=== PATIENT | male | born 1955 | race Caucasian/White ===

== ENCOUNTER 2020-02-16 15:32 | Outpatient (REF) | payer MEDICARE, MEDICAID, SELFPAY | END 2020-02-16 15:33 | disposition home or self-care (01) | LOC: HO.HAP 15:32 | PROVIDERS: PCP Internal Medicine; Referring Provider Internal Medicine; Visit Provider Internal Medicine | DX: Z13.89 Encounter for screening for other disorder (principal) | CPT/HCPCS: 92700 ==

== ENCOUNTER 2020-03-06 07:34 | Day surgery (SDC) | payer MEDICARE, MEDICAID, SELFPAY ==
[2020-03-06] VITALS (8 sets, daily range): BP systolic 101–118; BP diastolic 62–74; PULSE 60–80; RESP 16–18; TEMP 36.3; O2SAT 94–96; BMI 25.1
--- NOTE | 2020-03-06 | US_ITS ---
EXAMINATION: ULTRASOUND-GUIDED LIVER BIOPSY CLINICAL INFORMATION: History of hepatocellular carcinoma with new liver lesion COMPARISON: Outside CT scans of the abdomen and pelvis most recent December 2019 TECHNIQUE: Procedure and risks and benefits including bleeding, and infection were discussed with the patient and informed consent was obtained. The patient was positioned in the slight left decubitus position. The right upper quadrant was prepped and draped in the usual sterile fashion. The skin and soft tissues were anesthetized with 1% lidocaine plain. Using ultrasound guidance and a coaxial system, access to a 1 x 1.5 cm lesion in the right lobe of the liver was obtained. 4 20-gauge core biopsies were obtained. There is no complication. The patient received Versed 1.5 mg and fentanyl 75 mcg intravenously during the procedure. Total sedation time was 32 minutes. FINDINGS: The liver appears cirrhotic. Liver lesions seen by CT scan are difficult to appreciate by ultrasound. A 1 x 1.5 cm peripheral hypoechoic lesion in the inferior right lobe of the liver was targeted for biopsy. US/US guide needle placement IMPRESSION: Ultrasound-guided liver biopsy.
--- NOTE | 2020-03-06 08:04 | PC.NURSE ---
called lab for a blood draw.
--- NOTE | 2020-03-06 08:38 | US_ITS ---
EXAMINATION: ULTRASOUND-GUIDED LIVER BIOPSY CLINICAL INFORMATION: History of hepatocellular carcinoma with new liver lesion COMPARISON: Outside CT scans of the abdomen and pelvis most recent December 2019 TECHNIQUE: Procedure and risks and benefits including bleeding, and infection were discussed with the patient and informed consent was obtained. The patient was positioned in the slight left decubitus position. The right upper quadrant was prepped and draped in the usual sterile fashion. The skin and soft tissues were anesthetized with 1% lidocaine plain. Using ultrasound guidance and a coaxial system, access to a 1 x 1.5 cm lesion in the right lobe of the liver was obtained. 4 20-gauge core biopsies were obtained. There is no complication. The patient received Versed 1.5 mg and fentanyl 75 mcg intravenously during the procedure. Total sedation time was 32 minutes. FINDINGS: The liver appears cirrhotic. Liver lesions seen by CT scan are difficult to appreciate by ultrasound. A 1 x 1.5 cm peripheral hypoechoic lesion in the inferior right lobe of the liver was targeted for biopsy. US/US biopsy liver IMPRESSION: Ultrasound-guided liver biopsy.
[2020-03-06 08:47] LABS: Prothrombin Time 11.8 SEC (10.8-13.0)
--- NOTE | 2020-03-06 10:15 | HO.RADPN ---
RADIOLOGY Narrative Narrative: Right lobe liver biopsy performed using coaxial system. 4 20 guage core biopsies obtained. No comlication.
[2020-03-06] MEDS: oxyCODONE HCl Immed Release 5 MG TABLET PO (10:46)
== END 2020-03-06 23:59 | disposition home or self-care (01) ==
PROVIDERS: Radiology Diagnostic Radiology; PCP Internal Medicine; Visit Provider Internal Medicine
DX: K74.60 Unspecified cirrhosis of liver (principal); B18.2 Chronic viral hepatitis C; Z85.05 Personal history of malignant neoplasm of liver; Z90.49 Acquired absence of other specified parts of digestive tract; Z90.81 Acquired absence of spleen
CPT/HCPCS: 36415; 47000; 76942; 85610; 85730; 88307; 88313; 99152; J2250; J3010

== ENCOUNTER 2020-03-08 13:35 | Outpatient (REF) | payer MEDICARE, MEDICAID, SELFPAY ==
--- NOTE | 2020-02-29 17:10 | MHC.HEMONC ---
LIVER BX - Pt scheduled for US guided liver bx for Friday @ 9am here at [facility]. Transportation to this visit will be provided by his community center director, Ana Jose R @ [phone]. They received all instructions from US/IR department re: NPO orders. Jessika Leyva, his VNA nurse from [facility], , will remove Plavix and ASA from his med box 5 days prior to this bx. Per Dr. Lanre meléndez V.O. to resume Plavix and ASA the following day was relayed to Jessika.
== END 2020-03-08 13:36 | disposition home or self-care (01) ==
LOC: HO.HAP 13:35
PROVIDERS: PCP Internal Medicine; Referring Provider Internal Medicine; Visit Provider Internal Medicine
DX: Z13.89 Encounter for screening for other disorder (principal)
CPT/HCPCS: 92700

== ENCOUNTER 2020-03-28 12:13 | Outpatient (REF) | payer MEDICARE, MEDICAID, SELFPAY ==
--- NOTE | 2020-03-28 12:20 | XR_ITS ---
EXAMINATION: ABDOMEN AND SKULL. CLINICAL INFORMATION: The MRI. COMPARISON: Chest 09/24/2018 TECHNIQUE: Skull 2 views. Abdomen one view. FINDINGS: ABDOMEN: There are multiple surgical mayuri in right upper quadrant likely from previous cholecystectomy or other intervention. There are small coils seen along the the anterior abdominal wall from hernia repair and mesh placement. No additional radiopaque foreign body visualized. There is moderate stool in the colon. There is bilateral L4-L5 facet joint arthropathy.. SKULL: No radiopaque foreign body seen in the skull or the orbits. Patient is almost completely edentulous. XR/XR skull <4V IMPRESSION: Surgical mayuri in the right upper quadrant likely from cholecystectomy of intervention. They were present on the previous chest x-ray 09/24/2018 There is anterior abdominal wall hernia repair with mesh in place.
--- NOTE | 2020-03-28 12:20 | XR_ITS ---
EXAMINATION: ABDOMEN AND SKULL. CLINICAL INFORMATION: The MRI. COMPARISON: Chest 09/24/2018 TECHNIQUE: Skull 2 views. Abdomen one view. FINDINGS: ABDOMEN: There are multiple surgical mayuri in right upper quadrant likely from previous cholecystectomy or other intervention. There are small coils seen along the the anterior abdominal wall from hernia repair and mesh placement. No additional radiopaque foreign body visualized. There is moderate stool in the colon. There is bilateral L4-L5 facet joint arthropathy.. SKULL: No radiopaque foreign body seen in the skull or the orbits. Patient is almost completely edentulous. XR/XR abdomen 1V IMPRESSION: Surgical mayuri in the right upper quadrant likely from cholecystectomy of intervention. They were present on the previous chest x-ray 09/24/2018 There is anterior abdominal wall hernia repair with mesh in place.
--- NOTE | 2020-03-28 12:20 | XR_ITS ---
EXAMINATION: XR CHEST CLINICAL INFORMATION: Pre-MRI. Rule out foreign body COMPARISON: None TECHNIQUE: Frontal view of the chest was obtained. FINDINGS: The lungs are well-expanded and hyperinflated. No acute pneumonic process seen. No radiopaque foreign body. There is diffuse left lateral pleural thickening. Heart size and pulmonary vascularity is normal. No gross bony abnormality. XR/XR chest 1V IMPRESSION: No radiopaque foreign body seen. Hyperinflated lungs with chronic left lateral pleural thickening. No acute cardiopulmonary process seen.
--- NOTE | 2020-03-28 12:21 | MR_ITS ---
EXAMINATION: MR ABDOMEN WITHOUT AND WITH CONTRAST CLINICAL INFORMATION: History hepatocellular carcinoma status post partial right hepatectomy. New hepatic lesions on outside CT. Ultrasound-guided liver biopsy 03/06/2020 (fragments of liver parenchyma with chronic hepatitis with mild inflammatory activity, grade 1, and bridging fibrosis. No steatosis, no hepatocellular carcinoma). COMPARISON: Ultrasound-guided liver biopsy 03/06/2020, outside CT abdomen and pelvis with contrast 12/15/2019 ([facility]). TECHNIQUE: MR abdomen was performed without and with use of 9 mL intravenous Gadavist gadolinium contrast. Postcontrast images are performed in multiphase dynamic sequences. Imaging was performed in 3 planes. FINDINGS: LUNG BASES: The lung bases are clear. LIVER, GALLBLADDER, AND BILIARY TREE: The liver is normal in size and smooth in contour. There are postsurgical changes anterior right lobe with some blooming artifact from surgical clips consistent with the partial hepatectomy. There is been prior cholecystectomy as well. No biliary ductal dilatation. Common duct unremarkable. There are 4 small hepatic lesions under 2 cm suspicious for multifocal hepatocellular carcinoma as follows: 1. Anterior left lobe (S8/33) - 1.8 cm, iso T2, delayed washout with peripheral rim enhancement. 2. Central right lobe (S8/45) - 1.8 cm, high T2, arterial phase enhancement with delayed washout and rim enhancement. 3. Medial right lobe (S8/51) - 1.5 cm, slight T2, arterial phase enhancement with delayed washout and rim enhancement. 4. Inferior medial right lobe (S8/68) - 1.3 cm, slight T2, arterial phase enhancement with delayed washout and rim enhancement. There is a 5th lesion inferior subcapsular right lobe under 2 cm nonspecific with high signal T2, and delayed peripheral enhancement. This may represent a hemangioma. There is also a peripheral wedge-shaped CALOS lesion from portovenous shunting anterolateral right lobe (S100/11). PANCREAS/SPLEEN: Prior splenectomy. Pancreas normal in size and uniform in signal and enhancement. No pancreatic ductal distention. There is a lesion left subphrenic space adjacent to superior aspect pancreatic tail which enhances greater than the spleen, possibly regenerative splenic tissue. This is similar to outside CT and measures approximately 2.7 x 2.2 x 1.3 cm. ADRENAL GLANDS: Unremarkable KIDNEYS AND URETERS: Unremarkable GASTROINTESTINAL TRACT: No bowel obstruction. No ascites or fluid collection. ABDOMINAL WALL: Upper abdominal ventral hernia containing nonobstructed small bowel and mesenteric fat, 2.1 x 4.4 cm. LYMPH NODES: Node gastrohepatic ligament 1.0 cm (S102/28), celiac node 1.4 cm (S102/38) left subphrenic node 0.9 cm (S102/36), node left of SMA 0.8 cm S102/49). VASCULAR: Fusiform mid abdominal aortic ectasia 2.7 x 2.5 cm. Hepatic veins and portal vein patent. OSSEOUS STRUCTURES: Marrow signal normal. MR/MR abdomen wo/w con IMPRESSION: 1. Small hepatic lesions under 2 cm consistent with multifocal hepatocellular carcinoma 3 of which have slight T2 signal, arterial phase enhancement, and delayed washout with rim enhancement. Portal vein and hepatic veins patent. No ascites. 2. Status post partial hepatectomy, splenectomy, and cholecystectomy. Probable regenerative splenic tissue left subphrenic space. 3. Several nodes upper abdomen, largest 1.4 cm.
== END 2020-03-28 12:14 | disposition home or self-care (01) ==
LOC: HO.MRI 12:13
PROVIDERS: Visit Provider Internal Medicine
DX: C22.0 Liver cell carcinoma (principal)
CPT/HCPCS: 70250; 71045; 74018; 74183; A9585

== ENCOUNTER → 2020-04-20 11:55 | Outpatient (BNVA) | payer MEDICARE, MEDICAID, SELFPAY | PROVIDERS: PCP Internal Medicine; Visit Provider Physician Assistant | DX: C22.0 Liver cell carcinoma (principal) | CPT/HCPCS: Q3014 ==

== ENCOUNTER 2020-04-25 09:33 | Day surgery (SDC) | payer MEDICARE, MEDICAID, SELFPAY ==
--- NOTE | 2020-04-24 10:44 | HO.ANESPROP2 ---
HPI - Anesthesia Eval Consult details Narrative: 65yo M for Upper Endoscopy Surveilence prior to chemo with high bleed risk. *plavix* PMFSH Past Medical History Medical History (Updated 04/25/20 @ 12:11 by Aaliyah Downs MD) CVA (cerebral vascular accident) Hepatitis C Hepatocellular carcinoma History of alcohol abuse Liver cirrhosis Family History Family History Father No problems noted. Mother No problems noted. Family/Other FH: mental illness Surgical History Surgical History (Updated 04/24/20 @ 11:51 by Sabrina Garsia) H/O resection of liver (~04/2017) History of splenectomy No pertinent past surgical history Social History Social History Alcohol intake: former Smoking Status: Current every day smoker Tobacco Type: Cigarette Use of substances other than those prescribed or required for medical reasons: No Advance Directives: No Advance Directives Information Provided: No Advance Directives on File: No Meds Allergies Allergy/AdvReac Type Severity Reaction Status Date / Time No Known Allergies Allergy Verified 01/31/20 10:42 Home Medications Medication Instructions Recorded Confirmed Type clonazepam 1 mg tablet 1 mg PO TID PRN 02/01/20 04/20/20 History quetiapine 150 mg tablet,extended 150 mg PO BEDTIME 02/01/20 02/23/20 History release 24 hr sertraline 100 mg tablet 200 mg PO DAILY 02/01/20 04/20/20 History Esgic 50 - 325 mg PO TID PRN 02/24/20 02/24/20 History aspirin 81 mg PO DAILY 02/24/20 04/20/20 History quetiapine 1 tab PO BEDTIME 02/24/20 02/24/20 History divalproex 500 mg PO DAILY 04/12/20 04/20/20 History melatonin 3 mg PO BEDTIME PRN 04/12/20 04/20/20 History multivitamin 1 tab PO DAILY 04/12/20 04/20/20 History Exam Exam Date and Time: April 24, 2020 1044 Pertinent Lab Results Pertinent Lab Results: Laboratory Tests 02/23/20 02/23/20 02/23/20 14:45 14:45 14:45 WBC 10.0 Hgb 15.8 Hct 47.1 Plt Count 345 PT INR APTT Sodium 140 Potassium 4.9 Chloride 102 Carbon Dioxide 30 H BUN 9 Creatinine 0.81 Total Bilirubin 0.6 AST 21 ALT 10 Alkaline Phosphatase 179 H Total Protein 8.0 Albumin 4.1 Alpha Fetoprotein 86.4 H Carcinoembryonic Ag 1.90 Hep B Viral Load Log Hep C Viral Load 02/23/20 03/06/20 14:45 08:24 WBC Hgb Hct Plt Count PT 11.8 INR 1.0 APTT 40.0 H Sodium Potassium Chloride Carbon Dioxide BUN Creatinine Total Bilirubin AST ALT Alkaline Phosphatase Total Protein Albumin Alpha Fetoprotein Carcinoembryonic Ag Hep B Viral Load Log <1.18 NOT DETECTED Hep C Viral Load <15 NOT DETECTED Assessment and Plan Assessment Anesthesia Assessment: Chart Reviewed
[2020-04-24 10:55] VITALS: BMI 24.5
[2020-04-25 11:07] VITALS: BP 112/74; PULSE 61; RESP 18; TEMP 36.2; O2SAT 93
[2020-04-25] MEDS: Albuterol Sulfate (0.083%) 2.5 MG/3 ML VIAL.NEB INHALE (11:20)
--- NOTE | 2020-04-25 11:23 | W.PM.OPN ---
Operative Note Operative Note Date of Service: 04/25/20 Narrative: Pre-op diagnosis: HCC - Screen for PUD/varices Post-op diagnosis: other (Gastritis, GERD, hiatal hernia) Procedure: FLEXIBLE TRANSORAL UPPER GASTROINTESTINAL ENDOSCOPY WITH BIOPSIES Consent: Indications for the procedure and potential complications of bleeding, perforation, reaction to medications and missed diagnosis were discussed with the patient and informed consent was obtained. Instrument: Olympus GIF H 190 mid size upper endoscope Monitoring: Vital signs and clinical assessment, continuous EKG monitoring, Pulse oximetry, Carbon Dioxide monitoring and blood pressure monitoring were done throughout the procedure. Procedure: The patient was placed in the left lateral decubitis position and pre-procedure medications were administered and a bite block was placed. The endoscope was inserted into the mouth and advanced under direct vision to the third part of duodenum. A careful inspection was made as the upper endoscope was withdrawn including a retroflexed examination of the proximal stomach; Findings and interventions are described below. Findings: Larynx: Normal Esophagus: Tortuous esophagus with increased tertiary contractions with minimal focal esophagitis at GE junction. No esophageal varices were detected. GE junction at 35 cms, small hiatal hernia 35 to 38 cms. Stomach: Mild gastric erythema with a few 1-2 mm antral erosions - biopsies were obtained. No gastric varices noted and Grade 3 flap valve on retroflexed examination of the cardia. Duodenum: Normal bulb and descending duodenum Intervention: Biopsies as noted above Impression and Post Procedure Diagnosis: Endoscopy Findings: ESOPHAGUS: Tortuous esophagus with increased tertiary contractions with minimal focal esophagitis at GE junction. GE junction at 35 cms, small hiatal hernia 35 to 38 cms. STOMACH: Antral gastritis with a few small erosions and no ulcers noted DUODENUM: Normal No potential source found which could place patient at risk of UGI bleeding while on Avastin. Plan: Await pathology results Patient to schedule a FU appt in the GI Clinic with MOISES Emanuel. Handouts on GERD and Gastritis were given in the discharge area Surgeon: Aaliyah Downs MD Anesthesia: MAC (Dr Shea) Estimated blood loss (mL): 0 Pathology: other (A. Gastric antrum) Condition: stable Disposition: PACU
--- NOTE | 2020-04-25 11:23 | MHC.SHP ---
Pre-Procedural Eval Section A The patient is an INPATIENT: No Changes since office visit: Yes Patient answered all questions; No Cold of Flu in the past 2 weeks and No New Medical Problems The History & Physical has been completed within 30 days and I have reviewed it.: Yes Section B Chief Complaint: anemia Allergies: Allergies Allergy/AdvReac Type Severity Reaction Status Date / Time No Known Allergies Allergy Verified 01/31/20 10:42 Plan I have reviewed the history and physical and performed a pertinent physical examination on my patient. No changes have occurred unless specified.
[2020-04-25] MEDS: Lactated Ringers 1,000 ML 50 ML IVCONT (11:40)
[2020-04-25 12:05] VITALS: BP 104/58; PULSE 66; RESP 14; TEMP 36.2; O2SAT 95
[2020-04-25 12:20] VITALS: BP 109/59; PULSE 62; RESP 17; TEMP 36.1; O2SAT 96
== END 2020-04-25 13:07 | disposition home or self-care (01) ==
PROVIDERS: PCP Internal Medicine; Visit Provider Internal Medicine Gastroenterology
PROC: 0DJ08ZZ Inspection of Upper Intestinal Tract, Via Natural or Artificial Opening Endoscopic (ICD-10-PCS; CPT 43235; principal; 2020-04-25 10:50)
DX: D64.9 Anemia, unspecified (principal); K29.50 Unspecified chronic gastritis without bleeding; K21.9 Gastro-esophageal reflux disease without esophagitis; K44.9 Diaphragmatic hernia without obstruction or gangrene; C22.0 Liver cell carcinoma; B19.20 Unspecified viral hepatitis C without hepatic coma; K74.60 Unspecified cirrhosis of liver; F17.210 Nicotine dependence, cigarettes, uncomplicated; Z79.899 Other long term (current) drug therapy; Z79.82 Long term (current) use of aspirin; Z86.73 Personal history of transient ischemic attack (TIA), and cerebral infarction without residual deficits
CPT/HCPCS: 43239; 88305; 88342

== ENCOUNTER 2020-05-30 10:32 | Outpatient (REF) | payer MEDICARE, MEDICAID, SELFPAY ==
[2020-05-30 11:36] LABS: Basophils Absolute Auto 0.1 X10*3/uL (0.0-0.2); Basophils Percent Auto 1.1 % (0-2); Eosinophils Absolute Auto 0.5 X10*3/uL (0.0-0.4); Eosinophils Percent Auto 4.9 % (0-4); Hematocrit 46.7 % (42-52); Hemoglobin 15.4 g/dl (14.0-18.0); Imm Gran Abs Auto 0.02 X10*3/uL (0.00-0.03); Imm Gran Pct Auto 0.2 % (0.0-0.4); Lymphocytes Absolute Auto 5.8 X10*3/uL (1.2-4.9); Lymphocytes Percent Auto 53.7 % (20-40); MANUAL DIFF FLAG SCAN; Mean Corpuscular Hemoglobin 32.4 pg (27.0-33.0); Mean Corpuscular Volume 98.3 fL (80-98); Mean Platelet Volume 9.2 fL (9.4-12.4); Monocytes Absolute Auto 0.9 X10*3/uL (0.1-1.2); Monocytes Percent Auto 8.2 % (2-11); Neutrophils Absolute Auto 3.5 X10*3/uL (2.0-8.3); Neutrophils Percent Auto 31.9 % (45-73); Platelet Count 366 X10*3/uL (160-400); Red Blood Count 4.75 X10*6/uL (4.60-5.80); Red Cell Distribution Width 14.1 % (11.0-16.0); SCAN SMEAR FLAG 1; White Blood Count 10.8 X10*3/uL (4.8-10.8)
[2020-05-30 11:48] LABS: Alanine Aminotransferase 6 U/L (0-40); Albumin Level 4.1 g/dL (3.5-5.0); Alkaline Phosphatase 128 U/L (39-117); Anion Gap 15 (12-20); Aspartate Amino Transferase 15 U/L (5-37); Bilirubin Total 0.4 mg/dL (0.0-1.0); Blood Urea Nitrogen 9 mg/dL (9-16); Calcium 9.8 mg/dL (8.4-10.2); Carbon Dioxide 28 mmol/L (22-29); Chloride 104 mmol/L (96-108); Estimated Glomerular Filt Rate > 60; Glucose Random 96 mg/dL (60-115); Magnesium 2.1 mg/dL (1.6-2.6); Potassium 4.9 mmol/L (3.3-5.1); Sodium 142 mmol/L (135-145); Total Protein 8.3 g/dL (6.5-8.0)
[2020-05-30 12:51] LABS: SLIDE REVIEW VERIFIED
== END 2020-05-30 10:33 | disposition home or self-care (01) ==
LOC: HO.LAB 10:32
PROVIDERS: Visit Provider Internal Medicine
DX: C22.0 Liver cell carcinoma (principal)
CPT/HCPCS: 36415; 80053; 83735; 85025

== ENCOUNTER 2020-06-08 11:43 | Outpatient (REF) | payer MEDICARE, MEDICAID, SELFPAY | END 2020-06-08 11:44 | disposition home or self-care (01) | LOC: HO.HAP 11:43 | PROVIDERS: Visit Provider Internal Medicine | DX: Z46.1 Encounter for fitting and adjustment of hearing aid (principal); H90.3 Sensorineural hearing loss, bilateral | CPT/HCPCS: 92593; 99499 ==

== ENCOUNTER 2020-06-15 11:18 | Outpatient (REF) | payer MEDICARE, MEDICAID, SELFPAY | END 2020-06-15 11:19 | disposition home or self-care (01) | LOC: HO.HAP 11:18 | PROVIDERS: Visit Provider Internal Medicine | DX: Z13.89 Encounter for screening for other disorder (principal) ==

== ENCOUNTER 2020-07-11 10:45 | Outpatient (REF) | payer MEDICARE, MEDICAID, SELFPAY ==
[2020-07-11 11:27] LABS: MANUAL DIFF FLAG NO
[2020-07-11 11:38] LABS: Basophils Absolute Auto 0.1 X10*3/uL (0.0-0.2); Basophils Percent Auto 1.3 % (0-2); Eosinophils Absolute Auto 0.3 X10*3/uL (0.0-0.4); Eosinophils Percent Auto 4.3 % (0-4); Hemoglobin 15.6 g/dl (14.0-18.0); Imm Gran Abs Auto 0.01 X10*3/uL (0.00-0.03); Imm Gran Pct Auto 0.1 % (0.0-0.4); Lymphocytes Absolute Auto 4.2 X10*3/uL (1.2-4.9); Lymphocytes Percent Auto 52.4 % (20-40); Mean Corpuscular HGB Conc 33.2 g/dl (31.0-36.0); Mean Corpuscular Hemoglobin 32.6 pg (27.0-33.0); Mean Corpuscular Volume 98.1 fL (80-98); Mean Platelet Volume 9.8 fL (9.4-12.4); Monocytes Absolute Auto 0.9 X10*3/uL (0.1-1.2); Neutrophils Absolute Auto 2.5 X10*3/uL (2.0-8.3); Neutrophils Percent Auto 30.9 % (45-73); Platelet Count 317 X10*3/uL (160-400); Red Blood Count 4.79 X10*6/uL (4.60-5.80); Red Cell Distribution Width 14.1 % (11.0-16.0)
[2020-07-11 11:49] LABS: Glucose Urine UA NEG (NEG); Leukocyte Esterase Urine 1+ (NEG); Nitrite Urine NEG (NEG); PH 6.5 (5.0-8.0); Urine Blood NEG (NEG); Urine Ketones NEG (NEG); Urine Protein NEG (NEG-TRACE)
[2020-07-11 12:03] LABS: Alanine Aminotransferase 10 U/L (0-40); Albumin Level 3.9 g/dL (3.5-5.0); Alkaline Phosphatase 125 U/L (39-117); Anion Gap 16 (12-20); Aspartate Amino Transferase 24 U/L (5-37); Bilirubin Total 0.8 mg/dL (0.0-1.0); Blood Urea Nitrogen 13 mg/dL (9-16); Calcium 9.7 mg/dL (8.4-10.2); Carbon Dioxide 29 mmol/L (22-29); Chloride 103 mmol/L (96-108); Estimated Glomerular Filt Rate > 60; Glucose Random 94 mg/dL (60-115); Magnesium 2.1 mg/dL (1.6-2.6); Potassium 4.5 mmol/L (3.3-5.1); Sodium 143 mmol/L (135-145); Total Protein 7.7 g/dL (6.5-8.0)
[2020-07-11 12:06] LABS: Appearance Urine HAZY; Color Urine YELLOW
[2020-07-11 12:22] LABS: RBC Urine 0 /HPF (0)
[2020-07-11 12:23] LABS: Hyaline Casts Urine 0-2 /LPF; Mucus Urine 1+ /LPF
== END 2020-07-11 10:46 | disposition home or self-care (01) ==
LOC: HO.LAB 10:45
PROVIDERS: Visit Provider Internal Medicine
DX: C22.0 Liver cell carcinoma (principal)
CPT/HCPCS: 36415; 80053; 81001; 82105; 83735; 85025

== ENCOUNTER 2020-07-17 15:03 | Outpatient (REF) | payer MEDICARE, MEDICAID, SELFPAY ==
--- NOTE | ~2020-07-17 | MR_ITS ---
EXAMINATION: MR ABDOMEN WITHOUT AND WITH CONTRAST CLINICAL INFORMATION: Hepatocellular carcinoma. Assess response to treatment. COMPARISON: Previous abdominal MRI March 2020 TECHNIQUE: MR abdomen was performed without and with use of 8.5 mL intravenous Gadavist gadolinium contrast. Postcontrast images are performed in multiphase dynamic sequences. Imaging was performed in 3 planes. FINDINGS: LUNG BASES: The visualized lung bases are unremarkable. LIVER, GALLBLADDER, AND BILIARY TREE: There are postsurgical changes to the anterior right lobe of the liver with signal artifact from surgical clips. There is evidence of mild cirrhotic change of the liver. There are 5 focal liver lesions seen. There is a lesion seen superior to the surgical mayuri probably involving the medial segment of the left lobe and the anterior segment of the right lobe. This is heterogeneous in signal on T1-weighted sequences, predominantly low signal with medial high signal component, increased signal on T2-weighted sequences, and demonstrates delayed peripheral enhancement. This is somewhat irregular in shape and difficult to measure. This measures 2.3 x 4 cm in AP and transverse dimension postcontrast image 36 series 102. By my measurement, this measured 1.9 x 3.6 cm on the March 2020 exam and is slightly increased in size. There is a round lesion in the central right lobe of the liver. This is slightly low signal on T1-weighted sequences and high signal on T2-weighted sequences. This demonstrates delayed peripheral enhancement. This measures 2.4 cm axial image 46 series 102 postcontrast and does not appear changed. There is a low-attenuation lesion in the right lobe of the liver. This is low signal on T1 and high signal on T2-weighted sequences. This demonstrates delayed peripheral enhancement. This measures 1.9 cm axial image 69 series 102. By my measurement, this measured 1.7 cm on the March 2020 exam and is slightly increased in size. There is a lesion in the right lobe of the liver. This is low signal on T1-weighted sequences and high signal on T2-weighted sequences and demonstrates delayed peripheral enhancement. This measures 1 x 1.6 cm axial image 60 series 102 postcontrast. This was not appreciated on previous exam and may be new. There is a lesion in the posterior segment of the right lobe of the liver. This is low signal on T1, high signal on T2-weighted sequences and demonstrates delayed peripheral enhancement. This measures 2.1 cm x 2.2 axial image 73 series 8. By my measurement, this measured 1.5 x 2.1 cm on the March 2020 exam and is increased. There is an area of early arterial phase enhancement seen in the peripheral anterior segment of the right lobe of the liver postcontrast. This is similar in signal to the rest of the liver on all other sequences and again probably represents a transient perfusion effect. The hepatic veins and portal veins are patent. PANCREAS: Unremarkable. SPLEEN: Normal. ADRENAL GLANDS: Normal. KIDNEYS AND URETERS: The kidneys are normal in size, shape, and enhance symmetrically. No hydronephrosis. No perinephric stranding. GASTROINTESTINAL TRACT: No bowel obstruction. No ascites or fluid collection. ABDOMINAL WALL: There is a small umbilical hernia containing small bowel. LYMPH NODES: There are small cardiophrenic angle or anterior diaphragmatic lymph nodes. There are small periportal and gastrohepatic space lymph nodes. These do not appear appreciably changed. There is no ascites. VASCULAR: There is mild ectasia of the lower abdominal aorta that appears unchanged. OSSEOUS STRUCTURES: Marrow signal normal. MR/MR abdomen wo/w con IMPRESSION: There is slight interval increase in size in 3 of 4 previously identified liver lesions and identification of a new liver lesion suggestive of progression of disease. There are small periportal and gastrohepatic space and anterior diaphragmatic lymph nodes that are stable. Small umbilical hernia containing loop of small bowel.
== END 2020-07-17 15:04 | disposition home or self-care (01) ==
LOC: HO.MRI 15:03
PROVIDERS: Visit Provider Internal Medicine
DX: C22.0 Liver cell carcinoma (principal)
CPT/HCPCS: 74183; A9585

== ENCOUNTER 2020-11-13 07:56 | Outpatient (REF) | payer MEDICARE, MEDICAID, SELFPAY ==
--- NOTE | ~2020-11-13 | CT_ITS ---
EXAMINATION: CT ABDOMEN AND PELVIS WITH CONTRAST CLINICAL INFORMATION: Restaging liver cancer. COMPARISON: MR abdomen 07/17/2020 TECHNIQUE: Multidetector volumetric images were obtained from the superior aspect of the liver through the pubic symphysis following administration 85 mL of Omnipaque 350 intravenous contrast. Sagittal and coronal reformatted images were obtained on the technologist's workstation. Oral contrast: No This CT examination was performed using dose optimization techniques as appropriate, variously including the following: *Automated exposure control *Adjustment of mA and/or kV according to patient size (this includes techniques or standardized protocols for targeted exams where dose is matched to indication/reason for exam; i.e. extremities or head) *Use of iterative reconstruction technique DLP: 286 mGy-cm FINDINGS: LUNG BASES: Minimal atelectatic changes and pleural thickening seen along the lingula and right middle lobe. The heart size is normal. LIVER, GALLBLADDER, AND BILIARY TREE: The liver is diffusely attenuated but several hypodense lesions. There is a hypodense heterogeneous lesion in the left hepatic lobe medial segment measuring 3.7 x 2.8 cm axial image 12/3, heterogenous lesion in the right hepatic lobe centrally with central hypodensity with lesion measuring 2.5 x 2.4 cm on axial image 16/3. A third hypodense lesion in the right hepatic lobe medially measures 2.3 x 1.8 cm on axial image 18/3. A fourth lesion in the most inferior segment of right hepatic lobe measures 1.9 x 1.3 cm on axial image 29/3. There are several additional hypodense areas scattered in the right hepatic lobe on axial image 23/3. No intrahepatic ductal dilatation seen. The gallbladder has been surgically removed. PANCREAS: Unremarkable. SPLEEN: The spleen is not visualized and likely surgically removed. ADRENAL GLANDS: Unremarkable. KIDNEYS AND URETERS: The kidneys are normal in size, shape, and attenuation. No hydronephrosis, hydroureter, or calculi seen. No perinephric stranding. BLADDER: Unremarkable. GASTROINTESTINAL TRACT: There is moderate stool seen throughout the right colon without distention. Oral contrast-filled small bowel loops are normal caliber. Appendix is normal caliber. No obstruction seen. ABDOMINAL WALL: None. LYMPH NODES: Normal. VASCULAR: Mild ectasia of the abdominal aorta measuring 2.6 x 2.5 cm in mid abdomen at the level of the L3 vertebra. PELVIC VISCERA: The prostate gland is normal sized. No abnormal pelvic lymph nodes or mass seen. OSSEOUS STRUCTURES: No lytic or sclerotic process seen. There are degenerative disc changes at the L5-S1 disc levels with mild spondylosis. CT/CT abdomen pelvis w con IMPRESSION: Heterogeneous liver with multiple hypodense liver lesions suggestive of metastatic disease. These are better visualized on the MRI performed earlier. No abnormal lymphadenopathy is seen. Mild ectasia of the mid abdominal aorta measuring 2.5 x 2.6 cm.
[2020-11-13] MEDS: iohexoL 350 MG/ML 100 ML INFUS..BTL 85 ML IV (09:04)
== END 2020-11-13 07:57 | disposition home or self-care (01) ==
LOC: HO.CT 07:56
PROVIDERS: PCP Internal Medicine; Visit Provider Internal Medicine
DX: C22.0 Liver cell carcinoma (principal)
CPT/HCPCS: 74177; Q9967

== ENCOUNTER 2021-02-07 13:31 | Outpatient (REF) | payer MEDICARE, MEDICAID, SELFPAY ==
--- NOTE | ~2021-02-07 | CT_ITS ---
EXAMINATION: CT ABDOMEN AND PELVIS WITH CONTRAST CLINICAL INFORMATION: Restaging liver cancer COMPARISON: Previous CT of the abdomen and pelvis November 2020 and MRI of the abdomen July 2020 TECHNIQUE: Multidetector volumetric images were obtained from the superior aspect of the liver through the pubic symphysis following administration 85 mL of Omnipaque 350 intravenous contrast. Sagittal and coronal reformatted images were obtained on the technologist's workstation. Oral contrast: Yes This CT examination was performed using dose optimization techniques as appropriate, variously including the following: *Automated exposure control *Adjustment of mA and/or kV according to patient size (this includes techniques or standardized protocols for targeted exams where dose is matched to indication/reason for exam; i.e. extremities or head) *Use of iterative reconstruction technique DLP: 297 mGy-cm FINDINGS: LUNG BASES: There are new clustered nodules in the left lower lobe adjacent to the diaphragm. Largest nodule measures 0.6 x 1.2 cm axial image 69 series 4. There is a scarring or subsegmental atelectasis at the lung bases. There are several cysts in the left lower lobe. LIVER, GALLBLADDER, AND BILIARY TREE: There are mild cirrhotic changes of the liver. There are postsurgical changes to the left lobe. There is interval increase in size and number of liver lesions. Largest lesion in the left lobe of the liver measures 3.8 x 3.9 cm axial image 6 series 3 compared to 2.8 x 3.7 cm November 2020. Lesion in the posterior segment of the right lobe the liver measures 2.6 x 3 cm axial image 13 series 3 compared to 2.4 x 2.5 cm on November 2020 exam. Lesion in the posterior segment of the right lobe of the liver measures 2.1 cm axial image 16 series 3 compared to 1.5 cm November 2020 exam. Ill-defined lesion in the inferior right lobe of the liver measuring approximately 1.5 x 2 cm axial image 25 series 3 is difficult to visualize and compare. There are numerous new small low-attenuation areas in the liver concerning for progression of disease. For example, measuring 5 mm in the peripheral left lobe axial image 6 recent 3, 8 mm in the central liver axial image 9 series 3. The gallbladder is been removed. There is no biliary duct dilatation. PANCREAS: Unremarkable. SPLEEN: The spleen may have been removed. There may be the residual splenic tissue under the left hemidiaphragm measuring 1 x 3 cm axial image 11 series 3 that appears unchanged. ADRENAL GLANDS: Unremarkable. KIDNEYS AND URETERS: The kidneys are normal in size, shape, and attenuation. No hydronephrosis, hydroureter, or calculi seen. No perinephric stranding. BLADDER: Unremarkable. GASTROINTESTINAL TRACT: There is stool throughout the colon questionable for constipation. There is a probable wall hernia containing transverse colon and small bowel. There is no evidence of obstruction. The small and large bowel are otherwise normal. The appendix is normal. The stomach is normal. ABDOMINAL WALL: There is a ventral hernia repair with mesh. Superior to the mesh is a ventral hernia containing transverse colon and small bowel. There is no evidence of obstruction. LYMPH NODES: There are enlarged right cardiophrenic angle or anterior diaphragmatic lymph nodes that appear increased. Largest measures 8 x 16 m m axial image 3 series 3. There is an enlarged periportal lymph node that measures 2.4 x 3.6 cm axial image 14 series 3 and 2 1.9 x 3.3 cm on November 2020 exam. There is an enlarged gastrohepatic space lymph nodes, largest measuring 1.2 x 1.8 cm axial image 11 series 3. VASCULAR: There is evidence of atherosclerotic disease. No aneurysm is seen. The portal vein and hepatic veins are patent. PELVIC VISCERA: Unremarkable. OSSEOUS STRUCTURES: There are degenerative changes of the spine and mild scoliosis. There are old left pelvic fractures. CT/CT abdomen pelvis w con IMPRESSION: Interval increase in size and number of liver lesions suggestive of progression of disease. Increasing periportal, gastrohepatic space and right anterior diaphragmatic adenopathy. New clustered left lower lobe nodules, largest measuring 6 x 12 mm. Infectious inflammatory and neoplastic processes should be considered. Small ventral hernia containing colon and small bowel superior to the dominant wall mesh. Stool throughout the colon questionable for constipation. 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
[2021-02-07] MEDS: iohexoL 350 MG/ML 100 ML INFUS..BTL IV (15:10)
== END 2021-02-07 13:32 | disposition home or self-care (01) ==
LOC: HO.CT 13:31
PROVIDERS: PCP Internal Medicine; Visit Provider Internal Medicine
DX: C22.0 Liver cell carcinoma (principal)
CPT/HCPCS: 74177; Q9967

== ENCOUNTER 2021-03-28 14:02 | Outpatient (REF) | payer MEDICARE, MEDICAID, SELFPAY ==
[2021-03-28 15:42] LABS: Prostate Specific Antigen 0.18 ng/mL (<0.05-4.0)
== END 2021-03-28 14:03 | disposition home or self-care (01) ==
LOC: HO.LAB 14:02
PROVIDERS: Absent Provider Nurse Practitioner Family; Visit Provider Internal Medicine
DX: Z12.5 Encounter for screening for malignant neoplasm of prostate (principal)
CPT/HCPCS: 36415; 84153

== ENCOUNTER 2021-05-25 12:57 | Emergency (ER) | payer MEDICARE, MEDICAID, SELFPAY ==
[2021-05-25 13:22] VITALS: BP 138/86; PULSE 89; RESP 16; TEMP 37.1; O2SAT 96; BMI 23.7
--- NOTE | 2021-05-25 13:27 | ECG_ITS ---
Test Reason : weakness Blood Pressure : / mmHG Vent. Rate : 095 BPM Atrial Rate : 095 BPM P-R Int : 138 ms QRS Dur : 096 ms QT Int : 352 ms P-R-T Axes : 076 -08 050 degrees QTc Int : 442 ms Sinus rhythm with Premature supraventricular complexes Incomplete right bundle branch block Borderline ECG When compared with ECG of 02-JUL-2011 15:19, Premature supraventricular complexes are now Present Referred By: Generic ED Physician Electronically Signed By:ACACIA CHAUDHARI MD
[2021-05-25 13:53] LABS: MANUAL DIFF FLAG NO
[2021-05-25 13:56] LABS: Basophils Absolute Auto 0.1 X10*3/uL (0.0-0.2); Basophils Percent Auto 1.3 % (0-2); Eosinophils Absolute Auto 0.3 X10*3/uL (0.0-0.4); Eosinophils Percent Auto 3.4 % (0-4); Hematocrit 46.6 % (42.0-52.0); Hemoglobin 15.5 g/dl (14.0-18.0); Imm Gran Abs Auto 0.02 X10*3/uL (0.00-0.03); Imm Gran Pct Auto 0.2 % (0.0-0.4); Lymphocytes Absolute Auto 4.2 X10*3/uL (1.2-4.9); Lymphocytes Percent Auto 42.6 % (20-40); Mean Corpuscular HGB Conc 33.3 g/dl (31.0-36.0); Mean Corpuscular Hemoglobin 32.4 pg (27.0-33.0); Mean Corpuscular Volume 97.3 fL (80.0-98.0); Mean Platelet Volume 9.2 fL (9.4-12.4); Monocytes Absolute Auto 0.9 X10*3/uL (0.1-1.2); Monocytes Percent Auto 8.7 % (2-11); Neutrophils Absolute Auto 4.3 x10*3/uL (2.0-8.3); Neutrophils Percent Auto 43.8 % (45-73); Platelet Count 419 X10*3/uL (160-400); Red Blood Count 4.79 X10*6/uL (4.60-5.80); Red Cell Distribution Width 13.2 % (11.0-16.0); White Blood Count 9.8 X10*3/uL (4.8-10.8)
[2021-05-25 14:10] LABS: Alanine Aminotransferase 18 U/L (0-40); Albumin Level 3.6 g/dL (3.5-5.0); Alkaline Phosphatase 248 U/L (39-117); Anion Gap 14 (12-20); Aspartate Amino Transferase 44 U/L (5-37); Bilirubin Direct 0.3 mg/dL (0.0-0.5); Bilirubin Total 0.7 mg/dL (0.0-1.0); Blood Urea Nitrogen 16 mg/dL (9-16); Calcium 9.8 mg/dL (8.4-10.2); Carbon Dioxide 27 mmol/L (22-29); Chloride 103 mmol/L (96-108); Creatinine Clr Calc Pharmacy 92.1; Estimated Glomerular Filt Rate > 60; Glucose Random 114 mg/dL (60-115); Lipase 10 U/L (8-78); Potassium 4.6 mmol/L (3.3-5.1); Sodium 139 mmol/L (135-145); Total Protein 8.7 g/dL (6.5-8.0)
== END 2021-05-25 15:42 | disposition left against medical advice (07) ==
PROVIDERS: Emergency Provider Emergency Medicine; PCP Internal Medicine
DX: R53.1 Weakness (principal); C22.0 Liver cell carcinoma; B19.20 Unspecified viral hepatitis C without hepatic coma; K74.60 Unspecified cirrhosis of liver; F10.21 Alcohol dependence, in remission; Z92.21 Personal history of antineoplastic chemotherapy; Z87.891 Personal history of nicotine dependence
CPT/HCPCS: 36415; 80053; 82248; 83690; 85025; 93005; 99283

== ENCOUNTER 2021-05-31 12:33 | Emergency (ER) | payer MEDICARE, MEDICAID, SELFPAY ==
--- NOTE | ~2021-05-31 | CT_ITS ---
EXAMINATION: CT ABDOMEN AND PELVIS WITH CONTRAST CLINICAL INFORMATION: Right upper quadrant pain COMPARISON: None TECHNIQUE: Multidetector volumetric images were obtained from the superior aspect of the liver through the pubic symphysis following administration 85 mL of Omnipaque 350 intravenous contrast. Sagittal and coronal reformatted images were obtained on the technologist's workstation. Oral contrast: No This CT examination was performed using dose optimization techniques as appropriate, variously including the following: *Automated exposure control *Adjustment of mA and/or kV according to patient size (this includes techniques or standardized protocols for targeted exams where dose is matched to indication/reason for exam; i.e. extremities or head) *Use of iterative reconstruction technique DLP: 445 mGy-cm FINDINGS: LUNG BASES: There is patchy opacity atelectasis versus scarring in left lower lobe basilar segment, anterior segment and right middle lobe. Heart size is normal. LIVER, GALLBLADDER, AND BILIARY TREE: The liver is heterogeneous with postsurgical changes left hepatic lobe. There are several hypodense liver lesions, the largest left hepatic lobe lesion measured 3.9 cm, similar to previous study. There are additional other lesions which are larger in the right hepatic lobe. The lesion measures 2.3 x 2.0 cm on axial image 17/3. Previously it measured 1.8 cm. There is a 2nd lesion more medially in the right hepatic lobe measuring 2.6 cm on axial image 17/3. Previously it measured 2.1 cm. The gallbladder is not visualized likely surgically removed. PANCREAS: Unremarkable. SPLEEN: The spleen is not visualized and likely surgically removed. ADRENAL GLANDS: Unremarkable. KIDNEYS AND URETERS: The kidneys are normal in size, shape, and attenuation. No hydronephrosis, hydroureter, or calculi seen. No perinephric stranding. BLADDER: Unremarkable. GASTROINTESTINAL TRACT: There is scattered stool and gas seen throughout the colon without distention. The small bowel loops are normal caliber. Appendix is not visualized. No free air or free fluid seen. ABDOMINAL WALL: There is abdominal wall hernia repair with mesh in place. Superior to the mesh is a small midline hernia containing a loop of small bowel with partial mild distention of proximal loop. LYMPH NODES: Again visualized are bilateral cardiophrenic enlarged lymph nodes. The right cardiac lymph node measures 1.9 x 1.4 cm. The left cardiac lymph node measures 1.2 cm. VASCULAR: There is aneurysmal dilatation of mid abdominal aorta measuring 2.8 x 2.7 cm in axial image 32/3. It is same size compared to previous study 02/07/2021. The portal vein and hepatic veins are patent. PELVIC VISCERA: Unremarkable. OSSEOUS STRUCTURES: There is no lytic or sclerotic process seen. There are degenerative disc changes with vacuum disc phenomena at L5-S1 disc level. CT/CT abdomen pelvis w con IMPRESSION: 1. Liver lesions are again visualized with the right hepatic lobe lesions appearing slightly larger. 2. The gallbladder and spleen has been removed. 3. Cardiophrenic lymph nodes are again visualized and may be same or minimally larger. 4. There is supraumbilical abdominal wall mesh from hernia repair. Superior to the mesh is a small midline hernia containing a loop of small bowel with mild proximal small bowel prominence. Question early or partial obstruction. Moderate constipation. Fleischner guidelines were followed.
--- NOTE | 2021-05-31 12:46 | ED_ITS ---
HPI - Abdominal Pain General Chief Complaint: Abdominal Pain Stated Complaint: ABD PAIN, HX LIVER CANCER Time Seen by Provider: 05/31/21 12:45 Source: patient Mode of arrival: ambulatory Limitations: no limitations History of Present Illness HPI narrative: 66-year-old male past medical history significant for hepatocellular carcinoma, hep c, CVA, GERD, gastritis presenting to the emergency department with right u pper quadrant pain and nausea x1 month progressively worsening. Patient tells me what made him come in today disease experiencing these symptoms and weakness. Tells me that he has received chemo for his hepatocellular carcinoma, unable to answer when he received it, unsure if he received radiation as well. Patient tells me that his right upper quadrant pain radiates to his back. He also reports intermittent nausea over the past month. He denies fevers, chills, chest pain, shortness of breath. He does endorse weakness and tells me that he lives at home by himself. EMS gave him 75 mcg of fentanyl and 4 mg of Zofran. MD elicited complaint: abdominal pain Pertinent past history: other (Hepatocellular carcinoma) Onset (ago): month(s) (1) Pain Consistency: constant Location: RUQ Severity: severe Pain scale (0-10): 10 Quality: stabbing Radiation: R flank Migration to: no migration Exacerbating factors: nothing Relieving factors: nothing Associated symptoms: nausea Related Data Home Medications Medication Instructions Recorded Confirmed clonazepam 1 mg tablet 1 mg PO TID 10/03/20 05/30/21 quetiapine 150 mg tablet,extended 150 mg PO BEDTIME 05/02/21 05/30/21 release 24 hr (Seroquel XR) regorafenib 40 mg tablet (Stivarga) 80 mg PO DAILY 05/30/21 05/30/21 Previous Rx's Medication Instructions Recorded clopidogrel 75 mg tablet 75 mg PO QAM #90 tab 07/06/20 aspirin 81 mg tablet,delayed 81 mg PO DAILY #90 tab 08/10/20 release multivitamin 1 tab PO QAM #90 tab 01/10/21 folic acid 1 mg tablet 1 mg PO DAILY #90 tab 02/14/21 famotidine 20 mg tablet 20 mg PO BEDTIME 30 Days #30 tab 03/05/21 cephalexin 250 mg capsule 250 mg PO Q8H #21 cap 03/14/21 docusate sodium 100 mg capsule 100 mg PO DAILY #30 cap 03/20/21 (Colace) sennosides 8.6 mg-docusate sodium 1 tab-cap PO BEDTIME #30 tab 03/20/21 50 mg tablet (Senna with Docusate Sodium) oxycodone 5 mg tablet 5 mg PO TID #90 tab 05/04/21 Magic Mouthwash 5 ml PO 4-5XD #240 ml 05/22/21 Diphen/Lido/Antacid 1:1:1 240 mL suspension Allergies Allergy/AdvReac Type Severity Reaction Status Date / Time No Known Allergies Allergy Verified 05/30/21 11:53 Review of Systems Review of Systems Constitutional : No Weight loss, No Fever, No Chills, +weakness, +fatigue ENT/Mouth :? No sore throat, No Rhinorrhea Eyes: No Swelling, No Redness Cardiovascular : No Chest Pain, No SOB, NoEdema Respiratory : No Cough, No Sputum, No Wheezing Gastrointestinal : + Nausea, No Vomiting, No Diarrhea, + abdominal Pain, No Hematochezia, No Melena Genitourinary : No Dysuria, No Urinary Frequency, No Hematuria, No Urgency Musculoskeletal : No joint pain, No Myalgias, No Joint Swelling Skin : No Skin Lesions, No rash Neuro : No Weakness, No Numbness, No Dizziness, No Headache Psych : No Anxiety/Panic, No Depression Heme/Lymph: No Bruising, No Lymphadenopathy Endocrine : No Polyuria, No Polydipsia All other systems reviewed and are negative. Yes all other systems are reviewed and are negative [facility] Past Medical History Attestation statement: The following information was validated with the patient. Source: old records reviewed and nursing notes reviewed Medical History (Updated 05/31/21 @ 18:21 by MOISES Astorga) CVA (cerebral vascular accident) Hepatitis C Hepatocellular carcinoma History of alcohol abuse Incisional hernia Liver cirrhosis Tobacco use disorder Surgical History H/O resection of liver (~04/2017) History of splenectomy No pertinent past surgical history Family History Family History Father No problems noted. Mother No problems noted. Family/Other FH: mental illness Social History Social History Household Members: None Household Members Other:: alone Housing: Apartment Are you a primary primary care coordinator to a significant other at home: No Do you presently have visiting nurse or other home services: Yes Alcohol intake: never Patient Tobacco Use Status: Former Tobacco user Tobacco use type: Cigarette e-Cigarette/Vaping Use: Never Used Second Hand Smoke Exposure: No Use of substances other than those prescribed or required for medical reasons: No Substance Use Type: Marijuana Advance Directives: No service: No Current occupational status: disabled Cognitive needs: No Hearing needs: Yes (hearing aide) Vision needs: Yes (reading glasses) Physical Exam ED Vital Signs: Vital Signs - 24 hr 05/31/21 12:50 05/31/21 12:59 05/31/21 14:00 Temperature 98.4 F 98.1 F Pulse Rate 77 75 Respiratory Rate 16 16 18 Blood Pressure 132/80 128/72 Pulse Oximetry 95 96 05/31/21 16:00 Temperature 98.7 F Pulse Rate 66 Respiratory Rate 14 Blood Pressure 132/80 Pulse Oximetry 96 BMI result Body Mass Index 22.9 VSS Appearance: Alert.? Oriented X3.? No acute distress.? Head: Normocephalic, atraumatic, no step-offs or deformities Eyes: Pupils equal, round and reactive to light.? ENT: Pharynx normal.? Neck: Normal inspection.? Neck supple.? CVS: Normal heart rate and rhythm.? Pulses normal.? Respiratory: No respiratory distress.? Breath sounds normal.? Abdomen: Soft and + pain to palpation to right upper quadrant & epigastric region. Skin: Skin warm and dry.? Normal skin color.? Normal skin turgor.? Extremities: No lower extremity edema.? No calf ttp. 5/5 strength to bilateral upper and lower extremities Back: No midline tenderness, no C-spine tenderness, full range of motion, no CVA tenderness bilaterally Neuro: Oriented X 3.? No motor deficit.? No sensory deficit. CN 2-12 intact Course Reevaluation(s) Reevaluation #1: CBC appears to be at patient's baseline, no acute findings. Chemistry with slightly elevated transaminases alk phos appears to be elevated however this appears to be chronic in nature. Patient's albumin is low appears as though this is patient's baseline.UA pending. Abdominal CT pending Time: 16:00 Reevaluation #2: Discussed CT w/ Dr. Dill he will evaluate patient. Time: 16:35 Reevaluation #3: Urine clean. Discussed CT findings with Dr. Dill who tells me that hernia is easily reducible, patient's pain is likely secondary to his chronic liver issue. Unlikley obstructed. He was complaining of pain 2mg of morphine was gi nicole IV. Patient has not had episodes of emesis or nausea while in the emergency department. At this time patient's pain is likely secondary to chronic disease. Patient will be discharged home. I advised him to follow-up with his PCP, GI doctor and to return with new or worsening symptoms. I outlined these on his discharge. 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 I offered him short-term rehab, and case management he tells me he is okay for now. I was going to send patient home with oxycodone however I noted that he already has as prescribed. And he recently filled a script on 05/04/2021. Comfortable with discharge Time: 18:07 MDM - Abdominal Pain MDM Narrative Medical decision making narrative: 1256 66 yo m presents with severe ruq pain with radiation to back and weakness X1 month. Hx HCC treated with chemo PE pain in RUQ & epigastric region. Frail appearing male. RRR. Lungs clear. Neuo at baseline. Plan- labs, imaging. Medical Records Attestation: I reviewed the patient's medical records. Lab Data Attestation: I reviewed the patient's lab results. Result diagrams: 05/31/21 13:11 05/31/21 13:11 Labs: Lab Results 05/31/21 05/31/21 05/31/21 Range/Units 13:11 13:11 13:11 WBC 10.5 (4.8-10.8) X10*3/uL RBC 4.75 (4.60-5.80) X10*6/uL Hgb 15.2 (14.0-18.0) g/dl Hct 45.8 (42.0-52.0) % MCV 96.4 (80.0-98.0) fL MCH 32.0 (27.0-33.0) pg MCHC 33.2 (31.0-36.0) g/dl RDW 13.2 (11.0-16.0) % Plt Count 323 (160-400) X10*3/uL MPV 9.3 L (9.4-12.4) fL Immature Gran % (Auto) 0.2 (0.0-0.4) % Neut % (Auto) 42.9 L (45-73) % Lymph % (Auto) 42.7 H (20-40) % Bollinger % (Auto) 9.2 (2-11) % Eos % (Auto) 3.9 (0-4) % Baso % (Auto) 1.1 (0-2) % Lymph # (Auto) 4.5 (1.2-4.9) X10*3/uL Bollinger # (Auto) 1.0 (0.1-1.2) X10*3/uL Eos # (Auto) 0.4 (0.0-0.4) X10*3/uL Baso # (Auto) 0.1 (0.0-0.2) X10*3/uL Abs Immat Gran (auto) 0.02 (0.00-0.03) X10*3/uL Absolute Neuts (auto) 4.5 (2.0-8.3) x10*3/uL Absolute Nucleated RBC 0.000 (0.0-0.012) X10*3/uL Nucleated RBC % (auto) 0.0 (0.0-0.2) /100WBC PT 13.8 H (9.9-13.0) SEC INR 1.2 H (0.9-1.1) Sodium 139 (135-145) mmol/L Potassium 4.5 (3.3-5.1) mmol/L Chloride 106 (96-108) mmol/L Carbon Dioxide 26 (22-29) mmol/L Anion Gap 12 (12-20) BUN 13 (9-16) mg/dL Creatinine 0.76 (0.5-1.4) mg/dL Estim Creat Clear Calc 95.4 Estimated GFR > 60 Random Glucose 97 (60-115) mg/dL Calcium 9.4 (8.4-10.2) mg/dL Magnesium 2.0 (1.6-2.6) mg/dL Total Bilirubin 0.7 (0.0-1.0) mg/dL AST 47 H (5-37) U/L ALT 13 (0-40) U/L Alkaline Phosphatase 205 H (39-117) U/L Total Protein 7.7 (6.5-8.0) g/dL Albumin 3.3 L (3.5-5.0) g/dL Urine Color Urine Appearance Urine pH (5.0-8.0) Ur Specific Redmon (1.005-1.025) Urine Protein (NEG-TRACE) MG/DL Urine Glucose (UA) (NEG) MG/DL Urine Ketones (NEG) MG/DL Urine Blood (NEG) Urine Nitrite (NEG) Ur Leukocyte Esterase (NEG) Urine Opiates Screen (Not Detect) Urine Fentanyl Screen (Not Detect) Ur Barbiturates Screen (Not Detect) Ur Phencyclidine Scrn (Not Detect) Ur Amphetamines Screen (Not Detect) U Benzodiazepines Scrn (Not Detect) Urine Cocaine Screen (Not Detect) U Marijuana (THC) Screen (Not Detect) COVID-19 (JOSEPH) (Negative) COVID-19 Clin Com 05/31/21 05/31/21 05/31/21 Range/Units 13:11 17:31 17:31 WBC (4.8-10.8) X10*3/uL RBC (4.60-5.80) X10*6/uL Hgb (14.0-18.0) g/dl Hct (42.0-52.0) % MCV (80.0-98.0) fL MCH (27.0-33.0) pg MCHC (31.0-36.0) g/dl RDW (11.0-16.0) % Plt Count (160-400) X10*3/uL MPV (9.4-12.4) fL Immature Gran % (Auto) (0.0-0.4) % Neut % (Auto) (45-73) % Lymph % (Auto) (20-40) % Bollinger % (Auto) (2-11) % Eos % (Auto) (0-4) % Baso % (Auto) (0-2) % Lymph # (Auto) (1.2-4.9) X10*3/uL Bollinger # (Auto) (0.1-1.2) X10*3/uL Eos # (Auto) (0.0-0.4) X10*3/uL Baso # (Auto) (0.0-0.2) X10*3/uL Abs Immat Gran (auto) (0.00-0.03) X10*3/uL Absolute Neuts (auto) (2.0-8.3) x10*3/uL Absolute Nucleated RBC (0.0-0.012) X10*3/uL Nucleated RBC % (auto) (0.0-0.2) /100WBC PT (9.9-13.0) SEC INR (0.9-1.1) Sodium (135-145) mmol/L Potassium (3.3-5.1) mmol/L Chloride (96-108) mmol/L Carbon Dioxide (22-29) mmol/L Anion Gap (12-20) BUN (9-16) mg/dL Creatinine (0.5-1.4) mg/dL Estim Creat Clear Calc Estimated GFR Random Glucose (60-115) mg/dL Calcium (8.4-10.2) mg/dL Magnesium (1.6-2.6) mg/dL Total Bilirubin (0.0-1.0) mg/dL AST (5-37) U/L ALT (0-40) U/L Alkaline Phosphatase (39-117) U/L Total Protein (6.5-8.0) g/dL Albumin (3.5-5.0) g/dL Urine Color YELLOW Urine Appearance CLEAR Urine pH 6.0 (5.0-8.0) Ur Specific Redmon 1.015 (1.005-1.025) Urine Protein NEG (NEG-TRACE) MG/DL Urine Glucose (UA) NEG (NEG) MG/DL Urine Ketones NEG (NEG) MG/DL Urine Blood NEG (NEG) Urine Nitrite NEG (NEG) Ur Leukocyte Esterase NEG (NEG) Urine Opiates Screen POSITIVE H (Not Detect) Urine Fentanyl Screen POSITIVE H (Not Detect) Ur Barbiturates Screen Not Detected (Not Detect) Ur Phencyclidine Scrn Not Detected (Not Detect) Ur Amphetamines Screen Not Detected (Not Detect) U Benzodiazepines Scrn POSITIVE H (Not Detect) Urine Cocaine Screen Not Detected (Not Detect) U Marijuana (THC) Screen POSITIVE H (Not Detect) COVID-19 (JOSEPH) Negative (Negative) COVID-19 Clin Com See Note Critical Care Time Critical Care Time Critical Care Time: No Discharge Plan Discharge Clinical Impression: Hepatocellular carcinoma, Abdominal pain, Nausea & vomiting, Incisional hernia Patient Disposition: Home, Self-Care Instructions: Acute Nausea and Vomiting (ED), Abdominal Pain (ED) Additional Instructions: Take your medications as prescribed. If you were prescribed antibiotics today, it is important that you take your medication to their entirety, do not skip any doses, do not finish them early. Follow-up with your primary care provider this week. Return to the emergency department with new or worsening symptoms. Such as chest pain, shortness of breath, nausea, vomiting, fevers, chills, worsening pain, weakness, lethargy. In case of emergency call 911 CT/CT abdomen pelvis w con IMPRESSION: 1. Liver lesions are again visualized with the right hepatic lobe lesions appearing slightly larger. ? 2. The gallbladder and spleen has been removed. ? 3. Cardiophrenic lymph nodes are again visualized and may be same or minimally larger. ? 4. There is supraumbilical abdominal wall mesh from hernia repair. Superior to the mesh is a small midline hernia containing a loop of small bowel with mild proximal small bowel prominence. Question early or partial obstruction. Moderate constipation. ? Fleischner guidelines were followed. Prescriptions: No Action clopidogrel 75 mg tablet 75 mg PO QAM Qty: 90 1RF aspirin 81 mg tablet,delayed release (DR/EC) 81 mg PO DAILY Qty: 90 1RF multivitamin Tablet 1 tab PO QAM Qty: 90 1RF folic acid 1 mg tablet 1 mg PO DAILY Qty: 90 1RF famotidine 20 mg tablet 20 mg PO BEDTIME 30 Days Qty: 30 3RF cephalexin 250 mg Capsule 250 mg PO Q8H Qty: 21 0RF docusate sodium [Colace] 100 mg Capsule 100 mg PO DAILY Qty: 30 3RF sennosides-docusate sodium [Senna with Docusate Sodium] 8.6-50 mg Tablet 1 tab-cap PO BEDTIME Qty: 30 3RF quetiapine [Seroquel XR] 150 mg tablet extended release 24 hr 150 mg PO BEDTIME 0RF oxycodone 5 mg Tablet 5 mg PO TID Qty: 90 0RF Magic Mouthwash Diphen/Lido/Antacid 1:1:1 240 mL Suspension 5 ml PO 4-5XD Qty: 240 0RF Rx Instructions: Lidocaine Viscous 2 % 80mL; diphenhydramine 12.5 mg/5 mL 80mL; aluminum-mag hydrox-simeth [id number]/5mL 80mL Stivarga 40 mg tablet 80 mg PO DAILY 0RF Rx Instructions: Take 2 pills 3 weeks on, 1 week off. clonazepam 1 mg tablet 1 mg PO TID 0RF Referrals: Epi Arnold MD [Primary Care Provider] - 2 days
[2021-05-31 12:49] VITALS: BP 137/83; PULSE 93; O2SAT 95
[2021-05-31 12:50] VITALS: RESP 16; BMI 22.9
[2021-05-31 12:59] VITALS: BP 132/80; PULSE 77; RESP 16; TEMP 36.9; O2SAT 95
[2021-05-31 13:29] LABS: MANUAL DIFF FLAG NO
--- NOTE | 2021-05-31 13:29 | PC.NURSE ---
patient a&o, labs drawn, covid swab obtianed, vss, patient awaiting ct scan, will continue to monitor.
[2021-05-31 13:32] LABS: Basophils Absolute Auto 0.1 X10*3/uL (0.0-0.2); Basophils Percent Auto 1.1 % (0-2); Eosinophils Absolute Auto 0.4 X10*3/uL (0.0-0.4); Eosinophils Percent Auto 3.9 % (0-4); Hematocrit 45.8 % (42.0-52.0); Hemoglobin 15.2 g/dl (14.0-18.0); Imm Gran Abs Auto 0.02 X10*3/uL (0.00-0.03); Imm Gran Pct Auto 0.2 % (0.0-0.4); Lymphocytes Absolute Auto 4.5 X10*3/uL (1.2-4.9); Lymphocytes Percent Auto 42.7 % (20-40); Mean Corpuscular HGB Conc 33.2 g/dl (31.0-36.0); Mean Corpuscular Volume 96.4 fL (80.0-98.0); Mean Platelet Volume 9.3 fL (9.4-12.4); Monocytes Percent Auto 9.2 % (2-11); Neutrophils Absolute Auto 4.5 x10*3/uL (2.0-8.3); Neutrophils Percent Auto 42.9 % (45-73); Platelet Count 323 X10*3/uL (160-400); Red Blood Count 4.75 X10*6/uL (4.60-5.80); Red Cell Distribution Width 13.2 % (11.0-16.0); White Blood Count 10.5 X10*3/uL (4.8-10.8)
[2021-05-31 13:37] LABS: INTERNATIONAL NORM RATIO 1.2 (0.9-1.1); Prothrombin Time 13.8 SEC (9.9-13.0)
[2021-05-31 13:49] LABS: COVID-19 Test Negative (Negative)
[2021-05-31 13:52] LABS: Alanine Aminotransferase 13 U/L (0-40); Albumin Level 3.3 g/dL (3.5-5.0); Alkaline Phosphatase 205 U/L (39-117); Anion Gap 12 (12-20); Aspartate Amino Transferase 47 U/L (5-37); Bilirubin Total 0.7 mg/dL (0.0-1.0); Blood Urea Nitrogen 13 mg/dL (9-16); Calcium 9.4 mg/dL (8.4-10.2); Carbon Dioxide 26 mmol/L (22-29); Chloride 106 mmol/L (96-108); Creatinine Clr Calc Pharmacy 95.4; Estimated Glomerular Filt Rate > 60; Glucose Random 97 mg/dL (60-115); Potassium 4.5 mmol/L (3.3-5.1); Sodium 139 mmol/L (135-145); Total Protein 7.7 g/dL (6.5-8.0)
[2021-05-31 14:00] VITALS: BP 128/72; PULSE 75; RESP 18; TEMP 36.7; O2SAT 96
--- NOTE | 2021-05-31 14:10 | PC.NURSE ---
patient a&o, vss, equipment monitor phototypesetting nsr, pt to ct scan, will continue to monitor
--- NOTE | 2021-05-31 14:25 | PC.NURSE ---
pt returned from ct scan
[2021-05-31] MEDS: iohexoL 350 MG/ML 100 ML INFUS..BTL IV (14:37)
[2021-05-31 16:00] VITALS: BP 132/80; PULSE 66; RESP 14; TEMP 37.1; O2SAT 96
--- NOTE | 2021-05-31 16:18 | PC.NURSE ---
pt a&ox3, reduced pain (5/10), vss, pt is wondering what the next steps are, will discuss w provider and continue to monitor.
--- NOTE | 2021-05-31 16:21 | PC.NURSE ---
spoke w provider, waiting to consult w Anwar RE CT results
--- NOTE | 2021-05-31 16:46 | PC.NURSE ---
spoke ken [facility] A nurse, wondering if pt will need nursing care @ home tomorrow. will cb to update with plan (Jessika - [phone]).
[2021-05-31 17:40] LABS: Appearance Urine CLEAR; Color Urine YELLOW; Glucose Urine UA NEG (NEG); Leukocyte Esterase Urine NEG (NEG); Nitrite Urine NEG (NEG); Specific Gravity - Urine 1.015 (1.005-1.025); Urine Blood NEG (NEG); Urine Ketones NEG (NEG); Urine Protein NEG (NEG-TRACE)
--- NOTE | 2021-05-31 17:45 | PM.CNGS ---
History of Present Illness Consult details Consult date: 05/31/21 Narrative: 66M referred to me by the ED for an incisional hernia. The patient has hepatocellular CA. He had undergone partial hepatectomy in 2018 for this but unfortuantely developed recurrence in various areas of the liver later that year. He has been tried on multiple targetted therapy treatments with continued progression of disease. He has had chronic pain on the right side therefore. He had undergone repair of incisional with mesh 2 years ago but had developed recurrence on the superior margin. He came to the ED today because of his chronic pain. He describes this as on the right side. He denies pain on the hernia site. He denies vomitting. Review of Systems Constitutional: Constitutional: Denies chills, Denies fever(s) and Reports weakness Cardiovascular: Cardiovascular: Denies chest pain and Denies chest pain at rest Respiratory: Respiratory: Denies cough Gastrointestinal: Gastrointestinal: Reports abdominal pain Genitourinary: Genitourinary: Denies hematuria Neurologic: Reports weakness [facility] Past Medical History Medical History (Updated 06/01/21 @ 00:01 by Neris Morgan) CVA (cerebral vascular accident) Hepatitis C Hepatocellular carcinoma History of alcohol abuse Incisional hernia Liver cirrhosis Tobacco use disorder Family History Family History Father No problems noted. Mother No problems noted. Family/Other FH: mental illness Surgical History Surgical History H/O resection of liver (~04/2017) History of splenectomy No pertinent past surgical history Social History Social History Household Members: None Household Members Other:: alone Housing: Apartment Are you a primary acute care clinical nurse specialist to a significant other at home: No Do you presently have visiting nurse or other home services: Yes Alcohol intake: never Patient Tobacco Use Status: Former Tobacco user Tobacco use type: Cigarette e-Cigarette/Vaping Use: Never Used Second Hand Smoke Exposure: No Use of substances other than those prescribed or required for medical reasons: No Substance Use Type: Marijuana Advance Directives: No service: No Current occupational status: disabled Cognitive needs: No Hearing needs: Yes (hearing aide) Vision needs: Yes (reading glasses) Meds Allergies Allergy/AdvReac Type Severity Reaction Status Date / Time No Known Allergies Allergy Verified 05/30/21 11:53 Home Medications Medication Instructions Recorded Confirmed Last Taken Type clonazepam 1 mg tablet 1 mg PO TID 10/03/20 05/30/21 Unknown History quetiapine 150 mg tablet,extended 150 mg PO BEDTIME 05/02/21 05/30/21 Unknown History release 24 hr (Seroquel XR) regorafenib 40 mg tablet (Stivarga) 80 mg PO DAILY 05/30/21 05/30/21 Unknown History megestrol 40 mg tablet 1 tab PO DAILY 06/01/21 06/01/21 Unknown History ondansetron HCl 8 mg tablet 1 tab PO Q8H 06/01/21 06/01/21 Unknown History Physical Exam Vital Signs: Vital Signs: Last Vital Signs Temp 98.7 F 05/31/21 16:00 Pulse 66 05/31/21 16:00 Resp 14 05/31/21 16:00 BP 132/80 05/31/21 16:00 Pulse Ox 96 05/31/21 16:00 BMI result Body Mass Index 22.9 Const: Other: frail looking General: no acute distress Neck: Neck: Yes no lymphadenopathy Resp: Auscultation: clear to auscultation bilaterally Cardio: Rhythm: regular rhythm GI: Other: soft, nondistended, palpable hernia on upper abdomen, welldefined margins, easily reducible, not tender on hernia site, has tenderness on the right upper quadrant Palpation (GI): Soft to palpation, nontender and no guarding Results Labs Result diagrams: 05/31/21 13:11 05/31/21 13:11 Labs: Abnormal lab results 05/31/21 05/31/21 05/31/21 Range/Units 13:11 13:11 13:11 MPV 9.3 L (9.4-12.4) fL Neut % (Auto) 42.9 L (45-73) % Lymph % (Auto) 42.7 H (20-40) % PT 13.8 H (9.9-13.0) SEC INR 1.2 H (0.9-1.1) AST 47 H (5-37) U/L Alkaline Phosphatase 205 H (39-117) U/L Albumin 3.3 L (3.5-5.0) g/dL Short CBC 05/31/21 Range/Units 13:11 WBC 10.5 (4.8-10.8) X10*3/uL Hgb 15.2 (14.0-18.0) g/dl Hct 45.8 (42.0-52.0) % Plt Count 323 (160-400) X10*3/uL BMP 05/31/21 13:11 Sodium 139 Potassium 4.5 Chloride 106 Carbon Dioxide 26 BUN 13 Creatinine 0.76 Calcium 9.4 Liver Function 05/31/21 Range/Units 13:11 Total Bilirubin 0.7 (0.0-1.0) mg/dL AST 47 H (5-37) U/L ALT 13 (0-40) U/L Alkaline Phosphatase 205 H (39-117) U/L Albumin 3.3 L (3.5-5.0) g/dL Urine 05/31/21 Range/Units 17:31 Urine Color YELLOW Urine Appearance CLEAR Urine pH 6.0 (5.0-8.0) Ur Specific [place] 1.015 (1.005-1.025) Urine Protein NEG (NEG-TRACE) MG/DL Urine Glucose (UA) NEG (NEG) MG/DL All other labs normal. Imaging Abdomen CT scan report/results: report reviewed and image reviewed CT scan - pelvis: report reviewed and image reviewed Assessment and Plan (1) Hepatocellular carcinoma: Status: Acute He has multiple liver lesions c/w with his hepatocellular carcinoma. This has progressed despite target treatment with various medications. This is the likely etiology of his chronic pain. (2) Incisional hernia: Status: Acute This is easily reducible and nontender. I have reviewed his previous CT scan and this hernia is seen on past CT scans as well. This being reducible, chronic and nonobstructed, it is unlikely to be the cause of his chronic abdominal pain and does not require urgent surgical intervention at this time. Procedures Date of Service Date of Service: 05/31/21
[2021-05-31 17:49] LABS: Amphetamine Screen Urine Not Detected (Not Detect); Barbiturates, Urine Not Detected (Not Detect); Benzodiazepines Screen Urine POSITIVE (Not Detect); Cannabinoid Screen Urine POSITIVE (Not Detect); Cocaine Screen Urine Not Detected (Not Detect); Fentanyl, urine POSITIVE (Not Detect); Opiate Screen Urine POSITIVE (Not Detect); Phencyclidine Screen Urine Not Detected (Not Detect)
[2021-05-31 18:00] VITALS: BP 126/74; PULSE 72; RESP 18; TEMP 37.1; O2SAT 96
[2021-05-31] MEDS: Morphine Sulfate 2 MG/ML CARTRIDGE IVPUSH (18:17)
--- NOTE | 2021-05-31 18:19 | PC.NURSE ---
patient a&o, vss, pt medicated for pain per order, call brambila within reach, will continue to monitor.
--- NOTE | 2021-05-31 18:31 | PC.NURSE ---
spoke w MANI nurse, she will be visiting Maximino tomorrow.
--- NOTE | 2021-05-31 18:46 | PC.NURSE ---
spoke with Ana - she is going to try to coordinate with Maximino's [facility] nurse to come and pick him up. provider called in rx for klonopin refill to get him through the next couple of days until his PCP can refill per Ana/VNA nurse.
== END 2021-05-31 20:18 | disposition home or self-care (01) ==
PROVIDERS: Physician Assistant; Emergency Provider Emergency Medicine; PCP Internal Medicine
DX: K43.2 Incisional hernia without obstruction or gangrene (principal); C22.0 Liver cell carcinoma; R11.2 Nausea with vomiting, unspecified; R10.11 Right upper quadrant pain; Z20.822 Contact with and (suspected) exposure to COVID-19; K74.60 Unspecified cirrhosis of liver; B19.20 Unspecified viral hepatitis C without hepatic coma; F10.21 Alcohol dependence, in remission; F11.90 Opioid use, unspecified, uncomplicated
CPT/HCPCS: 74177; 80053; 80307; 81003; 83735; 85025; 85610; 87635; 96360; 99284; J2270; Q9967

== ENCOUNTER 2021-06-07 13:17 | Emergency (ER) | payer MEDICARE, MEDICAID, SELFPAY ==
--- NOTE | ~2021-06-07 | CT_ITS ---
EXAMINATION: CT HEAD WITHOUT CONTRAST CLINICAL INFORMATION: AMS. History of SCC. COMPARISON: None TECHNIQUE: Contiguous axial imaging was performed from the skull base to vertex without intravenous administration of contrast. This CT examination was performed using dose optimization techniques as appropriate, variously including the following: *Automated exposure control *Adjustment of mA and/or kV according to patient size (this includes techniques or standardized protocols for targeted exams where dose is matched to indication/reason for exam; i.e. extremities or head) *Use of iterative reconstruction technique DLP: 1435 mGy-cm FINDINGS: There is no evidence of acute intracranial hemorrhage or territorial infarction. There is hypodensity seen in left deep frontal lobe likely old infarction. Null to white matter differentiation is well preserved. No extra-axial fluid collections are identified. The lateral ventricles are symmetrical but enlarged. There is There is diffuse periventricular hypodensity in both cerebral hemispheres without mass effect.. The osseous structures and soft tissues are normal. The mastoid air cells and visualized portions of the paranasal sinuses are well aerated. CT/CT head/brain wo con IMPRESSION: No acute intracranial process seen. There is left frontal lobe deep white matter hypodensity suggestive of chronic small vessel ischemic changes. Age-related cerebral volume loss with chronic small vessel ischemic changes.
--- NOTE | ~2021-06-07 | CT_ITS ---
EXAMINATION: CT ABDOMEN AND PELVIS WITH CONTRAST CLINICAL INFORMATION: Right upper quadrant pain COMPARISON: May 31, 2021 and February 07, 2021 TECHNIQUE: Multidetector volumetric images were obtained from the superior aspect of the liver through the pubic symphysis following administration 85 mL of Omnipaque 350 intravenous contrast. Sagittal and coronal reformatted images were obtained on the technologist's workstation. Oral contrast: No This CT examination was performed using dose optimization techniques as appropriate, variously including the following: *Automated exposure control *Adjustment of mA and/or kV according to patient size (this includes techniques or standardized protocols for targeted exams where dose is matched to indication/reason for exam; i.e. extremities or head) *Use of iterative reconstruction technique DLP: 468.10 mGy-cm FINDINGS: LUNG BASES: There is no change in appearance of bibasilar disease. No pleural or pericardial effusion. Coronary artery calcification present. There are again noted to be enlarged pericardial lymph nodes measuring approximately 1.3 cm in short axis dimension. LIVER, GALLBLADDER, AND BILIARY TREE: Numerous liver lesions are again seen without significant change from study of May 31, 2021 no subcapsular fluid collection. Status post cholecystectomy. PANCREAS: There is some hazy density about the pancreas without significant fluid collection or mass. Mild or early acute pancreatitis not excluded. SPLEEN: Status post splenectomy. ADRENAL GLANDS: Unremarkable. KIDNEYS AND URETERS: The kidneys are normal in size, shape, and attenuation. No hydronephrosis, hydroureter, or calculi seen. No perinephric stranding. BLADDER: Unremarkable. GASTROINTESTINAL TRACT: No free air or free fluid identified. No dilated loops of large or small bowel. No pericolonic inflammatory changes appreciated. No evidence of acute appendicitis. ABDOMINAL WALL: Abdominal wall mesh is seen in the supraumbilical region. Just superior to the mesh there is an anterior abdominal wall hernia containing a loop of bowel with wall defect measuring approximately 2.5 cm in width without evidence of obstruction. LYMPH NODES: Pericardial lymph nodes as described without change. VASCULAR: There is moderate aortoiliac calcified plaque present. There is a 2.9 x 3.0 cm infrarenal abdominal aortic aneurysm. PELVIC VISCERA: Prostatic calcifications present. OSSEOUS STRUCTURES: No suspicious destructive bony lesions identified. Previous right-sided rib fractures. Multilevel degenerative disc disease is seen L4-L5 and L5-S1. Status post previous left pubic rami fractures. CT/CT abdomen pelvis w con IMPRESSION: No interval change in multiple hepatic lesions. Pericardial lymphadenopathy. Hazy density about the pancreas which may be related to mild or early acute pancreatitis. No pancreatic mass or enlargement identified. Supraumbilical abdominal wall hernia with loop of small bowel. This does not appear to be obstructed. 3.0 cm infrarenal abdominal aortic aneurysm. Fleischner guidelines were followed.
--- NOTE | ~2021-06-07 | CT_ITS ---
EXAMINATION: CT ANGIOGRAM OF THE CHEST WITH AND WITHOUT CONTRAST (CT PULMONARY ANGIOGRAM FOR PE) CLINICAL INFORMATION: Reason for Exam AMS< L sided pleuritic chest pain . History hepatocellular carcinoma. COMPARISON: CT abdomen and pelvis with contrast 05/31/2021, chest radiograph 03/28/2020 TECHNIQUE: Prior to contrast administration, noncontrast localization images were obtained. Subsequently, multidetector volumetric imaging was performed from the thoracic inlet to below the diaphragms following the administration of 85 mL Omnipaque 350 intravenous contrast. No contrast reaction reported. Sagittal, coronal, and MIP oblique sagittal reformatted images were obtained on the CT workstation, uploaded to PACS, and reviewed. Patient also had CT had an CT abdomen and pelvis with contrast described in separate reports. This CT examination was performed using dose optimization techniques as appropriate, variously including the following: *Automated exposure control *Adjustment of mA and/or kV according to patient size (this includes techniques or standardized protocols for targeted exams where dose is matched to indication/reason for exam; i.e. extremities or head) *Use of iterative reconstruction technique Total exam dose-length product 298 mGy-cm FINDINGS: QUALITY OF STUDY/CONTRAST BOLUS: Satisfactory. PULMONARY ARTERIES: No central or segmental pulmonary emboli. THORACIC AORTA: No aneurysm or dissection. LUNGS/PLEURA: There are bullous emphysematous changes and paraseptal emphysema. Bilateral apical pleural-parenchymal scarring is present. There is scattered bilateral subpleural accentuated reticular markings. Reticulonodular changes left posterior lateral base may have a tree-in-bud pattern suggesting focal infectious pneumonitis. There is no lobar or segmental airspace consolidation or effusion. No pneumothorax. MEDIASTINUM: Normal heart size. No pericardial effusion. No evidence of septal bowing or right heart strain. No bulky hilar or mediastinal adenopathy. There are a few nodes around the chilo are in the aorticopulmonary window measuring up to 1 cm. CHEST WALL/AXILLA: No axillary or internal mammary lymphadenopathy. OSSEOUS STRUCTURES: No acute or suspicious osseous abnormality. UPPER ABDOMEN: CT abdomen described in separate report. No reflux of contrast into the hepatic veins to suggest elevated right heart pressures. CT/CT angio chest PE protocol IMPRESSION: 1. No pulmonary embolism or thoracic aortic dissection. 2. Tree-in-bud nodularity left posterior lateral base which may suggest focal mild infectious process. No effusion. 3. CT abdomen described in separate report. VTE: negative
--- NOTE | 2021-06-07 13:26 | ED.ABDPAIN ---
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 Denies trauma. Has n/v/d and has not eaten anything in a week he states. MD elicited complaint: abdominal pain (chest pain, n/v/d x 1 week, AMS, FTT) Pertinent past history: other (HCC undergoing treatment last session ? on Regorafinib 80mg a day states it was 2 weeks ago before symptoms) Onset (ago): week(s) (2) Pain Consistency: constant Location: chest and RUQ Severity: severe Quality: aching and fullness Radiation: none Migration to: no migration Exacerbating factors: eating Relieving factors: nothing Context: history of similar episodes Associated symptoms: nausea, vomiting and diarrhea Related Data Home Medications Medication Instructions Recorded Confirmed clonazepam 1 mg tablet 1 mg PO TID 10/03/20 05/30/21 quetiapine 150 mg tablet,extended 150 mg PO BEDTIME 05/02/21 05/30/21 release 24 hr (Seroquel XR) regorafenib 40 mg tablet (Stivarga) 80 mg PO DAILY 05/30/21 05/30/21 megestrol 40 mg tablet 1 tab PO DAILY 06/01/21 06/01/21 ondansetron HCl 8 mg tablet 1 tab PO Q8H 06/01/21 06/01/21 Previous Rx's Medication Instructions Recorded clopidogrel 75 mg tablet 75 mg PO QAM #90 tab 07/06/20 aspirin 81 mg tablet,delayed 81 mg PO DAILY #90 tab 08/10/20 release multivitamin 1 tab PO QAM #90 tab 01/10/21 folic acid 1 mg tablet 1 mg PO DAILY #90 tab 02/14/21 famotidine 20 mg tablet 20 mg PO BEDTIME 30 Days #30 tab 03/05/21 cephalexin 250 mg capsule 250 mg PO Q8H #21 cap 03/14/21 docusate sodium 100 mg capsule 100 mg PO DAILY #30 cap 03/20/21 (Colace) sennosides 8.6 mg-docusate sodium 1 tab-cap PO BEDTIME #30 tab 03/20/21 50 mg tablet (Senna with Docusate Sodium) Magic Mouthwash 5 ml PO 4-5XD #240 ml 05/22/21 Diphen/Lido/Antacid 1:1:1 240 mL suspension clonazepam 1 mg tablet 1 mg PO TID #10 tab 05/31/21 megestrol 40 mg tablet 40 mg PO DAILY #30 tab 06/01/21 ondansetron 8 mg disintegrating 8 mg PO Q12H #60 tab 06/01/21 tablet oxycodone 5 mg tablet 5 mg PO TID #90 tab 06/05/21 Allergies Allergy/AdvReac Type Severity Reaction Status Date / Time No Known Allergies Allergy Verified 05/30/21 11:53 Review of Systems Review of Systems Constitutional : pos Weight loss, No Fever, pos Chills, pos fatigue, pos malaise ENT/Mouth : No sore throat, No Rhinorrhea Eyes: No Swelling, No Redness Cardiovascular : pos Chest Pain, No SOB, NoEdema Respiratory : No Cough, No Sputum, No Wheezing Gastrointestinal : Positive Nausea, Positive Vomiting, positive Diarrhea, positive abdominal Pain, No Hematochezia, No Melena Genitourinary : No Dysuria, No Urinary Frequency, No Hematuria, No Urgency Musculoskeletal : No joint pain, No Myalgias, No Joint Swelling Skin : No Skin Lesions, No rash Neuro : pos Weakness, No Numbness, No Dizziness, No Headache Psych : No Anxiety/Panic, No Depression Heme/Lymph: No Bruising, No Lymphadenopathy Endocrine : No Polyuria, No Polydipsia All other systems reviewed and are negative. [facility] Past Medical History Source: old records reviewed Medical History CVA (cerebral vascular accident) Hepatitis C Hepatocellular carcinoma History of alcohol abuse Incisional hernia Liver cirrhosis Tobacco use disorder Surgical History H/O resection of liver (~04/2017) History of splenectomy No pertinent past surgical history Family History Family History Father No problems noted. Mother No problems noted. Family/Other FH: mental illness Social History Social History Household Members: None Household Members Other:: alone Housing: Apartment Are you a primary intensive care unit nurse to a significant other at home: No Do you presently have visiting nurse or other home services: Yes Alcohol intake: never Patient Tobacco Use Status: Former Tobacco user Tobacco use type: Cigarette e-Cigarette/Vaping Use: Never Used Second Hand Smoke Exposure: No Substance Use Type: Marijuana Advance Directives: No Advance Directives Information Provided: No service: No Current occupational status: disabled Cognitive needs: No Hearing needs: Yes (hearing aide) Vision needs: Yes (reading glasses) Physical Exam ED Vital Signs: Vital Signs - 24 hr 06/07/21 13:29 06/07/21 14:55 06/07/21 15:58 Pulse Rate 79 79 83 Respiratory Rate 16 14 18 Blood Pressure 142/77 H 129/91 H 126/74 Pulse Oximetry 96 97 95 BMI result Body Mass Index 19.3 Appearance: Alert. Oriented X2 (time) Mild acute distress. Eyes: Pupils equal, round and reactive to light. ENT: Pharynx severely dry with red cracked tongue. Neck: Normal inspection. Neck supple. CVS: Normal heart rate and rhythm. Pulses normal. Respiratory: No respiratory distress. Breath sounds diminished at bases Abdomen: Soft and not distended but reports ttp in RUQ Skin: Skin warm and dry. pale skin color. poor skin turgor. Extremities: No lower extremity edema. Neuro: Oriented X 2 No motor deficit. No sensory deficit. Course Course Course Narrative: labs stable LFTs stable, counts stable signed out to Dr Serrano pending CT scans - no PE, small area LL normal WBC added on ceftriaxone O2 normal. possible CM would expect him to be able go to home with PO abx if he has no findings on CT scan MDM - Abdominal Pain MDM Narrative Medical decision making narrative: 66 yo male coming from home hx of HCC undergoing oral treatments due to inability to tolerate side effects and progression of disease he comes today with c/o RUQ pain, L sided pain chest pain and AMS - states symptoms 1 week at this time will need labs, IVF x 2L, CT head for ICH/mets, CT abdomen for sign of infection/obstruction. Given malignancy will need CTA to r/o PE and pneumonia EKG and troponin ordered. IV morphine for pain. Dispo per results and findings. Lab Data Result diagrams: 06/07/21 13:48 06/07/21 13:48 Labs: Lab Results 06/07/21 06/07/21 06/07/21 Range/Units 13:48 13:48 13:48 WBC 9.9 (4.8-10.8) X10*3/uL RBC 4.66 (4.60-5.80) X10*6/uL Hgb 15.1 (14.0-18.0) g/dl Hct 44.8 (42.0-52.0) % MCV 96.1 (80.0-98.0) fL MCH 32.4 (27.0-33.0) pg MCHC 33.7 (31.0-36.0) g/dl RDW 13.7 (11.0-16.0) % Plt Count 343 (160-400) X10*3/uL MPV 9.5 (9.4-12.4) fL Immature Gran % (Auto) 0.2 (0.0-0.4) % Neut % (Auto) 49.4 (45-73) % Lymph % (Auto) 35.6 (20-40) % [place] % (Auto) 8.4 (2-11) % Eos % (Auto) 5.4 H (0-4) % Baso % (Auto) 1.0 (0-2) % Lymph # (Auto) 3.5 (1.2-4.9) X10*3/uL [place] # (Auto) 0.8 (0.1-1.2) X10*3/uL Eos # (Auto) 0.5 H (0.0-0.4) X10*3/uL Baso # (Auto) 0.1 (0.0-0.2) X10*3/uL Abs Immat Gran (auto) 0.02 (0.00-0.03) X10*3/uL Absolute Neuts (auto) 4.9 (2.0-8.3) x10*3/uL Absolute Nucleated RBC 0.000 (0.0-0.012) X10*3/uL Nucleated RBC % (auto) 0.0 (0.0-0.2) /100WBC PT (9.9-13.0) SEC INR (0.9-1.1) APTT (24.1-38.0) SEC Sodium 139 (135-145) mmol/L Potassium 5.1 (3.3-5.1) mmol/L Chloride 104 (96-108) mmol/L Carbon Dioxide 25 (22-29) mmol/L Anion Gap 15 (12-20) BUN 16 (9-16) mg/dL Creatinine 0.85 (0.5-1.4) mg/dL Estim Creat Clear Calc 75.9 Estimated GFR > 60 Random Glucose 98 (60-115) mg/dL Lactic Acid (0.5-2.0) mmol/L Calcium 9.9 (8.4-10.2) mg/dL Magnesium 2.1 (1.6-2.6) mg/dL Total Bilirubin 0.8 (0.0-1.0) mg/dL Direct Bilirubin 0.3 (0.0-0.5) mg/dL AST 52 H (5-37) U/L ALT 19 (0-40) U/L Alkaline Phosphatase 291 H D (39-117) U/L Ammonia (13-55) umol/L Troponin I High Sens (<3.5-35.0) ng/L Total Protein 8.6 H (6.5-8.0) g/dL Albumin 3.5 (3.5-5.0) g/dL Lipase 16 (8-78) U/L COVID-19 (JOSEPH) Negative (Negative) COVID-19 Clin Com See Note 06/07/21 06/07/21 06/07/21 Range/Units 13:48 13:48 13:48 WBC (4.8-10.8) X10*3/uL RBC (4.60-5.80) X10*6/uL Hgb (14.0-18.0) g/dl Hct (42.0-52.0) % MCV (80.0-98.0) fL MCH (27.0-33.0) pg MCHC (31.0-36.0) g/dl RDW (11.0-16.0) % Plt Count (160-400) X10*3/uL MPV (9.4-12.4) fL Immature Gran % (Auto) (0.0-0.4) % Neut % (Auto) (45-73) % Lymph % (Auto) (20-40) % [place] % (Auto) (2-11) % Eos % (Auto) (0-4) % Baso % (Auto) (0-2) % Lymph # (Auto) (1.2-4.9) X10*3/uL [place] # (Auto) (0.1-1.2) X10*3/uL Eos # (Auto) (0.0-0.4) X10*3/uL Baso # (Auto) (0.0-0.2) X10*3/uL Abs Immat Gran (auto) (0.00-0.03) X10*3/uL Absolute Neuts (auto) (2.0-8.3) x10*3/uL Absolute Nucleated RBC (0.0-0.012) X10*3/uL Nucleated RBC % (auto) (0.0-0.2) /100WBC PT 15.3 H (9.9-13.0) SEC INR 1.3 H (0.9-1.1) APTT 36.8 (24.1-38.0) SEC Sodium (135-145) mmol/L Potassium (3.3-5.1) mmol/L Chloride (96-108) mmol/L Carbon Dioxide (22-29) mmol/L Anion Gap (12-20) BUN (9-16) mg/dL Creatinine (0.5-1.4) mg/dL Estim Creat Clear Calc Estimated GFR Random Glucose (60-115) mg/dL Lactic Acid 1.3 (0.5-2.0) mmol/L Calcium (8.4-10.2) mg/dL Magnesium (1.6-2.6) mg/dL Total Bilirubin (0.0-1.0) mg/dL Direct Bilirubin (0.0-0.5) mg/dL AST (5-37) U/L ALT (0-40) U/L Alkaline Phosphatase (39-117) U/L Ammonia (13-55) umol/L Troponin I High Sens 4.2 (<3.5-35.0) ng/L Total Protein (6.5-8.0) g/dL Albumin (3.5-5.0) g/dL Lipase (8-78) U/L COVID-19 (JOSEPH) (Negative) COVID-19 Clin Com 06/07/21 Range/Units 14:20 WBC (4.8-10.8) X10*3/uL RBC (4.60-5.80) X10*6/uL Hgb (14.0-18.0) g/dl Hct (42.0-52.0) % MCV (80.0-98.0) fL MCH (27.0-33.0) pg MCHC (31.0-36.0) g/dl RDW (11.0-16.0) % Plt Count (160-400) X10*3/uL MPV (9.4-12.4) fL Immature Gran % (Auto) (0.0-0.4) % Neut % (Auto) (45-73) % Lymph % (Auto) (20-40) % [place] % (Auto) (2-11) % Eos % (Auto) (0-4) % Baso % (Auto) (0-2) % Lymph # (Auto) (1.2-4.9) X10*3/uL [place] # (Auto) (0.1-1.2) X10*3/uL Eos # (Auto) (0.0-0.4) X10*3/uL Baso # (Auto) (0.0-0.2) X10*3/uL Abs Immat Gran (auto) (0.00-0.03) X10*3/uL Absolute Neuts (auto) (2.0-8.3) x10*3/uL Absolute Nucleated RBC (0.0-0.012) X10*3/uL Nucleated RBC % (auto) (0.0-0.2) /100WBC PT (9.9-13.0) SEC INR (0.9-1.1) APTT (24.1-38.0) SEC Sodium (135-145) mmol/L Potassium (3.3-5.1) mmol/L Chloride (96-108) mmol/L Carbon Dioxide (22-29) mmol/L Anion Gap (12-20) BUN (9-16) mg/dL Creatinine (0.5-1.4) mg/dL Estim Creat Clear Calc Estimated GFR Random Glucose (60-115) mg/dL Lactic Acid (0.5-2.0) mmol/L Calcium (8.4-10.2) mg/dL Magnesium (1.6-2.6) mg/dL Total Bilirubin (0.0-1.0) mg/dL Direct Bilirubin (0.0-0.5) mg/dL AST (5-37) U/L ALT (0-40) U/L Alkaline Phosphatase (39-117) U/L Ammonia 26 (13-55) umol/L Troponin I High Sens (<3.5-35.0) ng/L Total Protein (6.5-8.0) g/dL Albumin (3.5-5.0) g/dL Lipase (8-78) U/L COVID-19 ([facility]SEPH) (Negative) COVID-19 Clin Com ECG Data Attestation: I personally reviewed and interpreted this ECG as follows: ECG interpretation date: 06/07/21 ECG interpretation time: 14:06 Interpretation: Rate:73 Rhythm: NSR [place]: normal Normal P waves. Normal TIFFANIE. Normal QRS complex. ST T wave : normal no ADITYA qTC: normal prior studies: no acute ischemia The study has been interpreted contemporaneously by me. . Discharge Plan Discharge Clinical Impression: Adult failure to thrive Nausea & vomiting Qualifiers: Vomiting type: unspecified Qualified Code(s): R11.2 - Nausea with vomiting, unspecified Patient Disposition: Still a Patient Prescriptions: No Action clopidogrel 75 mg tablet 75 mg PO QAM Qty: 90 1RF aspirin 81 mg tablet,delayed release (DR/EC) 81 mg PO DAILY Qty: 90 1RF multivitamin Tablet 1 tab PO QAM Qty: 90 1RF folic acid 1 mg tablet 1 mg PO DAILY Qty: 90 1RF famotidine 20 mg tablet 20 mg PO BEDTIME 30 Days Qty: 30 3RF cephalexin 250 mg Capsule 250 mg PO Q8H Qty: 21 0RF docusate sodium [Colace] 100 mg Capsule 100 mg PO DAILY Qty: 30 3RF sennosides-docusate sodium [Senna with Docusate Sodium] 8.6-50 mg Tablet 1 tab-cap PO BEDTIME Qty: 30 3RF quetiapine [Seroquel XR] 150 mg tablet extended release 24 hr 150 mg PO BEDTIME 0RF Magic Mouthwash Diphen/Lido/Antacid 1:1:1 240 mL Suspension 5 ml PO 4-5XD Qty: 240 0RF Rx Instructions: Lidocaine Viscous 2 % 80mL; diphenhydramine 12.5 mg/5 mL 80mL; aluminum-mag hydrox-simeth [id number] 80mL Stivarga 40 mg tablet 80 mg PO DAILY 0RF Rx Instructions: Take 2 pills 3 weeks on, 1 week off. ondansetron HCl 8 mg tablet 1 tab PO Q8H 0RF megestrol 40 mg tablet 1 tab PO DAILY 0RF megestrol 40 mg Tablet 40 mg PO DAILY Qty: 30 2RF ondansetron 8 mg Tablet,Disintegrating 8 mg PO Q12H Qty: 60 3RF oxycodone 5 mg Tablet 5 mg PO TID Qty: 90 0RF clonazepam 1 mg tablet 1 mg PO TID Qty: 10 0RF Rx Instructions: Patient can partially fill this prescription upon request clonazepam 1 mg tablet 1 mg PO TID 0RF
[2021-06-07 13:29] VITALS: BP 131/81; BP 142/77; PULSE 79; PULSE 91; RESP 16; O2SAT 95; O2SAT 96; BMI 19.3
--- NOTE | 2021-06-07 13:36 | ECG_ITS ---
Test Reason : weakness Blood Pressure : / mmHG Vent. Rate : 073 BPM Atrial Rate : 073 BPM P-R Int : 148 ms QRS Dur : 086 ms QT Int : 392 ms P-R-T Axes : 063 -15 022 degrees QTc Int : 431 ms Normal sinus rhythm Normal ECG When compared with ECG of 25-MAY-2021 13:30, Premature supraventricular complexes are no longer Present Non-specific change in ST segment in Inferior leads Referred By: Dominga Reyes Electronically Signed By:Talha Flanagan
[2021-06-07 13:56] LABS: MANUAL DIFF FLAG NO
[2021-06-07 13:59] LABS: Basophils Absolute Auto 0.1 X10*3/uL (0.0-0.2); Eosinophils Absolute Auto 0.5 X10*3/uL (0.0-0.4); Eosinophils Percent Auto 5.4 % (0-4); Hematocrit 44.8 % (42.0-52.0); Hemoglobin 15.1 g/dl (14.0-18.0); Imm Gran Abs Auto 0.02 X10*3/uL (0.00-0.03); Imm Gran Pct Auto 0.2 % (0.0-0.4); Lymphocytes Absolute Auto 3.5 X10*3/uL (1.2-4.9); Lymphocytes Percent Auto 35.6 % (20-40); Mean Corpuscular HGB Conc 33.7 g/dl (31.0-36.0); Mean Corpuscular Hemoglobin 32.4 pg (27.0-33.0); Mean Corpuscular Volume 96.1 fL (80.0-98.0); Mean Platelet Volume 9.5 fL (9.4-12.4); Monocytes Absolute Auto 0.8 X10*3/uL (0.1-1.2); Monocytes Percent Auto 8.4 % (2-11); Neutrophils Absolute Auto 4.9 x10*3/uL (2.0-8.3); Neutrophils Percent Auto 49.4 % (45-73); Platelet Count 343 X10*3/uL (160-400); Red Blood Count 4.66 X10*6/uL (4.60-5.80); Red Cell Distribution Width 13.7 % (11.0-16.0); White Blood Count 9.9 X10*3/uL (4.8-10.8)
[2021-06-07 14:05] LABS: INTERNATIONAL NORM RATIO 1.3 (0.9-1.1); Prothrombin Time 15.3 SEC (9.9-13.0)
[2021-06-07 14:07] LABS: Partial Thromboplastin Time 36.8 SEC (24.1-38.0)
[2021-06-07 14:09] LABS: Lactic Acid 1.3 mmol/L (0.5-2.0)
[2021-06-07 14:12] LABS: COVID-19 Test Negative (Negative)
[2021-06-07] MEDS: 0.9 % Sodium Chloride 1,000 ML 999 ML IVCONT ×2 (14:13→17:54)
[2021-06-07] MEDS: ondansetron HCL 4 MG/2 ML VIAL IVPUSH (14:14)
[2021-06-07] MEDS: Morphine Sulfate 4 MG/ML CARTRIDGE IVPUSH ×2 (14:14→19:18)
[2021-06-07 14:18] LABS: Troponin-I High Sensitivity 4.2 ng/L (<3.5-35.0)
[2021-06-07 14:19] LABS: Alanine Aminotransferase 19 U/L (0-40); Albumin Level 3.5 g/dL (3.5-5.0); Alkaline Phosphatase 291 U/L (39-117); Anion Gap 15 (12-20); Aspartate Amino Transferase 52 U/L (5-37); Bilirubin Direct 0.3 mg/dL (0.0-0.5); Bilirubin Total 0.8 mg/dL (0.0-1.0); Blood Urea Nitrogen 16 mg/dL (9-16); Calcium 9.9 mg/dL (8.4-10.2); Carbon Dioxide 25 mmol/L (22-29); Chloride 104 mmol/L (96-108); Creatinine Clr Calc Pharmacy 75.9; Estimated Glomerular Filt Rate > 60; Glucose Random 98 mg/dL (60-115); Lipase 16 U/L (8-78); Magnesium 2.1 mg/dL (1.6-2.6); Potassium 5.1 mmol/L (3.3-5.1); Sodium 139 mmol/L (135-145); Total Protein 8.6 g/dL (6.5-8.0)
[2021-06-07 14:39] LABS: Ammonia 26 umol/L (13-55)
[2021-06-07] MEDS: iohexoL 350 MG/ML 100 ML INFUS..BTL IV (14:50)
[2021-06-07 14:55] VITALS: BP 129/91; PULSE 79; RESP 14; O2SAT 97
[2021-06-07 15:58] VITALS: BP 126/74; PULSE 83; RESP 18; O2SAT 95
[2021-06-07] MEDS: cefTRIAXone sodium 1 GM in 0.9 % Sodium Chloride 50 ML IV (17:57)
[2021-06-07 19:19] VITALS: BP 129/67; PULSE 75; RESP 18; O2SAT 99
--- NOTE | 2021-06-07 19:19 | PC.NURSE ---
pt to go home via chair van. entry level receptionist in process of completing paperwork. pt aware.
--- NOTE | 2021-06-07 20:01 | PC.NURSE ---
Pt not wearing a surgical mask, requesting curtain open. This RN advising pt that as he is a chemo pt, it is safest to keep mask on and curtain closed to prevent infection. Pt verbalized understanding but requests curtain to remain open. Pt continues waiting for chairvan transportation home.
--- NOTE | 2021-06-07 21:42 | PC.NURSE ---
EMS at bedside for transport home.
== END 2021-06-07 21:48 | disposition home or self-care (01) ==
PROVIDERS: Emergency Medicine; Emergency Provider Emergency Medicine Emergency Medical Services
DX: R62.7 Adult failure to thrive (principal); J18.1 Lobar pneumonia, unspecified organism; R10.11 Right upper quadrant pain; R11.2 Nausea with vomiting, unspecified; Z20.822 Contact with and (suspected) exposure to COVID-19
CPT/HCPCS: 36415; 70450; 71275; 74177; 80048; 80076; 82140; 83605; 83690; 83735; 84484; 85025; 85610; 85730; 87040; 87635; 93005; 96361; 96365; 96375; 96376; 99284; J0696; J2270; J2405; Q9967

== ENCOUNTER 2021-06-20 18:36 | Inpatient (IN) | payer MEDICARE, MEDICAID, SELFPAY ==
--- NOTE | ~2021-06-20 | XR_ITS ---
EXAMINATION: RIGHT FEMUR, RIGHT KNEE CLINICAL INFORMATION: Fall with knee and right femoral pain COMPARISON: CT abdomen pelvis 06/07/2021 TECHNIQUE: 2 views right femur, 4 views right knee FINDINGS: The femur appears normal. No fracture is seen. No fracture is detected in the visualized pelvis. No significant bone joint or soft tissue abnormality is seen involving the knee. No joint effusion. No fractures. XR/XR knee RT 4V IMPRESSION: No evidence of acute osseous injury involving the right femur or knee.
--- NOTE | ~2021-06-20 | CT_ITS ---
EXAMINATION: CT HEAD WITHOUT CONTRAST CT CERVICAL SPINE WITHOUT CONTRAST CLINICAL INFORMATION: Fall and loss of consciousness. COMPARISON: CT head dated from 06/07/2021. TECHNIQUE: Contiguous axial imaging was performed from the skull base to vertex without intravenous administration of contrast. Contiguous axial imaging was performed from the upper chest through the skull base without intravenous administration of contrast. Coronal and sagittal reformats were obtained at the acquisition workstation. This CT examination was performed using dose optimization techniques as appropriate, variously including the following: *Automated exposure control *Adjustment of mA and/or kV according to patient size (this includes techniques or standardized protocols for targeted exams where dose is matched to indication/reason for exam; i.e. extremities or head) *Use of iterative reconstruction technique DLP: 649 and 294 mGy-cm FINDINGS: Head: Redemonstration of chronic gliosis/encephalomalacia in the left frontal lobe with associated volume loss. There is no evidence of acute intracranial hemorrhage or acute edematous infarction. A few foci of hypoattenuation in the periventricular and deep white matter are consistent with mild microangiopathy. Null-white matter differentiation is preserved. Proportional prominence of the ventricles and sulcal spaces. No evidence for obstructive hydrocephalus. No abnormal mass effect or midline shift. No extra-axial fluid collections. No acute soft tissue or osseous abnormalities. The mastoid air cells and paranasal sinuses are clear. Cervical Spine: The atlantooccipital and atlantoaxial articulations remain well aligned. Straightening of the normal cervical lordosis. Otherwise, there is anatomic alignment of the vertebral bodies and posterior elements. No evidence of acute fracture or subluxation. Redemonstration of mild to moderate multilevel cervical spondylosis. There is no prevertebral soft tissue swelling. The thyroid gland and remaining cervical soft tissues are normal in appearance. The lung apices demonstrate emphysematous changes and several areas of subpleural and parenchymal irregularities, thickening and architectural distortion. CT/CT cervical spine wo con IMPRESSION: 1. No acute intracranial pathology. 2. No acute cervical spine fractures or malalignment. 3. Complex appearance of the visualized lung apices which could be chronic, though underlying developing lesions would be difficult to exclude. Correlate with results of same day chest CT and consider follow-up imaging to ensure stability of these parenchymal irregularities.
--- NOTE | ~2021-06-20 | CT_ITS ---
EXAMINATION: CT CHEST, ABDOMEN AND PELVIS WITH CONTRAST. CLINICAL INFORMATION: Fall. Pain. Abdominal pain . COMPARISON: 06/07/2021 study. TECHNIQUE: Multidetector volumetric imaging was performed from the thoracic inlet through the pubic symphysis following administration of 100 mL Omnipaque 300 intravenous contrast. Sagittal and coronal reformatted images were obtained on the technologist's workstation. This CT examination was performed using dose optimization techniques as appropriate, variously including the following: *Automated exposure control *Adjustment of mA and/or kV according to patient size (this includes techniques or standardized protocols for targeted exams where dose is matched to indication/reason for exam; i.e. extremities or head) *Use of iterative reconstruction technique DLP: 731 mGy-cm FINDINGS: CHEST: Lung: Centrilobular emphysematous changes is seen with bullous disease more so in the bilateral upper lobes. There are linear regions of scarring and/or atelectasis bilaterally. Mild tree-in-bud opacification in the dependent aspect of the left lower lobe could be due to inflammatory change or sequela of aspiration, similar to 06/07/2021 study. Debris is seen in the dependent portion of the trachea. Mediastinum: Vascular calcification within the aorta and great vessels as well as the coronary arteries. Prominent mediastinal lymph nodes are again seen. The largest is a 1 cm short axis precarinal node. Visualized thyroid gland unremarkable. Pericardium/Pleura: Calcified pleural plaque on the left. Chest Wall/Axilla: Unremarkable. ABDOMEN/PELVIS: Peritoneal Space:No significant free air or free fluid identified. Liver, Gallbladder, Biliary Tree: Unfortunately there are heterogeneous low-attenuation lesions scattered throughout the liver parenchyma concerning for hepatic metastatic disease. Overall the distribution and appearance is similar to the most recent prior study. These demonstrate heterogeneous enhancement and this is difficult to define further on this single phase contrast study. There are enlarged but stable periportal lymph nodes, also concerning. The gallbladder surgically absent. Pancreas: There is mild fullness to the region the pancreatic tail prior study. Spleen: Surgically absent. Adrenal Glands: Unremarkable. Kidneys and Ureters: The kidneys are normal in size, shape, and attenuation. No hydronephrosis, hydroureter, or calculi seen. No perinephric stranding. Bladder: Unremarkable. Gastrointestinal Tract: Colon is mostly decompressed but tortuous with a few scattered colonic diverticula noted. I do not appreciate any colonic wall thickening or pericolonic inflammatory changes. Visualized small bowel is grossly unremarkable. Abdominal Wall: Hernia mesh seen. No significant reherniation Lymphovascular Structures: Vascular calcification within the aorta with the ectatic infrarenal abdominal aorta measuring up to 2.7 cm in size. There are prominent periportal and peripancreatic lymph nodes extending into the region of the celiac axis and gastrohepatic ligament.. Pelvic Viscera: Unremarkable. Osseus Structures: Unremarkable. CT/CT abdomen pelvis w con IMPRESSION: Chronic appearing changes in the lung parenchyma. No definitive acute process. Unfortunately there are multiple heterogeneous mass lesion seen throughout the liver parenchyma most concerning with diffusely infiltrative/metastatic disease. The appearance is similar to the prior study. There are prominent periportal and peripancreatic lymph nodes extending to the region of the gastrohepatic ligament and celiac axis overall similar to the prior study. Spleen is surgically absent.
--- NOTE | ~2021-06-20 | XR_ITS ---
EXAMINATION: RIGHT FEMUR, RIGHT KNEE CLINICAL INFORMATION: Fall with knee and right femoral pain COMPARISON: CT abdomen pelvis 06/07/2021 TECHNIQUE: 2 views right femur, 4 views right knee FINDINGS: The femur appears normal. No fracture is seen. No fracture is detected in the visualized pelvis. No significant bone joint or soft tissue abnormality is seen involving the knee. No joint effusion. No fractures. XR/XR femur RT 2V IMPRESSION: No evidence of acute osseous injury involving the right femur or knee.
--- NOTE | ~2021-06-20 | XR_ITS ---
EXAMINATION: XR CHEST CLINICAL INFORMATION: Short of breath COMPARISON: 03/28/[address] from 06/20/2021. TECHNIQUE: Frontal view of the chest was obtained. FINDINGS: Hyperexpanded lungs. There is known emphysema. Pleural calcifications are seen on the left. Chronic appearing markings in the lungs with no new consolidation. No pneumothorax. No pleural effusion. The cardiomediastinal silhouette is within normal limits of size with a calcified aorta. XR/XR chest 1V IMPRESSION: No acute pulmonary finding. Emphysema. Pleural calcifications.
--- NOTE | ~2021-06-20 | CT_ITS ---
EXAMINATION: CT ANGIOGRAM OF THE CHEST WITH AND WITHOUT CONTRAST (CT PULMONARY ANGIOGRAM FOR PE) CLINICAL INFORMATION: Reason for Exam Hypoxia, elevated D-Dimer, active cancer COMPARISON: Contrast-enhanced CT scan of the chest yesterday, 06/20/2021 TECHNIQUE: Prior to contrast administration, noncontrast localization images were obtained. Subsequently, multidetector volumetric imaging was performed from the thoracic inlet to below the diaphragms following the administration of 65 mL Omnipaque 350 intravenous contrast. No contrast reaction reported Sagittal, coronal, and MIP oblique sagittal reformatted images were obtained on the CT workstation, uploaded to PACS, and reviewed. This CT examination was performed using dose optimization techniques as appropriate, variously including the following: *Automated exposure control *Adjustment of mA and/or kV according to patient size (this includes techniques or standardized protocols for targeted exams where dose is matched to indication/reason for exam; i.e. extremities or head) *Use of iterative reconstruction technique Total exam dose-length product 254 mGy-cm FINDINGS: QUALITY OF STUDY/CONTRAST BOLUS: Satisfactory. PULMONARY ARTERIES: No central or segmental pulmonary emboli. Compared to the study yesterday there has been no interval change. The quality of yesterday's exam quality of today's study in terms of visualization of the pulmonary arteries. THORACIC AORTA: No aneurysm or dissection. LUNG: Again seen are changes of emphysema with areas of his scarring/atelectasis. Tree-in-bud abnormalities persist. Unchanged from yesterday. Overall, there is been no interval change in appearances since the study last evening. PLEURA: No pleural effusion or pneumothorax. MEDIASTINUM: Normal heart size. No pericardial effusion. Prominent mediastinal lymph nodes unchanged but there is no hilar or mediastinal lymphadenopathy. No evidence of septal bowing or right heart strain. CHEST WALL/AXILLA: No axillary or internal mammary lymphadenopathy. OSSEOUS STRUCTURES: No acute or suspicious osseous abnormality. UPPER ABDOMEN: Of note, the heterogeneous appearance throughout the liver seen on yesterday's study with multiple masses is not anywhere near as apparent on the current study secondary to timing of contrast. No reflux of contrast into the hepatic veins to suggest elevated right heart pressures. CT/CT angio chest PE protocol IMPRESSION: No evidence of pulmonary emboli. No interval change from the study of yesterday. Redemonstration of COPD with chronic pulmonary parenchymal changes with scarring and tree-in-bud formation. Liver metastatic disease not demonstrated well on the current study due to technical factors related to contrast bolus and timing. VTE: negative
[2021-06-20 18:44] VITALS: BP 130/74; PULSE 81; RESP 16; TEMP 37.2; O2SAT 94
--- NOTE | 2021-06-20 18:49 | ED.FALL ---
HPI - Fall General Chief Complaint: Fall Stated Complaint: abdominal pain/fall Time Seen by Provider: 06/20/21 18:38 History of Present Illness HPI Narrative: 66-year-old male past medical history significant for hep c, CVA, GERD, gastritis, HCC undergoing oral treatments due to inability to tolerate side effects and progression of disease presents to the emergency department status post unwitnessed fall. According to EMS and patient patient was found on the ground alert and oriented by his caregiver. Caregiver went out to run some errands and when caregiver got back home patient was on the floor. Patient does not remember falling. He tells me I do not know by lost consciousness. Reporting some neck pain. And right lower extremity pain as well as abdominal pain. Patient tells me he always has abdominal pain. At this time patient is alert and oriented and answering questions appropriately. He denies headache, dizziness, fevers, chills, chest pain, shortness of breath. MD complaint: fall Onset (ago): hour(s) (1) Fall from: standing Fall witnessed: no Place fall occurred: home Loss of consciousness: unsure Prolonged down time: unclear Symptoms prior to fall: none Context: tripped/slipped Related Data Home Medications Medication Instructions Recorded Confirmed quetiapine 150 mg tablet,extended 150 mg PO BEDTIME 05/02/21 06/20/21 release 24 hr (Seroquel XR) regorafenib 40 mg tablet (Stivarga) 160 mg PO DAILY 05/30/21 06/20/21 ondansetron HCl 8 mg tablet 1 tab PO Q12H 06/01/21 06/20/21 clopidogrel 75 mg tablet 75 mg PO DAILY 06/20/21 06/20/21 Previous Rx's Medication Instructions Recorded aspirin 81 mg tablet,delayed 81 mg PO DAILY #90 tab 08/10/20 release multivitamin 1 tab PO QAM #90 tab 01/10/21 folic acid 1 mg tablet 1 mg PO DAILY #90 tab 02/14/21 famotidine 20 mg tablet 20 mg PO BEDTIME 30 Days #30 tab 03/05/21 docusate sodium 100 mg capsule 100 mg PO DAILY #30 cap 03/20/21 (Colace) clonazepam 1 mg tablet 1 mg PO TID #10 tab 05/31/21 megestrol 40 mg tablet 40 mg PO DAILY #30 tab 02/25/22 oxycodone 10 mg tablet 10 mg PO TID #90 tab 06/19/21 Allergies Allergy/AdvReac Type Severity Reaction Status Date / Time No Known Allergies Allergy Verified 05/30/21 11:53 Review of Systems Review of Systems: Constitutional : No Weight loss, No Fever, No Chills, No Fatigue, No Malaise ENT/Mouth : No sore throat, No Rhinorrhea Eyes: No Eye Pain, No Swelling, No Redness Cardiovascular : No Chest Pain, No SOB, No Dyspnea on Exertion, No Orthopnea, No Edema, No Palpitations Respiratory : No Cough, No Sputum, No Wheezing Gastrointestinal : No Nausea, No Vomiting, No Diarrhea, No Constipation, + abdominal Pain, No Hematochezia, No Melena Genitourinary : No Dysuria, No Urinary Frequency, No Hematuria, Musculoskeletal : + joint pain, No Myalgias, No Joint Swelling Skin : No Skin Lesions, No rash Neuro : + Weakness, No Numbness, No Dizziness, No Headache Psych : No Anxiety/Panic, No Depression All other systems reviewed and are negative [facility] Past Medical History Attestation statement: The following information was validated with the patient. Source: old records reviewed and nursing notes reviewed Medical History CVA (cerebral vascular accident) Hepatitis C Hepatocellular carcinoma History of alcohol abuse Incisional hernia Liver cirrhosis Tobacco use disorder Surgical History H/O resection of liver (~04/2017) History of splenectomy No pertinent past surgical history Family History Family History Father No problems noted. Mother No problems noted. Family/Other FH: mental illness Social History Social History Household Members: None Household Members Other:: alone Housing: Apartment Are you a primary healthcare prof to a significant other at home: No Do you presently have visiting nurse or other home services: Yes Alcohol intake: never Patient Tobacco Use Status: Former Tobacco user Tobacco use type: Cigarette e-Cigarette/Vaping Use: Never Used Second Hand Smoke Exposure: No Substance Use Type: Marijuana Advance Directives: No service: No Current occupational status: disabled Cognitive needs: No Hearing needs: Yes (hearing aide) Vision needs: Yes (reading glasses) Physical Exam Vital Signs: Vital Signs: Last Vital Signs Temp 98.6 F 06/20/21 22:01 Pulse 80 06/20/21 22:01 Resp 16 06/21/21 00:56 BP 129/73 06/20/21 22:01 Pulse Ox 94 06/20/21 22:01 BMI result Body Mass Index 20.3 Vital signs stable Appearance: Alert.? Oriented X3.? No acute distress.? Patient in a cervical collar out of precaution put on by EMS Head: Normocephalic, atraumatic, no step-offs or deformities Eyes: Left pupil is dilated, right pupil is pinpoint, reactive to light bilaterally. Extraocular movements intact. ENT: Pharynx normal.? Neck: Normal inspection.? Neck supple.? CVS: Normal heart rate and rhythm.? Pulses normal.? Respiratory: No respiratory distress.? Breath sounds normal.? Abdomen: Soft and + tender to all 4 quadrants.? Skin: Skin warm and dry.? Normal skin color.? Normal skin turgor.? Extremities: No lower extremity edema.? No calf ttp. Patient diffusely weak. He reports pain with range of motion of right lower extremity however he does have full range of motion. Back: No midline tenderness, no C-spine tenderness, full range of motion, no CVA tenderness bilaterally Neuro: Oriented X 3.? No motor deficit.? No sensory deficit. CN 2-12 intact Course Reevaluation(s) Reevaluation #1: CBC appears to be at patient's baseline. Chemistry within patient's normal limits. Patient's urine clean. COVID negative. CT of head and cervical spine with no acute findings. There may be new lesions noted in the lungs.. There also multiple mass lesions noted in the liver parenchyma which could be concerning for metastatic disease. Patient reporting severe pain. Dilaudid will be given at this time. Time: 00:52 Reevaluation #2: Spoke to patient about discharging, he feels as though he may need more resources at home. Frequent falls, weakness. At this time patient will be placed in physician observation to allow more time to be evaluated by Case Management Physical therapy. At time observation was started patient's vital signs are stable, no acute distress. Time: 01:12 MDM - Fall MDM Narrative Medical decision making narrative: 1853 66-year-old male presents status post unwitnessed fall reporting some neck pain, abdominal pain and right lower extremity pain. Physical examination significant for male in a cervical collar with a diffusely tender abdomen. He reports pain with range of motion of right lower extremity. Global weakness is noted on exam. No focal neuro deficits. Right pupil is pinpoint, left pupil is dilated. Plan at this time is labs and imaging. Medical Records Attestation: I reviewed the patient's medical records. Lab Data Attestation: I reviewed the patient's lab results. Result diagrams: 06/20/21 19:22 06/20/21 19: Labs: Lab Results 06/20/21 06/20/21 06/20/21 Range/Units 19: 19: 19: WBC 10.2 (4.8-10.8) X10*3/uL RBC 4.49 L (4.60-5.80) X10*6/uL Hgb 14.5 (14.0-18.0) g/dl Hct 43.6 (42.0-52.0) % MCV 97.1 (80.0-98.0) fL MCH 32.3 (27.0-33.0) pg MCHC 33.3 (31.0-36.0) g/dl RDW 13.6 (11.0-16.0) % Plt Count 375 (160-400) X10*3/uL MPV 9.2 L (9.4-12.4) fL Immature Gran % (Auto) 0.2 (0.0-0.4) % Neut % (Auto) 50.7 (45-73) % Lymph % (Auto) 36.1 (20-40) % [place] % (Auto) 8.3 (2-11) % Eos % (Auto) 3.5 (0-4) % Baso % (Auto) 1.2 (0-2) % Lymph # (Auto) 3.7 (1.2-4.9) X10*3/uL [place] # (Auto) 0.9 (0.1-1.2) X10*3/uL Eos # (Auto) 0.4 (0.0-0.4) X10*3/uL Baso # (Auto) 0.1 (0.0-0.2) X10*3/uL Abs Immat Gran (auto) 0.02 (0.00-0.03) X10*3/uL Absolute Neuts (auto) 5.2 (2.0-8.3) x10*3/uL Absolute Nucleated RBC 0.000 (0.0-0.012) X10*3/uL Nucleated RBC % (auto) 0.0 (0.0-0.2) /100WBC Sodium 138 (135-145) mmol/L Potassium 4.6 (3.3-5.1) mmol/L Chloride 105 (96-108) mmol/L Carbon Dioxide 23 (22-29) mmol/L Anion Gap 15 (12-20) BUN 14 (9-16) mg/dL Creatinine 0.67 (0.5-1.4) mg/dL Estim Creat Clear Calc 104.3 Estimated GFR > 60 Random Glucose 86 (60-115) mg/dL Calcium 9.2 (8.4-10.2) mg/dL Magnesium 2.0 (1.6-2.6) mg/dL Total Bilirubin 0.4 (0.0-1.0) mg/dL AST 85 H (5-37) U/L ALT 27 (0-40) U/L Alkaline Phosphatase 265 H (39-117) U/L Total Creatine Kinase 37 L (38-174) U/L B-Natriuretic Peptide 96 (<100) pg/mL Total Protein 7.7 (6.5-8.0) g/dL Albumin 3.2 L (3.5-5.0) g/dL Lipase 10 (8-78) U/L Urine Color Urine Appearance Urine pH (5.0-8.0) Ur Specific [place] (1.005-1.025) Urine Protein (NEG-TRACE) MG/DL Urine Glucose (UA) (NEG) MG/DL Urine Ketones (NEG) MG/DL Urine Blood (NEG) Urine Nitrite (NEG) Ur Leukocyte Esterase (NEG) COVID-19 (JOSEPH) (Negative) COVID-19 Clin Com 06/20/21 06/20/21 Range/Units 19:24 22:12 WBC (4.8-10.8) X10*3/uL RBC (4.60-5.80) X10*6/uL Hgb (14.0-18.0) g/dl Hct (42.0-52.0) % MCV (80.0-98.0) fL MCH (27.0-33.0) pg MCHC (31.0-36.0) g/dl RDW (11.0-16.0) % Plt Count (160-400) X10*3/uL MPV (9.4-12.4) fL Immature Gran % (Auto) (0.0-0.4) % Neut % (Auto) (45-73) % Lymph % (Auto) (20-40) % [place] % (Auto) (2-11) % Eos % (Auto) (0-4) % Baso % (Auto) (0-2) % Lymph # (Auto) (1.2-4.9) X10*3/uL [place] # (Auto) (0.1-1.2) X10*3/uL Eos # (Auto) (0.0-0.4) X10*3/uL Baso # (Auto) (0.0-0.2) X10*3/uL Abs Immat Gran (auto) (0.00-0.03) X10*3/uL Absolute Neuts (auto) (2.0-8.3) x10*3/uL Absolute Nucleated RBC (0.0-0.012) X10*3/uL Nucleated RBC % (auto) (0.0-0.2) /100WBC Sodium (135-145) mmol/L Potassium (3.3-5.1) mmol/L Chloride (96-108) mmol/L Carbon Dioxide (22-29) mmol/L Anion Gap (12-20) BUN (9-16) mg/dL Creatinine (0.5-1.4) mg/dL Estim Creat Clear Calc Estimated GFR Random Glucose (60-115) mg/dL Calcium (8.4-10.2) mg/dL Magnesium (1.6-2.6) mg/dL Total Bilirubin (0.0-1.0) mg/dL AST (5-37) U/L ALT (0-40) U/L Alkaline Phosphatase (39-117) U/L Total Creatine Kinase (38-174) U/L B-Natriuretic Peptide (<100) pg/mL Total Protein (6.5-8.0) g/dL Albumin (3.5-5.0) g/dL Lipase (8-78) U/L Urine Color YELLOW Urine Appearance CLEAR Urine pH 5.5 (5.0-8.0) Ur Specific [place] 1.010 (1.005-1.025) Urine Protein NEG (NEG-TRACE) MG/DL Urine Glucose (UA) NEG (NEG) MG/DL Urine Ketones 5 (NEG) MG/DL Urine Blood NEG (NEG) Urine Nitrite NEG (NEG) Ur Leukocyte Esterase NEG (NEG) COVID-19 (JOSEPH) Negative (Negative) COVID-19 Clin Com See Note Critical Care Time Critical Care Time Critical Care Time: No Discharge Plan Discharge Clinical Impression: Weakness, Fall Patient Disposition: Still a Patient Prescriptions: No Action aspirin 81 mg tablet,delayed release (DR/EC) 81 mg PO DAILY Qty: 90 1RF multivitamin Tablet 1 tab PO QAM Qty: 90 1RF folic acid 1 mg tablet 1 mg PO DAILY Qty: 90 1RF famotidine 20 mg tablet 20 mg PO BEDTIME 30 Days Qty: 30 3RF docusate sodium [Colace] 100 mg Capsule 100 mg PO DAILY Qty: 30 3RF quetiapine [Seroquel XR] 150 mg tablet extended release 24 hr 150 mg PO BEDTIME 0RF Stivarga 40 mg tablet 160 mg PO DAILY 0RF ondansetron HCl 8 mg tablet 1 tab PO Q12H 0RF megestrol 40 mg Tablet 40 mg PO DAILY Qty: 30 2RF oxycodone 10 mg Tablet 10 mg PO TID Qty: 90 0RF clonazepam 1 mg tablet 1 mg PO TID Qty: 10 0RF Rx Instructions: Patient can partially fill this prescription upon request clopidogrel 75 mg tablet 75 mg PO DAILY 0RF
[2021-06-20 18:54] VITALS: BP 129/71; PULSE 73; RESP 16; TEMP 37; O2SAT 95; BMI 20.3
[2021-06-20 19:28] LABS: MANUAL DIFF FLAG NO
[2021-06-20 19:31] LABS: Basophils Absolute Auto 0.1 X10*3/uL (0.0-0.2); Basophils Percent Auto 1.2 % (0-2); Eosinophils Absolute Auto 0.4 X10*3/uL (0.0-0.4); Eosinophils Percent Auto 3.5 % (0-4); Hematocrit 43.6 % (42.0-52.0); Hemoglobin 14.5 g/dl (14.0-18.0); Imm Gran Abs Auto 0.02 X10*3/uL (0.00-0.03); Imm Gran Pct Auto 0.2 % (0.0-0.4); Lymphocytes Absolute Auto 3.7 X10*3/uL (1.2-4.9); Lymphocytes Percent Auto 36.1 % (20-40); Mean Corpuscular HGB Conc 33.3 g/dl (31.0-36.0); Mean Corpuscular Hemoglobin 32.3 pg (27.0-33.0); Mean Corpuscular Volume 97.1 fL (80.0-98.0); Mean Platelet Volume 9.2 fL (9.4-12.4); Monocytes Absolute Auto 0.9 X10*3/uL (0.1-1.2); Monocytes Percent Auto 8.3 % (2-11); Neutrophils Absolute Auto 5.2 x10*3/uL (2.0-8.3); Neutrophils Percent Auto 50.7 % (45-73); Platelet Count 375 X10*3/uL (160-400); Red Blood Count 4.49 X10*6/uL (4.60-5.80); Red Cell Distribution Width 13.6 % (11.0-16.0); White Blood Count 10.2 X10*3/uL (4.8-10.8)
--- NOTE | 2021-06-20 19:41 | PHA.MEDREC ---
Pharmacy Consult ? Medication Reconciliation Pharmacy has completed the medication reconciliation.
[2021-06-20 19:44] LABS: COVID-19 Test Negative (Negative)
[2021-06-20 19:49] LABS: Alanine Aminotransferase 27 U/L (0-40); Albumin Level 3.2 g/dL (3.5-5.0); Alkaline Phosphatase 265 U/L (39-117); Anion Gap 15 (12-20); Aspartate Amino Transferase 85 U/L (5-37); Bilirubin Total 0.4 mg/dL (0.0-1.0); Blood Urea Nitrogen 14 mg/dL (9-16); Calcium 9.2 mg/dL (8.4-10.2); Carbon Dioxide 23 mmol/L (22-29); Chloride 105 mmol/L (96-108); Creatinine Clr Calc Pharmacy 104.3; Estimated Glomerular Filt Rate > 60; Glucose Random 86 mg/dL (60-115); Lipase 10 U/L (8-78); Potassium 4.6 mmol/L (3.3-5.1); Sodium 138 mmol/L (135-145); Total Protein 7.7 g/dL (6.5-8.0)
[2021-06-20 19:56] LABS: B Type Natriuretic Peptide 96 pg/mL (<100)
[2021-06-20] MEDS: iohexoL 350 MG/ML 100 ML INFUS..BTL IV (20:24)
[2021-06-20 20:39] VITALS: RESP 18
[2021-06-20] MEDS: Morphine Sulfate 4 MG/ML CARTRIDGE IVPUSH (20:39)
[2021-06-20 22:01] VITALS: BP 129/73; PULSE 80; RESP 18; TEMP 37; O2SAT 94
[2021-06-20 22:22] LABS: Appearance Urine CLEAR; Color Urine YELLOW; Glucose Urine UA NEG (NEG); Leukocyte Esterase Urine NEG (NEG); Nitrite Urine NEG (NEG); PH 5.5 (5.0-8.0); Urine Blood NEG (NEG); Urine Ketones 5 MG/DL (NEG); Urine Protein NEG (NEG-TRACE)
[2021-06-21] VITALS (15 sets, daily range): BP systolic 95–141; BP diastolic 51–85; PULSE 71–100; RESP 16–22; TEMP 36.4–36.9; O2SAT 80–98
[2021-06-21] MEDS: HYDROmorphone HCl 1 MG/ML SYRINGE IVPUSH (00:56)
--- NOTE | 2021-06-21 01:29 | PC.NURSE ---
pt requested food/liquids. this RN provided water and jello. loan secretary then informed this RN that pt 02 sat was decreasing to low 80's with good pleth. upon entry to room this RN saw that pt had vomitus on his hospital gown, had a wet cough but not able to cough anything up, 02 sat at 80% on room air. this RN asked pt if he vomited and choked and pt confirmed that he did. this RN asked again if pt could try coughing/clearing throat and pt was not able to. 02 nasal cannula applied at 2L, 02 sat increased to 83% on 2L with good pleth. Provider (María DE LEON) notified and paged to bedside. per provider order 02 nasal cannula increased to 4L, 02 sat increased to 88% on 4L nc. RT paged to bedside to apply oxy mask. chest XR ordered. pt 02 sat now 95% on 7L oxy mask. pt now sitting in bed in high fowlers, no respiratory distress at this time but pt still has wet cough/voice.
--- NOTE | 2021-06-21 01:51 | PC.NURSE ---
this RN at bedside obtaining vitals. this RN asked pt if his breathing effort is easier and pt initially states no. pt still has wet cough/voice. while obtaining vitals pt coughed and spit up vomitus and now states breathing is a little easier. provider notified. pt in no distress otherwise. call brambila in reach.
[2021-06-21] MEDS: cefTRIAXone sodium 1 GM in 0.9 % Sodium Chloride 50 ML IV (02:02)
--- NOTE | 2021-06-21 02:07 | PC.NURSE ---
this RN and remote broadcast technician Camelia boosted pt and raised head of bed to high fowlers. while preparing antibiotic pts mattress slid down and feet end of mattress were hanging well off the end of the bed leaving pt in supine position. upon inspection this RN discovered that velcro piece on back of mattress was ripped and unable to properly secure mattress to stretcher. pt switched to stretcher with properly functioning mattress/velcro. old stretcher and mattress moved to hallway outside of ED breakroom and broken tag placed on mattress.charge nurse aware. provider aware.
--- NOTE | 2021-06-21 02:34 | PC.NURSE ---
pt vomited again. 02 sat decreased to 83% on room air with good pleth. ED provider María DE LEON at bedside, aware of 02 sat on room air. pt placed back on oxy mask at 7L. 03 sat increased to 93% on 7L oxy mask
--- NOTE | 2021-06-21 04:56 | PM.IMHP ---
History of Present Illness Date of Service: 06/21/21 Chief Complaint: fall 66-year-old male with a past medical history of hepatitis-C, hepatocellular carcinoma, liver cirrhosis, history of alcohol abuse/tobacco dependence, CVA presented to the hospital today with a chief complaint of fall. Patient reported that he was lying in the bed and fell on the floor from bed; denies any head strike or loss of consciousness; denies any hip pain back pain neck pain. Reports he has right upper quadrant abdominal pain which is been chronic. Patient denies any chest pain or palpitations. Denies any nausea vomiting or diarrhea. Review of all other systems is negative except mentioned above ER course: Per ER team patient exam was benign; CT head showed no acute findings , CT chest showed chronic appearing changes in the lung parenchyma, CT abdomen showed heterogeneous liver lesion consistent with infiltrative/metastatic disease;; few minutes later patient choked on JellO and became acutely hypoxic; requiring supplemental oxygen on Oxymizer at 6 L; oxygenation gradually improved to low 90s; patient not in respiratory distress; concern for aspiration pneumonia/ pneumonitis; patient was empirically started on antibiotics. Admitted to the hospital for further management. admitted to the hospital for further management [facility] Medical History CVA (cerebral vascular accident) Hepatitis C Hepatocellular carcinoma History of alcohol abuse Incisional hernia Liver cirrhosis Tobacco use disorder Family History Father No problems noted. Mother No problems noted. Family/Other FH: mental illness Surgical History H/O resection of liver (~04/2017) History of splenectomy No pertinent past surgical history Social History Household Members: None Household Members Other:: alone Housing: Apartment Are you a primary critical care clinical nurse specialist to a significant other at home: No Do you presently have visiting nurse or other home services: Yes Alcohol intake: never Patient Tobacco Use Status: Former Tobacco user Tobacco use type: Cigarette e-Cigarette/Vaping Use: Never Used Second Hand Smoke Exposure: No Substance Use Type: Marijuana Advance Directives: No service: No Current occupational status: disabled Cognitive needs: No Hearing needs: Yes (hearing aide) Vision needs: Yes (reading glasses) Meds Allergies Allergy/AdvReac Type Severity Reaction Status Date / Time No Known Allergies Allergy Verified 05/30/21 11:53 Active Medications: Current Medications Acetaminophen (Acetaminophen 325 Mg Tablet) 650 mg PO Q6H PRN PRN Reason: Pain, Mild (Pain Scale 1-3) Albuterol/Ipratropium (Albuterol/Iprat 2.5/0.5mg 3 Ml Ampul.Neb) 3 ml INHALE RQ4H PRN PRN Reason: Shortness of Breath/Wheezing Aspirin (Aspirin Enteric Coated 81 Mg Tablet.Dr) 81 mg PO DAILY [facility] Clonazepam (Clonazepam 1 Mg Tablet) 1 mg PO TID [facility] Clopidogrel Bisulfate (Clopidogrel Bisulfate 75 Mg Tablet) 75 mg PO DAILY [facility] Docusate Sodium (Docusate Sodium 100 Mg Capsule) 100 mg PO DAILY [facility] Famotidine (Famotidine 20 Mg Tablet) 20 mg PO BEDTIME [facility] Folic Acid (Folic Acid 1 Mg Tablet) 1 mg PO DAILY [facility] Heparin Sodium (Porcine) (Heparin Sodium,Porcine 5,000 Unit/Ml Vial) 5,000 unit SUBCUT Q8H [facility] Piperacillin Sod/Tazobactam (Sod 3.375 gm/ Sodium Chloride) 50 mls @ 100 mls/hr IV Q6H [facility] Vancomycin HCl 1,000 mg/ (Sodium Chloride) 270 mls @ 270 mls/hr IV Q12H [facility] Megestrol Acetate (Megestrol Acetate 20 Mg Tablet) 40 mg PO DAILY [facility] Melatonin (Melatonin 3 Mg Tablet) 6 mg PO BEDTIME PRN PRN Reason: Insomnia Multivitamins/Vitamin C (Multivitamin Tablet) 1 tab PO DAILY [facility] Non-Formulary Medication (Regorafenib [Stivarga]) 160 mg PO DAILY [facility] Ondansetron HCl (Ondansetron Odt 8 Mg Tab.Rapdis) 8 mg TRANSLINGU Q12H [facility] Oxycodone HCl (Oxycodone Hcl Immed Release 5 Mg Tablet) 10 mg PO TID [facility] Pharmacy Consult (Consult Rx Perform Med Rec) 1 each MISCELLANE ONCE PRN PRN Reason: Consult order Pharmacy Consult (Consult Rx Vancomycin Dosing) 1 each MISCELLANE DAILY PRN PRN Reason: Consult order Quetiapine Fumarate (Quetiapine Fumarate 25 Mg Tablet) 75 mg PO BID [facility] Senna (Sennosides 8.6 Mg Tablet) 17.2 mg PO BEDTIME PRN PRN Reason: Constipation Sodium Chloride (0.9 % Sodium Chloride Flush 3 Ml Syringe) 3 ml IVFLUSH QSHIFT [facility] Home Medications Medication Instructions Recorded Confirmed Last Taken Type quetiapine 150 mg tablet,extended 150 mg PO BEDTIME 05/02/21 06/20/21 06/20/21 History release 24 hr (Seroquel XR) regorafenib 40 mg tablet (Stivarga) 160 mg PO DAILY 05/30/21 06/20/21 Unknown History ondansetron HCl 8 mg tablet 1 tab PO Q12H 06/01/21 06/20/21 Unknown History clopidogrel 75 mg tablet 75 mg PO DAILY 06/20/21 06/20/21 Unknown History Physical Exam Vital Signs and Narrative: Vital Signs: Last Vital Signs Temp 98.5 F 06/21/21 01:48 Pulse 75 06/21/21 02:37 Resp 21 H 06/21/21 02:37 BP 134/85 06/21/21 01:48 Pulse Ox 94 06/21/21 02:37 BMI result Body Mass Index 20.3 Gen: Appears be in no acute distress. breathing comfortably on supplemental oxygen HEENT: NCAT, Moist mucosa. Pulmonary: coarse breath sounds CVS: Normal S1-S2 Abdomen: BS+, Soft, Nontender Extremities: Warm well perfused Neuro: Alert and awake. Results Labs CBC and Chem 7: 06/20/21 19:22 06/20/21 19:22 Labs: Laboratory Results - last 24 hr 06/20/21 06/20/21 06/20/21 19:22 19:22 19:22 MCV 97.1 MCH 32.3 MCHC 33.3 RDW 13.6 Plt Count 375 MPV 9.2 L Immature Gran % (Auto) 0.2 Neut % (Auto) 50.7 Lymph % (Auto) 36.1 [place] % (Auto) 8.3 Eos % (Auto) 3.5 Baso % (Auto) 1.2 Lymph # (Auto) 3.7 [place] # (Auto) 0.9 Eos # (Auto) 0.4 Baso # (Auto) 0.1 Abs Immat Gran (auto) 0.02 Absolute Neuts (auto) 5.2 Absolute Nucleated RBC 0.000 Nucleated RBC % (auto) 0.0 Anion Gap 15 Estim Creat Clear Calc 104.3 Estimated GFR > 60 Random Glucose 86 Calcium 9.2 Magnesium 2.0 Total Bilirubin 0.4 AST 85 H ALT 27 Alkaline Phosphatase 265 H Total Creatine Kinase 37 L B-Natriuretic Peptide 96 Total Protein 7.7 Albumin 3.2 L Lipase 10 Urine Color Urine Appearance Urine pH Ur Specific [place] Urine Protein Urine Glucose (UA) Urine Ketones Urine Blood Urine Nitrite Ur Leukocyte Esterase COVID-19 (JOSEPH) COVID-19 Clin Com 06/20/21 06/20/21 19:24 22:12 MCV MCH MCHC RDW Plt Count MPV Immature Gran % (Auto) Neut % (Auto) Lymph % (Auto) [place] % (Auto) Eos % (Auto) Baso % (Auto) Lymph # (Auto) [place] # (Auto) Eos # (Auto) Baso # (Auto) Abs Immat Gran (auto) Absolute Neuts (auto) Absolute Nucleated RBC Nucleated RBC % (auto) Anion Gap Estim Creat Clear Calc Estimated GFR Random Glucose Calcium Magnesium Total Bilirubin AST ALT Alkaline Phosphatase Total Creatine Kinase B-Natriuretic Peptide Total Protein Albumin Lipase Urine Color YELLOW Urine Appearance CLEAR Urine pH 5.5 Ur Specific [place] 1.010 Urine Protein NEG Urine Glucose (UA) NEG Urine Ketones 5 Urine Blood NEG Urine Nitrite NEG Ur Leukocyte Esterase NEG COVID-19 (JOSEPH) Negative COVID-19 Clin Com See Note Imaging Radiologist's Impressions: Impressions Femur X-Ray 06/20/21 19:42 IMPRESSION: No evidence of acute osseous injury involving the right femur or knee. Knee X-Ray 06/20/21 19:42 IMPRESSION: No evidence of acute osseous injury involving the right femur or knee. Cervical Spine CT 06/20/21 20:23 IMPRESSION: 1. No acute intracranial pathology. 2. No acute cervical spine fractures or malalignment. 3. Complex appearance of the visualized lung apices which could be chronic, though underlying developing lesions would be difficult to exclude. Correlate with results of same day chest CT and consider follow-up imaging to ensure stability of these parenchymal irregularities. Head CT 06/20/21 20:23 IMPRESSION: 1. No acute intracranial pathology. 2. No acute cervical spine fractures or malalignment. 3. Complex appearance of the visualized lung apices which could be chronic, though underlying developing lesions would be difficult to exclude. Correlate with results of same day chest CT and consider follow-up imaging to ensure stability of these parenchymal irregularities. Abdomen/Pelvis CT 06/20/21 20:29 IMPRESSION: Chronic appearing changes in the lung parenchyma. No definitive acute process. Unfortunately there are multiple heterogeneous mass lesion seen throughout the liver parenchyma most concerning with diffusely infiltrative/metastatic disease. The appearance is similar to the prior study. There are prominent periportal and peripancreatic lymph nodes extending to the region of the gastrohepatic ligament and celiac axis overall similar to the prior study. Spleen is surgically absent. Chest CT 06/20/21 20:29 IMPRESSION: Chronic appearing changes in the lung parenchyma. No definitive acute process. Unfortunately there are multiple heterogeneous mass lesion seen throughout the liver parenchyma most concerning with diffusely infiltrative/metastatic disease. The appearance is similar to the prior study. There are prominent periportal and peripancreatic lymph nodes extending to the region of the gastrohepatic ligament and celiac axis overall similar to the prior study. Spleen is surgically absent. Chest X-Ray 06/21/21 01:30 IMPRESSION: No acute pulmonary finding. Emphysema. Pleural calcifications. Assessment and Plan (1) Hypoxia: Status: Acute (2) Aspiration pneumonia: Status: Acute (3) Fall: Status: Acute Plan 66-year-old male with a past medical history of hepatitis-C, hepatocellular carcinoma, liver cirrhosis, history of alcohol abuse/tobacco dependence, CVA presented to the hospital today with a chief complaint of fall if negative workup for fall; later in the ER patient had a choking episode and became acutely hypoxic admitted for possible aspiration pneumonia. Acute hypoxic respiratory failure: Likely in setting of aspiration. Follow-up chest x-ray is clear. Empirically covered with IV vancomycin and Zosyn. Continue supplemental oxygen DuoNebs p.r.n. Speech and swallow eval Will obtain D-dimer abdominal pain: The setting of liver mass. supportive care. Hepatocellular carcinoma: Continue home stivarga. Oncology follow-up fall: Mechanical in nature. PT/OT. DVT prophylaxis: Lovenox Code status: Full code Quality Stroke Does the patient have a stroke diagnosis?: No VTE Prior VTE?: No VTE Risk Level:: Medical - moderate - high VTE Device Contraindication: N/A - Device Ordered VTE Drug Contraindication: N/A - Med Ordered
[2021-06-21] MEDS: vancomycin HCL 1,000 MG in 0.9 % Sodium Chloride 250 ML 270 MG IV (05:24)
[2021-06-21 06:29] LABS: MANUAL DIFF FLAG NO
[2021-06-21] MEDS: Piperacillin Sodium/Tazobactam 3.375 GM in 0.9 % Sodium Chloride 50 ML IV ×4 (06:38→23:11)
[2021-06-21 06:48] LABS: Anion Gap 17 (12-20); Blood Urea Nitrogen 12 mg/dL (9-16); Calcium 9.2 mg/dL (8.4-10.2); Carbon Dioxide 22 mmol/L (22-29); Chloride 105 mmol/L (96-108); Creatinine Clr Calc Pharmacy 109.2; Estimated Glomerular Filt Rate > 60; Glucose Random 77 mg/dL (60-115); Potassium 4.8 mmol/L (3.3-5.1); Sodium 139 mmol/L (135-145)
[2021-06-21 06:50] LABS: D Dimer High Sensitivity 873 NG/ML
[2021-06-21 06:56] LABS: Basophils Absolute Auto 0.1 X10*3/uL (0.0-0.2); Basophils Percent Auto 0.7 % (0-2); Eosinophils Absolute Auto 0.3 X10*3/uL (0.0-0.4); Eosinophils Percent Auto 2.5 % (0-4); Hematocrit 46.4 % (42.0-52.0); Hemoglobin 15.2 g/dl (14.0-18.0); Imm Gran Abs Auto 0.03 X10*3/uL (0.00-0.03); Imm Gran Pct Auto 0.2 % (0.0-0.4); Lymphocytes Absolute Auto 3.6 X10*3/uL (1.2-4.9); Mean Corpuscular HGB Conc 32.8 g/dl (31.0-36.0); Mean Corpuscular Hemoglobin 31.9 pg (27.0-33.0); Mean Corpuscular Volume 97.5 fL (80.0-98.0); Mean Platelet Volume 9.4 fL (9.4-12.4); Monocytes Absolute Auto 0.6 X10*3/uL (0.1-1.2); Monocytes Percent Auto 4.9 % (2-11); Neutrophils Absolute Auto 7.5 x10*3/uL (2.0-8.3); Neutrophils Percent Auto 61.7 % (45-73); Platelet Count 390 X10*3/uL (160-400); Red Blood Count 4.76 X10*6/uL (4.60-5.80); Red Cell Distribution Width 13.5 % (11.0-16.0); White Blood Count 12.1 X10*3/uL (4.8-10.8)
[2021-06-21] MEDS: Ondansetron ODT 8 MG TAB.RAPDIS TRANSLINGU ×2 (08:43→20:33)
[2021-06-21] MEDS: Enoxaparin Sodium 40 MG/0.4 ML SYRINGE SUBCUT (08:44)
[2021-06-21] MEDS: Megestrol Acetate 20 MG TABLET 40 MG PO (08:46)
[2021-06-21] MEDS: Aspirin Enteric Coated 81 MG TABLET.DR PO (08:46)
[2021-06-21] MEDS: oxyCODONE HCl Immed Release 5 MG TABLET 10 MG PO ×3 (08:47→20:33)
[2021-06-21] MEDS: Clopidogrel Bisulfate 75 MG TABLET PO (08:47)
[2021-06-21] MEDS: Folic Acid 1 MG TABLET PO (08:47)
[2021-06-21] MEDS: QUEtiapine Fumarate 25 MG TABLET 75 MG PO ×2 (08:47→20:34)
[2021-06-21] MEDS: Docusate Sodium 100 MG CAPSULE PO (08:48)
[2021-06-21] MEDS: 0.9 % Sodium Chloride Flush 3 ML SYRINGE IVFLUSH ×3 (08:48→20:34)
[2021-06-21] MEDS: Multivitamin TABLET 1 TAB PO (08:48)
[2021-06-21] MEDS: clonazePAM 1 MG TABLET PO ×3 (08:48→20:33)
[2021-06-21] MEDS: methylPREDNISolone Sod Succ 40 MG/ML VIAL IVPUSH ×2 (08:52→20:33)
--- NOTE | 2021-06-21 09:16 | PC.NURSE ---
Pt vomited moderate amount of green bile, zofran given. Dr Talavera updated. Pt tolerated PO meds well however swallow eval order placed. Sat 97% on oxymask 7l
--- NOTE | 2021-06-21 10:21 | HO.PM.IMPN ---
Subjective Subjective Date of Service: 06/21/21 Interval History: the patient was seen and evaluated this morning Laying in bed, slow answers, on 7 L of oxygen Report feeling short of breath, no chest pain No reported other overnight events. Systemic review: No fever, chills and reports generalized weakness No chest pain, palpitation Having difficulty breathing and episodes of coughing No abdominal pain, nausea or vomiting No urinary symptoms No any rash or wounds Physical Exam Vital Signs: Vital Signs: Last Vital Signs Temp 98.5 F 06/21/21 01:48 Pulse 79 06/21/21 07:12 Resp 16 06/21/21 07:12 BP 141/76 H 06/21/21 07:12 Pulse Ox 96 06/21/21 07:12 BMI result Body Mass Index 20.3 Const: Other: Constitutional : Awake, slow answers, not in distress Neck : Normal inspection, Supple Cardiovascular : RRR, S1 S2, no lower extremity edema Respiratory : For bilateral air entry, basal bilateral crackles, no wheezes or rhonchi Gastrointestinal: soft, lax, Normal bowel sounds, Non tender Skin : Warm, Dry Neurological : Alert & oriented to self and place, No focal deficit Objective Data Active Medications Acetaminophen (Acetaminophen 325 Mg Tablet) 650 mg PO Q6H PRN PRN Reason: Pain, Mild (Pain Scale 1-3) Albuterol/Ipratropium (Albuterol/Iprat 2.5/0.5mg 3 Ml Ampul.Neb) 3 ml INHALE RQ4H PRN PRN Reason: Shortness of Breath/Wheezing Aspirin (Aspirin Enteric Coated 81 Mg Tablet.) 81 mg PO DAILY [facility] Last Admin: 06/21/21 08:46 Dose: 81 mg Documented by: GERALDINE Clonazepam (Clonazepam 1 Mg Tablet) 1 mg PO TID [facility] Last Admin: 06/21/21 08:48 Dose: 1 mg Documented by: GERALDINE Clopidogrel Bisulfate (Clopidogrel Bisulfate 75 Mg Tablet) 75 mg PO DAILY [facility] Last Admin: 06/21/21 08:47 Dose: 75 mg Documented by: GERALDINE Docusate Sodium (Docusate Sodium 100 Mg Capsule) 100 mg PO DAILY [facility] Last Admin: 06/21/21 08:48 Dose: 100 mg Documented by: GERALDINE Enoxaparin Sodium (Enoxaparin Sodium 40 Mg/0.4 Ml Syringe) 40 mg SUBCUT Q24H [facility] Last Admin: 06/21/21 08:44 Dose: 40 mg Documented by: GERALDINE Famotidine (Famotidine 20 Mg Tablet) 20 mg PO BEDTIME [facility] Folic Acid (Folic Acid 1 Mg Tablet) 1 mg PO DAILY [facility] Last Admin: 06/21/21 08:47 Dose: 1 mg Documented by: GERALDINE Piperacillin Sod/Tazobactam (Sod 3.375 gm/ Sodium Chloride) 50 mls @ 100 mls/hr IV Q6H [facility] Last Infusion: 06/21/21 07:11 Dose: 0 mls/hr Documented by: GERALDINE Megestrol Acetate (Megestrol Acetate 20 Mg Tablet) 40 mg PO DAILY [facility] Last Admin: 06/21/21 08:46 Dose: 40 mg Documented by: GERALDINE Melatonin (Melatonin 3 Mg Tablet) 6 mg PO BEDTIME PRN PRN Reason: Insomnia Methylprednisolone Sodium Succinate (Methylprednisolone Sod Succ 40 Mg/Ml Vial) 40 mg IVPUSH Q12H [facility] Last Admin: 06/21/21 08:52 Dose: 40 mg Documented by: GERALDINE Multivitamins/Vitamin C (Multivitamin Tablet) 1 tab PO DAILY [facility] Last Admin: 06/21/21 08:48 Dose: 1 tab Documented by: GERALDINE Non-Formulary Medication (Regorafenib [Stivarga]) 160 mg PO DAILY [facility] Ondansetron HCl (Ondansetron Odt 8 Mg Tab.Rapdis) 8 mg TRANSLINGU Q12H [facility] Last Admin: 06/21/21 08:43 Dose: 8 mg Documented by: GERALDINE Oxycodone HCl (Oxycodone Hcl Immed Release 5 Mg Tablet) 10 mg PO TID [facility] Last Admin: 06/21/21 08:47 Dose: 10 mg Documented by: GERALDINE Pharmacy Consult (Consult Rx Perform Med Rec) 1 each MISCELLANE ONCE PRN PRN Reason: Consult order Pharmacy Consult (Consult Rx Vancomycin Dosing) 1 each MISCELLANE DAILY PRN PRN Reason: Consult order Quetiapine Fumarate (Quetiapine Fumarate 25 Mg Tablet) 75 mg PO BID [facility] Last Admin: 06/21/21 08:47 Dose: 75 mg Documented by: GERALDINE Senna (Sennosides 8.6 Mg Tablet) 17.2 mg PO BEDTIME PRN PRN Reason: Constipation Sodium Chloride (0.9 % Sodium Chloride Flush 3 Ml Syringe) 3 ml IVFLUSH QSHIFT [facility] Last Admin: 06/21/21 08:48 Dose: 3 ml Documented by: GERALDINE Labs CBC & Chem 7: 06/21/21 06:25 06/21/21 06:25 Labs: Laboratory Results - last 24 hr 06/20/21 06/20/21 06/20/21 19:22 19:22 19:22 MCV 97.1 MCH 32.3 MCHC 33.3 RDW 13.6 Plt Count 375 MPV 9.2 L Immature Gran % (Auto) 0.2 Neut % (Auto) 50.7 Lymph % (Auto) 36.1 [place] % (Auto) 8.3 Eos % (Auto) 3.5 Baso % (Auto) 1.2 Lymph # (Auto) 3.7 [place] # (Auto) 0.9 Eos # (Auto) 0.4 Baso # (Auto) 0.1 Abs Immat Gran (auto) 0.02 Absolute Neuts (auto) 5.2 Absolute Nucleated RBC 0.000 Nucleated RBC % (auto) 0.0 D-Dimer High Sensitivty Anion Gap 15 Estim Creat Clear Calc 104.3 Estimated GFR > 60 Random Glucose 86 Calcium 9.2 Magnesium 2.0 Total Bilirubin 0.4 AST 85 H ALT 27 Alkaline Phosphatase 265 H Total Creatine Kinase 37 L B-Natriuretic Peptide 96 Total Protein 7.7 Albumin 3.2 L Lipase 10 Urine Color Urine Appearance Urine pH Ur Specific [place] Urine Protein Urine Glucose (UA) Urine Ketones Urine Blood Urine Nitrite Ur Leukocyte Esterase COVID-19 ([facility]) COVID-19 Clin Com 06/20/21 06/20/21 06/21/21 19:24 22:12 06:25 MCV MCH MCHC RDW Plt Count MPV Immature Gran % (Auto) Neut % (Auto) Lymph % (Auto) [place] % (Auto) Eos % (Auto) Baso % (Auto) Lymph # (Auto) [place] # (Auto) Eos # (Auto) Baso # (Auto) Abs Immat Gran (auto) Absolute Neuts (auto) Absolute Nucleated RBC Nucleated RBC % (auto) D-Dimer High Sensitivty 873 Anion Gap Estim Creat Clear Calc Estimated GFR Random Glucose Calcium Magnesium Total Bilirubin AST ALT Alkaline Phosphatase Total Creatine Kinase B-Natriuretic Peptide Total Protein Albumin Lipase Urine Color YELLOW Urine Appearance CLEAR Urine pH 5.5 Ur Specific [place] 1.010 Urine Protein NEG Urine Glucose (UA) NEG Urine Ketones 5 Urine Blood NEG Urine Nitrite NEG Ur Leukocyte Esterase NEG COVID-19 ([facility]) Negative COVID-19 Clin Com See Note 06/21/21 06/21/21 06:25 06:25 MCV 97.5 MCH 31.9 MCHC 32.8 RDW 13.5 Plt Count 390 MPV 9.4 Immature Gran % (Auto) 0.2 Neut % (Auto) 61.7 Lymph % (Auto) 30.0 [place] % (Auto) 4.9 Eos % (Auto) 2.5 Baso % (Auto) 0.7 Lymph # (Auto) 3.6 [place] # (Auto) 0.6 Eos # (Auto) 0.3 Baso # (Auto) 0.1 Abs Immat Gran (auto) 0.03 Absolute Neuts (auto) 7.5 Absolute Nucleated RBC 0.000 Nucleated RBC % (auto) 0.0 D-Dimer High Sensitivty Anion Gap 17 Estim Creat Clear Calc 109.2 Estimated GFR > 60 Random Glucose 77 Calcium 9.2 Magnesium Total Bilirubin AST ALT Alkaline Phosphatase Total Creatine Kinase B-Natriuretic Peptide Total Protein Albumin Lipase Urine Color Urine Appearance Urine pH Ur Specific [place] Urine Protein Urine Glucose (UA) Urine Ketones Urine Blood Urine Nitrite Ur Leukocyte Esterase COVID-19 ([facility]) COVID-19 Clin Com Assessment and Plan (1) Acute respiratory failure with hypoxia: Status: Acute (2) Weakness: Status: Acute (3) Hepatocellular carcinoma: Status: Acute (4) Difficulty swallowing: Status: Acute Plan 66-year-old male with a past medical history of hepatitis-C, hepatocellular carcinoma, liver cirrhosis, history of alcohol abuse/tobacco dependence, CVA presented to the hospital today with a chief complaint of fall if negative workup for fall; later in the ER patient had a choking episode and became acutely hypoxic admitted for possible aspiration pneumonia. Acute hypoxic respiratory failure 2/2 aspiration pneumonia Likely in setting of aspiration. CT chest showing multiple changes which seems more chronic D-dimer elevated around 800, with his dysphagia there is a higher chance of infection but given active liver CA, to do CTA Pending blood cultures Continue with IV Zosyn. Continue supplemental oxygen DuoNebs p.r.n. Difficulty swallowing 2/2 physical deconditioning Noticed to have difficulty swallowing and coughing episodes To do Speech and swallow eval abdominal pain 2/2 Hepatocellular carcinoma Supportive care, pain management Continue home stivarga. Oncology follow-up as OP fall Mechanical in nature PT/OT. DVT prophylaxis: Lovenox Need of hospital stay, patient will need to be in the hospital overnight to continue treatment for hypoxia with goal to wean oxygen down to room air and eval for CTA. Pending final blood cultures. Quality Stroke Does the patient have a stroke diagnosis?: No VTE Prior VTE?: No VTE Risk Level:: Medical - moderate - high VTE Device Contraindication: N/A - Device Ordered VTE Drug Contraindication: N/A - Med Ordered
--- NOTE | 2021-06-21 11:13 | PHA.PROG ---
Admission Date/Time: June 21, 2021 04:53 Indication: Possible aspiritation PNA Weight in k.039 kg Adjusted body weight in K.7 kg [place] body weight in K.6 kg Obesity Dosing Indication % IBW: 87 % Serum Creatinine - Last 168 Hours 06/20/21 06/21/21 19:22 06:25 Creatinine 0.67 0.64 Estimated CrCl and GFR - Last 168 Hours 06/20/21 06/21/21 19: 06:25 Estim Creat Clear Calc 104.3 109.2 Estimated GFR > 60 > 60 Vancomycin Loading Dose: N/A Current Vancomycin Dosing Regimen: 1000 mg Q12H Date and Time for next Vancomycin Level to be drawn: 06/22 @ 1600 Pharmacist Comments on Vancomycin Plan: Patient is older age therefore may need to decrease to Q24H Expected AUC s 475 with a trough of 14.1 Trough will be drawn prior to 4th dose Pharmacy will monitor renal function daily Uzma Damon, Tracey Vancomycin dosing will take advantage of [employer] as a clinical decision support tool that uses Bayesian modeling to calculate individual patient's pharmacokinetic parameters and forecast the patient's drug concentration time course with the target goal AUC 24 range of 400 - 600 mg/L/hr.
--- NOTE | 2021-06-21 14:57 | MHC.SL.SWA ---
Speech Pathologist Impression: Risk of Aspiration Due to: Medically Fragile Poor PO Intake Dysphasia Diet Status: Liquid Consistency and Strategies for Safe Swallow: Liquid Intake Recommendation: [place] Thick Liquid Intake Strategies: Small Sips Solid Food Consistency: Dietary Recommendations: Chopped/Advanced (NDD3) Additional Modifications to Solid Foods: Add gravies and sauces. Oral Medication Intake: Crushed with Puree Please contact the pharmacy regarding appropriate crushable or liquid drug formulations that are available whenever modified delivery is recommended. Compensatory Strategies and Precautions to be Taken for Safe Swallow: Sitting Upright (90 deg) Liquids from Cup Alternate Liquids/Solids Rate of Ingestion Change Supervision While Eating and Drinking for Safe Swallow: Total Supervision (1:1) Foods to Avoid: DIfficult to chew solids. Swallowing Recommended Treatments: Recommendation for Speech: Inpatient Speech Therapy Comment: Pt presents w/ mild delay or oral and pharyngeal phase of swallow on liquids and solids. Pt reports no difficulty with swallowing prior than last night's episode in ER. Pt's diet currently PUREE w/ Thin Liquids, recommend upgrade diet to Chopped/Advanced w/ [place] Thick liquids. Recommendation sent by secure text to MD, Rattling Machine Tender. Pt c/o no appetite or desire to eat at time of assessment, and may have difficulty taking adequate nutrition. Recommend supervision during meals with monitor for signs of aspiration, encouragement to eat. Frequency/Duration: Date Range for Service Req: Timeline to reassess: Marine Engine Machinist Clinican/Clinical Fellow: No Supervisory Statement: I have reviewed and agree with the student/clinical fellow's documentation: N/A Speech Language Pathologist: Myesha Diaz M.A., CCC-LEASING ASSISTANT
[2021-06-21] MEDS: iohexoL 350 MG/ML 100 ML INFUS..BTL IV (15:14)
--- NOTE | 2021-06-21 15:55 | MHC.CM.PN ---
PATIENT STATES THAT HE LIVES ALONE BUT HAS A SHANK PINNER WHO ASSISTS WITH ADLS HE VERIFIES HIS ADDRESS AND AGREES THAT HE IS ACTIVE WITH [facility]. CALL TO CONTACT [facility] ([phone]) COMMUNITY SUPPORT [facility] TAKES CARE OF VISITS, TRANSPORT, PAPERWORK, FOOD STAMPS, SOCIAL SECURITY, LEASE IS UP-TO-DATE, ETC. PATIENT IS COVID VACCINATED X 3 JUNE- JULY 2020 IS FIRST AND SECOND DOSE BUT SHE IS UNABLE TO RECALL THE ACTUAL DATES. BOOSTER WAS BEFORE THIS PAST WINTER. PATIENT DOES NOT HAVE A HCP AND IS NOT APPROPRIATE TO ASSIGN ONE AT THIS TIME.(ALERT TO SELF) HE IS ACTIVE WITH [facility] AND THEY ARE FOLLOWING. HIS RN IS VIRIDIANA AND CAN BE REACHED AT [phone] IMM 06/21 IN CHART
[2021-06-21] MEDS: Famotidine 20 MG TABLET PO (20:33)
[2021-06-22 03:45] VITALS: BP 120/57; PULSE 89; RESP 18; TEMP 37.2; O2SAT 93
[2021-06-22] MEDS: Piperacillin Sodium/Tazobactam 3.375 GM in 0.9 % Sodium Chloride 50 ML IV ×4 (06:00→23:39)
[2021-06-22 06:08] LABS: Hematocrit 41.4 % (42.0-52.0); Hemoglobin 13.8 g/dl (14.0-18.0); Mean Corpuscular HGB Conc 33.3 g/dl (31.0-36.0); Mean Corpuscular Hemoglobin 32.2 pg (27.0-33.0); Mean Corpuscular Volume 96.7 fL (80.0-98.0); Mean Platelet Volume 9.7 fL (9.4-12.4); Platelet Count 390 X10*3/uL (160-400); Red Blood Count 4.28 X10*6/uL (4.60-5.80); Red Cell Distribution Width 13.7 % (11.0-16.0); White Blood Count 17.1 X10*3/uL (4.8-10.8)
[2021-06-22 06:26] LABS: Creatinine Clr Calc Pharmacy 85.2; Estimated Glomerular Filt Rate > 60
[2021-06-22 06:38] LABS: Anion Gap 15 (12-20); Blood Urea Nitrogen 19 mg/dL (9-16); Calcium 9.3 mg/dL (8.4-10.2); Carbon Dioxide 24 mmol/L (22-29); Chloride 105 mmol/L (96-108); Creatinine Clr Calc Pharmacy 90.8; Estimated Glomerular Filt Rate > 60; Glucose Random 167 mg/dL (60-115); Potassium 4.9 mmol/L (3.3-5.1); Sodium 139 mmol/L (135-145)
[2021-06-22 07:22] VITALS: BP 113/60; PULSE 85; RESP 20; TEMP 36.6; O2SAT 97
--- NOTE | 2021-06-22 09:11 | HE.PHANOTE ---
WBC trending up, possibily asp pneumonia, cont zosyn for now
[2021-06-22] MEDS: Enoxaparin Sodium 40 MG/0.4 ML SYRINGE SUBCUT (09:16)
[2021-06-22] MEDS: methylPREDNISolone Sod Succ 40 MG/ML VIAL IVPUSH ×2 (09:16→20:24)
[2021-06-22] MEDS: clonazePAM 1 MG TABLET PO ×3 (09:17→20:26)
[2021-06-22] MEDS: Multivitamin TABLET 1 TAB PO (09:17)
[2021-06-22] MEDS: oxyCODONE HCl Immed Release 5 MG TABLET 10 MG PO ×3 (09:17→20:25)
[2021-06-22] MEDS: Folic Acid 1 MG TABLET PO (09:17)
[2021-06-22] MEDS: Clopidogrel Bisulfate 75 MG TABLET PO (09:17)
[2021-06-22] MEDS: Megestrol Acetate 20 MG TABLET 40 MG PO (09:17)
[2021-06-22] MEDS: Aspirin Enteric Coated 81 MG TABLET.DR PO (09:17)
[2021-06-22] MEDS: 0.9 % Sodium Chloride Flush 3 ML SYRINGE IVFLUSH ×3 (09:18→23:40)
[2021-06-22] MEDS: QUEtiapine Fumarate 25 MG TABLET 75 MG PO ×2 (09:18→20:26)
[2021-06-22] MEDS: Docusate Sodium 100 MG CAPSULE PO (09:18)
[2021-06-22] MEDS: Ondansetron ODT 8 MG TAB.RAPDIS TRANSLINGU ×2 (09:18→20:26)
--- NOTE | 2021-06-22 11:07 | P.PNIM_ITS ---
Subjective Subjective Date of Service: 06/22/21 Interval History: cc: fall interval history: ruq pain Cardiovascular Cardiovascular: Reports no additional cardiovascular complaints Gastrointestinal Gastrointestinal: Reports no additional gastrointestinal complaints Physical Exam Vital Signs: Vital Signs: Last Vital Signs Temp 97.9 F 06/22/21 07:22 Pulse 85 06/22/21 07:22 Resp 20 06/22/21 07:22 BP 113/60 06/22/21 07:22 Pulse Ox 97 06/22/21 07:22 BMI result Body Mass Index 20.3 General: AO X 3, frail, in some pain Resp: CTA bilateral, no accessory muscles used CVS: S1,S2,RRR GI: soft, ruq tender, non distended Neuro: expressive aphasia, alert Psych: appropriate affect, appropriate insight Objective Data Active Medications Acetaminophen (Acetaminophen 325 Mg Tablet) 650 mg PO Q6H PRN PRN Reason: Pain, Mild (Pain Scale 1-3) Albuterol/Ipratropium (Albuterol/Iprat 2.5/0.5mg 3 Ml Ampul.Neb) 3 ml INHALE RQ4H PRN PRN Reason: Shortness of Breath/Wheezing Aspirin (Aspirin Enteric Coated 81 Mg Tablet.) 81 mg PO DAILY [facility] Last Admin: 06/22/21 09:17 Dose: 81 mg Documented by: KOREY Clonazepam (Clonazepam 1 Mg Tablet) 1 mg PO TID [facility] Last Admin: 06/22/21 09:17 Dose: 1 mg Documented by: KOREY Clopidogrel Bisulfate (Clopidogrel Bisulfate 75 Mg Tablet) 75 mg PO DAILY [facility] Last Admin: 06/22/21 09:17 Dose: 75 mg Documented by: KOREY Docusate Sodium (Docusate Sodium 100 Mg Capsule) 100 mg PO DAILY [facility] Last Admin: 06/22/21 09:18 Dose: 100 mg Documented by: KOREY Enoxaparin Sodium (Enoxaparin Sodium 40 Mg/0.4 Ml Syringe) 40 mg SUBCUT Q24H [facility] Last Admin: 06/22/21 09:16 Dose: 40 mg Documented by: KOREY Famotidine (Famotidine 20 Mg Tablet) 20 mg PO BEDTIME [facility] Last Admin: 06/21/21 20:33 Dose: 20 mg Documented by: LUCITA Folic Acid (Folic Acid 1 Mg Tablet) 1 mg PO DAILY [facility] Last Admin: 06/22/21 09:17 Dose: 1 mg Documented by: KOREY Piperacillin Sod/Tazobactam (Sod 3.375 gm/ Sodium Chloride) 50 mls @ 100 mls/hr IV Q6H [facility] Last Infusion: 06/22/21 06:40 Dose: 0 mls/hr Documented by: LUCITA Megestrol Acetate (Megestrol Acetate 20 Mg Tablet) 40 mg PO DAILY [facility] Last Admin: 06/22/21 09:17 Dose: 40 mg Documented by: KOREY Melatonin (Melatonin 3 Mg Tablet) 6 mg PO BEDTIME PRN PRN Reason: Insomnia Methylprednisolone Sodium Succinate (Methylprednisolone Sod Succ 40 Mg/Ml Vial) 40 mg IVPUSH Q12H [facility] Last Admin: 06/22/21 09:16 Dose: 40 mg Documented by: KOREY Multivitamins/Vitamin C (Multivitamin Tablet) 1 tab PO DAILY [facility] Last Admin: 06/22/21 09:17 Dose: 1 tab Documented by: KOREY Non-Formulary Medication (Regorafenib [Stivarga]) 160 mg PO DAILY [facility] Ondansetron HCl (Ondansetron Odt 8 Mg Tab.Rapdis) 8 mg TRANSLINGU Q12H [facility] Last Admin: 06/22/21 09:18 Dose: 8 mg Documented by: KOREY Oxycodone HCl (Oxycodone Hcl Immed Release 5 Mg Tablet) 10 mg PO TID [facility] Last Admin: 06/22/21 09:17 Dose: 10 mg Documented by: KOREY Pharmacy Consult (Consult Rx Perform Med Rec) 1 each MISCELLANE ONCE PRN PRN Reason: Consult order Pharmacy Consult (Consult Rx Vancomycin Dosing) 1 each MISCELLANE DAILY PRN PRN Reason: Consult order Quetiapine Fumarate (Quetiapine Fumarate 25 Mg Tablet) 75 mg PO BID [facility] Last Admin: 06/22/21 09:18 Dose: 75 mg Documented by: KOREY Senna (Sennosides 8.6 Mg Tablet) 17.2 mg PO BEDTIME PRN PRN Reason: Constipation Sodium Chloride (0.9 % Sodium Chloride Flush 3 Ml Syringe) 3 ml IVFLUSH QSHIFT [facility] Last Admin: 06/22/21 09:18 Dose: 3 ml Documented by: KOREY Labs CBC & Chem 7: 06/22/21 05:31 06/22/21 05:31 Labs: Laboratory Results - last 24 hr 06/22/21 06/22/21 06/22/21 05:31 05:31 05:31 MCV 96.7 MCH 32.2 MCHC 33.3 RDW 13.7 Plt Count 390 MPV 9.7 Absolute Nucleated RBC 0.000 Nucleated RBC % (auto) 0.0 Anion Gap 15 Estim Creat Clear Calc 85.2 90.8 Estimated GFR > 60 > 60 Random Glucose 167 H D Calcium 9.3 Assessment and Plan (1) Difficulty swallowing: Status: Acute (2) Acute respiratory failure with hypoxia: Status: Acute (3) Weakness: Status: Acute (4) Hepatocellular carcinoma: Status: Acute Plan 66-year-old male with a past medical history of hepatitis-C, hepatocellular carcinoma, liver cirrhosis, history of alcohol abuse/tobacco dependence, CVA presented to the hospital today with a chief complaint of fall if negative workup for fall; later in the ER patient had a choking episode and became acutely hypoxic admitted for possible aspiration pneumonia. Acute hypoxic respiratory failure 2/2 aspiration pneumonitis vs penumonia will continue empiric zosyn [employer]IC aprpeciated, continue NDD3 solids, nectar thick liquids wean o2 with goal of on room air >90% saturation Continue supplemental oxygen DuoNebs p.r.n. abdominal pain 2/2 Hepatocellular carcinoma in the setting of liver cirrhosis from HCV Supportive care, pain management Continue home stivarga. Oncology follow-up as OP fall Mechanical in nature PT/OT. - at home DVT prophylaxis: Lovenox Need of hospital stay, patient will need to continue hospitalation to continue treatment for hypoxia with goal to wean oxygen down to room air. Quality Stroke Does the patient have a stroke diagnosis?: No VTE Prior VTE?: No VTE Risk Level:: Medical - moderate - high VTE Device Contraindication: N/A - Device Ordered VTE Drug Contraindication: N/A - Med Ordered
--- NOTE | 2021-06-22 11:18 | MHC.SL.SWA ---
Speech Pathologist Impression: Risk of Aspiration Due to: Medically Fragile Poor PO Intake Dysphasia Diet Status: upgrade to thin liquid Liquid Consistency and Strategies for Safe Swallow: Liquid Intake Recommendation: Thin Liquid Intake Strategies: Unrestricted Solid Food Consistency: Dietary Recommendations: Chopped/Advanced (NDD3) Additional Modifications to Solid Foods: Add gravies and sauces. Oral Medication Intake: Crushed with Puree Please contact the pharmacy regarding appropriate crushable or liquid drug formulations that are available whenever modified delivery is recommended. Compensatory Strategies and Precautions to be Taken for Safe Swallow: Sitting Upright (90 deg) Small Bites and Sips Supervision While Eating and Drinking for Safe Swallow: Intermittent Supervision Foods to Avoid: DIfficult to chew solids. Swallowing Recommended Treatments: Recommendation for Speech: Inpatient Speech Therapy Comment: upgrade to thin liquids at this time. remain on chopped solids Frequency/Duration: Date Range for Service Req: Timeline to reassess: Business Solutions Director Clinican/Clinical Fellow: No Supervisory Statement: I have reviewed and agree with the student/clinical fellow's documentation: N/A Speech Language Pathologist: Karyn Drew M.A., CCC-CATALYTIC CONVERTER OPERATOR
[2021-06-22 11:30] VITALS: BP 120/65; PULSE 76; RESP 20; TEMP 36.8; O2SAT 92
[2021-06-22 13:46] VITALS: BMI 20.3
--- NOTE | 2021-06-22 14:01 | MHC.CLN ---
NUTRITION PATIENT WITH NUTRITION DX MODERATE MALNUTRITION IN THE CONTEXT OF CHRONIC ILLNESS. ADDING ENSURE BID TO PROVIDE ADDITIONAL 700 KCAL, 40 G PROTEIN.
[2021-06-22 15:45] VITALS: BP 111/63; PULSE 70; RESP 18; TEMP 36.9; O2SAT 95
--- NOTE | 2021-06-22 16:39 | MHC.CM.PN ---
NURSE Case manger note case discussed with staff nurse and hospitals[facility] , met with patient he strongly refuses to even consider or allow me to make any str referrals he demands to go home with [facility]na servic discharge plan [facility] and will need home opt as well pcp dr carrillo for nsg and home pt contat person [id number]
[2021-06-22 19:43] VITALS: BP 117/69; PULSE 70; RESP 17; TEMP 36.9; O2SAT 95
[2021-06-22] MEDS: Famotidine 20 MG TABLET PO (20:25)
[2021-06-22 23:32] VITALS: BP 118/73; PULSE 76; RESP 18; TEMP 36.4; O2SAT 94
[2021-06-23 04:00] VITALS: BP 106/65; PULSE 63; RESP 18; TEMP 36.1; O2SAT 98
[2021-06-23 05:53] LABS: Hematocrit 41.7 % (42.0-52.0); Hemoglobin 14.2 g/dl (14.0-18.0); Mean Corpuscular HGB Conc 34.1 g/dl (31.0-36.0); Mean Corpuscular Hemoglobin 32.6 pg (27.0-33.0); Mean Corpuscular Volume 95.9 fL (80.0-98.0); Mean Platelet Volume 9.8 fL (9.4-12.4); Platelet Count 411 X10*3/uL (160-400); Red Blood Count 4.35 X10*6/uL (4.60-5.80); Red Cell Distribution Width 13.8 % (11.0-16.0); White Blood Count 20.6 X10*3/uL (4.8-10.8)
[2021-06-23 06:11] LABS: Anion Gap 13 (12-20); Blood Urea Nitrogen 17 mg/dL (9-16); Calcium 9.3 mg/dL (8.4-10.2); Carbon Dioxide 27 mmol/L (22-29); Chloride 105 mmol/L (96-108); Creatinine Clr Calc Pharmacy 102.8; Estimated Glomerular Filt Rate > 60; Glucose Fasting 139 mg/dL (60-99); Potassium 4.5 mmol/L (3.3-5.1); Sodium 140 mmol/L (135-145)
[2021-06-23] MEDS: Piperacillin Sodium/Tazobactam 3.375 GM in 0.9 % Sodium Chloride 50 ML IV ×4 (06:25→23:54)
[2021-06-23 07:51] VITALS: BP 109/73; PULSE 57; RESP 15; TEMP 36.1; O2SAT 99
[2021-06-23] MEDS: Folic Acid 1 MG TABLET PO (09:36)
[2021-06-23] MEDS: QUEtiapine Fumarate 25 MG TABLET 75 MG PO ×2 (09:36→21:30)
[2021-06-23] MEDS: Docusate Sodium 100 MG CAPSULE PO (09:36)
[2021-06-23] MEDS: methylPREDNISolone Sod Succ 40 MG/ML VIAL IVPUSH ×2 (09:36→21:31)
[2021-06-23] MEDS: oxyCODONE HCl Immed Release 5 MG TABLET 10 MG PO ×3 (09:37→21:30)
[2021-06-23] MEDS: Aspirin Enteric Coated 81 MG TABLET.DR PO (09:37)
[2021-06-23] MEDS: Clopidogrel Bisulfate 75 MG TABLET PO (09:37)
[2021-06-23] MEDS: Ondansetron ODT 8 MG TAB.RAPDIS TRANSLINGU ×2 (09:38→21:31)
[2021-06-23] MEDS: Multivitamin TABLET 1 TAB PO (09:38)
[2021-06-23] MEDS: clonazePAM 1 MG TABLET PO ×3 (09:39→21:31)
[2021-06-23] MEDS: Megestrol Acetate 20 MG TABLET 40 MG PO (09:39)
[2021-06-23] MEDS: Enoxaparin Sodium 40 MG/0.4 ML SYRINGE SUBCUT (09:39)
[2021-06-23] MEDS: 0.9 % Sodium Chloride Flush 3 ML SYRINGE IVFLUSH ×4 (09:40→23:55)
--- NOTE | 2021-06-23 11:34 | HE.PHANOTE ---
Zosyn Antibiotic Stewardship WBC trending up, aspiriation PNA, continue Zosyn
--- NOTE | 2021-06-23 11:49 | P.PNIM_ITS ---
Subjective Subjective Date of Service: 06/23/21 Interval History: cc: hypoxia interval history: ruq pain Cardiovascular Cardiovascular: Reports no additional cardiovascular complaints Respiratory Respiratory: Reports no additional respiratory complaints Physical Exam Vital Signs: Vital Signs: Last Vital Signs Temp 96.9 F 06/23/21 07:51 Pulse 57 06/23/21 07:51 Resp 15 06/23/21 07:51 BP 109/73 06/23/21 07:51 Pulse Ox 99 06/23/21 07:51 BMI result Body Mass Index 20.3 General: AO X 3, frail, in some pain Resp:? CTA bilateral, no accessory muscles used CVS: S1,S2,RRR GI: soft, ruq tender, non distended Neuro:? expressive aphasia, alert Psych: appropriate affect, appropriate insight? Objective Data Active Medications Acetaminophen (Acetaminophen 325 Mg Tablet) 650 mg PO Q6H PRN PRN Reason: Pain, Mild (Pain Scale 1-3) Albuterol/Ipratropium (Albuterol/Iprat 2.5/0.5mg 3 Ml Ampul.Neb) 3 ml INHALE RQ4H PRN PRN Reason: Shortness of Breath/Wheezing Aspirin (Aspirin Enteric Coated 81 Mg Tablet.) 81 mg PO DAILY [facility] Last Admin: 06/23/21 09:37 Dose: 81 mg Documented by: JAH Clonazepam (Clonazepam 1 Mg Tablet) 1 mg PO TID [facility] Last Admin: 06/23/21 09:39 Dose: 1 mg Documented by: JAH Clopidogrel Bisulfate (Clopidogrel Bisulfate 75 Mg Tablet) 75 mg PO DAILY [facility] Last Admin: 06/23/21 09:37 Dose: 75 mg Documented by: JAH Docusate Sodium (Docusate Sodium 100 Mg Capsule) 100 mg PO DAILY [facility] Last Admin: 06/23/21 09:36 Dose: 100 mg Documented by: JAH Enoxaparin Sodium (Enoxaparin Sodium 40 Mg/0.4 Ml Syringe) 40 mg SUBCUT Q24H [facility] Last Admin: 06/23/21 09:39 Dose: 40 mg Documented by: JAH Famotidine (Famotidine 20 Mg Tablet) 20 mg PO BEDTIME [facility] Last Admin: 06/22/21 20:25 Dose: 20 mg Documented by: TAYLOR Folic Acid (Folic Acid 1 Mg Tablet) 1 mg PO DAILY [facility] Last Admin: 06/23/21 09:36 Dose: 1 mg Documented by: JAH Piperacillin Sod/Tazobactam (Sod 3.375 gm/ Sodium Chloride) 50 mls @ 100 mls/hr IV Q6H [facility] Last Infusion: 06/23/21 07:58 Dose: 0 mls/hr Documented by: JAH Megestrol Acetate (Megestrol Acetate 20 Mg Tablet) 40 mg PO DAILY [facility] Last Admin: 06/23/21 09:39 Dose: 40 mg Documented by: JAH Comments: Melatonin (Melatonin 3 Mg Tablet) 6 mg PO BEDTIME PRN PRN Reason: Insomnia Methylprednisolone Sodium Succinate (Methylprednisolone Sod Succ 40 Mg/Ml Vial) 40 mg IVPUSH Q12H [facility] Last Admin: 06/23/21 09:36 Dose: 40 mg Documented by: JAH Multivitamins/Vitamin C (Multivitamin Tablet) 1 tab PO DAILY [facility] Last Admin: 06/23/21 09:38 Dose: 1 tab Documented by: JAH Non-Formulary Medication (Regorafenib [Stivarga]) 160 mg PO DAILY [facility] Ondansetron HCl (Ondansetron Odt 8 Mg Tab.Rapdis) 8 mg TRANSLINGU Q12H [facility] Last Admin: 06/23/21 09:38 Dose: 8 mg Documented by: JAH Oxycodone HCl (Oxycodone Hcl Immed Release 5 Mg Tablet) 10 mg PO TID [facility] Last Admin: 06/23/21 09:37 Dose: 10 mg Documented by: JAH Pharmacy Consult (Consult Rx Perform Med Rec) 1 each MISCELLANE ONCE PRN PRN Reason: Consult order Pharmacy Consult (Consult Rx Vancomycin Dosing) 1 each MISCELLANE DAILY PRN PRN Reason: Consult order Quetiapine Fumarate (Quetiapine Fumarate 25 Mg Tablet) 75 mg PO BID [facility] Last Admin: 06/23/21 09:36 Dose: 75 mg Documented by: JAH Senna (Sennosides 8.6 Mg Tablet) 17.2 mg PO BEDTIME PRN PRN Reason: Constipation Sodium Chloride (0.9 % Sodium Chloride Flush 3 Ml Syringe) 3 ml IVFLUSH QSHIFT [facility] Last Admin: 06/23/21 09:40 Dose: 3 ml Documented by: JAH Labs CBC & Chem 7: 06/23/21 05:20 06/23/21 05:20 Labs: Laboratory Results - last 24 hr 06/23/21 06/23/21 05:20 05:20 MCV 95.9 MCH 32.6 MCHC 34.1 RDW 13.8 Plt Count 411 H MPV 9.8 Absolute Nucleated RBC 0.000 Nucleated RBC % (auto) 0.0 Anion Gap 13 Estim Creat Clear Calc 102.8 Estimated GFR > 60 Fasting Glucose 139 H Calcium 9.3 Assessment and Plan (1) Difficulty swallowing: Status: Acute (2) Acute respiratory failure with hypoxia: Status: Acute (3) Weakness: Status: Acute (4) Hepatocellular carcinoma: Status: Acute Plan 66-year-old male with a past medical history of hepatitis-C, hepatocellular carcinoma, liver cirrhosis, history of alcohol abuse/tobacco dependence, CVA presented to the hospital today with a chief complaint of fall if negative workup for fall; later in the ER patient had a choking episode and became acutely hypoxic admitted for possible aspiration pneumonia. Acute hypoxic respiratory failure 2/2 aspiration pneumonitis vs penumonia will continue empiric zosyn SANFORIZER aprpeciated, continue NDD3 solids, nectar thick liquids wean o2 with goal of on room air >90% saturation - still on 5L this am Continue supplemental oxygen DuoNebs p.r.n. abdominal pain 2/2 Hepatocellular carcinoma in the setting of liver cirrhosis from HCV Supportive care, pain management Continue home stivarga. Oncology follow-up as OP fall Mechanical in nature PT/OT. - at home DVT prophylaxis: Lovenox Need of hospital stay, patient will need to continue hospitalation to continue treatment for hypoxia with goal to wean oxygen down to room air. Quality Stroke Does the patient have a stroke diagnosis?: No VTE Prior VTE?: No VTE Risk Level:: Medical - moderate - high VTE Device Contraindication: N/A - Device Ordered VTE Drug Contraindication: N/A - Med Ordered
[2021-06-23 11:50] VITALS: BP 141/67; PULSE 88; RESP 22; TEMP 36.6
[2021-06-23 12:00] VITALS: BP 122/69; PULSE 88; RESP 20; TEMP 37.2; O2SAT 82
[2021-06-23 15:45] VITALS: BP 170/94; PULSE 83; RESP 18; TEMP 36.6; O2SAT 88
[2021-06-23 19:22] VITALS: BP 133/75; PULSE 70; RESP 18; TEMP 36.1; O2SAT 97
[2021-06-23] MEDS: Famotidine 20 MG TABLET PO (21:31)
[2021-06-24] VITALS: BP 134/77; PULSE 84; RESP 18; TEMP 36.1; O2SAT 95
[2021-06-24 03:58] VITALS: BP 127/73; PULSE 71; RESP 18; TEMP 36.2; O2SAT 98
[2021-06-24] MEDS: Piperacillin Sodium/Tazobactam 3.375 GM in 0.9 % Sodium Chloride 50 ML IV ×3 (05:23→17:55)
[2021-06-24 06:26] LABS: Hematocrit 41.9 % (42.0-52.0); Hemoglobin 13.7 g/dl (14.0-18.0); Mean Corpuscular HGB Conc 32.7 g/dl (31.0-36.0); Mean Corpuscular Hemoglobin 31.6 pg (27.0-33.0); Mean Corpuscular Volume 96.8 fL (80.0-98.0); Mean Platelet Volume 9.9 fL (9.4-12.4); Platelet Count 400 X10*3/uL (160-400); Red Blood Count 4.33 X10*6/uL (4.60-5.80); White Blood Count 22.8 X10*3/uL (4.8-10.8)
[2021-06-24 06:46] LABS: Anion Gap 13 (12-20); Blood Urea Nitrogen 17 mg/dL (9-16); Calcium 9.1 mg/dL (8.4-10.2); Carbon Dioxide 25 mmol/L (22-29); Chloride 105 mmol/L (96-108); Creatinine Clr Calc Pharmacy 112.7; Estimated Glomerular Filt Rate > 60; Glucose Fasting 131 mg/dL (60-99); Sodium 139 mmol/L (135-145)
[2021-06-24 07:32] VITALS: BP 129/73; PULSE 74; RESP 20; TEMP 36.7; O2SAT 99
[2021-06-24] MEDS: methylPREDNISolone Sod Succ 40 MG/ML VIAL IVPUSH (08:24)
[2021-06-24] MEDS: Megestrol Acetate 20 MG TABLET 40 MG PO (08:24)
[2021-06-24] MEDS: clonazePAM 1 MG TABLET PO ×3 (08:25→22:40)
[2021-06-24] MEDS: QUEtiapine Fumarate 25 MG TABLET 75 MG PO ×2 (08:25→22:40)
[2021-06-24] MEDS: Multivitamin TABLET 1 TAB PO (08:25)
[2021-06-24] MEDS: Ondansetron ODT 8 MG TAB.RAPDIS TRANSLINGU ×2 (08:25→22:40)
[2021-06-24] MEDS: Docusate Sodium 100 MG CAPSULE PO (08:25)
[2021-06-24] MEDS: Folic Acid 1 MG TABLET PO (08:25)
[2021-06-24] MEDS: Clopidogrel Bisulfate 75 MG TABLET PO (08:25)
[2021-06-24] MEDS: oxyCODONE HCl Immed Release 5 MG TABLET 10 MG PO ×3 (08:26→22:40)
[2021-06-24] MEDS: Enoxaparin Sodium 40 MG/0.4 ML SYRINGE SUBCUT (08:26)
[2021-06-24] MEDS: Aspirin Enteric Coated 81 MG TABLET.DR PO (08:26)
--- NOTE | 2021-06-24 09:18 | HO.PM.IMPN ---
Subjective Subjective Date of Service: 06/24/21 Interval History: cc: hypoxia interval history: ruq pain manageable Cardiovascular Cardiovascular: Reports no additional cardiovascular complaints Gastrointestinal Gastrointestinal: Reports no additional gastrointestinal complaints Physical Exam Vital Signs: Vital Signs: Last Vital Signs Temp 98.1 F 06/24/21 07:32 Pulse 74 06/24/21 07:32 Resp 20 06/24/21 07:32 BP 129/73 06/24/21 07:32 Pulse Ox 99 06/24/21 07:32 BMI result Body Mass Index 20.3 General: AO X 3, frail, no acute distess Resp:? CTA bilateral, no accessory muscles used CVS: S1,S2,RRR GI: soft, ruq tender, non distended Neuro:? expressive aphasia, alert Psych: appropriate affect, appropriate insight? Objective Data Active Medications Acetaminophen (Acetaminophen 325 Mg Tablet) 650 mg PO Q6H PRN PRN Reason: Pain, Mild (Pain Scale 1-3) Albuterol/Ipratropium (Albuterol/Iprat 2.5/0.5mg 3 Ml Ampul.Neb) 3 ml INHALE RQ4H PRN PRN Reason: Shortness of Breath/Wheezing Aspirin (Aspirin Enteric Coated 81 Mg Tablet.) 81 mg PO DAILY [facility] Last Admin: 06/24/21 08:26 Dose: 81 mg Documented by: JAH Clonazepam (Clonazepam 1 Mg Tablet) 1 mg PO TID [facility] Last Admin: 06/24/21 08:25 Dose: 1 mg Documented by: JAH Clopidogrel Bisulfate (Clopidogrel Bisulfate 75 Mg Tablet) 75 mg PO DAILY [facility] Last Admin: 06/24/21 08:25 Dose: 75 mg Documented by: JAH Docusate Sodium (Docusate Sodium 100 Mg Capsule) 100 mg PO DAILY [facility] Last Admin: 06/24/21 08:25 Dose: 100 mg Documented by: JAH Enoxaparin Sodium (Enoxaparin Sodium 40 Mg/0.4 Ml Syringe) 40 mg SUBCUT Q24H [facility] Last Admin: 06/24/21 08:26 Dose: 40 mg Documented by: JAH Famotidine (Famotidine 20 Mg Tablet) 20 mg PO BEDTIME [facility] Last Admin: 06/23/21 21:31 Dose: 20 mg Documented by: JOSE DE JESUS Folic Acid (Folic Acid 1 Mg Tablet) 1 mg PO DAILY [facility] Last Admin: 06/24/21 08:25 Dose: 1 mg Documented by: JAH Piperacillin Sod/Tazobactam (Sod 3.375 gm/ Sodium Chloride) 50 mls @ 100 mls/hr IV Q6H [facility] Last Infusion: 06/24/21 06:00 Dose: 0 mls/hr Documented by: JOSE DE JESUS Megestrol Acetate (Megestrol Acetate 20 Mg Tablet) 40 mg PO DAILY [facility] Last Admin: 06/24/21 08:24 Dose: 40 mg Documented by: JAH Melatonin (Melatonin 3 Mg Tablet) 6 mg PO BEDTIME PRN PRN Reason: Insomnia Multivitamins/Vitamin C (Multivitamin Tablet) 1 tab PO DAILY [facility] Last Admin: 06/24/21 08:25 Dose: 1 tab Documented by: JAH Non-Formulary Medication (Regorafenib [Stivarga]) 160 mg PO DAILY [facility] Ondansetron HCl (Ondansetron Odt 8 Mg Tab.Rapdis) 8 mg TRANSLINGU Q12H [facility] Last Admin: 06/24/21 08:25 Dose: 8 mg Documented by: JAH Oxycodone HCl (Oxycodone Hcl Immed Release 5 Mg Tablet) 10 mg PO TID [facility] Last Admin: 06/24/21 08:26 Dose: 10 mg Documented by: AJH Pharmacy Consult (Consult Rx Perform Med Rec) 1 each MISCELLANE ONCE PRN PRN Reason: Consult order Pharmacy Consult (Consult Rx Vancomycin Dosing) 1 each MISCELLANE DAILY PRN PRN Reason: Consult order Quetiapine Fumarate (Quetiapine Fumarate 25 Mg Tablet) 75 mg PO BID [facility] Last Admin: 06/24/21 08:25 Dose: 75 mg Documented by: JAH Senna (Sennosides 8.6 Mg Tablet) 17.2 mg PO BEDTIME PRN PRN Reason: Constipation Sodium Chloride (0.9 % Sodium Chloride Flush 3 Ml Syringe) 3 ml IVFLUSH QSHIFT [facility] Last Admin: 06/23/21 23:55 Dose: 3 ml Documented by: JOSE DE JESUS Labs CBC & Chem 7: 06/24/21 05:59 06/24/21 05:59 Labs: Laboratory Results - last 24 hr 06/24/21 06/24/21 05:59 05:59 MCV 96.8 MCH 31.6 MCHC 32.7 RDW 14.0 Plt Count 400 MPV 9.9 Absolute Nucleated RBC 0.000 Nucleated RBC % (auto) 0.0 Anion Gap 13 Estim Creat Clear Calc 112.7 Estimated GFR > 60 Fasting Glucose 131 H Calcium 9.1 Assessment and Plan (1) Difficulty swallowing: Status: Acute (2) Acute respiratory failure with hypoxia: Status: Acute (3) Weakness: Status: Acute (4) Hepatocellular carcinoma: Status: Acute Plan 66-year-old male with a past medical history of hepatitis-C, hepatocellular carcinoma, liver cirrhosis, history of alcohol abuse/tobacco dependence, CVA presented to the hospital today with a chief complaint of fall if negative workup for fall; later in the ER patient had a choking episode and became acutely hypoxic admitted for possible aspiration pneumonia. Acute hypoxic respiratory failure 2/2 aspiration pneumonitis vs penumonia will continue empiric zosyn BIRD RAISER aprpeciated, continue NDD3 solids, nectar thick liquids wean o2 with goal of on room air >90% saturation - still on 5L this am, unable to be weaned yesterday Continue supplemental oxygen DuoNebs p.r.n. change steroids to po abdominal pain 2/2 Hepatocellular carcinoma in the setting of liver cirrhosis from HCV Supportive care, pain management Continue home stivarga. Oncology follow-up as OP fall Mechanical in nature PT/OT. - at home DVT prophylaxis: Lovenox Need of hospital stay, patient will need to continue hospitalation to continue treatment for hypoxia with goal to wean oxygen down to room air. Quality Stroke Does the patient have a stroke diagnosis?: No VTE Prior VTE?: No VTE Risk Level:: Medical - moderate - high VTE Device Contraindication: N/A - Device Ordered VTE Drug Contraindication: N/A - Med Ordered
[2021-06-24 11:09] VITALS: BP 128/82; PULSE 98; RESP 19; TEMP 36.7; O2SAT 91
--- NOTE | 2021-06-24 13:30 | HE.PHANOTE ---
Zosyn Possible aspiration PNA, continue zosyn for now
[2021-06-24] MEDS: 0.9 % Sodium Chloride Flush 3 ML SYRINGE IVFLUSH ×2 (14:56→22:40)
[2021-06-24 15:54] VITALS: BP 124/75; PULSE 74; RESP 19; TEMP 37; O2SAT 98
[2021-06-24 19:32] VITALS: BP 136/87; PULSE 63; RESP 18; TEMP 37; O2SAT 98
[2021-06-24] MEDS: Famotidine 20 MG TABLET PO (22:40)
[2021-06-24] MEDS: Piperacillin Sodium/Tazobactam 3.375 GM in 0.9 % Sodium Chloride 50 ML 1 GM IV (22:41)
[2021-06-25] VITALS (8 sets, daily range): BP systolic 110–137; BP diastolic 68–79; PULSE 66–93; RESP 14–18; TEMP 36–37.1; O2SAT 89–97
[2021-06-25] MEDS: Piperacillin Sodium/Tazobactam 3.375 GM in 0.9 % Sodium Chloride 50 ML 1 GM IV (05:45)
[2021-06-25 06:43] LABS: Creatinine Clr Calc Pharmacy 105.9; Estimated Glomerular Filt Rate > 60
[2021-06-25] MEDS: oxyCODONE HCl Immed Release 5 MG TABLET 10 MG PO ×3 (07:59→21:02)
[2021-06-25] MEDS: Folic Acid 1 MG TABLET PO (08:00)
[2021-06-25] MEDS: Ondansetron ODT 8 MG TAB.RAPDIS TRANSLINGU ×2 (08:00→21:02)
[2021-06-25] MEDS: Docusate Sodium 100 MG CAPSULE PO (08:00)
[2021-06-25] MEDS: clonazePAM 1 MG TABLET PO ×3 (08:00→21:02)
[2021-06-25] MEDS: Enoxaparin Sodium 40 MG/0.4 ML SYRINGE SUBCUT (08:00)
[2021-06-25] MEDS: Aspirin Enteric Coated 81 MG TABLET.DR PO (08:00)
[2021-06-25] MEDS: Multivitamin TABLET 1 TAB PO (08:00)
[2021-06-25] MEDS: 0.9 % Sodium Chloride Flush 3 ML SYRINGE IVFLUSH ×2 (08:01→21:02)
[2021-06-25] MEDS: QUEtiapine Fumarate 25 MG TABLET 75 MG PO ×2 (08:01→21:02)
[2021-06-25] MEDS: predniSONE 20 MG TABLET 40 MG PO (08:01)
[2021-06-25] MEDS: Clopidogrel Bisulfate 75 MG TABLET PO (08:01)
[2021-06-25] MEDS: Megestrol Acetate 20 MG TABLET 40 MG PO (08:01)
[2021-06-25] MEDS: Piperacillin Sodium/Tazobactam 3.375 GM in 0.9 % Sodium Chloride 50 ML IV ×2 (11:45→17:36)
[2021-06-25] MEDS: HYDROmorphone HCl 0.5 MG/0.5 ML SYRINGE IVPUSH (11:45)
--- NOTE | 2021-06-25 11:46 | P.PNIM_ITS ---
Subjective Subjective Date of Service: 06/25/21 Interval History: cc: sob, ruq pain interval history: ruq pain Cardiovascular Cardiovascular: Reports no additional cardiovascular complaints Respiratory Respiratory: Reports no additional respiratory complaints Physical Exam Vital Signs: Vital Signs: Last Vital Signs Temp 96.8 F 06/25/21 11:38 Pulse 83 06/25/21 11:38 Resp 15 06/25/21 11:38 BP 136/68 06/25/21 11:38 Pulse Ox 96 06/25/21 11:38 BMI result Body Mass Index 20.3 General: AO X 3, ill appearing, tachypneic, in distress Resp: diminsihed bilateral, accessory muscles used CVS: S1,S2,Rapid GI: soft, ruq tender, non distended Neuro: expressive aphasia, alert Psych: appropriate affect, appropriate insight Objective Data Active Medications Acetaminophen (Acetaminophen 325 Mg Tablet) 650 mg PO Q6H PRN PRN Reason: Pain, Mild (Pain Scale 1-3) Albuterol/Ipratropium (Albuterol/Iprat 2.5/0.5mg 3 Ml Ampul.Neb) 3 ml INHALE RQ4H PRN PRN Reason: Shortness of Breath/Wheezing Aspirin (Aspirin Enteric Coated 81 Mg Tablet.Dr) 81 mg PO DAILY [facility] Last Admin: 06/25/21 08:00 Dose: 81 mg Documented by: JO-ANN Clonazepam (Clonazepam 1 Mg Tablet) 1 mg PO TID [facility] Last Admin: 06/25/21 08:00 Dose: 1 mg Documented by: JO-ANN Clopidogrel Bisulfate (Clopidogrel Bisulfate 75 Mg Tablet) 75 mg PO DAILY [facility] Last Admin: 06/25/21 08:01 Dose: 75 mg Documented by: JO-ANN Docusate Sodium (Docusate Sodium 100 Mg Capsule) 100 mg PO DAILY [facility] Last Admin: 06/25/21 08:00 Dose: 100 mg Documented by: JO-ANN Enoxaparin Sodium (Enoxaparin Sodium 40 Mg/0.4 Ml Syringe) 40 mg SUBCUT Q24H [facility] Last Admin: 06/25/21 08:00 Dose: 40 mg Documented by: JO-ANN Famotidine (Famotidine 20 Mg Tablet) 20 mg PO BEDTIME [facility] Last Admin: 06/24/21 22:40 Dose: 20 mg Documented by: HO.SANNAFA Folic Acid (Folic Acid 1 Mg Tablet) 1 mg PO DAILY [facility] Last Admin: 06/25/21 08:00 Dose: 1 mg Documented by: JO-ANN Piperacillin Sod/Tazobactam (Sod 3.375 gm/ Sodium Chloride) 50 mls @ 100 mls/hr IV Q6H [facility] Last Admin: 06/25/21 11:45 Dose: 100 mls/hr Documented by: JO-ANN Megestrol Acetate (Megestrol Acetate 20 Mg Tablet) 40 mg PO DAILY [facility] Last Admin: 06/25/21 08:01 Dose: 40 mg Documented by: JO-ANN Melatonin (Melatonin 3 Mg Tablet) 6 mg PO BEDTIME PRN PRN Reason: Insomnia Multivitamins/Vitamin C (Multivitamin Tablet) 1 tab PO DAILY [facility] Last Admin: 06/25/21 08:00 Dose: 1 tab Documented by: JO-ANN Non-Formulary Medication (Regorafenib [Stivarga]) 160 mg PO DAILY [facility] Ondansetron HCl (Ondansetron Odt 8 Mg Tab.Rapdis) 8 mg TRANSLINGU Q12H [facility] Last Admin: 06/25/21 08:00 Dose: 8 mg Documented by: JO-ANN Oxycodone HCl (Oxycodone Hcl Immed Release 5 Mg Tablet) 10 mg PO TID [facility] Last Admin: 06/25/21 07:59 Dose: 10 mg Documented by: JO-ANN Pharmacy Consult (Consult Rx Perform Med Rec) 1 each MISCELLANE ONCE PRN PRN Reason: Consult order Pharmacy Consult (Consult Rx Vancomycin Dosing) 1 each MISCELLANE DAILY PRN PRN Reason: Consult order Prednisone (Prednisone 20 Mg Tablet) 40 mg PO DAILY [facility] Last Admin: 06/25/21 08:01 Dose: 40 mg Documented by: JO-ANN Quetiapine Fumarate (Quetiapine Fumarate 25 Mg Tablet) 75 mg PO BID [facility] Last Admin: 06/25/21 08:01 Dose: 75 mg Documented by: JO-ANN Senna (Sennosides 8.6 Mg Tablet) 17.2 mg PO BEDTIME PRN PRN Reason: Constipation Sodium Chloride (0.9 % Sodium Chloride Flush 3 Ml Syringe) 3 ml IVFLUSH QSHIFT [facility] Last Admin: 06/25/21 08:01 Dose: 3 ml Documented by: JO-ANN Labs CBC & Chem 7: 06/24/21 05:59 06/25/21 06:20 Labs: Laboratory Results - last 24 hr 06/25/21 06:20 Estim Creat Clear Calc 105.9 Estimated GFR > 60 Assessment and Plan (1) Difficulty swallowing: Status: Acute (2) Acute respiratory failure with hypoxia: Status: Acute (3) Weakness: Status: Acute (4) Hepatocellular carcinoma: Status: Acute Plan 66-year-old male with a past medical history of hepatitis-C, hepatocellular carcinoma, liver cirrhosis, history of alcohol abuse/tobacco dependence, CVA presented to the hospital today with a chief complaint of fall if negative workup for fall; later in the ER patient had a choking episode and became acutely hypoxic admitted for possible aspiration pneumonia. 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 change steroids to po abdominal pain 2/2 Hepatocellular carcinoma in the setting of liver cirrhosis from HCV Supportive care, pain management Continue home stivarga. Oncology follow-up as OP fall Mechanical in nature PT/OT. - at home DVT prophylaxis: Lovenox Need of hospital stay, patient with tachypnea and tachycardia due to pain/hypoxia requiring iv opiates and close monitoring Quality Stroke Does the patient have a stroke diagnosis?: No VTE Prior VTE?: No VTE Risk Level:: Medical - moderate - high VTE Device Contraindication: N/A - Device Ordered VTE Drug Contraindication: N/A - Med Ordered
--- NOTE | 2021-06-25 12:55 | P.CDIC_ITS ---
CDI Concurrent Query Documentation Clarification: PHYSICIAN'S DOCUMENTATION REQUEST Date of Query: 06/25/21 1256 Patient Name: Maximino Landon Admit Date: 06/21/21 Dear Doctor, A review of the medical record indicates additional documentation may be needed. Please review below and update the documentation accordingly. Clinical Indicators: Risk Factors/Clinical Indicators/Treatments PMH: Hepatitis C PN : Abdominal pain 2/2 to Hepatocellular carcinoma in the setting of liver cirrhosis from HCV. Based on the above, could you clarify in the Progress Notes the appropriate diagnosis, if significant, that supports the above abnormalities and additional evaluation, monitoring, and/or treatment rendered: HCV: l * Hepatitis C - Acute * Hepatitis C - Chronic * Hepatitis C - In remission or other * Other (please specify) * Unable to determine Use of terms such as suspected, likely, concern for, or probable (associated with a specific diagnosis that is being evaluated, monitored, or treated as if it exists) are acceptable and can be coded in the inpatient setting, when documented at the time of discharge. Thank you, Frances Du [facility], CDIS Extension: [phone] Please use your independent medical judgment in providing your response. THIS QUERY IS PART OF THE PERMANENT MEDICAL RECORD Provider Response: Other Other Diagnosis: history of HCV with cirrhosis and HCC, negative viral load in 2019
--- NOTE | 2021-06-25 13:29 | MHC.CLN ---
F/U PATIENT WITH NUTRITION DX MODERATE MALNUTRITION IN THE CONTEXT OF CHRONIC ILLNESS. =2 GRAM SODIUM, NDD3. THIN LIQUIDS. CONSISTENCY PER STEM MAKER 06/22. ENSURE BID PROVIDES ADDITIONAL 700 KCAL, 40 G PROTEIN. SKIN: REDNESS TO BILATERAL BUTTOCKS. INTAKE APPEARS VARIABLE. PATIENT COULD NOT PROVIDE INFORMATION ABOUT APPETITE AND INTAKE. CONTINUE CURRENT DIET AND SUPPLEMENT.
--- NOTE | 2021-06-25 13:38 | MHC.SL.SWA ---
Speech Pathologist Impression: Risk of Aspiration Due to: Medically Fragile Poor PO Intake Dysphasia Diet Status: Liquid Consistency and Strategies for Safe Swallow: Liquid Intake Recommendation: [place] Thick Liquid Intake Strategies: Small Sips Solid Food Consistency: Dietary Recommendations: Chopped/Advanced (NDD3) Additional Modifications to Solid Foods: Add gravies and sauces. Oral Medication Intake: Crushed with Puree Please contact the pharmacy regarding appropriate crushable or liquid drug formulations that are available whenever modified delivery is recommended. Compensatory Strategies and Precautions to be Taken for Safe Swallow: Sitting Upright (90 deg) Liquids from Cup Small Bites and Sips Alternate Liquids/Solids Supervision While Eating and Drinking for Safe Swallow: Intermittent Supervision Foods to Avoid: DIfficult to chew solids. Swallowing Recommended Treatments: Recommendation for Speech: Inpatient Speech Therapy Comment: Pt notably more confused, having difficulty speaking/communicating when compared to last visit by this STOVE FITTER on 06/21. Per note on 06/22, STOVE FITTER recommended advancing liquid to THIN, this change was not made in orders/chart; patient continues on [place] Thick at this writing. Per nursing, Pt accessed thin liquids this a.m., and had a noticeable wet cough/voice. Pt was given TSP of water, was noted to hold water orally briefly then propel for swallow, w/present swallow trigger noted. Pt was given cup sip of liquid, pt similarly held and swished water orally, then propelled for swallow w/present swallow trigger, laryngeal elevation palpated. Pt had mildly wet vocal quality after liquid presentations. When advancing Pt to thin liquids was discussed w/patient, Patient objected and reported that it was easier to swallow the thickened liquids. Pt additionally reported aversion to food, eating as difficulty with swallowing. Recommend continue w/ diet consistencies of CHOPPED/ADV (NDD3) w/ NECTAR THICK liquids at this time. STOVE FITTER will reassess/attempt to see PT at Breakfast tomorrow. Frequency/Duration: Date Range for Service Req: Timeline to reassess: Congressional Aide Clinican/Clinical Fellow: No Supervisory Statement: I have reviewed and agree with the student/clinical fellow's documentation: N/A Speech Language Pathologist: Myesha Diaz M.A., CCC-STOVE FITTER
--- NOTE | 2021-06-25 14:43 | MHC.CM.PN ---
, NURSE POULTRY HUSBANDRY TEACHER NOTE- ELECTRONIC MEDICAL RECORD REVIEWED- CASE DISCUSSED WITH STAFF NURSE , HOSPITALIST MET WITH PATIENT PHYSICAL THERAPY IS RECOMENDING SHORT TERM REHAB, HE IS STRONGLY DECLINING THIS AND HAS NO HEALTH CARE PROXY, WHEN EDUCATED ABOUT THE IMPORTANCE OF THIS HE STRONGLY DECLINES AND GETS UPSET, PATIENT LIVES ALONE HAS ADVERTISING ASSISTANT MANAGER HOURS ([employer] ADVERTISING ASSISTANT MANAGER-COMMUNITY SUPPORT [phone] )I CALLED AND LEFT A MESSAGE FOR HER TO RETURN MY CALL ( SHE TAKES HIM TO DOCTORS VISISTS, [employer]SP[employer] PAPERWORK FOOD STAMPS. SHE REPORTS SHE REPORTS SHE DOES NOT BELIEVE THAT HE WOULD REMBER NOT TO SMOKE OR TRUN OFF HIS OXYGEN SECONDARY TO HOIS TBI 2. HERBARIUM CURATOR (CLINICAL SUPPORT SERVICES CHERIE SCHILLING [phone] FOR PSYCH MEDICATION ) AWAIT CALL BACK 3.OVERLOYORDY KEMP [phone] AND NURSE POULTRY HUSBANDRY TEACHER MP [phone] SHE REPORTED THAT HE OFTEN COMES TO THE HOSPITAL BECAUSE HE CANNOT MANAGE HIS PAIN B AND THYE CAN NOT GO AND GIVE HIM PRN MEDS 4 [facility] HANDLE HIS MONEY ACCOUNTS CASE RTO BE FURTHEE DISCUSSED WITH THE HOSITALIST
[2021-06-25] MEDS: ondansetron HCL 4 MG/2 ML VIAL IVPUSH (17:36)
[2021-06-25] MEDS: Famotidine 20 MG TABLET PO (21:02)
[2021-06-26] VITALS (7 sets, daily range): BP systolic 110–135; BP diastolic 62–81; PULSE 77–91; RESP 15–18; TEMP 36.2–37.1; O2SAT 92–98
[2021-06-26] MEDS: Piperacillin Sodium/Tazobactam 3.375 GM in 0.9 % Sodium Chloride 50 ML IV ×4 (00:30→18:06)
[2021-06-26 07:12] LABS: Hematocrit 45.7 % (42.0-52.0); Hemoglobin 15.1 g/dl (14.0-18.0); Mean Corpuscular Hemoglobin 32.1 pg (27.0-33.0); Mean Corpuscular Volume 97.2 fL (80.0-98.0); Mean Platelet Volume 10.5 fL (9.4-12.4); Platelet Count 318 X10*3/uL (160-400); Red Cell Distribution Width 14.5 % (11.0-16.0); White Blood Count 26.2 X10*3/uL (4.8-10.8)
[2021-06-26 07:35] LABS: Anion Gap 15 (12-20); Blood Urea Nitrogen 23 mg/dL (9-16); Calcium 9.2 mg/dL (8.4-10.2); Carbon Dioxide 28 mmol/L (22-29); Chloride 102 mmol/L (96-108); Creatinine Clr Calc Pharmacy 89.6; Estimated Glomerular Filt Rate > 60; Glucose Fasting 143 mg/dL (60-99); Potassium 3.7 mmol/L (3.3-5.1); Sodium 141 mmol/L (135-145)
[2021-06-26] MEDS: Clopidogrel Bisulfate 75 MG TABLET PO (08:42)
[2021-06-26] MEDS: Megestrol Acetate 20 MG TABLET 40 MG PO (08:42)
[2021-06-26] MEDS: clonazePAM 1 MG TABLET PO (08:43)
[2021-06-26] MEDS: predniSONE 20 MG TABLET 40 MG PO (08:43)
[2021-06-26] MEDS: Multivitamin TABLET 1 TAB PO (08:43)
[2021-06-26] MEDS: Docusate Sodium 100 MG CAPSULE PO (08:43)
[2021-06-26] MEDS: Aspirin Enteric Coated 81 MG TABLET.DR PO (08:43)
[2021-06-26] MEDS: QUEtiapine Fumarate 25 MG TABLET 75 MG PO ×2 (08:43→22:22)
[2021-06-26] MEDS: Ondansetron ODT 8 MG TAB.RAPDIS TRANSLINGU ×2 (08:43→22:22)
[2021-06-26] MEDS: Folic Acid 1 MG TABLET PO (08:43)
[2021-06-26] MEDS: oxyCODONE HCl Immed Release 5 MG TABLET 10 MG PO (08:43)
[2021-06-26] MEDS: 0.9 % Sodium Chloride Flush 3 ML SYRINGE IVFLUSH ×2 (08:43→18:07)
[2021-06-26] MEDS: Enoxaparin Sodium 40 MG/0.4 ML SYRINGE SUBCUT (08:44)
--- NOTE | 2021-06-26 11:59 | MHC.SL.SWA ---
Speech Pathologist Impression: Risk of Aspiration Due to: Medically Fragile Poor PO Intake Dysphasia Diet Status: Continue CHOPPED/ADV (NDD3) w/ THIN liquids, Pills WHOLE in Puree or w/Liquid. Pt requires direct supervision/assistance at ALL MEALS. Liquid Consistency and Strategies for Safe Swallow: Liquid Intake Recommendation: Thin Liquid Intake Strategies: Small Sips Solid Food Consistency: Dietary Recommendations: Chopped/Advanced (NDD3) Additional Modifications to Solid Foods: Assist PT w/ cutting/preparing food into small bites. Oral Medication Intake: Whole with Liquid Please contact the pharmacy regarding appropriate crushable or liquid drug formulations that are available whenever modified delivery is recommended. Compensatory Strategies and Precautions to be Taken for Safe Swallow: Sitting Upright (90 deg) Liquids from Cup Small Bites and Sips Alternate Liquids/Solids Oral Check Supervision While Eating and Drinking for Safe Swallow: Total Supervision (1:1) Foods to Avoid: DIfficult to chew solids. Swallowing Recommended Treatments: Compens. Strategy Educat. Recommendation for Speech: Inpatient Speech Therapy Comment: Pt seen during Breakfast this morning. Pt was pleasant, independently feeding self, although throughout needed assistance with cutting food, using correct utensils, opening liquids (juices). On solid foods, Pt noted to have marked oral residue after swallow, which was cleared when Pt was encouraged to take sips of liquid. Pt periodically taking large bites of some foods, w/ similar oral residue after swallow (cleared w/ sips of liquid). On liquids, Pt spontaneously using tsp to take liquids sips, w/only small amounts taken per sip. Swallow initiated after oral transit of liquids, solid, w/ laryngeal transit WNL. Pt had both thickened liquid and thin liquid on tray this morning. On thin liquids by spoon, oral and pharyngeal phase wnl, no clinical s/s aspiration. Diet order currently w/ THIN liquids (no thickness specified), recommend Pt CONTINUE on Chopped/Advanced w/ THIN liquids, w/ Pills in Puree. Pt requires supervision/assistance at all meals, w/ close monitor/cuing to alternate liquids solids, ingesting small amounts at a time, and for aspiration signs. BUSINESS ANALYST will continue to follow. Frequency/Duration: Date Range for Service Req: Timeline to reassess: Metal Drill Press Operator Clinican/Clinical Fellow: No Supervisory Statement: I have reviewed and agree with the student/clinical fellow's documentation: N/A Speech Language Pathologist: Myesha Diaz M.A., [facility]-BUSINESS ANALYST
--- NOTE | 2021-06-26 12:20 | HO.PM.IMPN ---
Subjective Subjective Date of Service: 06/26/21 Interval History: cc: sob, ruq pain interval history: ruq pain Cardiovascular Cardiovascular: Reports no additional cardiovascular complaints Respiratory Respiratory: Reports no additional respiratory complaints Physical Exam Vital Signs: Vital Signs: Last Vital Signs Temp 98.5 F 06/26/21 12:00 Pulse 77 06/26/21 12:00 Resp 15 06/26/21 12:00 BP 124/71 06/26/21 12:00 Pulse Ox 97 06/26/21 12:00 BMI result Body Mass Index 20.3 General: AO X 3, ill appearing, less distress than yesterday Resp:? diminsihed bilateral,?mild accessory muscles used CVS: S1,S2,Rapid GI: soft, ruq tender, non distended Neuro:? expressive aphasia, alert Psych: appropriate affect, appropriate insight? Objective Data Active Medications Acetaminophen (Acetaminophen 325 Mg Tablet) 650 mg PO Q6H PRN PRN Reason: Pain, Mild (Pain Scale 1-3) Albuterol/Ipratropium (Albuterol/Iprat 2.5/0.5mg 3 Ml Ampul.Neb) 3 ml INHALE RQ4H PRN PRN Reason: Shortness of Breath/Wheezing Aspirin (Aspirin Enteric Coated 81 Mg Tablet.) 81 mg PO DAILY [facility] Last Admin: 06/26/21 08:43 Dose: 81 mg Documented by: JAH Clopidogrel Bisulfate (Clopidogrel Bisulfate 75 Mg Tablet) 75 mg PO DAILY [facility] Last Admin: 06/26/21 08:42 Dose: 75 mg Documented by: JAH Docusate Sodium (Docusate Sodium 100 Mg Capsule) 100 mg PO DAILY [facility] Last Admin: 06/26/21 08:43 Dose: 100 mg Documented by: JAH Enoxaparin Sodium (Enoxaparin Sodium 40 Mg/0.4 Ml Syringe) 40 mg SUBCUT Q24H [facility] Last Admin: 06/26/21 08:44 Dose: 40 mg Documented by: JAH Famotidine (Famotidine 20 Mg Tablet) 20 mg PO BEDTIME [facility] Last Admin: 06/25/21 21:02 Dose: 20 mg Documented by: LUCITA Folic Acid (Folic Acid 1 Mg Tablet) 1 mg PO DAILY [facility] Last Admin: 06/26/21 08:43 Dose: 1 mg Documented by: JAH Piperacillin Sod/Tazobactam (Sod 3.375 gm/ Sodium Chloride) 50 mls @ 100 mls/hr IV Q6H [facility] Last Infusion: 06/26/21 08:36 Dose: 0 mls/hr Documented by: JAH Megestrol Acetate (Megestrol Acetate 20 Mg Tablet) 40 mg PO DAILY [facility] Last Admin: 06/26/21 08:42 Dose: 40 mg Documented by: JAH Melatonin (Melatonin 3 Mg Tablet) 6 mg PO BEDTIME PRN PRN Reason: Insomnia Multivitamins/Vitamin C (Multivitamin Tablet) 1 tab PO DAILY [facility] Last Admin: 06/26/21 08:43 Dose: 1 tab Documented by: JAH Non-Formulary Medication (Regorafenib [Stivarga]) 160 mg PO DAILY [facility] Ondansetron HCl (Ondansetron Odt 8 Mg Tab.Rapdis) 8 mg TRANSLINGU Q12H [facility] Last Admin: 06/26/21 08:43 Dose: 8 mg Documented by: JAH Ondansetron HCl (Ondansetron Hcl 4 Mg/2 Ml Vial) 4 mg IVPUSH Q8H PRN PRN Reason: nausea Last Admin: 06/25/21 17:36 Dose: 4 mg Documented by: JO-ANN Pharmacy Consult (Consult Rx Perform Med Rec) 1 each MISCELLANE ONCE PRN PRN Reason: Consult order Pharmacy Consult (Consult Rx Vancomycin Dosing) 1 each MISCELLANE DAILY PRN PRN Reason: Consult order Prednisone (Prednisone 20 Mg Tablet) 40 mg PO DAILY [facility] Last Admin: 06/26/21 08:43 Dose: 40 mg Documented by: JAH Quetiapine Fumarate (Quetiapine Fumarate 25 Mg Tablet) 75 mg PO BID [facility] Last Admin: 06/26/21 08:43 Dose: 75 mg Documented by: JAH Senna (Sennosides 8.6 Mg Tablet) 17.2 mg PO BEDTIME PRN PRN Reason: Constipation Sodium Chloride (0.9 % Sodium Chloride Flush 3 Ml Syringe) 3 ml IVFLUSH QSHIFT [facility] Last Admin: 06/26/21 08:43 Dose: 3 ml Documented by: JAH Labs CBC & Chem 7: 06/26/21 06:32 06/26/21 06:32 Labs: Laboratory Results - last 24 hr 06/26/21 06/26/21 06:32 06:32 MCV 97.2 MCH 32.1 MCHC 33.0 RDW 14.5 Plt Count 318 MPV 10.5 Absolute Nucleated RBC 0.000 Nucleated RBC % (auto) 0.0 Anion Gap 15 Estim Creat Clear Calc 89.6 Estimated GFR > 60 Fasting Glucose 143 H Calcium 9.2 Assessment and Plan (1) Difficulty swallowing: Status: Acute (2) Acute respiratory failure with hypoxia: Status: Acute (3) Weakness: Status: Acute (4) Hepatocellular carcinoma: Status: Acute Plan 66-year-old male with a past medical history of hepatitis-C, hepatocellular carcinoma, liver cirrhosis, history of alcohol abuse/tobacco dependence, CVA presented to the hospital today with a chief complaint of fall if negative workup for fall; later in the ER patient had a choking episode and became acutely hypoxic admitted for possible aspiration pneumonia. Acute hypoxic respiratory failure 2/2 aspiration pneumonitis vs penumonia continue empiric zosyn EYE CARE PROFESSIONAL aprpeciated, continue NDD3 solids, nectar thick liquids on home o2 eval 06/25/21, saturation was 84% on room air, became tachycardic and tachypneic patient is a poor candidate for home o2 as he still smokes and lives alone Continue to wean supplemental oxygen, prn opiates DuoNebs p.r.n. steroids po abdominal pain 2/2 Hepatocellular carcinoma in the setting of liver cirrhosis from HCV Supportive care, pain management Continue home stivarga. Oncology follow-up as OP fall Mechanical in nature PT/OT. - at home DVT prophylaxis: Lovenox Need of hospital stay, would like to wean patient of oxygen prior to discharge as he is a poor candidate for home o2. Quality Stroke Does the patient have a stroke diagnosis?: No VTE Prior VTE?: No VTE Risk Level:: Medical - moderate - high VTE Device Contraindication: N/A - Device Ordered VTE Drug Contraindication: N/A - Med Ordered
[2021-06-26] MEDS: Famotidine 20 MG TABLET PO (22:22)
[2021-06-27] VITALS (8 sets, daily range): BP systolic 99–129; BP diastolic 60–81; PULSE 62–109; RESP 16–20; TEMP 36.1–36.8; O2SAT 92–98
--- NOTE | 2021-06-27 | ECG_ITS ---
Test Reason : tachycardia Blood Pressure : / mmHG Vent. Rate : 077 BPM Atrial Rate : 077 BPM P-R Int : 134 ms QRS Dur : 100 ms QT Int : 408 ms P-R-T Axes : 080 046 053 degrees QTc Int : 461 ms Sinus rhythm with Premature atrial complexes with Aberrant conduction Otherwise normal ECG When compared to the previous EKG of Premature atrial complexes are now Present Referred By: Cali Schultz Electronically Signed By:ACACIA CHAUDHARI MD
[2021-06-27] MEDS: Piperacillin Sodium/Tazobactam 3.375 GM in 0.9 % Sodium Chloride 50 ML IV ×3 (01:10→12:48)
[2021-06-27] MEDS: 0.9 % Sodium Chloride Flush 3 ML SYRINGE IVFLUSH ×3 (01:11→20:01)
[2021-06-27 06:18] LABS: Creatinine Clr Calc Pharmacy 93.2; Estimated Glomerular Filt Rate > 60
--- NOTE | 2021-06-27 07:52 | P.CDIC_ITS ---
CDI Concurrent Query Documentation Clarification: PHYSICIAN'S DOCUMENTATION REQUEST Date of Query: 06/27/21 0752 Patient Name: Maximino Landon Admit Date: 06/21/21 Dear Doctor, A review of the medical record indicates additional documentation may be needed. Please review below and update the documentation accordingly. Clinical Indicators: Documentation includes the diagnosis of malnutrition. Additional clinical indicators from the record include: Risk Factors/Clinical Indicators/Treatments Nutrition notes 06/22 - patient has moderately depleted fat and moderately depleted muscle in clavicle and taoism. BMI 20.3 6ft in height Non-severe mal in context of chronic illness. HCC Ensure to increase dietary protein. ASPEN Criteria* Acute Illness Chronic Illness Clinical Characteristic Non-Severe (2 or more criteria present) Severe (2 or more criteria present) Non-Severe (2 or more criteria present) Severe (2 or more criteria present) Energy Intake <75% for >7 days <=50% for >=5 days <75% for >=1 month <=75% for >=1 month Weight Loss 1 week 1 ? 2% >2% N/A N/A 1 month 5% >5% 5% >5% 3 months 7.5 % >7.5% 7.5% >7.5% 6 months N/A N/A 10% >10% 1 year N/A N/A 20% >20% Body Fat Mild Moderate Mild Severe Muscle Mass Mild Moderate Mild Severe Fluid Accumulation Mild Moderate to Severe Mild Severe Reduced Shop Superintendent Strength N/A Measurably Reduced N/A Measurably Reduced *[facility] Hospitalist, 2017 If possible, please provide in your progress notes, additional specificity regarding the severity of the malnutrition using the above information: * Mild * Moderate * Severe * Other (please specify) * Unable to determine Use of terms such as suspected, likely, concern for, or probable (associated with a specific diagnosis that is being evaluated, monitored, or treated as if it exists) are acceptable and can be coded in the inpatient setting, when documented at the time of discharge. Thank you, Frances Du [facility], CDIS Extension: [phone] Please use your independent medical judgment in providing your response. THIS QUERY IS PART OF THE PERMANENT MEDICAL RECORD Provider Response: Moderate Protein-Calorie Malnutrition
[2021-06-27] MEDS: Enoxaparin Sodium 40 MG/0.4 ML SYRINGE SUBCUT (10:05)
[2021-06-27] MEDS: predniSONE 20 MG TABLET 40 MG PO (10:06)
[2021-06-27] MEDS: Megestrol Acetate 20 MG TABLET 40 MG PO (10:06)
[2021-06-27] MEDS: Folic Acid 1 MG TABLET PO (10:06)
[2021-06-27] MEDS: Aspirin Enteric Coated 81 MG TABLET.DR PO (10:06)
[2021-06-27] MEDS: Multivitamin TABLET 1 TAB PO (10:07)
[2021-06-27] MEDS: Docusate Sodium 100 MG CAPSULE PO (10:07)
[2021-06-27] MEDS: QUEtiapine Fumarate 25 MG TABLET 75 MG PO ×2 (10:07→20:00)
[2021-06-27] MEDS: Ondansetron ODT 8 MG TAB.RAPDIS TRANSLINGU ×2 (10:07→20:01)
[2021-06-27] MEDS: Clopidogrel Bisulfate 75 MG TABLET PO (10:12)
[2021-06-27] MEDS: Albuterol/Iprat 2.5/0.5MG 3 ML AMPUL.NEB INHALE ×3 (11:07→19:16)
--- NOTE | 2021-06-27 11:48 | MHC.CLN ---
F/U PATIENT WITH NUTRITION DX MODERATE MALNUTRITION IN THE CONTEXT OF CHRONIC ILLNESS. DIET=2 GRAM SODIUM, NDD3. THIN LIQUIDS. ENSURE BID PROVIDES ADDITIONAL 700 KCAL, 40 G PROTEIN. SKIN: REDNESS TO BILATERAL BUTTOCKS. INTAKE APPEARS VARIABLE WITH MOST MEALS X 4 DAYS 50-100%. CONTINUE CURRENT DIET AND SUPPLEMENT.
--- NOTE | 2021-06-27 13:17 | MHC.SL.SWA ---
Speech Pathologist Impression: Oropharyngeal dysphagia Risk of Aspiration Due to: Medically Fragile Poor PO Intake Dysphasia Diet Status: Continue CHOPPED/ADV (NDD3) w/ THIN liquids, Pills WHOLE in Puree or w/Liquid. Pt requires direct supervision/assistance at [employer]. Liquid Consistency and Strategies for Safe Swallow: Liquid Intake Recommendation: Thin Liquid Intake Strategies: Small Sips Solid Food Consistency: Dietary Recommendations: Chopped/Advanced (NDD3) Additional Modifications to Solid Foods: Assist PT w/ cutting/preparing food into small bites. Oral Medication Intake: Whole with Liquid Please contact the pharmacy regarding appropriate crushable or liquid drug formulations that are available whenever modified delivery is recommended. Compensatory Strategies and Precautions to be Taken for Safe Swallow: Sitting Upright (90 deg) Liquids from Cup Small Bites and Sips Alternate Liquids/Solids Oral Check Supervision While Eating and Drinking for Safe Swallow: Total Supervision (1:1) Foods to Avoid: DIfficult to chew solids. Swallowing Recommended Treatments: Compens. Strategy Educat. Recommendation for Speech: Inpatient Speech Therapy Metal Ceiling Hanger Clinican/Clinical Fellow: No Supervisory Statement: I have reviewed and agree with the student/clinical fellow's documentation: N/A Speech Language Pathologist: Ness Saldana M.A., CCC-SERVICE ENGINE REPAIRER
--- NOTE | 2021-06-27 14:00 | HO.PM.IMPN ---
Subjective Subjective Date of Service: 06/27/21 Interval History: the patient was seen and evaluated this morning alert, interactive, on 3 L of oxygen Report still feeling short of breath, no chest pain No reported other overnight events. Systemic review: No fever, chills and reports generalized weakness No chest pain, palpitation report dyspnea on exertion, cough improved No abdominal pain, nausea or vomiting No urinary symptoms No any rash or wounds Physical Exam Vital Signs: Vital Signs: Last Vital Signs Temp 98.2 F 06/27/21 11:15 Pulse 109 H 06/27/21 11:15 Resp 18 06/27/21 11:15 BP 129/81 06/27/21 11:15 Pulse Ox 92 06/27/21 11:15 BMI result Body Mass Index 20.3 Const: Other: Constitutional : Awake, interactive, not in distress Neck : Normal inspection, Supple Cardiovascular : RRR, S1 S2, no lower extremity edema Respiratory : fair bilateral air entry, no basal bilateral crackles, scattered wheezes or rhonchi Gastrointestinal: soft, lax, Normal bowel sounds, Non tender Skin : Warm, Dry Neurological : Alert & oriented to self and place, No focal deficit Objective Data Active Medications Acetaminophen (Acetaminophen 325 Mg Tablet) 650 mg PO Q6H PRN PRN Reason: Pain, Mild (Pain Scale 1-3) Albuterol/Ipratropium (Albuterol/Iprat 2.5/0.5mg 3 Ml Ampul.Neb) 3 ml INHALE RQ6H WHILE AWAKE ON LICENSE OF [facility] Last Admin: 06/27/21 11:07 Dose: 3 ml Documented by: REMINGTON Aspirin (Aspirin Enteric Coated 81 Mg Tablet.) 81 mg PO DAILY ON LICENSE OF [facility] Last Admin: 06/27/21 10:06 Dose: 81 mg Documented by: FORREST Clopidogrel Bisulfate (Clopidogrel Bisulfate 75 Mg Tablet) 75 mg PO DAILY ON LICENSE OF [facility] Last Admin: 06/27/21 10:12 Dose: 75 mg Documented by: FORREST Docusate Sodium (Docusate Sodium 100 Mg Capsule) 100 mg PO DAILY ON LICENSE OF [facility] Last Admin: 06/27/21 10:07 Dose: 100 mg Documented by: FORREST Enoxaparin Sodium (Enoxaparin Sodium 40 Mg/0.4 Ml Syringe) 40 mg SUBCUT Q24H ON LICENSE OF [facility] Last Admin: 06/27/21 10:05 Dose: 40 mg Documented by: FORREST Famotidine (Famotidine 20 Mg Tablet) 20 mg PO BEDTIME ON LICENSE OF [facility] Last Admin: 06/26/21 22:22 Dose: 20 mg Documented by: DYLON Folic Acid (Folic Acid 1 Mg Tablet) 1 mg PO DAILY ON LICENSE OF [facility] Last Admin: 06/27/21 10:06 Dose: 1 mg Documented by: FORREST Piperacillin Sod/Tazobactam (Sod 3.375 gm/ Sodium Chloride) 50 mls @ 100 mls/hr IV Q6H ON LICENSE OF [facility] Last Infusion: 06/27/21 13:19 Dose: 0 mls/hr Documented by: FORREST Megestrol Acetate (Megestrol Acetate 20 Mg Tablet) 40 mg PO DAILY ON LICENSE OF [facility] Last Admin: 06/27/21 10:06 Dose: 40 mg Documented by: FORREST Melatonin (Melatonin 3 Mg Tablet) 6 mg PO BEDTIME PRN PRN Reason: Insomnia Multivitamins/Vitamin C (Multivitamin Tablet) 1 tab PO DAILY ON LICENSE OF [facility] Last Admin: 06/27/21 10:07 Dose: 1 tab Documented by: FORREST Non-Formulary Medication (Regorafenib [Stivarga]) 160 mg PO DAILY ON LICENSE OF [facility] Ondansetron HCl (Ondansetron Odt 8 Mg Tab.Rapdis) 8 mg TRANSLINGU Q12H ON LICENSE OF [facility] Last Admin: 06/27/21 10:07 Dose: 8 mg Documented by: FORREST Ondansetron HCl (Ondansetron Hcl 4 Mg/2 Ml Vial) 4 mg IVPUSH Q8H PRN PRN Reason: nausea Last Admin: 06/25/21 17:36 Dose: 4 mg Documented by: JO-ANN Pharmacy Consult (Consult Rx Perform Med Rec) 1 each MISCELLANE ONCE PRN PRN Reason: Consult order Pharmacy Consult (Consult Rx Vancomycin Dosing) 1 each MISCELLANE DAILY PRN PRN Reason: Consult order Prednisone (Prednisone 20 Mg Tablet) 40 mg PO DAILY ON LICENSE OF [facility] Last Admin: 06/27/21 10:06 Dose: 40 mg Documented by: FORREST Quetiapine Fumarate (Quetiapine Fumarate 25 Mg Tablet) 75 mg PO BID ON LICENSE OF [facility] Last Admin: 06/27/21 10:07 Dose: 75 mg Documented by: FORREST Senna (Sennosides 8.6 Mg Tablet) 17.2 mg PO BEDTIME PRN PRN Reason: Constipation Sodium Chloride (0.9 % Sodium Chloride Flush 3 Ml Syringe) 3 ml IVFLUSH QSHIFT ON LICENSE OF [facility] Last Admin: 06/27/21 10:13 Dose: 3 ml Documented by: FORREST Labs CBC & Chem 7: 06/26/21 06:32 06/27/21 05:39 Labs: Laboratory Results - last 24 hr 06/27/21 05:39 Estim Creat Clear Calc 93.2 Estimated GFR > 60 Assessment and Plan (1) Acute respiratory failure with hypoxia: Status: Acute (2) Difficulty swallowing: Status: Acute (3) Aspiration pneumonia: Status: Acute Plan 66-year-old male with a past medical history of hepatitis-C, hepatocellular carcinoma, liver cirrhosis, history of alcohol abuse/tobacco dependence, CVA presented to the hospital today with a chief complaint of fall if negative workup for fall; later in the ER patient had a choking episode and became acutely hypoxic admitted for possible aspiration pneumonia. Acute hypoxic respiratory failure 2/2 aspiration pneumonitis vs penumonia Discontinue zosyn SCIENTIFIC RESEARCH MANAGER aprpeciated, continue NDD3 solids, nectar thick liquids on home o2 eval 06/25/21, saturation was 84% on room air, became tachycardic and tachypneic patient is a poor candidate for home o2 as he still smokes and lives alone Continue to wean supplemental oxygen, prn opiates incentive spirometry Change antibiotics to Augmentin DuoNebs p.r.n. steroids po abdominal pain 2/2 Hepatocellular carcinoma in the setting of liver cirrhosis from HCV Supportive care, pain management Continue home stivarga. Oncology follow-up as OP fall Mechanical in nature PT/OT. - at home DVT prophylaxis: Lovenox Need of hospital stay, would like to wean patient of oxygen prior to discharge as he is a poor candidate for home o2 given history of smoking and living alone. Quality Stroke Does the patient have a stroke diagnosis?: No VTE Prior VTE?: No VTE Risk Level:: Medical - moderate - high VTE Device Contraindication: N/A - Device Ordered VTE Drug Contraindication: N/A - Med Ordered
[2021-06-27] MEDS: Famotidine 20 MG TABLET PO (20:00)
[2021-06-27] MEDS: Melatonin 3 MG TABLET 6 MG PO (20:00)
[2021-06-27] MEDS: Acetaminophen 325 MG TABLET 650 MG PO (20:01)
[2021-06-27] MEDS: Amoxicillin/Potassium Clav 500 MG TABLET PO (20:01)
[2021-06-27 22:54] LABS: Thyroid Stimulating Hormone 0.64 uIU/mL (0.32-4.0)
[2021-06-28 04:00] VITALS: BP 121/86; PULSE 75; RESP 18; TEMP 36.2; O2SAT 95
--- NOTE | 2021-06-28 06:19 | PC.NURSE ---
Pt had bouts of rapid AFib to the 160s around 2100 for approx 2 mins, and abated on its own pt was anxious about his lights during that time, needs attended, denies any CP, VS WNL, Dr. Arrieta was notified, EKG stat ordered and done, tracing sent to Dr. Arrieta.
[2021-06-28 06:41] LABS: Anion Gap 14 (12-20); Blood Urea Nitrogen 23 mg/dL (9-16); Carbon Dioxide 28 mmol/L (22-29); Chloride 102 mmol/L (96-108); Creatinine Clr Calc Pharmacy 102.8; Estimated Glomerular Filt Rate > 60; Glucose Random 102 mg/dL (60-115); Potassium 3.8 mmol/L (3.3-5.1); Sodium 140 mmol/L (135-145)
[2021-06-28 07:32] VITALS: BP 123/73; PULSE 72; RESP 18; TEMP 37; O2SAT 96
[2021-06-28] MEDS: predniSONE 20 MG TABLET 40 MG PO (09:08)
[2021-06-28] MEDS: Megestrol Acetate 20 MG TABLET 40 MG PO (09:08)
[2021-06-28] MEDS: Ondansetron ODT 8 MG TAB.RAPDIS TRANSLINGU (09:08)
[2021-06-28] MEDS: Amoxicillin/Potassium Clav 500 MG TABLET PO (09:09)
[2021-06-28] MEDS: Folic Acid 1 MG TABLET PO (09:09)
[2021-06-28] MEDS: 0.9 % Sodium Chloride Flush 3 ML SYRINGE IVFLUSH (09:09)
[2021-06-28] MEDS: QUEtiapine Fumarate 25 MG TABLET 75 MG PO (09:09)
[2021-06-28] MEDS: Aspirin Enteric Coated 81 MG TABLET.DR PO (09:09)
[2021-06-28] MEDS: Clopidogrel Bisulfate 75 MG TABLET PO (09:09)
--- NOTE | 2021-06-28 11:13 | PM.DS ---
DS: Providers Provider Date of Service: 06/28/21 Date of admission: 06/21/21 04:53 Primary care physician: Epi Arnold MD DS: Diagnosis Discharge Diagnosis (1) Acute respiratory failure with hypoxia: Status: Acute (2) Difficulty swallowing: Status: Acute (3) Aspiration pneumonia: Status: Acute (4) Weakness: Status: Acute (5) Fall: Status: Acute DS: Summary Hospital Course Hospital Course: Admission note HPI ?66-year-old male with a past medical history of hepatitis-C, hepatocellular carcinoma, liver cirrhosis, history of alcohol abuse/tobacco dependence, CVA presented to the hospital today with a chief complaint of fall.? Patient reported that he was lying in the bed and fell on the floor from bed; denies any head strike or loss of consciousness; denies any hip pain back pain neck pain.? Reports he has right upper quadrant abdominal pain which is been chronic.? Patient denies any chest pain or palpitations.? Denies any nausea vomiting or diarrhea.? Per ER team patient exam was benign; CT head showed no acute findings , CT chest showed chronic appearing changes in the lung parenchyma, CT abdomen showed heterogeneous liver lesion consistent with infiltrative/metastatic disease;; few minutes later patient? choked? on JellO and became acutely hypoxic;? requiring supplemental oxygen on Oxymizer at 6 L; oxygenation gradually improved to low 90s; patient not in respiratory distress; concern for aspiration pneumonia/ pneumonitis; patient was empirically started on antibiotics.? Admitted to the hospital for further management. ?admitted to the hospital for further management Hospital course The patient was admitted to the hospital for treatment of Acute hypoxic respiratory failure 2/2 aspiration pneumonia. Treated with IV antibiotics of Zosyn with negative blood cultures. He required oxygen supplement and was wean down slowly over the course of hospital stay down to room air. Evaluated by speech therapy for difficulty swallowing who recommended with divide diet at the beginning with thickened liquids but over the course of hospital stay the patient got stronger and was able to eat regular food with was shops only with regular liquids Reported having?abdominal pain which believed to be 2/2 Hepatocellular carcinoma that improved during the hospital stay as the patient did not ask for any pain medications while his home does oxycodone was held. Plan is to continue home stivarga.? Oncology follow-up as OP Seen by Physical therapy for reported fall with no injuries. Recommended home physical therapy. Plan strongly advised to quit smoking, nicotine patches prescribed continue Augmentin for 3 more days To do physical therapy at home Use clonazepam as needed for anxiety Use oxycodone as needed for pain To follow-up with Oncology as outpatient for the treatment of liver cancer Time Spent with Patient Time attestation: Total time spent providing and/or coordinating discharge services: Discharge coordination time: Greater than 30 minutes Quality: Stroke Does the patient have a stroke diagnosis?: No Physical Exam Vital Signs: Vital Signs: Last Vital Signs Temp 98.6 F 06/28/21 07:32 Pulse 72 06/28/21 07:32 Resp 18 06/28/21 07:32 BP 123/73 06/28/21 07:32 Pulse Ox 96 06/28/21 07:32 BMI result Body Mass Index 20.3 Const: Other: Constitutional : Awake, interactive, not in distress Neck : Normal inspection, Supple Cardiovascular : RRR, S1 S2, no lower extremity edema Respiratory : fair bilateral air entry, no basal bilateral crackles, no wheezes or rhonchi Gastrointestinal: soft, lax, Normal bowel sounds, Non tender Skin : Warm, Dry Neurological : Alert & oriented to self and place, No focal deficit DS: Data Data Completed and Pending Labs on day of discharge: Laboratory Results - last 24 hr 06/27/21 06/28/21 06/28/21 22:04 05:34 05:34 Sodium 140 Potassium 3.8 Chloride 102 Carbon Dioxide 28 Anion Gap 14 BUN 23 H Creatinine Cancelled 0.68 Estim Creat Clear Calc Cancelled 102.8 Estimated GFR Cancelled > 60 Random Glucose 102 D Calcium 9.0 TSH 0.64 Discharge Plan Discharge Patient Disposition: Home Health Service Discharge Diagnosis: Aspiration pneumonia Abdominal pain Altered mentation Referrals: Physician,Unknown J [Physician] - 1 Week Discharge Medications: New amoxicillin-pot clavulanate 500-125 mg Tablet 500 mg PO Q12H 3 Days Qty: 5 0RF nicotine 14 mg/24 hr patch 24 hour 1 patch transdermal Q24H Qty: 28 2RF Continued aspirin 81 mg tablet,delayed release (DR/EC) 81 mg PO DAILY Qty: 90 1RF multivitamin Tablet 1 tab PO QAM Qty: 90 1RF folic acid 1 mg tablet 1 mg PO DAILY Qty: 90 1RF famotidine 20 mg tablet 20 mg PO BEDTIME 30 Days Qty: 30 3RF docusate sodium [Colace] 100 mg Capsule 100 mg PO DAILY Qty: 30 3RF quetiapine [Seroquel XR] 150 mg tablet extended release 24 hr 150 mg PO BEDTIME 0RF Stivarga 40 mg tablet 160 mg PO DAILY 0RF ondansetron HCl 8 mg tablet 1 tab PO Q12H 0RF megestrol 40 mg Tablet 40 mg PO DAILY Qty: 30 2RF clopidogrel 75 mg tablet 75 mg PO DAILY 0RF Changed clonazepam 1 mg tablet 1 mg PO TID PRN (Reason: Anxiety) Qty: 10 0RF Rx Instructions: Patient can partially fill this prescription upon request oxycodone 10 mg Tablet 10 mg PO TID PRN (Reason: Pain, Severe) Qty: 90 0RF Discharge Orders: Discharge Order (Routine); Ordered 06/28/21 Ordered By: Jennifer Talavera Diet: other Activity on Discharge: As tolerated Stand Alone Forms: Patient Portal Discharge page Care Plan Goals: Read below Health Concerns: Read below Plan of Treatment: Read below Assessment: You were admitted to the hospital for evaluation of difficulty breathing. Found to have evidence of pneumonia from aspiration requiring oxygen supplement. Treated with IV antibiotics and steroids with good response over the course of hospital stay. You were weaned down on the oxygen supplement back to room. You were evaluated by physical therapy team who recommended home physical therapy. We strongly advise you to quit smoking, nicotine patches prescribed continue Augmentin for 3 more days To do physical therapy at home Use clonazepam as needed for anxiety Use oxycodone as needed for pain To follow-up with Oncology as outpatient for the treatment of liver cancer
--- NOTE | 2021-06-28 11:25 | MHC.CM.PN ---
CM RECEIVED A CALL FROM PTS FINANCE PROFESSOR LAW LIBRARIAN, GUME. SHE WAS INFORMED OF PTS DC. SHE WAS ALSO INFORMED HE IS NO LONGER ON OXYGEN. [facility] REPORTS SHE WILL PICK PT UP AT 1500 HOURS TODAY [facility] ALSO NOTIFIED OF DC VIA [employer] PT WILL DC HOME TODAY WITH RESUMPTION OF FINANCE PROFESSOR SUPPORT AND [facility] SERVICES
[2021-06-28 11:31] VITALS: BP 117/65; PULSE 85; RESP 18; TEMP 36.5; O2SAT 94
--- NOTE | 2021-06-29 07:54 | MHC.CDI.RETR ---
Documented by User: Frances Du CCS, CDIS 06/29/21 07:59 Retrospective Query PHYSICIAN'S DOCUMENTATION REQUEST Date of Query: 06/29/21 [id number] Patient Name: Maximino Landon Admit Date: 06/21/21 Dear Doctor, A review of the medical record indicates additional documentation may be needed. Please review below and update the documentation accordingly. Clinical Indicators: Documentation in the medical record includes: Risk Factors/Clinical Indicators/Treatments Nutritional assessment 06/22 - Adult failure to thrive, HCC, falls, weakness. BMI 20.3 6ft in height Weight loss x 6 months=6.5% Moderate depletion body fat and mucles clavicle and nondenominational. Non-severe malnutrition in the context of chronic illness. Adding Ensure. ASPEN Criteria* Acute Illness Chronic Illness Clinical Characteristic Non-Severe (2 or more criteria present) Severe (2 or more criteria present) Non-Severe (2 or more criteria present) Severe (2 or more criteria present) Energy Intake <75% for >7 days <=50% for >=5 days <75% for >=1 month <=75% for >=1 month Weight Loss 1 week 1 ? 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 Malnutrition (specify if mild, moderate, or severe) Protein calorie malnutrition (specify if mild, moderate, or severe) Cachexia without malnutrition No nutritional deficiency Other (please specify): Unable to determine Use of terms such as suspected, likely, concern for, or probable (associated with a specific diagnosis that is being evaluated, monitored, or treated as if it exists) are acceptable and can be coded in the inpatient setting, when documented at the time of discharge. Thank you, Frances Du [facility], CDIS Extension: [phone] Please use your independent medical judgment in providing your response. THIS QUERY IS PART OF THE PERMANENT MEDICAL RECORD Documented by User: Jennifer Talavera MD 06/30/21 15:06 Retrospective Query Provider Response: Moderate Protein-Calorie Malnutrition
== END 2021-06-28 15:55 | disposition home health service (06) | DRG 177 ==
LOC: HO.ED 06-21 01:14 → HO.EDOVER 06-21 05:19 → HO.S3 06-21 08:23
PROVIDERS: Internal Medicine; Physician Assistant; Admitting Provider Hospitalist; Emergency Provider Emergency Medicine; PCP Internal Medicine; Visit Provider Student in an Organized Health Care Education/Training Program
DX: J69.0 Pneumonitis due to inhalation of food and vomit (principal); J96.01 Acute respiratory failure with hypoxia; C22.0 Liver cell carcinoma; E44.0 Moderate protein-calorie malnutrition; F10.11 Alcohol abuse, in remission; K74.69 Other cirrhosis of liver; Z20.822 Contact with and (suspected) exposure to COVID-19; R13.10 Dysphagia, unspecified; Z68.20 Body mass index [BMI] 20.0-20.9, adult; Z91.81 History of falling; Z86.73 Personal history of transient ischemic attack (TIA), and cerebral infarction without residual deficits; Z86.19 Personal history of other infectious and parasitic diseases; Z87.891 Personal history of nicotine dependence; Z79.02 Long term (current) use of antithrombotics/antiplatelets; Z79.82 Long term (current) use of aspirin; Z79.899 Other long term (current) drug therapy
CPT/HCPCS: 36415; 70450; 71045; 71260; 71275; 72125; 73552; 73564; 74177; 80048; 80053; 81003; 82550; 82565; 83690; 83735; 83880; 84443; 85025; 85027; 85379; 87635; 92526; 92610; 93005; 94640; 96365; 96375; 97162; 99285; J0696; J1170; J1650; J2270; J2405; J2543; J2920; J3370; Q9967

== ENCOUNTER 2021-07-03 09:20 | Outpatient (RCR) | payer MEDICARE, MEDICAID, SELFPAY ==
[2020-02-23 13:39] VITALS: BP 144/74; PULSE 63; RESP 14; TEMP 36.3; O2SAT 95; BMI 24.3
--- NOTE | 2020-02-23 14:29 | PM.HEMONCCN ---
Subjective - Subjective Chief complaint: Liver lesions Consult date: 02/23/20 Requesting Physician: Epi Arnold MD Primary Care Provider: Epi Arnold MD Medical Summary: Diagnosis: Hepatocellular carcinoma Longstanding history of liver cirrhosis, history of alcoholism and hepatitis-C. 01/13/2018 core biopsy of liver mass performed at [facility], pathology-hepatocellular carcinoma, high-grade. Underwent partial hepatectomy on 04/10/2017. Final pathology showed 2.4 cm HCC confined to the liver. Margins negative. Surveillance CT abdomen with IV contrast performed at [facility] on 12/15/2019 revealed multiple new hypodense lesions throughout liver. 1.2 cm lesion in left hepatic lobe, 1.7 cm lesion in left hepatic lobe, 1.6 cm lesion right hepatic lobe, 9 mm lesion in right hepatic lobe, 1.5 cm lesion in right hepatic lobe. Prior cholecystectomy. Status post splenectomy. This was concerning for recurrent hepatocellular carcinoma, metastatic disease from another primary was also possible. Prominent upper abdominal lymph nodes measuring up to 1.2 cm, not significantly changed from prior exam. Supraumbilical ventral abdominal hernia containing nonobstructed non inflamed loops of small bowel, similar to prior. Postsurgical changes from prior ventral abdominal herniorrhaphy with mesh. 3 cm infrarenal abdominal aortic aneurysm. HPI - Consult Narrative Reason for consult: New liver lesions, past history of HCC. Narrative: Maximino Landon is a 64 year old male who has a history of partial liver resection for HCC no presenting with multiple liver lesions worrisome for metastasis. He went for surveillance scan in December which revealed the liver lesions. His oncological care has been at [facility] until now. He was scheduled for IR guided liver biopsy but he was felt to be incompetent to make decision by the radiologist. He does not have a medical oncologist at [facility] and therefore he was referred here. Patient reports loss of appetite and significant weight loss in the last year. He reports fatigue. He denies fever, chills, shortness of breath, chest pain or abdominal discomfort. He is bothered by the ventral hernia, he says it bothers him at times. This has been longstanding. He denies change in bowel habits, rectal bleeding or melena. He does follow-up with his psychiatrist almost every other week. He gets a LONGWALL MACHINE OPERATOR HELPER 5 times a week and LONGWALL MACHINE OPERATOR HELPER was present today. His [id number] used to be his healthcare proxy in the past, but now since his brother , she does not want to take the responsibility. Review of Systems - Constitutional Reports as per HPI, Reports no additional constitutional complaints Oncology Screenings - ECOG Performance Status ECOG Performance Status: 1 [facility] Medical History: Medical History (Last Updated 02/23/20 @ 14:30 by Geraldine De Dios MD) Hepatitis C Hepatocellular carcinoma Liver cirrhosis Family History: Family History (Last Updated 01/31/20 @ 10:42 by Christine Mcfarland [facility]) Father No problems noted. Mother No problems noted. Family/Other FH: mental illness Surgical History: Surgical History (Last Updated 02/23/20 @ 14:30 by Geraldine De Dios MD) H/O resection of liver History of splenectomy No pertinent past surgical history Smoking status: Current every day smoker Alcohol intake frequency: former alcohol drinker Home Medications and Allergies Home Medications Medication Instructions Recorded Confirmed Type butalbital 50 mg-acetaminophen 300 1 cap PO Q4H PRN 02/01/20 02/23/20 History mg-caffeine 40 mg-codeine 30 mg cap clonazepam 1 mg tablet 1 mg PO TID PRN 02/01/20 02/23/20 History divalproex 250 mg tablet,extended 250 mg PO DAILY 02/01/20 02/23/20 History release 24 hr melatonin 3 mg tablet 6 mg PO BEDTIME 02/01/20 02/23/20 History multivitamin 1 tab PO QAM 02/01/20 02/23/20 History quetiapine 150 mg tablet,extended 150 mg PO BEDTIME 02/01/20 02/23/20 History release 24 hr sertraline 100 mg tablet 200 mg PO DAILY 02/01/20 02/23/20 History Allergies Allergy/AdvReac Type Severity Reaction Status Date / Time No Known Allergies Allergy Verified 01/31/20 10:42 Physical Exam Vital signs: Vital Signs Temp 97.3 F 02/23/20 13:39 Pulse 63 02/23/20 13:39 Resp 14 02/23/20 13:39 BP 144/74 H 02/23/20 13:39 Pulse Ox 95 02/23/20 13:39 Intake & Output 02/22/20 02/23/20 02/23/20 18:59 06:59 18:59 Other: Weight 79.1 kg Weight 79.1 kg - Constitutional Present: no acute distress - Routine HEENT Exam Head: Present: normal inspection Eye: Present: EOMI - Routine Neck Exam Present: supple - Routine Respiratory Exam Present: CTAB - Routine Cardiovascular Exam Cardiovascular: Present: RRR, S1, S2 - Routine Abdominal Exam Present: hernia, normal bowel sounds, soft - Routine Extremities Exam Absent: calf tenderness, pedal edema Hem/Onc Consult Result - Labs CBC & Chem 7: 02/23/20 14:45 02/23/20 14:45 Assessment and Plan (1) Hepatocellular carcinoma Status: Acute 1. This is a 64-year-old male with history of high-grade hepatocellular carcinoma for which she underwent partial hepatectomy in April 2017. He was well until May 2019. In December 2019, surveillance CT of abdomen revealed multiple new hepatic lesions and persistent slightly prominent upper abdominal lymph nodes without enlargement. Possibility of recurrent metastatic hepatocellular carcinoma versus metastasis from another primary was raised. Tumor marker alpha-fetoprotein , CEA level not raised, 1.9 today. Second primary such as lung, colorectal and upper GI malignancies are also possible. Patient is a poor historian, part from poor appetite and weight loss he does not report any symptoms. It does not appear that he had a screening colonoscopy. I have also scheduled ultrasound-guided liver biopsy if possible, otherwise a CT imaging will be scheduled here. I have discussed all of the above with patient as well as his LONGWALL MACHINE OPERATOR HELPER. His psychiatrist feels patient is competent to make his own decisions. Follow-up in 2 weeks.
[2020-02-23 14:54] LABS: Basophils Absolute Auto 0.1 X10*3/uL (0.0-0.2); Basophils Percent Auto 0.9 % (0-2); Eosinophils Absolute Auto 0.4 X10*3/uL (0.0-0.4); Eosinophils Percent Auto 3.8 % (0-4); Hematocrit 47.1 % (42-52); Hemoglobin 15.8 g/dl (14.0-18.0); Imm Gran Abs Auto 0.01 X10*3/uL (0.00-0.03); Imm Gran Pct Auto 0.1 % (0.0-0.4); Lymphocytes Absolute Auto 5.7 X10*3/uL (1.2-4.9); Lymphocytes Percent Auto 57.3 % (20-40); MANUAL DIFF FLAG SCAN; Mean Corpuscular HGB Conc 33.5 g/dl (31.0-36.0); Mean Corpuscular Hemoglobin 32.9 pg (27.0-33.0); Mean Corpuscular Volume 98.1 fL (80-98); Mean Platelet Volume 8.8 fL (9.4-12.4); Monocytes Absolute Auto 0.8 X10*3/uL (0.1-1.2); Monocytes Percent Auto 7.8 % (2-11); Neutrophils Percent Auto 30.1 % (45-73); Platelet Count 345 X10*3/uL (160-400); Red Cell Distribution Width 13.6 % (11.0-16.0); SCAN SMEAR FLAG 1
[2020-02-23 15:00] LABS: Partial Thromboplastin Time 40.6 SEC (24.1-38.0)
[2020-02-23 15:19] LABS: Alanine Aminotransferase 10 U/L (0-40); Albumin Level 4.1 g/dL (3.5-5.0); Alkaline Phosphatase 179 U/L (39-117); Anion Gap 13 (12-20); Aspartate Amino Transferase 21 U/L (5-37); Bilirubin Total 0.6 mg/dL (0.0-1.0); Blood Urea Nitrogen 9 mg/dL (9-16); Calcium 9.7 mg/dL (8.4-10.2); Carbon Dioxide 30 mmol/L (22-29); Chloride 102 mmol/L (96-108); Creatinine Clr Calc Pharmacy 98.1; Estimated Glomerular Filt Rate > 60; Glucose Random 93 mg/dL (60-115); Potassium 4.9 mmol/l (3.3-5.1); Sodium 140 mmol/L (135-145)
[2020-02-23 15:37] LABS: SLIDE REVIEW VERIFIED
--- NOTE | 2020-02-23 16:20 | PC.NURSE ---
Patient was seen today for Liver Cancer consult. Dr De Dios would like for patient to have blood work and a liver biopsy. Called and spoke with Kathe from ultrasound, we scheduled patient for Friday02/28/2020 at 11am with a 10am arrival time. Patient must be NPO for 6 hours before appt. I called the patient's phone number and the phone number is that of his Accounts Receivable Associate, I tried giving her the information but she told me that she was at a doctors appt for her son and to call her back tomorrow with the information. I will call patient's community service worker tomorrow to give her the details and answer any questions she might have.
[2020-02-24 12:07] LABS: Alpha Fetoprotein 86.4 ng/mL (<6.1)
--- NOTE | 2020-02-24 16:48 | MHC.HEMONC ---
CX US GUIDED LIVER BX - Cancelled for 02/27. Pt was found to be on Plavix by this RN. Plavix needs to held for 5 days and pt already took it today. Miesha Chris from IR notified. We will get him rescheduled kellie. Of note, he is also on ASA and this too will need to be held at least 3 days prior. He will also need to avoid NSAID products until after bx is completed. He will receive further instructions from IR dept. on when he can restart meds. Once rescheduled, pt will need to be NPO after midnight. He will need to arrive at [facility] 1 hr prior to the actual procedure time and register at front office help lob. S/P procedure he will go to PACU to be monitored and will be given a small meal. Plan for pt. to be there for a couple of hours. They will contact his ride for pick-up once he is stable for discharge home. The med list was reconciled against MAR from [facility] which was faxed to us today from his home nurse, Jessika Leyva, COMB SETTER. [phone]. Pertinent contacts for patient: [facility] contacts @ [phone] --> His community resource consultant, Ana [phone], was informed of cancellation. Other pertinent contact is his STATISTICS PROFESSOR José, . Dr. Estuardo Mitchell, Psychiatrist - [phone]
--- NOTE | 2020-02-29 17:39 | MHC.HEMONC ---
02/24/20 16:48 - Hem/ONC Nursing Notes by Anastasiia Thomas RN Acct Num: [id number] : 1955 Patient Age: 64 Note entered in wrong dept. Copy and pasted to this Hem/Onc note area. CX US GUIDED LIVER BX - Cancelled for 02/27. Pt was found to be on Plavix by this RN. Plavix needs to held for 5 days and pt already took it today. Miesha Chris from IR notified. We will get him rescheduled kellie. Of note, he is also on ASA and this too will need to be held at least 3 days prior. He will also need to avoid NSAID products until after bx is completed. He will receive further instructions from IR dept. on when he can restart meds. Once rescheduled, pt will need to be NPO after midnight. He will need to arrive [place] [facility] [place] prior to the actual procedure time and register at front end ui developer lobby. S/P procedure he will go to PACU to be monitored and will be given a small meal. Plan for pt. to be there for a couple of hours. They will contact his ride for pick-up once he is stable for discharge home. The med list was reconciled against MAR from [facility] which was faxed to us today from his home nurse, Jessika Leyva LPN. [phone]. Pertinent contacts for patient: [facility] contacts @ [phone] --> His community development technician, Ana [phone], was informed of cancellation. Other pertinent contact is his CAR DRYER José, . Dr. Estuardo Mitchell, Psychiatrist - [phone] Initialized on 02/24/20 16:48 - END OF NOTE
--- NOTE | 2020-02-29 17:44 | MHC.HEMONC ---
LIVER BX - Pt scheduled for US guided liver bx for Friday @ 9am here at [facility]. Transportation to this visit will be provided by his community association manager, Ana Jose R @ [phone]. They received all instructions from US/IR department re: NPO orders. Jessika Leyva, his VNA nurse from [facility], , will remove Plavix and ASA from his med box 5 days prior to this bx. Per Dr. De Dios a V.O. to resume Plavix and ASA the following day was relayed to Jessika. Initialized on 02/29/20 17:10 - END OF NOTE
--- NOTE | 2020-03-01 16:48 | MHC.HEMONC ---
COMPETENCY NOTE - Received note from patient's Psychiatrist, Dr. Estuardo Mitchell, and this was scanned into documents here in [facility] by Eulalia Toth. See scanned note for further details. Pt is competent to make his own decisions regarding treatment. He does ot have any family or HCP. It is best to give Maximino time to process information. He is also hard of hearing and forgetful. Dr. Mitchell's # is [phone]. He has a support team from [facility] - His Community supporter is Ana Odell # [phone], His FAMILY MEDICINE CHAIR is José # [phone], Cher Do is his nurse # , and he has another nurse from [facility] who fills his meds .
--- NOTE | 2020-03-01 17:05 | MHC.HEMONC ---
SUPPORT TEAM - Maximino has a support team from [facility] - His Community supporter is Ana Odell # [phone], His LICENSE INSPECTOR is José # [phone], Cher Do is his nurse # , and he has another nurse from [facility] who fills his meds .
--- NOTE | 2020-03-06 13:51 | MHC.HEMONC ---
F/Up Appt. - This RN spoke with Maximino Perez's support community health worker. Notified of Liver Bx follow up w Dr. De Dios on 03/17/20 at 11:00am. Liver bx was completed today 03/06/20.
[2020-03-17 11:10] VITALS: BP 124/69; PULSE 66; RESP 14; TEMP 36.4; O2SAT 95; BMI 25.0
--- NOTE | 2020-03-17 12:05 | PM.HEMONCPN ---
Medical Summary - Medical Summary Date of Service: 03/17/20 Chief complaint: Abdominal pain Medical Summary: Diagnosis: Hepatocellular carcinoma Longstanding history of liver cirrhosis, history of alcoholism and hepatitis-C. 01/13/2018 core biopsy of liver mass performed at [facility], pathology-hepatocellular carcinoma, high-grade. Underwent partial hepatectomy on 04/10/2017. Final pathology showed 2.4 cm HCC confined to the liver. Margins negative. Surveillance CT abdomen with IV contrast performed at [facility] on 12/15/2019 revealed multiple new hypodense lesions throughout liver. 1.2 cm lesion in left hepatic lobe, 1.7 cm lesion in left hepatic lobe, 1.6 cm lesion right hepatic lobe, 9 mm lesion in right hepatic lobe, 1.5 cm lesion in right hepatic lobe. Prior cholecystectomy. Status post splenectomy. This was concerning for recurrent hepatocellular carcinoma, metastatic disease from another primary was also possible. Prominent upper abdominal lymph nodes measuring up to 1.2 cm, not significantly changed from prior exam. Supraumbilical ventral abdominal hernia containing nonobstructed non inflamed loops of small bowel, similar to prior. Postsurgical changes from prior ventral abdominal herniorrhaphy with mesh. 3 cm infrarenal abdominal aortic aneurysm. Interval History Interval history: Patient is here in follow-up. He says that he has chronic abdominal pain, he has a hernia which has been causing him chronic pain. He denies nausea or emesis. No fever or chills. His appetite is poor. He is not eating much. He has lost some weight. He is here to discuss results of biopsy and wants pain medication. Review of Systems - Constitutional Reports no additional constitutional complaints - Cardiovascular Denies chest pain, Denies shortness of breath - Respiratory Denies chest congestion, Denies cough - Gastrointestinal Denies abdominal pain, Denies bloating - Musculoskeletal Denies no additional musculoskeletal complaints [facility] Medical History: Medical History (Last Updated 03/17/20 @ 12:17 by Geraldine De Dios MD) CVA (cerebral vascular accident) Hepatitis C Hepatocellular carcinoma Liver cirrhosis Family History: Family History (Last Updated 01/31/20 @ 10:42 by Christine Mcfarland [facility] Father No problems noted. Mother No problems noted. Family/Other FH: mental illness Surgical History: Surgical History (Last Updated 02/23/20 @ 14:30 by Geraldine De Dios MD) H/O resection of liver History of splenectomy No pertinent past surgical history Smoking status: Current every day smoker Oncology Screenings - ECOG Performance Status ECOG Performance Status: 1 Home Medications and Allergies Home Medications Medication Instructions Recorded Confirmed Type clonazepam 1 mg tablet 1 mg PO TID PRN 02/01/20 02/23/20 History divalproex 250 mg tablet,extended 250 mg PO DAILY 02/01/20 02/23/20 History release 24 hr melatonin 3 mg tablet 3 mg PO BEDTIME 02/01/20 02/24/20 History multivitamin 1 tab PO QAM 02/01/20 02/23/20 History quetiapine 150 mg tablet,extended 150 mg PO BEDTIME 02/01/20 02/23/20 History release 24 hr sertraline 100 mg tablet 200 mg PO DAILY 02/01/20 02/23/20 History Esgic 50 - 325 mg PO TID PRN 02/24/20 02/24/20 History aspirin [Aspir-81] 81 mg PO DAILY 02/24/20 02/24/20 History clopidogrel 1 tab PO QAM 02/24/20 02/24/20 History divalproex 1 tab PO DAILY 02/24/20 02/24/20 History oxybutynin chloride 1 tab PO DAILY 02/24/20 02/24/20 History quetiapine 1 tab PO BEDTIME 02/24/20 02/24/20 History Allergies Allergy/AdvReac Type Severity Reaction Status Date / Time No Known Allergies Allergy Verified 01/31/20 10:42 Exam Vital signs: Vital Signs Temp 97.5 F 03/17/20 11:10 Pulse 66 03/17/20 11:10 Resp 14 03/17/20 11:10 BP 124/69 03/17/20 11:10 Pulse Ox 95 03/17/20 11:10 Intake & Output 03/16/20 03/17/20 03/17/20 18:59 06:59 18:59 Other: Weight 81.4 kg Weight 81.4 kg Body Mass Index 25.0 - Constitutional Present: no acute distress - Routine HEENT Exam Head: Present: normal inspection - Routine Neck Exam Absent: lymphadenopathy - Routine Respiratory Exam Present: CTAB - Routine Cardiovascular Exam Cardiovascular: Present: RRR, S1, S2 - Routine Abdominal Exam Present: hernia, normal bowel sounds, soft - Routine Extremities Exam Absent: calf tenderness, pedal edema Data - Labs CBC & Chem 7: 02/23/20 14:45 02/23/20 14:45 Labs: 02/23/20 14:45 Alpha Fetoprotein Routine CEA [Carcinoembryonic Antigen] Routine Complete Blood Count Auto Diff Routine Comprehensive Met. Panel Routine Hep C Viral Load Routine PTT [Partial Thromboplastin Time] Routine SLIDE REVIEW Routine Laboratory Last Values WBC 10.0 X10*3/uL (4.8-10.8) 02/23/20 14:45 RBC 4.80 X10*6/uL (4.60-5.80) 02/23/20 14:45 Hgb 15.8 g/dl (14.0-18.0) 02/23/20 14:45 Hct 47.1 % (42-52) 02/23/20 14:45 MCV 98.1 fL (80-98) H 02/23/20 14:45 MCH 32.9 pg (27.0-33.0) 02/23/20 14:45 MCHC 33.5 g/dl (31.0-36.0) 02/23/20 14:45 RDW 13.6 % (11.0-16.0) 02/23/20 14:45 Plt Count 345 X10*3/uL (160-400) 02/23/20 14:45 MPV 8.8 fL (9.4-12.4) L 02/23/20 14:45 Immature Gran % (Auto) 0.1 % (0.0-0.4) 02/23/20 14:45 Neut % (Auto) 30.1 % (45-73) L 02/23/20 14:45 Lymph % (Auto) 57.3 % (20-40) H 02/23/20 14:45 [place] % (Auto) 7.8 % (2-11) 02/23/20 14:45 Eos % (Auto) 3.8 % (0-4) 02/23/20 14:45 Baso % (Auto) 0.9 % (0-2) 02/23/20 14:45 Lymph # (Auto) 5.7 X10*3/uL (1.2-4.9) H 02/23/20 14:45 [place] # (Auto) 0.8 X10*3/uL (0.1-1.2) 02/23/20 14:45 Eos # (Auto) 0.4 X10*3/uL (0.0-0.4) 02/23/20 14:45 Baso # (Auto) 0.1 X10*3/uL (0.0-0.2) 02/23/20 14:45 Abs Immat Gran (auto) 0.01 X10*3/uL (0.00-0.03) 02/23/20 14:45 Absolute Neuts (auto) 3.0 X10*3/uL (2.0-8.3) 02/23/20 14:45 Absolute Nucleated RBC 0.000 X10*3/uL (0.0-0.012) 02/23/20 14:45 Nucleated RBC % (auto) 0.0 /100WBC (0.0-0.2) 02/23/20 14:45 Smear Tech's Comments VERIFIED 02/23/20 14:45 APTT 40.6 SEC (24.1-38.0) H 02/23/20 14:45 Sodium 140 mmol/L (135-145) 02/23/20 14:45 Potassium 4.9 mmol/l (3.3-5.1) 02/23/20 14:45 Chloride 102 mmol/L (96-108) 02/23/20 14:45 Carbon Dioxide 30 mmol/L (22-29) H 02/23/20 14:45 Anion Gap 13 (12-20) 02/23/20 14:45 BUN 9 mg/dL (9-16) 02/23/20 14:45 Creatinine 0.81 mg/dL (0.5-1.4) 02/23/20 14:45 Estim Creat Clear Calc 98.1 02/23/20 14:45 Estimated GFR > 60 02/23/20 14:45 Random Glucose 93 mg/dL (60-115) 02/23/20 14:45 Calcium 9.7 mg/dL (8.4-10.2) 02/23/20 14:45 Total Bilirubin 0.6 mg/dL (0.0-1.0) 02/23/20 14:45 AST 21 U/L (5-37) 02/23/20 14:45 ALT 10 U/L (0-40) 02/23/20 14:45 Alkaline Phosphatase 179 U/L (39-117) H 02/23/20 14:45 Total Protein 8.0 g/dL (6.5-8.0) 02/23/20 14:45 Albumin 4.1 g/dL (3.5-5.0) 02/23/20 14:45 Alpha Fetoprotein 86.4 ng/mL (<6.1) H 02/23/20 14:45 Carcinoembryonic Ag 1.90 mg/mL 02/23/20 14:45 Hep B Viral Load Log <1.18 NOT DETECTED Log IU/mL (NOT DETECTED) 02/23/20 14:45 Hep C Viral Load <15 NOT DETECTED IU/mL (NOT DETECTED) 02/23/20 14:45 Progress Note: A/P (1) Hepatocellular carcinoma Status: Acute Assessment and plan: 1. This is a 64-year-old male with history of high-grade hepatocellular carcinoma for which she underwent partial hepatectomy in April 2017. He was well until May 2019. In December 2019, surveillance CT of abdomen revealed multiple new hepatic lesions and persistent slightly prominent upper abdominal lymph nodes without enlargement. Possibility of recurrent metastatic hepatocellular carcinoma versus metastasis from another primary was raised. Tumor marker alpha-fetoprotein slightly elevated 86.4, CEA level normal, 1.9. On 03/06/2020 he underwent core biopsy of lesion in the right lobe which revealed fragments of liver parenchyma with chronic hepatitis and mild inflammatory activity with bridging fibrosis. Unfortunately, this biopsy does not rule out HCC. I have ordered MRI of abdomen/liver to see if these lesions fit MRI criteria for HCC. If necessary, repeat biopsy will be performed. I explained this to the patient, he is agreeable. 2. Chronic pain in abdomen. Ultram was prescribed but because of drug interaction this cannot be used for his pain control. I prescribed oxycodone 5 mg Q 8 p.r.n.. Follow-up in 1 month. - Time Spent With Patient Total time spent is greater than 50% in coordination of care (as documented) at patient's floor/unit and/or counseling patient: 15 - 24 minutes
--- NOTE | 2020-03-17 12:53 | MHC.HEMONC ---
MRI of abdomen ordered by Dr De Dios. Order given to Donna for PA and booking.
--- NOTE | 2020-03-17 16:37 | MHC.HEMONC ---
MRI ABDOMEN PA IN PENDING STATUS
--- NOTE | 2020-03-24 12:53 | MHC.HEMONCMA ---
Jessika from [facility] called, she states that she met with Maximino, and that she is a little concerned with how he is doing. She states that he is groggy and spaced out . He is currently taking oxycodone once in the morning and once at night. She states it is difficult to get information out of him, that one moment he says his pain is ok, and then the next he is saying he is in pain and his pain is an 8/10. He states that it doesn't seem to be helping, but does not actively complain about pain. Jessika states that he is eating better, which she thinks is good. Jessika is just concerned about how he is so groggy and spaced out. I let Jessika know that I will speak with the DR and either I or the DR will call her back. Jessika from [facility], P# [phone].
--- NOTE | 2020-03-27 18:26 | MHC.HEMONC ---
MRI - Spoke w Maximino [facility] di[facility]. She was reminded of tomorrow's MRI appt. She states she plans to bring him to help facilitate his clear understanding and answer any question from MRI dept. Maximino is competent to make his own decisions, but needs time to process information and answer questions. There is a note from his psychiatrist under scanned documents supporting his capabilities to make decisions. Ana was alos reminded of his f/up appt w Dr. De Dios on 04/19/20 @ 10 am.
--- NOTE | 2020-03-30 11:11 | MHC.HEMONCMA ---
Jessika from the [facility] called, she states that someone told her that they would send the rx for oxycodone to the pharmacy. I told her that I was pretty sure that DR De Dios said no to that, but I will double check and ask her. I placed Jessika on hold so I could speak to Dr De Dios. Dr De Dios states that she is not refilling the medication until his appt on 04/19/2020 due to how sedated the patient gets with the medication. I took Jessika off hold and I let her know that she is not going to refill the medication, and will discuss at his appt. She states she will let the patient know.
--- NOTE | 2020-04-12 10:00 | PM.HEMONCPN ---
Medical Summary - Medical Summary Date of Service: 04/12/20 Medical Summary: Diagnosis: Hepatocellular carcinoma Longstanding history of liver cirrhosis, history of alcoholism and hepatitis-C. 01/13/2018 core biopsy of liver mass performed at [facility], pathology-hepatocellular carcinoma, high-grade. Underwent partial hepatectomy on 04/10/2017. Final pathology showed 2.4 cm HCC confined to the liver. Margins negative. Surveillance CT abdomen with IV contrast performed at [facility] on 12/15/2019 revealed multiple new hypodense lesions throughout liver. 1.2 cm lesion in left hepatic lobe, 1.7 cm lesion in left hepatic lobe, 1.6 cm lesion right hepatic lobe, 9 mm lesion in right hepatic lobe, 1.5 cm lesion in right hepatic lobe. Prior cholecystectomy. Status post splenectomy. This was concerning for recurrent hepatocellular carcinoma, metastatic disease from another primary was also possible. Prominent upper abdominal lymph nodes measuring up to 1.2 cm, not significantly changed from prior exam. Supraumbilical ventral abdominal hernia containing nonobstructed non inflamed loops of small bowel, similar to prior. Postsurgical changes from prior ventral abdominal herniorrhaphy with mesh. 3 cm infrarenal abdominal aortic aneurysm. [facility] Medical History: Medical History (Last Updated 03/17/20 @ 12:17 by Geraldine De Dios MD) CVA (cerebral vascular accident) Hepatitis C Hepatocellular carcinoma Liver cirrhosis Family History: Family History (Last Updated 01/31/20 @ 10:42 by Christine Mcfarland [facility]) Father No problems noted. Mother No problems noted. Family/Other FH: mental illness Surgical History: Surgical History (Last Updated 02/23/20 @ 14:30 by Geraldine De Dios MD) H/O resection of liver History of splenectomy No pertinent past surgical history Smoking status: Current every day smoker Home Medications and Allergies Home Medications Medication Instructions Recorded Confirmed Type clonazepam 1 mg tablet 1 mg PO TID PRN 02/01/20 02/23/20 History divalproex 250 mg tablet,extended 250 mg PO DAILY 02/01/20 02/23/20 History release 24 hr quetiapine 150 mg tablet,extended 150 mg PO BEDTIME 02/01/20 02/23/20 History release 24 hr sertraline 100 mg tablet 200 mg PO DAILY 02/01/20 02/23/20 History Esgic 50 - 325 mg PO TID PRN 02/24/20 02/24/20 History aspirin [Aspir-81] 81 mg PO DAILY 02/24/20 02/24/20 History divalproex 1 tab PO DAILY 02/24/20 02/24/20 History oxybutynin chloride 1 tab PO DAILY 02/24/20 02/24/20 History quetiapine 1 tab PO BEDTIME 02/24/20 02/24/20 History Allergies Allergy/AdvReac Type Severity Reaction Status Date / Time No Known Allergies Allergy Verified 01/31/20 10:42 Exam Vital signs: Vital Signs Temp 97.5 F 03/17/20 11:10 Pulse 66 03/17/20 11:10 Resp 14 03/17/20 11:10 BP 124/69 03/17/20 11:10 Pulse Ox 95 03/17/20 11:10 Weight 81.4 kg Body Mass Index 25.0 - Constitutional Present: no acute distress - Routine HEENT Exam Head: Present: normal inspection - Routine Neck Exam Absent: lymphadenopathy - Routine Respiratory Exam Present: CTAB - Routine Cardiovascular Exam Cardiovascular: Present: RRR, S1, S2 - Routine Abdominal Exam Present: hernia, normal bowel sounds, soft - Routine Extremities Exam Absent: calf tenderness, pedal edema Data - Labs CBC & Chem 7: 02/23/20 14:45 02/23/20 14:45 Labs: 02/23/20 14:45 Alpha Fetoprotein Routine CEA [Carcinoembryonic Antigen] Routine Complete Blood Count Auto Diff Routine Comprehensive Met. Panel Routine Hep C Viral Load Routine PTT [Partial Thromboplastin Time] Routine SLIDE REVIEW Routine Laboratory Last Values WBC 10.0 X10*3/uL (4.8-10.8) 02/23/20 14:45 RBC 4.80 X10*6/uL (4.60-5.80) 02/23/20 14:45 Hgb 15.8 g/dl (14.0-18.0) 02/23/20 14:45 Hct 47.1 % (42-52) 02/23/20 14:45 MCV 98.1 fL (80-98) H 02/23/20 14:45 MCH 32.9 pg (27.0-33.0) 02/23/20 14:45 MCHC 33.5 g/dl (31.0-36.0) 02/23/20 14:45 RDW 13.6 % (11.0-16.0) 02/23/20 14:45 Plt Count 345 X10*3/uL (160-400) 02/23/20 14:45 MPV 8.8 fL (9.4-12.4) L 02/23/20 14:45 Immature Gran % (Auto) 0.1 % (0.0-0.4) 02/23/20 14:45 Neut % (Auto) 30.1 % (45-73) L 02/23/20 14:45 Lymph % (Auto) 57.3 % (20-40) H 02/23/20 14:45 [place] % (Auto) 7.8 % (2-11) 02/23/20 14:45 Eos % (Auto) 3.8 % (0-4) 02/23/20 14:45 Baso % (Auto) 0.9 % (0-2) 02/23/20 14:45 Lymph # (Auto) 5.7 X10*3/uL (1.2-4.9) H 02/23/20 14:45 [place] # (Auto) 0.8 X10*3/uL (0.1-1.2) 02/23/20 14:45 Eos # (Auto) 0.4 X10*3/uL (0.0-0.4) 02/23/20 14:45 Baso # (Auto) 0.1 X10*3/uL (0.0-0.2) 02/23/20 14:45 Abs Immat Gran (auto) 0.01 X10*3/uL (0.00-0.03) 02/23/20 14:45 Absolute Neuts (auto) 3.0 X10*3/uL (2.0-8.3) 02/23/20 14:45 Absolute Nucleated RBC 0.000 X10*3/uL (0.0-0.012) 02/23/20 14:45 Nucleated RBC % (auto) 0.0 /100WBC (0.0-0.2) 02/23/20 14:45 Smear Tech's Comments VERIFIED 02/23/20 14:45 APTT 40.6 SEC (24.1-38.0) H 02/23/20 14:45 Sodium 140 mmol/L (135-145) 02/23/20 14:45 Potassium 4.9 mmol/l (3.3-5.1) 02/23/20 14:45 Chloride 102 mmol/L (96-108) 02/23/20 14:45 Carbon Dioxide 30 mmol/L (22-29) H 02/23/20 14:45 Anion Gap 13 (12-20) 02/23/20 14:45 BUN 9 mg/dL (9-16) 02/23/20 14:45 Creatinine 0.81 mg/dL (0.5-1.4) 02/23/20 14:45 Estim Creat Clear Calc 98.1 02/23/20 14:45 Estimated GFR > 60 02/23/20 14:45 Random Glucose 93 mg/dL (60-115) 02/23/20 14:45 Calcium 9.7 mg/dL (8.4-10.2) 02/23/20 14:45 Total Bilirubin 0.6 mg/dL (0.0-1.0) 02/23/20 14:45 AST 21 U/L (5-37) 02/23/20 14:45 ALT 10 U/L (0-40) 02/23/20 14:45 Alkaline Phosphatase 179 U/L (39-117) H 02/23/20 14:45 Total Protein 8.0 g/dL (6.5-8.0) 02/23/20 14:45 Albumin 4.1 g/dL (3.5-5.0) 02/23/20 14:45 Alpha Fetoprotein 86.4 ng/mL (<6.1) H 02/23/20 14:45 Carcinoembryonic Ag 1.90 mg/mL 02/23/20 14:45 Hep B Viral Load Log <1.18 NOT DETECTED Log IU/mL (NOT DETECTED) 02/23/20 14:45 Hep C Viral Load <15 NOT DETECTED IU/mL (NOT DETECTED) 02/23/20 14:45 Progress Note: A/P (1) Hepatocellular carcinoma Status: Acute - Time Spent With Patient Total time spent is greater than 50% in coordination of care (as documented) at patient's floor/unit and/or counseling patient:
--- NOTE | 2020-04-12 11:07 | P.PNHO_ITS ---
Medical Summary - Medical Summary Date of Service: 04/12/20 Chief complaint: Abdominal pain Medical Summary: Diagnosis: Hepatocellular carcinoma Longstanding history of liver cirrhosis, history of alcoholism and hepatitis-C. 01/13/2018 core biopsy of liver mass performed at [facility], pathology-hepatocellular carcinoma, high-grade. Underwent partial hepatectomy on 04/10/2017. Final pathology showed 2.4 cm HCC confined to the liver. Margins negative. Surveillance CT abdomen with IV contrast performed at [facility] on 12/15/2019 revealed multiple new hypodense lesions throughout liver. 1.2 cm lesion in left hepatic lobe, 1.7 cm lesion in left hepatic lobe, 1.6 cm lesion right hepatic lobe, 9 mm lesion in right hepatic lobe, 1.5 cm lesion in right hepatic lobe. Prior cholecystectomy. Status post splenectomy. This was concerning for recurrent hepatocellular carcinoma, metastatic disease from another primary was also possible. Prominent upper abdominal lymph nodes measuring up to 1.2 cm, not significantly changed from prior exam. Supraumbilical ventral abdominal hernia containing nonobstructed non inflamed loops of small bowel, similar to prior. Postsurgical changes from prior ventral abdominal herniorrhaphy with mesh. 3 cm infrarenal abdominal aortic aneurysm. Interval History Interval history: Patient is here in follow-up, he is accompanied by his bottle caser. He is doing okay but says that he is in constant pain from his abdominal hernia. He has pain in the right upper quadrant and mid region. He has tried Tylenol in the past and it has not helped. He is requesting oxycodone refill which he was on for a month and which help. He denies any nausea or emesis. His appetite is fair. He denies any fever or chills. He wants to quit smoking, he would like nicotine patches. Review of Systems - Constitutional Reports no additional constitutional complaints - Cardiovascular Reports no additional cardiovascular complaints - Gastrointestinal Reports no additional gastrointestinal complaints [facility] Medical History: Medical History (Last Updated 03/17/20 @ 12:17 by Geraldine De Dios MD) CVA (cerebral vascular accident) Hepatitis C Hepatocellular carcinoma Liver cirrhosis Family History: Family History (Last Updated 01/31/20 @ 10:42 by Christine Mcfarland [facility]) Father No problems noted. Mother No problems noted. Family/Other FH: mental illness Surgical History: Surgical History (Last Updated 02/23/20 @ 14:30 by Geraldine De Dios MD) H/O resection of liver History of splenectomy No pertinent past surgical history Smoking status: Current every day smoker Oncology Screenings - ECOG Performance Status ECOG Performance Status: 2 Home Medications and Allergies Home Medications Medication Instructions Recorded Confirmed Type clonazepam 1 mg tablet 1 mg PO TID PRN 02/01/20 02/23/20 History quetiapine 150 mg tablet,extended 150 mg PO BEDTIME 02/01/20 02/23/20 History release 24 hr sertraline 100 mg tablet 200 mg PO DAILY 02/01/20 02/23/20 History Esgic 50 - 325 mg PO TID PRN 02/24/20 02/24/20 History aspirin [Aspir-81] 81 mg PO DAILY 02/24/20 02/24/20 History quetiapine 1 tab PO BEDTIME 02/24/20 02/24/20 History divalproex 500 mg PO DAILY 04/12/20 04/12/20 History melatonin 3 mg PO BEDTIME PRN 04/12/20 04/12/20 History multivitamin 1 tab PO DAILY 04/12/20 04/12/20 History Allergies Allergy/AdvReac Type Severity Reaction Status Date / Time No Known Allergies Allergy Verified 01/31/20 10:42 Exam Vital signs: Vital Signs Temp 97.5 F 03/17/20 11:10 Pulse 66 03/17/20 11:10 Resp 14 03/17/20 11:10 BP 124/69 03/17/20 11:10 Pulse Ox 95 03/17/20 11:10 Weight 81.4 kg Body Mass Index 25.0 - Constitutional Present: no acute distress - Routine HEENT Exam Head: Present: normal inspection - Routine Neck Exam Absent: lymphadenopathy - Routine Respiratory Exam Present: CTAB - Routine Cardiovascular Exam Cardiovascular: Present: RRR, S1, S2 - Routine Abdominal Exam Present: hernia, normal bowel sounds, soft - Routine Extremities Exam Absent: calf tenderness, pedal edema Data - Labs CBC & Chem 7: 02/23/20 14:45 02/23/20 14:45 Labs: 02/23/20 14:45 Alpha Fetoprotein Routine CEA [Carcinoembryonic Antigen] Routine Complete Blood Count Auto Diff Routine Comprehensive Met. Panel Routine Hep C Viral Load Routine PTT [Partial Thromboplastin Time] Routine SLIDE REVIEW Routine Laboratory Last Values WBC 10.0 X10*3/uL (4.8-10.8) 02/23/20 14:45 RBC 4.80 X10*6/uL (4.60-5.80) 02/23/20 14:45 Hgb 15.8 g/dl (14.0-18.0) 02/23/20 14:45 Hct 47.1 % (42-52) 02/23/20 14:45 MCV 98.1 fL (80-98) H 02/23/20 14:45 MCH 32.9 pg (27.0-33.0) 02/23/20 14:45 MCHC 33.5 g/dl (31.0-36.0) 02/23/20 14:45 RDW 13.6 % (11.0-16.0) 02/23/20 14:45 Plt Count 345 X10*3/uL (160-400) 02/23/20 14:45 MPV 8.8 fL (9.4-12.4) L 02/23/20 14:45 Immature Gran % (Auto) 0.1 % (0.0-0.4) 02/23/20 14:45 Neut % (Auto) 30.1 % (45-73) L 02/23/20 14:45 Lymph % (Auto) 57.3 % (20-40) H 02/23/20 14:45 [place] % (Auto) 7.8 % (2-11) 02/23/20 14:45 Eos % (Auto) 3.8 % (0-4) 02/23/20 14:45 Baso % (Auto) 0.9 % (0-2) 02/23/20 14:45 Lymph # (Auto) 5.7 X10*3/uL (1.2-4.9) H 02/23/20 14:45 [place] # (Auto) 0.8 X10*3/uL (0.1-1.2) 02/23/20 14:45 Eos # (Auto) 0.4 X10*3/uL (0.0-0.4) 02/23/20 14:45 Baso # (Auto) 0.1 X10*3/uL (0.0-0.2) 02/23/20 14:45 Abs Immat Gran (auto) 0.01 X10*3/uL (0.00-0.03) 02/23/20 14:45 Absolute Neuts (auto) 3.0 X10*3/uL (2.0-8.3) 02/23/20 14:45 Absolute Nucleated RBC 0.000 X10*3/uL (0.0-0.012) 02/23/20 14:45 Nucleated RBC % (auto) 0.0 /100WBC (0.0-0.2) 02/23/20 14:45 Smear Tech's Comments VERIFIED 02/23/20 14:45 APTT 40.6 SEC (24.1-38.0) H 02/23/20 14:45 Sodium 140 mmol/L (135-145) 02/23/20 14:45 Potassium 4.9 mmol/l (3.3-5.1) 02/23/20 14:45 Chloride 102 mmol/L (96-108) 02/23/20 14:45 Carbon Dioxide 30 mmol/L (22-29) H 02/23/20 14:45 Anion Gap 13 (12-20) 02/23/20 14:45 BUN 9 mg/dL (9-16) 02/23/20 14:45 Creatinine 0.81 mg/dL (0.5-1.4) 02/23/20 14:45 Estim Creat Clear Calc 98.1 02/23/20 14:45 Estimated GFR > 60 02/23/20 14:45 Random Glucose 93 mg/dL (60-115) 02/23/20 14:45 Calcium 9.7 mg/dL (8.4-10.2) 02/23/20 14:45 Total Bilirubin 0.6 mg/dL (0.0-1.0) 02/23/20 14:45 AST 21 U/L (5-37) 02/23/20 14:45 ALT 10 U/L (0-40) 02/23/20 14:45 Alkaline Phosphatase 179 U/L (39-117) H 02/23/20 14:45 Total Protein 8.0 g/dL (6.5-8.0) 02/23/20 14:45 Albumin 4.1 g/dL (3.5-5.0) 02/23/20 14:45 Alpha Fetoprotein 86.4 ng/mL (<6.1) H 02/23/20 14:45 Carcinoembryonic Ag 1.90 mg/mL 02/23/20 14:45 Hep B Viral Load Log <1.18 NOT DETECTED Log IU/mL (NOT DETECTED) 02/23/20 14:45 Hep C Viral Load <15 NOT DETECTED IU/mL (NOT DETECTED) 02/23/20 14:45 Progress Note: A/P (1) Hepatocellular carcinoma Status: Acute Assessment and plan: 1. This is a 64-year-old male with history of high-grade hepatocellular carcinoma for which she underwent partial hepatectomy in April 2017. He was well until May 2019. In December 2019, surveillance CT of abdomen revealed multiple new hepatic lesions and persistent slightly prominent upper abdominal lymph nodes without enlargement. Possibility of recurrent metastatic hepatocellular carcinoma versus metastasis from another primary was raised. Tumor marker alpha-fetoprotein slightly elevated 86.4, CEA level normal, 1.9. On 03/06/2020 he underwent core biopsy of lesion in the right lobe which revealed fragments of liver parenchyma with chronic hepatitis and mild inflammatory activity with bridging fibrosis. MRI abdomen performed 03/28/20 revealed 4 hepatic lesions under 2 cm suspicious for multifocal hepatocellular carcinoma. Measuring 1.8-1.3 cm. A 5th lesion in the subscapular right lobe under 2 cm may represent a hemangioma. Enlarged lymph nodes, largest measuring 1.4 cm in the upper abdomen. MRI seems to confirm multifocal hepatocellular carcinoma, I do not think he needs another biopsy. I discussed above findings with patient. He is not a candidate for further surgery and based on lymphadenopathy, not an optimal candidate for localized therapies such as RFA or chemoembolization. Systemic therapy with multi kinase EGFR inhibitor or immunotherapy/atezolizumab with bevacizumab which has shown better tolerability and improvement in overall survival. I have recommended an EGD prior to treatment because of risk of bleeding with bevacizumab. Patient has agreed with above recommendations. 2. Chronic pain in abdomen. Ultram was prescribed but because of drug interaction this cannot be used for his pain control. I prescribed oxycodone 5 mg Q hours p.r.n.. 3. Smoking cessation. Patient is interested in this. Nicotine patch 14 mg/24 hour has been prescribed. Referral to gastroenterology is being made. Follow-up in 3 weeks. - Time Spent With Patient Total time spent is greater than 50% in coordination of care (as documented) at patient's floor/unit and/or counseling patient: Greater than 35 minutes
[2020-04-12 12:39] VITALS: BP 117/64; PULSE 73; RESP 14; TEMP 36.5; O2SAT 97; BMI 24.5
--- NOTE | 2020-04-12 13:35 | MHC.HEMONCSW ---
MET WITH PATIENT ALONG WITH GUME, HIS MESMERIST WORKER. OVERLOOK VNA INVOLVED. TO BEGIN TREATMENT SOON. APPEARS STABLE WITH EXCEPTION OF PAIN WHICH IS BEING ADDRESSED. BOTH ARE AWARE OF MY AVAILABILITY.
--- NOTE | 2020-04-12 13:46 | MHC.HEMONCMA ---
Patient came in for a follow up of his hepatocellular cancer, states he is doing well. He is a little upset that the doctor stopped his oxycodone. Patient's chart was reviewed, med list up to date. He will come back for an appt, and have an EGD and will return for a follow up.
--- NOTE | 2020-04-12 14:56 | MHC.HEMONCMA ---
Patient needs to have EGD with GI before he starts chemo in 3 weeks. I called and spoke with Myesha at GI in [place], he is scheduled for a telehealth at 04/20/20 at 12 pm with Akshat Meyer. Patient is notified.
--- NOTE | 2020-04-12 16:05 | MHC.HEMONC ---
Nurse Navigator follow-up/check in - Maximino is doing well. He is here with his community relations coordinator, Ana. OF NOTE - Ana reports that Dr. Estuardo Mitchell, Maximino's Psychiatrist from [facility], is retiring by the end of the month and has given Maximino 3 months refills on his meds w plans to arrange for a colleague to takeover Maximino's care. Ana states she will follow this closely and advocate strongly for a smooth transition of this care. Pt. is doing well. C/O some intermittent pain. Interested in Nicotine Patch. Dr. De Dios aware and sent oxycodone and patch to [facility], [facility]. He was educated on need for GI consult and EGD procedure prior to starting his treatment. This was scheduled by Tu Cason MA. Appt is a televisit on 04/20/20 w Trish Terrazas. Follow up w Dr. De Dios on 05/03/20
[2020-05-03 10:42] LABS: MANUAL DIFF FLAG NO
[2020-05-03 10:47] LABS: Basophils Absolute Auto 0.1 X10*3/uL (0.0-0.2); Basophils Percent Auto 1.3 % (0-2); Eosinophils Absolute Auto 0.4 X10*3/uL (0.0-0.4); Eosinophils Percent Auto 3.7 % (0-4); Hematocrit 46.4 % (42-52); Hemoglobin 15.5 g/dl (14.0-18.0); Imm Gran Abs Auto 0.02 X10*3/uL (0.00-0.03); Imm Gran Pct Auto 0.2 % (0.0-0.4); Lymphocytes Absolute Auto 4.6 X10*3/uL (1.2-4.9); Lymphocytes Percent Auto 44.6 % (20-40); Mean Corpuscular HGB Conc 33.4 g/dl (31.0-36.0); Mean Corpuscular Hemoglobin 32.8 pg (27.0-33.0); Mean Corpuscular Volume 98.3 fL (80-98); Mean Platelet Volume 9.1 fL (9.4-12.4); Monocytes Absolute Auto 0.9 X10*3/uL (0.1-1.2); Monocytes Percent Auto 8.8 % (2-11); Neutrophils Absolute Auto 4.2 X10*3/uL (2.0-8.3); Neutrophils Percent Auto 41.4 % (45-73); Platelet Count 317 X10*3/uL (160-400); Red Blood Count 4.72 X10*6/uL (4.60-5.80); Red Cell Distribution Width 14.3 % (11.0-16.0); White Blood Count 10.2 X10*3/uL (4.8-10.8)
[2020-05-03 10:50] VITALS: BP 126/65; PULSE 87; RESP 18; TEMP 36.8; O2SAT 94; BMI 24.3
--- NOTE | 2020-05-03 11:08 | P.PNHO_ITS ---
Medical Summary - Medical Summary Date of Service: 05/04/20 Chief complaint: Follow-up Medical Summary: Diagnosis: Hepatocellular carcinoma Longstanding history of liver cirrhosis, history of alcoholism and hepatitis-C. 01/13/2018 core biopsy of liver mass performed at [facility], pathology-hepatocellular carcinoma, high-grade. Underwent partial hepatectomy on 04/10/2017. Final pathology showed 2.4 cm HCC confined to the liver. Margins negative. Surveillance CT abdomen with IV contrast performed at [facility] on 12/15/2019 revealed multiple new hypodense lesions throughout liver. 1.2 cm lesion in left hepatic lobe, 1.7 cm lesion in left hepatic lobe, 1.6 cm lesion right hepatic lobe, 9 mm lesion in right hepatic lobe, 1.5 cm lesion in right hepatic lobe. Prior cholecystectomy. Status post splenectomy. This was concerning for recurrent hepatocellular carcinoma, metastatic disease from another primary was also possible. Prominent upper abdominal lymph nodes measuring up to 1.2 cm, not significantly changed from prior exam. Supraumbilical ventral abdominal hernia containing nonobstructed non inflamed loops of small bowel, similar to p rior. Postsurgical changes from prior ventral abdominal herniorrhaphy with mesh. 3 cm infrarenal abdominal aortic aneurysm. Interval History Interval history: Patient is here in follow-up. He is doing reasonably well. His abdominal pain is well controlled with oxycodone twice a day which he is taking. He denies any nausea or emesis. He underwent EGD without any complications. He denies loss of appetite or weight loss. No fever or chills. No chest pain, cough or shortness of breath. Review of Systems - Constitutional Reports no additional constitutional complaints [facility] Medical History: Medical History (Last Updated 04/24/20 @ 11:51 by Sabrina Garsia) CVA (cerebral vascular accident) Hepatitis C Hepatocellular carcinoma History of alcohol abuse Liver cirrhosis Family History: Family History (Last Reviewed 04/20/20 @ 14:01 by Trish Terrazas PA-C) Father No problems noted. Mother No problems noted. Family/Other FH: mental illness Surgical History: Surgical History (Last Updated 04/24/20 @ 11:51 by Sabrina Garsia) H/O resection of liver Onset Date: ~04/2017 History of splenectomy No pertinent past surgical history Social History: Social History (Last Reviewed 04/20/20 @ 14:01 by SHY Maxwell Living Situation History: Are you a primary healthcare receptionist to a significant other at home: No Alcohol History: Alcohol intake: former Alcohol History Details: Alcohol intake frequency: former alcohol drinker Tobacco History: Smoking Status: Current every day smoker Tobacco Type: Cigarette Smoked in Last 30 Days: Yes Substance Use History: Use of substances other than those prescribed or required for medical reasons : No Domestic Abuse History: Have you been hit, kicked, punched, or otherwise hurt by someone within the past year? If so, by whom?: No Do you feel safe in your current relationship?: No Current Relationship Healthcare Practices: [facility] Practices: restorationism Nutrition Assessment: Recently lost weight without trying: No Nutrition Risks: Poor intake 0-25% >4 days Poor oral hygiene: Yes Smoking status: Current every day smoker Oncology Screenings - ECOG Performance Status ECOG Performance Status: 1 Home Medications and Allergies Home Medications Medication Instructions Recorded Confirmed Type clonazepam 1 mg tablet 1 mg PO TID PRN 02/01/20 04/20/20 History quetiapine 150 mg tablet,extended 150 mg PO BEDTIME 02/01/20 02/23/20 History release 24 hr sertraline 100 mg tablet 200 mg PO DAILY 02/01/20 04/20/20 History Esgic 50 - 325 mg PO TID PRN 02/24/20 02/24/20 History aspirin 81 mg PO DAILY 02/24/20 04/20/20 History quetiapine 1 tab PO BEDTIME 02/24/20 02/24/20 History divalproex 200 mg PO DAILY 04/12/20 05/03/20 History melatonin 3 mg PO BEDTIME PRN 04/12/20 04/20/20 History multivitamin 1 tab PO DAILY 04/12/20 04/20/20 History Allergies Allergy/AdvReac Type Severity Reaction Status Date / Time No Known Allergies Allergy Verified 01/31/20 10:42 Exam Vital signs: Vital Signs Temp 98.3 F 05/03/20 10:50 Pulse 87 05/03/20 10:50 Resp 18 05/03/20 10:50 BP 126/65 05/03/20 10:50 Pulse Ox 94 05/03/20 10:50 Intake & Output 05/02/20 05/03/20 05/03/20 18:59 06:59 18:59 Other: Weight 79.2 kg Weight 79.2 kg Body Mass Index 24.3 - Constitutional Present: no acute distress - Routine HEENT Exam Head: Present: normal inspection - Routine Neck Exam Absent: lymphadenopathy - Routine Respiratory Exam Present: CTAB - Routine Cardiovascular Exam Cardiovascular: Present: RRR, S1, S2 - Routine Abdominal Exam Present: hernia, normal bowel sounds, soft - Routine Extremities Exam Absent: calf tenderness, pedal edema Data - Labs CBC & Chem 7: 05/03/20 10:35 05/03/20 10:35 Labs: 02/23/20 14:45 Alpha Fetoprotein Routine CEA [Carcinoembryonic Antigen] Routine Complete Blood Count Auto Diff Routine Comprehensive Met. Panel Routine Hep C Viral Load Routine PTT [Partial Thromboplastin Time] Routine SLIDE REVIEW Routine Laboratory Last Values WBC 10.0 X10*3/uL (4.8-10.8) 02/23/20 14:45 RBC 4.80 X10*6/uL (4.60-5.80) 02/23/20 14:45 Hgb 15.8 g/dl (14.0-18.0) 02/23/20 14:45 Hct 47.1 % (42-52) 02/23/20 14:45 MCV 98.1 fL (80-98) H 02/23/20 14:45 MCH 32.9 pg (27.0-33.0) 02/23/20 14:45 MCHC 33.5 g/dl (31.0-36.0) 02/23/20 14:45 RDW 13.6 % (11.0-16.0) 02/23/20 14:45 Plt Count 345 X10*3/uL (160-400) 02/23/20 14:45 MPV 8.8 fL (9.4-12.4) L 02/23/20 14:45 Immature Gran % (Auto) 0.1 % (0.0-0.4) 02/23/20 14:45 Neut % (Auto) 30.1 % (45-73) L 02/23/20 14:45 Lymph % (Auto) 57.3 % (20-40) H 02/23/20 14:45 [place] % (Auto) 7.8 % (2-11) 02/23/20 14:45 Eos % (Auto) 3.8 % (0-4) 02/23/20 14:45 Baso % (Auto) 0.9 % (0-2) 02/23/20 14:45 Lymph # (Auto) 5.7 X10*3/uL (1.2-4.9) H 02/23/20 14:45 [place] # (Auto) 0.8 X10*3/uL (0.1-1.2) 02/23/20 14:45 Eos # (Auto) 0.4 X10*3/uL (0.0-0.4) 02/23/20 14:45 Baso # (Auto) 0.1 X10*3/uL (0.0-0.2) 02/23/20 14:45 Abs Immat Gran (auto) 0.01 X10*3/uL (0.00-0.03) 02/23/20 14:45 Absolute Neuts (auto) 3.0 X10*3/uL (2.0-8.3) 02/23/20 14:45 Absolute Nucleated RBC 0.000 X10*3/uL (0.0-0.012) 02/23/20 14:45 Nucleated RBC % (auto) 0.0 /100WBC (0.0-0.2) 02/23/20 14:45 Smear Tech's Comments VERIFIED 02/23/20 14:45 APTT 40.6 SEC (24.1-38.0) H 02/23/20 14:45 Sodium 140 mmol/L (135-145) 02/23/20 14:45 Potassium 4.9 mmol/l (3.3-5.1) 02/23/20 14:45 Chloride 102 mmol/L (96-108) 02/23/20 14:45 Carbon Dioxide 30 mmol/L (22-29) H 02/23/20 14:45 Anion Gap 13 (12-20) 02/23/20 14:45 BUN 9 mg/dL (9-16) 02/23/20 14:45 Creatinine 0.81 mg/dL (0.5-1.4) 02/23/20 14:45 Estim Creat Clear Calc 98.1 02/23/20 14:45 Estimated GFR > 60 02/23/20 14:45 Random Glucose 93 mg/dL (60-115) 02/23/20 14:45 Calcium 9.7 mg/dL (8.4-10.2) 02/23/20 14:45 Total Bilirubin 0.6 mg/dL (0.0-1.0) 02/23/20 14:45 AST 21 U/L (5-37) 02/23/20 14:45 ALT 10 U/L (0-40) 02/23/20 14:45 Alkaline Phosphatase 179 U/L (39-117) H 02/23/20 14:45 Total Protein 8.0 g/dL (6.5-8.0) 02/23/20 14:45 Albumin 4.1 g/dL (3.5-5.0) 02/23/20 14:45 Alpha Fetoprotein 86.4 ng/mL (<6.1) H 02/23/20 14:45 Carcinoembryonic Ag 1.90 mg/mL 02/23/20 14:45 Hep B Viral Load Log <1.18 NOT DETECTED Log IU/mL (NOT DETECTED) 02/23/20 14:45 Hep C Viral Load <15 NOT DETECTED IU/mL (NOT DETECTED) 02/23/20 14:45 Progress Note: A/P (1) Hepatocellular carcinoma Problem details: He 65-year-old [facility] with liver cancer referred for an EGD prior to treatment because of risk of bleeding with bevacizumab. He is taking clopidogrel, consult with MD- if need to stop prior to procedure- given for surveillance, however will await advice-pts, test engineer nuclear equipment aware, this must be confirmed, as to how to proceed. Status: Chronic Assessment and plan: 1. This is a 64-year-old male with history of high-grade hepatocellular carcinoma for which she underwent partial hepatectomy in April 2017. He was well until May 2019. In December 2019, surveillance CT of abdomen revealed multiple new hepatic lesions and persistent slightly prominent upper abdominal lymph nodes without enlargement. Possibility of recurrent metastatic hepatocellular carcinoma versus metastasis from another primary was raised. Tumor marker alpha-fetoprotein elevated 86.4, CEA level normal, 1.9. On 03/06/2020 he underwent core biopsy of lesion in the right lobe which revealed fragments of liver parenchyma with chronic hepatitis and mild inflammatory activity with bridging fibrosis. MRI abdomen performed 03/28/20 revealed 4 hepatic lesions under 2 cm suspicious for multifocal hepatocellular carcinoma. He is not a candidate for further surgery and based on lymphadenopathy, not an optimal candidate for localized therapies such as RFA or chemoembolization. Systemic therapy with targeted agents/immunotherapy with atezolizumab 1200 mg q. 3 weeks, bevacizumab 15 mg/kg q. 3 weeks has shown better tolerability and improvement in overall survival. EGD did not show esophageal varices, there was mild gastritis. Today we discussed possible side effects of chemotherapy which involves her risk of bleeding, immune mediated side effects related to any organ and infusion reactions. He is willing to proceed with treatment. 2. Chronic pain in abdomen. He is on oxycodone 5 mg Q hours 12 hours p.r.n.. 3. Smoking cessation. Nicotine patch 14 mg/24 hour has been prescribed. However, he quit that after a few days and continues to smoke. He was again advised about smoking cessation. Treatment will be started next week. Follow-up in 3 weeks. - Time Spent With Patient Total time spent is greater than 50% in coordination of care (as documented) at patient's floor/unit and/or counseling patient: Greater than 35 minutes
[2020-05-03 11:16] LABS: Alanine Aminotransferase < 6 U/L (0-40); Albumin Level 4.1 g/dL (3.5-5.0); Alkaline Phosphatase 127 U/L (39-117); Anion Gap 13 (12-20); Aspartate Amino Transferase 14 U/L (5-37); Bilirubin Total 0.6 mg/dL (0.0-1.0); Blood Urea Nitrogen 13 mg/dL (9-16); Calcium 9.5 mg/dL (8.4-10.2); Carbon Dioxide 28 mmol/L (22-29); Chloride 103 mmol/L (96-108); Creatinine Clr Calc Pharmacy 100.5; Estimated Glomerular Filt Rate > 60; Glucose Random 86 mg/dL (60-115); Potassium 4.5 mmol/l (3.3-5.1); Sodium 139 mmol/L (135-145); Total Protein 7.7 g/dL (6.5-8.0)
--- NOTE | 2020-05-03 11:51 | MHC.HEMONCSW ---
HERE IN FOLLOW UP. NEEDS REFERRAL/DONE TO GASTROENTEROLOGY PRIOR TO TREATMENT.
--- NOTE | 2020-05-03 12:35 | MHC.HEMONC ---
chemo teach done with pt and accounts payable manager, consent sign. pharm aware of start date. Donna working on pa. avastin and atezolizumab pt aware of blood and urine result needed before tx, thermomter given pt aware to monitor S/Sx of fever/infection.
--- NOTE | 2020-05-03 17:16 | MHC.HEMONC ---
PA NOT REQUIRED FOR AVASTIN & ATEZOLIZUMAB. MEDS COVERED UNDER PT'S MEDICARE PLAN.
[2020-05-04 12:02] LABS: Alpha Fetoprotein 207.1 ng/mL (<6.1)
[2020-05-10 08:27] VITALS: BP 133/73; PULSE 66; RESP 18; TEMP 36.5; O2SAT 96; BMI 24.3
[2020-05-10 09:28] LABS: Appearance Urine CLEAR; Color Urine YELLOW; Glucose Urine UA NEG (NEG); Leukocyte Esterase Urine NEG (NEG); Nitrite Urine NEG (NEG); Specific Gravity - Urine 1.025 (1.005-1.025); Urine Blood NEG (NEG); Urine Ketones NEG (NEG); Urine Protein NEG (NEG-TRACE)
[2020-05-10 09:46] LABS: Creatinine Urine 78.36 mg/dL
[2020-05-10] MEDS: Acetaminophen 325 MG TABLET 650 MG PO (09:56)
[2020-05-10] MEDS: Famotidine/PF 20 MG/2 ML VIAL IVPUSH (09:57)
[2020-05-10] MEDS: Atezolizumab 1,200 MG in 0.9 % Sodium Chloride 250 ML 270 MG IV (10:49)
--- NOTE | 2020-05-11 14:25 | MHC.HEMONCMA ---
Jessika from [facility] called and left a voicemail stating the the prescription for Maximino's oxycodone was not filled at the pharmacy. I told her that it was sent yesterday and to check with the pharmacy to see why it was not filled. Jessika called back and stated that the pharmacy told her they got the rx but then right after it, there was a note stating to cancel the rx. I told Jessika that Dr De Dios is not in today for this to be corrected and i dont want the covering doctor to send it in if Dr De Dios does not want the patient to have this for a specific reason. I let her know that i will Speak with Dr De Dios tomorrow and have her send it in and give her a call with an updated. She agrees with plan.
--- NOTE | 2020-05-17 09:59 | MHC.HEMONCSW ---
MET WITH PATIENT LAST WEEK WHILE HE RECEIVED TREATMENT. AFFECT AND MOOD IS FLAT BUT IS HIS BASELINE. [facility], HIS FIELD HORTICULTURAL SPECIALTY GROWER WORKER ONLY TRANSPORTED HIM, HE DID WELL ALONE. REPORTS HE LOST HIS HEARING AIDE. OVERLOOK VNA CONTINUES. OFFERS NO STRESS OR COMPLAINTS AT THIS TIME. CONTINUES WITH MENTAL HEALTH PROVIDERS. PATIENT IS AWARE OF MY AVAILABILITY.
[2020-05-31 08:13] VITALS: BP 118/73; PULSE 84; RESP 18; TEMP 36.4; O2SAT 94; BMI 23.4
[2020-05-31 09:58] LABS: Glucose Urine UA NEG (NEG); Leukocyte Esterase Urine NEG (NEG); Nitrite Urine NEG (NEG); PH 6.5 (5.0-8.0); Specific Gravity - Urine 1.025 (1.005-1.025); Urine Blood NEG (NEG); Urine Ketones NEG (NEG); Urine Protein NEG (NEG-TRACE)
[2020-05-31 09:59] LABS: Appearance Urine CLEAR; Color Urine YELLOW
[2020-05-31] MEDS: Acetaminophen 325 MG TABLET 650 MG PO (10:43)
[2020-05-31] MEDS: Famotidine/PF 20 MG/2 ML VIAL IVPUSH (10:43)
[2020-05-31] MEDS: ondansetron HCL/NS 16 MG/50 ML PIGGYBACK 200 MG IV (10:43)
[2020-05-31 10:58] LABS: Creatinine Urine 169.62 mg/dL
[2020-05-31] MEDS: Atezolizumab 1,200 MG in 0.9 % Sodium Chloride 250 ML 540 MG IV (12:11)
[2020-06-07 11:42] LABS: HepC Viral Load <15 NOT DETECTED
[2020-06-07 11:43] LABS: HCV Log PCR <1.18 NOT DETECTED
[2020-06-20 10:24] LABS: MANUAL DIFF FLAG NO
[2020-06-20 10:36] LABS: Basophils Absolute Auto 0.1 X10*3/uL (0.0-0.2); Basophils Percent Auto 1.5 % (0-2); Eosinophils Absolute Auto 0.3 X10*3/uL (0.0-0.4); Eosinophils Percent Auto 3.1 % (0-4); Hematocrit 47.4 % (42-52); Hemoglobin 16.1 g/dl (14.0-18.0); Imm Gran Abs Auto 0.01 X10*3/uL (0.00-0.03); Imm Gran Pct Auto 0.1 % (0.0-0.4); Lymphocytes Absolute Auto 3.7 X10*3/uL (1.2-4.9); Mean Corpuscular Hemoglobin 32.9 pg (27.0-33.0); Mean Corpuscular Volume 96.9 fL (80-98); Mean Platelet Volume 9.5 fL (9.4-12.4); Monocytes Absolute Auto 0.7 X10*3/uL (0.1-1.2); Monocytes Percent Auto 8.8 % (2-11); Neutrophils Absolute Auto 3.2 X10*3/uL (2.0-8.3); Neutrophils Percent Auto 40.5 % (45-73); Platelet Count 298 X10*3/uL (160-400); Red Blood Count 4.89 X10*6/uL (4.60-5.80); Red Cell Distribution Width 14.2 % (11.0-16.0)
[2020-06-20 11:08] LABS: Alanine Aminotransferase < 6 U/L (0-40); Albumin Level 3.9 g/dL (3.5-5.0); Alkaline Phosphatase 124 U/L (39-117); Anion Gap 18 (12-20); Aspartate Amino Transferase 17 U/L (5-37); Blood Urea Nitrogen 13 mg/dL (9-16); Calcium 9.4 mg/dL (8.4-10.2); Carbon Dioxide 21 mmol/L (22-29); Chloride 107 mmol/L (96-108); Creatinine Clr Calc Pharmacy 100.5; Estimated Glomerular Filt Rate > 60; Glucose Random 118 mg/dL (60-115); Potassium 4.1 mmol/L (3.3-5.1); Sodium 142 mmol/L (135-145); Total Protein 7.9 g/dL (6.5-8.0)
[2020-06-20 11:23] LABS: Thyroid Stimulating Hormone 2.18 uIU/mL (0.32-4.0)
[2020-06-21 08:57] VITALS: BP 112/75; PULSE 95; RESP 18; TEMP 36.3; O2SAT 93; BMI 23.2
[2020-06-21 09:00] LABS: Glucose Urine UA NEG (NEG); Leukocyte Esterase Urine 1+ (NEG); Nitrite Urine NEG (NEG); PH 6.5 (5.0-8.0); Specific Gravity - Urine >= 1.030 (1.005-1.025); Urine Blood NEG (NEG); Urine Ketones NEG (NEG); Urine Protein NEG (NEG-TRACE)
[2020-06-21 09:03] LABS: Appearance Urine CLOUDY; Color Urine YELLOW
[2020-06-21 09:19] LABS: Bacteria Urine 1+ /LPF; Calcium Oxalate Crystals Urine 1+ /LPF; Mucus Urine 3+ /LPF; Squamous Epithelial Cell Urine TRACE /LPF
[2020-06-21] MEDS: Famotidine/PF 20 MG/2 ML VIAL IVPUSH (09:28)
[2020-06-21] MEDS: Acetaminophen 325 MG TABLET 650 MG PO (09:28)
[2020-06-21] MEDS: Atezolizumab 1,200 MG in 0.9 % Sodium Chloride 250 ML 270 MG IV (10:24)
--- NOTE | 2020-07-11 12:19 | MHC.HEMONC ---
pt sedcheduled for labs today pt went to main lab to be drawn- WNL, ok for chemo tomorrow
[2020-07-12 07:47] VITALS: BP 111/73; PULSE 76; RESP 18; TEMP 36.2; O2SAT 95; BMI 23.1
--- NOTE | 2020-07-12 08:27 | PM.HEMONCPN ---
Medical Summary - Medical Summary Date of Service: 07/12/20 Chief complaint: Follow-up and scheduled treatment Medical Summary: Diagnosis: Hepatocellular carcinoma Longstanding history of liver cirrhosis, history of alcoholism and hepatitis-C. 01/13/2018 core biopsy of liver mass performed at [facility], pathology-hepatocellular carcinoma, high-grade. Underwent partial hepatectomy on 04/10/2017. Final pathology showed 2.4 cm HCC confined to the liver. Margins negative. Surveillance CT abdomen with IV contrast performed at [facility] on 12/15/2019 revealed multiple new hypodense lesions throughout liver. 1.2 cm lesion in left hepatic lobe, 1.7 cm lesion in left hepatic lobe, 1.6 cm lesion right hepatic lobe, 9 mm lesion in right hepatic lobe, 1.5 cm lesion in right hepatic lobe. Prior cholecystectomy. Status post splenectomy. This was concerning for recurrent hepatocellular carcinoma, metastatic disease from another primary was also possible. Prominent upper abdominal lymph nodes measuring up to 1.2 cm, not significantly changed from prior exam. Supraumbilical ventral abdominal hernia containing nonobstructed non inflamed loops of small bowel, similar to prior. Postsurgical changes from prior ventral abdominal herniorrhaphy with mesh. 3 cm infrarenal abdominal aortic aneurysm. Tumor marker alpha-fetoprotein elevated 86.4, CEA level normal, 1.9. On 03/06/2020 he underwent core biopsy of lesion in the right lobe which revealed fragments of liver parenchyma with chronic hepatitis and mild inflammatory activity with bridging fibrosis. MRI abdomen performed 03/28/20 revealed 4 hepatic lesions under 2 cm suspicious for multifocal hepatocellular carcinoma. He was not a candidate for further surgery and based on lymphadenopathy, not an optimal candidate for localized therapies such as RFA or chemoembolization. Systemic therapy with targeted agents/immunotherapy with atezolizumab 1200 mg q. 3 weeks, bevacizumab 15 mg/kg q. 3 weeks was started 05/10/2020. EGD did not show esophageal varices, there was mild gastritis. Interval History Interval history: Patient is here for follow-up as well as scheduled treatment. He has been tolerating immunotherapy quite well. He is somewhat of a poor historian, he says he has diarrhea but just 2 bowel movements a day. He denies cough, chest pain, shortness of breath, headache or dizziness. No nausea or emesis. He is taking oxycodone for abdominal pain but he cannot really describe his pain. Review of Systems - Constitutional Reports no additional constitutional complaints - Cardiovascular Reports no additional cardiovascular complaints - Respiratory Reports no additional respiratory complaints - Gastrointestinal Reports no additional gastrointestinal complaints [facility] Medical History: Medical History (Last Updated 04/24/20 @ 11:51 by Sabrina Garsia) CVA (cerebral vascular accident) Hepatitis C Hepatocellular carcinoma History of alcohol abuse Liver cirrhosis Family History: Family History (Last Reviewed 06/06/20 @ 12:58 by Meño Michelle) Father No problems noted. Mother No problems noted. Family/Other FH: mental illness Surgical History: Surgical History (Last Reviewed 06/06/20 @ 12:58 by Meño Michelle) H/O resection of liver Onset Date: ~04/2017 History of splenectomy No pertinent past surgical history Social History: Social History (Last Updated 06/06/20 @ 12:59 by Meño Michelle) Living Situation History: Are you a primary care transition manager to a significant other at home: No Alcohol History: Alcohol intake: former Alcohol History Details: Alcohol intake frequency: former alcohol drinker Tobacco History: Smoking Status: Current every day smoker Tobacco Type: Cigarette Cigarettes Per Day: 6 Smoked in Last 30 Days: Yes Substance Use History: Use of substances other than those prescribed or required for medical reasons: No Domestic Abuse History: Have you been hit, kicked, punched, or otherwise hurt by someone within the past year? If so, by whom?: No Do you feel safe in your current relationship?: No Current Relationship Healthcare Practices: Yazidi Healthcare Practices: cheondoism Nutrition Assessment: Recently lost weight without trying: No Nutrition Risks: Poor intake 0-25% >4 days Poor oral hygiene: Yes Smoking status: Current every day smoker Oncology Screenings - ECOG Performance Status ECOG Performance Status: 1 Home Medications and Allergies Current Medications: Current Medications Generic Name Dose Route Start Last Admin Trade Name Freq PRN Reason Stop Dose Admin Acetaminophen 650 mg 07/12/20 00:00 Acetaminophen 325 Mg Tablet PO 07/12/20 23:59 ONCE RATNA Diphenhydramine HCl 25 mg 07/12/20 00:00 Diphenhydramine Hcl 25 Mg Tablet PO 07/12/20 23:59 ONCE RATNA Heparin Sodium (Porcine) 500 unit 07/12/20 00:00 Heparin Sodium,Porcine Flush 500 Unit/5 Ml Syringe IVFLUSH 07/12/20 23:59 ONCE RATNA Ondansetron HCl 16 mg in 50 mls @ 200 mls/hr 05/31/20 10:15 05/31/20 10:58 Zofran IV Infused ONCE RATNA Infusion Home Medications Medication Instructions Recorded Confirmed Type clonazepam 1 mg tablet 1 mg PO TID PRN 02/01/20 04/20/20 History quetiapine 150 mg tablet,extended 150 mg PO BEDTIME 02/01/20 02/23/20 History release 24 hr sertraline 100 mg tablet 200 mg PO DAILY 02/01/20 04/20/20 History Esgic 50 - 325 mg PO TID PRN 02/24/20 02/24/20 History aspirin 81 mg PO DAILY 02/24/20 04/20/20 History quetiapine 1 tab PO BEDTIME 02/24/20 02/24/20 History melatonin 3 mg PO BEDTIME PRN 04/12/20 04/20/20 History Allergies Allergy/AdvReac Type Severity Reaction Status Date / Time No Known Allergies Allergy Verified 06/06/20 12:55 Exam Vital signs: Vital Signs Temp 97.2 F 07/12/20 07:47 Pulse 76 07/12/20 07:47 Resp 18 07/12/20 07:47 BP 111/73 07/12/20 07:47 Pulse Ox 95 07/12/20 07:47 Intake & Output 07/11/20 07/12/20 07/12/20 18:59 06:59 18:59 Other: Weight 75.1 kg Weight in Grams 78085 Weight 75.1 kg Body Mass Index 23.1 - Constitutional Present: no acute distress - Routine HEENT Exam Head: Present: normal inspection - Routine Neck Exam Absent: lymphadenopathy - Routine Respiratory Exam Present: CTAB - Routine Cardiovascular Exam Cardiovascular: Present: RRR, S1, S2 - Routine Abdominal Exam Present: hernia, normal bowel sounds, soft - Routine Extremities Exam Absent: calf tenderness, pedal edema Data - Labs CBC & Chem 7: 06/20/20 10:23 06/20/20 10:23 Labs: 02/23/20 14:45 Alpha Fetoprotein Routine CEA [Carcinoembryonic Antigen] Routine Complete Blood Count Auto Diff Routine Comprehensive Met. Panel Routine Hep C Viral Load Routine PTT [Partial Thromboplastin Time] Routine SLIDE REVIEW Routine Laboratory Last Values WBC 10.0 X10*3/uL (4.8-10.8) 02/23/20 14:45 RBC 4.80 X10*6/uL (4.60-5.80) 02/23/20 14:45 Hgb 15.8 g/dl (14.0-18.0) 02/23/20 14:45 Hct 47.1 % (42-52) 02/23/20 14:45 MCV 98.1 fL (80-98) H 02/23/20 14:45 MCH 32.9 pg (27.0-33.0) 02/23/20 14:45 MCHC 33.5 g/dl (31.0-36.0) 02/23/20 14:45 RDW 13.6 % (11.0-16.0) 02/23/20 14:45 Plt Count 345 X10*3/uL (160-400) 02/23/20 14:45 MPV 8.8 fL (9.4-12.4) L 02/23/20 14:45 Immature Gran % (Auto) 0.1 % (0.0-0.4) 02/23/20 14:45 Neut % (Auto) 30.1 % (45-73) L 02/23/20 14:45 Lymph % (Auto) 57.3 % (20-40) H 02/23/20 14:45 [place] % (Auto) 7.8 % (2-11) 02/23/20 14:45 Eos % (Auto) 3.8 % (0-4) 02/23/20 14:45 Baso % (Auto) 0.9 % (0-2) 02/23/20 14:45 Lymph # (Auto) 5.7 X10*3/uL (1.2-4.9) H 02/23/20 14:45 [place] # (Auto) 0.8 X10*3/uL (0.1-1.2) 02/23/20 14:45 Eos # (Auto) 0.4 X10*3/uL (0.0-0.4) 02/23/20 14:45 Baso # (Auto) 0.1 X10*3/uL (0.0-0.2) 02/23/20 14:45 Abs Immat Gran (auto) 0.01 X10*3/uL (0.00-0.03) 02/23/20 14:45 Absolute Neuts (auto) 3.0 X10*3/uL (2.0-8.3) 02/23/20 14:45 Absolute Nucleated RBC 0.000 X10*3/uL (0.0-0.012) 02/23/20 14:45 Nucleated RBC % (auto) 0.0 /100WBC (0.0-0.2) 02/23/20 14:45 Smear Tech's Comments VERIFIED 02/23/20 14:45 APTT 40.6 SEC (24.1-38.0) H 02/23/20 14:45 Sodium 140 mmol/L (135-145) 02/23/20 14:45 Potassium 4.9 mmol/l (3.3-5.1) 02/23/20 14:45 Chloride 102 mmol/L (96-108) 02/23/20 14:45 Carbon Dioxide 30 mmol/L (22-29) H 02/23/20 14:45 Anion Gap 13 (12-20) 02/23/20 14:45 BUN 9 mg/dL (9-16) 02/23/20 14:45 Creatinine 0.81 mg/dL (0.5-1.4) 02/23/20 14:45 Estim Creat Clear Calc 98.1 02/23/20 14:45 Estimated GFR > 60 02/23/20 14:45 Random Glucose 93 mg/dL (60-115) 02/23/20 14:45 Calcium 9.7 mg/dL (8.4-10.2) 02/23/20 14:45 Total Bilirubin 0.6 mg/dL (0.0-1.0) 02/23/20 14:45 AST 21 U/L (5-37) 02/23/20 14:45 ALT 10 U/L (0-40) 02/23/20 14:45 Alkaline Phosphatase 179 U/L (39-117) H 02/23/20 14:45 Total Protein 8.0 g/dL (6.5-8.0) 02/23/20 14:45 Albumin 4.1 g/dL (3.5-5.0) 02/23/20 14:45 Alpha Fetoprotein 86.4 ng/mL (<6.1) H 02/23/20 14:45 Carcinoembryonic Ag 1.90 mg/mL 02/23/20 14:45 Hep B Viral Load Log <1.18 NOT DETECTED Log IU/mL (NOT DETECTED) 02/23/20 14:45 Hep C Viral Load <15 NOT DETECTED IU/mL (NOT DETECTED) 02/23/20 14:45 Progress Note: A/P (1) Hepatocellular carcinoma Problem details: He 65-year-old [place] Gent with liver cancer referred for an EGD prior to treatment because of risk of bleeding with bevacizumab. He is taking clopidogrel, consult with MD- if need to stop prior to procedure-given for surveillance, however will await advice-pts, surgery scheduling coordinator aware, this must be confirmed, as to how to proceed. Status: Chronic Assessment and plan: 1. This is a 65-year-old male with history of high-grade hepatocellular carcinoma for which she underwent partial hepatectomy in April 2017. He was well until May 2019. In December 2019, surveillance CT of abdomen revealed multiple new hepatic lesions and persistent slightly prominent upper abdominal lymph nodes without enlargement. Possibility of recurrent metastatic hepatocellular carcinoma versus metastasis from another primary was raised. Tumor marker alpha-fetoprotein elevated 207, CEA level normal, 1.9. On 03/06/2020 he underwent core biopsy of lesion in the right lobe which revealed fragments of liver parenchyma with chronic hepatitis and mild inflammatory activity with bridging fibrosis. MRI abdomen performed 03/28/20 revealed 4 hepatic lesions under 2 cm suspicious for multifocal hepatocellular carcinoma. He started Systemic therapy with targeted agents/immunotherapy with atezolizumab 1200 mg q. 3 weeks, bevacizumab 15 mg/kg q. 3 weeks on 05/10/2020. He is tolerating treatment well, proceed with cycle 4 today. He repeat AFP level and re-scanned abdomen to assess response to treatment. 2. Chronic pain in abdomen. He is on oxycodone 5 mg Q hours 12 hours p.r.n.. Follow-up in 3 weeks. - Time Spent With Patient Total time spent is greater than 50% in coordination of care (as documented) at patient's floor/unit and/or counseling patient: 15 - 24 minutes
[2020-07-12] MEDS: Acetaminophen 325 MG TABLET 650 MG PO (09:35)
[2020-07-12] MEDS: ondansetron HCL/NS 16 MG/50 ML PIGGYBACK 200 MG IV (09:36)
[2020-07-12] MEDS: Famotidine/PF 20 MG/2 ML VIAL IVPUSH (09:36)
[2020-07-12] MEDS: Atezolizumab 1,200 MG in 0.9 % Sodium Chloride 250 ML 540 MG IV (10:11)
--- NOTE | 2020-07-12 11:30 | MHC.HEMONCMA ---
Dr De Dios ordered an MRI of the abdomen for the patient to assess his response to treatment. Order was placed in order payroll officer and the phone number for Ana was confirmed to be the point of contact number in order payroll officer.
--- NOTE | 2020-07-12 11:41 | MHC.HEMONC ---
CYCLE 4 DAY 1: TECENTRIQ/AVASTIN well tolerated. No complaints at this time. VSS. Exam with Dr. De Dios. MRI ordered and given to Bita peoples in order generator operator. Peripheral angio to left lower arm, positive blood return. No signs of transfusion reaction.
--- NOTE | 2020-07-12 13:53 | MHC.HEMONCSW ---
PATIENT HERE FOR TREATMENT. REMAINS INDEPENDENT. COMPLIANT WITH TREATMENT PLAN. 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 DENIES ANY DISTRESS OR CONCERNS AT THIS TIME. HE IS AWARE OF MY AVAILABILITY.
--- NOTE | 2020-07-31 09:30 | HO.HEMONCPA ---
Dr De Dios adv that she will be starting patient on lenvima (lenvatinib) 12mg daily. Pa request was submitted on 07/27/2020 and was APPROVED from 04/28/2020-07/27/2021. Will have Dr De Dios send rx over to pharm when she comes back next week
[2020-08-01 10:49] LABS: MANUAL DIFF FLAG NO
[2020-08-01 10:52] LABS: Basophils Absolute Auto 0.1 X10*3/uL (0.0-0.2); Basophils Percent Auto 1.5 % (0-2); Eosinophils Absolute Auto 0.4 X10*3/uL (0.0-0.4); Eosinophils Percent Auto 5.9 % (0-4); Hematocrit 48.9 % (42-52); Hemoglobin 16.5 g/dl (14.0-18.0); Imm Gran Abs Auto 0.01 X10*3/uL (0.00-0.03); Imm Gran Pct Auto 0.1 % (0.0-0.4); Lymphocytes Absolute Auto 3.4 X10*3/uL (1.2-4.9); Mean Corpuscular HGB Conc 33.7 g/dl (31.0-36.0); Mean Corpuscular Hemoglobin 32.9 pg (27.0-33.0); Mean Corpuscular Volume 97.4 fL (80-98); Mean Platelet Volume 8.9 fL (9.4-12.4); Monocytes Absolute Auto 0.7 X10*3/uL (0.1-1.2); Monocytes Percent Auto 9.3 % (2-11); Neutrophils Absolute Auto 2.7 X10*3/uL (2.0-8.3); Neutrophils Percent Auto 37.2 % (45-73); Platelet Count 329 X10*3/uL (160-400); Red Blood Count 5.02 X10*6/uL (4.60-5.80); Red Cell Distribution Width 14.3 % (11.0-16.0); White Blood Count 7.3 X10*3/uL (4.8-10.8)
[2020-08-01 11:24] LABS: Alanine Aminotransferase < 6 U/L (0-40); Albumin Level 3.9 g/dL (3.5-5.0); Alkaline Phosphatase 130 U/L (39-117); Anion Gap 14 (12-20); Aspartate Amino Transferase 18 U/L (5-37); Bilirubin Total 0.6 mg/dL (0.0-1.0); Blood Urea Nitrogen 12 mg/dL (9-16); Calcium 10.4 mg/dL (8.4-10.2); Carbon Dioxide 27 mmol/L (22-29); Chloride 105 mmol/L (96-108); Creatinine Clr Calc Pharmacy 96.5; Estimated Glomerular Filt Rate > 60; Glucose Random 103 mg/dL (60-115); Magnesium 2.1 mg/dL (1.6-2.6); Potassium 5.2 mmol/L (3.3-5.1); Sodium 141 mmol/L (135-145); Total Protein 7.9 g/dL (6.5-8.0)
[2020-08-02 08:06] VITALS: BP 122/75; PULSE 90; RESP 18; TEMP 36.3; O2SAT 94; BMI 22.5
[2020-08-02] MEDS: ondansetron HCL/NS 16 MG/50 ML PIGGYBACK 200 MG IV (09:00)
[2020-08-02 09:27] LABS: Appearance Urine HAZY; Color Urine YELLOW; Glucose Urine UA NEG (NEG); Leukocyte Esterase Urine TRACE (NEG); Nitrite Urine NEG (NEG); Specific Gravity - Urine >= 1.030 (1.005-1.025); Urine Blood NEG (NEG); Urine Ketones NEG (NEG); Urine Protein NEG (NEG-TRACE)
[2020-08-02 09:41] LABS: Calcium Oxalate Crystals Urine 2+ /LPF; RBC Urine 0 /HPF (0); Squamous Epithelial Cell Urine 1+ /LPF
[2020-08-02] MEDS: Acetaminophen 325 MG TABLET 650 MG PO (09:52)
[2020-08-02] MEDS: diphenhydrAMINE HCL 25 MG TABLET PO (09:52)
[2020-08-02] MEDS: Atezolizumab 1,200 MG in 0.9 % Sodium Chloride 250 ML 540 MG IV (10:33)
--- NOTE | 2020-08-02 12:45 | MHC.HEMONC ---
pt tolerated chemo tx well, labs stable. dr paez plan to change treatment plan follow up in 2 weeks monique aware she will accompany pt to f/u.
--- NOTE | 2020-08-02 13:47 | MHC.HEMONCSW ---
MET WITH PATIENT WHILE HE RECEIVED TREATMENT. REPORTS FEELING AND COPING WELL. REMAINS COMPLIANT WITH MENTAL HEALTH PROVIDERS. DENIES ANY DISTRESS. [facility] FROM [facility] IS STILL INVOLVED AND TRANSPORTS HIM TO ALL APPOINTMENTS. EDUCATION AND SUPPORT PROVIDED.
--- NOTE | 2020-08-09 09:11 | MHC.HEMONC ---
pt community service officer is Ana Odell - (c) [phone] office [phone]
[2020-08-11 14:55] VITALS: BMI 22.4
[2020-08-11 14:56] VITALS: BP 132/77; PULSE 67; RESP 18; TEMP 36.4; O2SAT 96
--- NOTE | 2020-08-11 15:08 | P.PNHO_ITS ---
Medical Summary - Medical Summary Date of Service: 08/11/20 Chief complaint: Follow-up Medical Summary: Diagnosis: Hepatocellular carcinoma Longstanding history of liver cirrhosis, history of alcoholism and hepatitis-C. 01/13/2018 core biopsy of liver mass performed at [facility], pathology-hepatocellular carcinoma, high-grade. Underwent partial hepatectomy on 04/10/2017. Final pathology showed 2.4 cm HCC confined to the liver. Margins negative. Surveillance CT abdomen with IV contrast performed at [facility] on 12/15/2019 revealed multiple new hypodense lesions throughout liver. 1.2 cm lesion in left hepatic lobe, 1.7 cm lesion in left hepatic lobe, 1.6 cm lesion right hepatic lobe, 9 mm lesion in right hepatic lobe, 1.5 cm lesion in right hepatic lobe. Prior cholecystectomy. Status post splenectomy. This was concerning for recurrent hepatocellular carcinoma, metastatic disease from another primary was also possible. Prominent upper abdominal lymph nodes measuring up to 1.2 cm, not significantly changed from prior exam. Supraumbilical ventral abdominal hernia containing nonobstructed non inflamed loops of small bowel, similar to p rior. Postsurgical changes from prior ventral abdominal herniorrhaphy with mesh. 3 cm infrarenal abdominal aortic aneurysm. Tumor marker alpha-fetoprotein elevated 86.4, CEA level normal, 1.9. On 03/06/2020 he underwent core biopsy of lesion in the right lobe which revealed fragments of liver parenchyma with chronic hepatitis and mild inflammatory activity with bridging fibrosis. MRI abdomen performed 03/28/20 revealed 4 hepatic lesions under 2 cm suspicious for multifocal hepatocellular carcinoma. He was not a candidate for further surgery and based on lymphadenopathy, not an optimal candidate for localized therapies such as RFA or chemoembolization. Systemic therapy with targeted a gents/immunotherapy with atezolizumab 1200 mg q. 3 weeks, bevacizumab 15 mg/kg q. 3 weeks was started 05/10/2020. EGD did not show esophageal varices, there was mild gastritis. Interval History Interval history: Patient is here in follow-up to discuss results of recent imaging study and further management. He is doing fairly well has no new complaints today. He is taking pain medication twice a day. He reports occasional nausea but no emesis. He denies any fever Or chills. No change in bowel habits. He has received 1 dose of COVID-19 vaccine, he is scheduled for the 2nd dose next week. Review of Systems - Constitutional Reports as per HPI, Reports no additional constitutional complaints - Cardiovascular Reports no additional cardiovascular complaints - Respiratory Reports no additional respiratory complaints - Gastrointestinal Reports no additional gastrointestinal complaints [facility] Medical History: Medical History (Last Updated 04/24/20 @ 11:51 by Sabrina Garsia) CVA (cerebral vascular accident) Hepatitis C Hepatocellular carcinoma History of alcohol abuse Liver cirrhosis Family History: Family History (Last Reviewed 06/06/20 @ 12:58 by Meño Michelle) Father No problems noted. Mother No problems noted. Family/Other FH: mental illness Surgical History: Surgical History (Last Reviewed 06/06/20 @ 12:58 by Meño Michelle) H/O resection of liver Onset Date: ~04/2017 History of splenectomy No pertinent past surgical history Social History: Social History (Last Updated 06/06/20 @ 12:59 by Meño Michelle) Living Situation History: Household Members Other:: alone Are you a primary health careers instructor to a significant other at home: No Alcohol History: Alcohol intake: former Alcohol History Details: Alcohol intake frequency: former alcohol drinker Tobacco History: Smoking Status: Current every day smoker Tobacco Type: Cigarette Smoked in Last 30 Days: Yes Substance Use History: Use of substances other than those prescribed or required for medical reasons : No Domestic Abuse History: Have you been hit, kicked, punched, or otherwise hurt by someone within the past year? If so, by whom?: No Do you feel safe in your current relationship?: No Current Relationship Healthcare Practices: Confucianist Healthcare Practices: [facility] Nutrition Assessment: Recently lost weight without trying: No Nutrition Risks: Poor intake 0-25% >4 days Poor oral hygiene: Yes Smoking status: Current every day smoker Home Medications and Allergies Home Medications Medication Instructions Recorded Confirmed Type quetiapine 150 mg tablet,extended 150 mg PO BEDTIME 02/01/20 02/23/20 History release 24 hr sertraline 100 mg tablet 200 mg PO DAILY 02/01/20 04/20/20 History Esgic 50 - 325 mg PO TID PRN 02/24/20 02/24/20 History quetiapine 1 tab PO BEDTIME 02/24/20 02/24/20 History melatonin 3 mg PO BEDTIME PRN 04/12/20 04/20/20 History Allergies Allergy/AdvReac Type Severity Reaction Status Date / Time No Known Allergies Allergy Verified 06/06/20 12:55 Exam Vital signs: Vital Signs Temp 97.6 F 08/11/20 14:56 Pulse 67 08/11/20 14:56 Resp 18 08/11/20 14:56 BP 132/77 08/11/20 14:56 Pulse Ox 96 08/11/20 14:56 Intake & Output 08/10/20 08/11/20 08/11/20 18:59 06:59 18:59 Other: Weight 72.9 kg [place] Weight in Grams [id number] Weight 72.9 kg Body Mass Index 22.4 - Constitutional Present: no acute distress - Routine HEENT Exam Head: Present: normal inspection - Routine Neck Exam Absent: lymphadenopathy - Routine Respiratory Exam Present: CTAB - Routine Cardiovascular Exam Cardiovascular: Present: RRR, S1, S2 - Routine Abdominal Exam Present: hernia, normal bowel sounds, soft - Routine Extremities Exam Absent: calf tenderness, pedal edema Data - Labs CBC & Chem 7: 08/01/20 10:35 08/01/20 10:35 Labs: 02/23/20 14:45 Alpha Fetoprotein Routine CEA [Carcinoembryonic Antigen] Routine Complete Blood Count Auto Diff Routine Comprehensive Met. Panel Routine Hep C Viral Load Routine PTT [Partial Thromboplastin Time] Routine SLIDE REVIEW Routine Laboratory Last Values WBC 10.0 X10*3/uL (4.8-10.8) 02/23/20 14:45 RBC 4.80 X10*6/uL (4.60-5.80) 02/23/20 14:45 Hgb 15.8 g/dl (14.0-18.0) 02/23/20 14:45 Hct 47.1 % (42-52) 02/23/20 14:45 MCV 98.1 fL (80-98) H 02/23/20 14:45 MCH 32.9 pg (27.0-33.0) 02/23/20 14:45 MCHC 33.5 g/dl (31.0-36.0) 02/23/20 14:45 RDW 13.6 % (11.0-16.0) 02/23/20 14:45 Plt Count 345 X10*3/uL (160-400) 02/23/20 14:45 MPV 8.8 fL (9.4-12.4) L 02/23/20 14:45 Immature Gran % (Auto) 0.1 % (0.0-0.4) 02/23/20 14:45 Neut % (Auto) 30.1 % (45-73) L 02/23/20 14:45 Lymph % (Auto) 57.3 % (20-40) H 02/23/20 14:45 [place] % (Auto) 7.8 % (2-11) 02/23/20 14:45 Eos % (Auto) 3.8 % (0-4) 02/23/20 14:45 Baso % (Auto) 0.9 % (0-2) 02/23/20 14:45 Lymph # (Auto) 5.7 X10*3/uL (1.2-4.9) H 02/23/20 14:45 [place] # (Auto) 0.8 X10*3/uL (0.1-1.2) 02/23/20 14:45 Eos # (Auto) 0.4 X10*3/uL (0.0-0.4) 02/23/20 14:45 Baso # (Auto) 0.1 X10*3/uL (0.0-0.2) 02/23/20 14:45 Abs Immat Gran (auto) 0.01 X10*3/uL (0.00-0.03) 02/23/20 14:45 Absolute Neuts (auto) 3.0 X10*3/uL (2.0-8.3) 02/23/20 14:45 Absolute Nucleated RBC 0.000 X10*3/uL (0.0-0.012) 02/23/20 14:45 Nucleated RBC % (auto) 0.0 /100WBC (0.0-0.2) 02/23/20 14:45 Smear Tech's Comments VERIFIED 02/23/20 14:45 APTT 40.6 SEC (24.1-38.0) H 02/23/20 14:45 Sodium 140 mmol/L (135-145) 02/23/20 14:45 Potassium 4.9 mmol/l (3.3-5.1) 02/23/20 14:45 Chloride 102 mmol/L (96-108) 02/23/20 14:45 Carbon Dioxide 30 mmol/L (22-29) H 02/23/20 14:45 Anion Gap 13 (12-20) 02/23/20 14:45 BUN 9 mg/dL (9-16) 02/23/20 14:45 Creatinine 0.81 mg/dL (0.5-1.4) 02/23/20 14:45 Estim Creat Clear Calc 98.1 02/23/20 14:45 Estimated GFR > 60 02/23/20 14:45 Random Glucose 93 mg/dL (60-115) 02/23/20 14:45 Calcium 9.7 mg/dL (8.4-10.2) 02/23/20 14:45 Total Bilirubin 0.6 mg/dL (0.0-1.0) 02/23/20 14:45 AST 21 U/L (5-37) 02/23/20 14:45 ALT 10 U/L (0-40) 02/23/20 14:45 Alkaline Phosphatase 179 U/L (39-117) H 02/23/20 14:45 Total Protein 8.0 g/dL (6.5-8.0) 02/23/20 14:45 Albumin 4.1 g/dL (3.5-5.0) 02/23/20 14:45 Alpha Fetoprotein 86.4 ng/mL (<6.1) H 02/23/20 14:45 Carcinoembryonic Ag 1.90 mg/mL 02/23/20 14:45 Hep B Viral Load Log <1.18 NOT DETECTED Log IU/mL (NOT DETECTED) 02/23/20 14:45 Hep C Viral Load <15 NOT DETECTED IU/mL (NOT DETECTED) 02/23/20 14:45 Progress Note: A/P (1) Hepatocellular carcinoma Status: Chronic Assessment and plan: 1. This is a 65-year-old male with history of high-grade hepatocellular carcinoma for which she underwent partial hepatectomy in April 2017. He was well until May 2019. In December 2019, surveillance CT of abdomen revealed multiple new hepatic lesions and persistent slightly prominent upper abdominal lymph nodes without enlargement. Possibility of recurrent metastatic hepat ocellular carcinoma versus metastasis from another primary was raised. Tumor marker alpha-fetoprotein elevated 207, CEA level normal, 1.9. On 03/06/2020 he underwent core biopsy of lesion in the right lobe which revealed fragments of liver parenchyma with chronic hepatitis and mild inflammatory activity with bridging fibrosis. MRI abdomen performed 03/28/20 revealed 4 hepatic lesions under 2 cm suspicious for multifocal hepatocellular carcinoma. He started Systemic therapy with targeted agents/immunotherapy with atezolizumab 1200 mg q. 3 weeks, bevacizumab 15 mg/kg q. 3 weeks on 05/10/2020. He received 5 treatments by end of July 2020. Unfortunately, repeat MRI abdomen showed slight progression with 3 of the 4 lesions increasing in size. Alpha fetoprotein also increased to 287. Today I discussed twitching treatment to lenvatinib 12 mg once daily. Possible side effects such as GI side effects, nausea, diarrhea, electrolyte imbalance, risk of hemorrhage discussed. He is willing to proceed with above recommendation. He will be closely monitored. Initially, labs to be checked once a week. 2. Chronic pain in abdomen. He is on oxycodone 5 mg Q hours 12 hours p.r.n.. Follow-up in 3 weeks. - Time Spent With Patient Total time spent is greater than 50% in coordination of care (as documented) at patient's floor/unit and/or counseling patient: 25 - 35 minutes
--- NOTE | 2020-08-11 16:09 | MHC.HEMONC ---
Pt here for appt with Dr De Dios and education re: Lenvatinib. He was with his chemical checker. I reviewed common side effectswith them but there were a lot. I tried to emphasize the most common ones and encouraged them to call us with any concerns. He will start as soon as they come and return for labs in two weeks. He signed consent. Labs drawn and to be reviewed.
[2020-08-11 17:10] LABS: Alanine Aminotransferase 9 U/L (0-40); Albumin Level 3.6 g/dL (3.5-5.0); Alkaline Phosphatase 159 U/L (39-117); Anion Gap 16 (12-20); Aspartate Amino Transferase 20 U/L (5-37); Bilirubin Total 0.3 mg/dL (0.0-1.0); Blood Urea Nitrogen 17 mg/dL (9-16); Calcium 9.5 mg/dL (8.4-10.2); Carbon Dioxide 27 mmol/L (22-29); Chloride 102 mmol/L (96-108); Creatinine Clr Calc Pharmacy 108.4; Estimated Glomerular Filt Rate > 60; Glucose Random 89 mg/dL (60-115); Potassium 4.5 mmol/L (3.3-5.1); Sodium 140 mmol/L (135-145); Total Protein 7.4 g/dL (6.5-8.0)
[2020-08-14 14:57] LABS: Alpha Fetoprotein 256.3 ng/mL (<6.1)
[2020-08-23 14:59] LABS: Basophils Absolute Auto 0.1 X10*3/uL (0.0-0.2); Basophils Percent Auto 0.8 % (0-2); Eosinophils Absolute Auto 0.2 X10*3/uL (0.0-0.4); Hemoglobin 16.9 g/dl (14.0-18.0); Imm Gran Abs Auto 0.03 X10*3/uL (0.00-0.03); Imm Gran Pct Auto 0.3 % (0.0-0.4); Lymphocytes Absolute Auto 6.7 X10*3/uL (1.2-4.9); Lymphocytes Percent Auto 56.7 % (20-40); MANUAL DIFF FLAG SCAN; Mean Corpuscular HGB Conc 33.8 g/dl (31.0-36.0); Mean Corpuscular Hemoglobin 32.8 pg (27.0-33.0); Mean Corpuscular Volume 96.9 fL (80-98); Mean Platelet Volume 9.3 fL (9.4-12.4); Monocytes Absolute Auto 0.8 X10*3/uL (0.1-1.2); Monocytes Percent Auto 6.5 % (2-11); Neutrophils Percent Auto 33.7 % (45-73); Platelet Count 303 X10*3/uL (160-400); Red Blood Count 5.16 X10*6/uL (4.60-5.80); Red Cell Distribution Width 14.2 % (11.0-16.0); SCAN SMEAR FLAG 1; White Blood Count 11.8 X10*3/uL (4.8-10.8)
[2020-08-23 15:18] LABS: SLIDE REVIEW VERIFIED
[2020-08-23 15:20] LABS: Alanine Aminotransferase 8 U/L (0-40); Albumin Level 3.7 g/dL (3.5-5.0); Alkaline Phosphatase 140 U/L (39-117); Anion Gap 15 (12-20); Aspartate Amino Transferase 23 U/L (5-37); Bilirubin Total 0.5 mg/dL (0.0-1.0); Blood Urea Nitrogen 16 mg/dL (9-16); Calcium 9.7 mg/dL (8.4-10.2); Carbon Dioxide 28 mmol/L (22-29); Chloride 102 mmol/L (96-108); Creatinine Clr Calc Pharmacy 92.6; Estimated Glomerular Filt Rate > 60; Glucose Random 96 mg/dL (60-115); Potassium 4.7 mmol/L (3.3-5.1); Sodium 140 mmol/L (135-145); Total Protein 7.8 g/dL (6.5-8.0)
--- NOTE | 2020-08-31 15:24 | MHC.HEMONC ---
Nurse from [facility] regarding patient's declining status. Patient experiencing increased abdominal pain, decreased appetite and voiding maykel red blood. Patient started oral chemotherapy several weeks ago. Instructed to go to ED for further evaluation. Dr. De Dios is currently out of office. Dr. Crystal aware. Refill for Oxycodone will be sent.
--- NOTE | 2020-09-01 11:26 | MHC.HEMONC ---
pt [facility] nurse caled to report pt did go to [facility] yesterday following hematuria (PCT had called to report and Dr Crystal said he needed to report to ER). Pt apparently was put on antibiotics and sent home. [facility] seeing him today and will report back prn
--- NOTE | 2020-09-06 15:07 | PM.HEMONCPN ---
Medical Summary - Medical Summary Date of Service: 09/06/20 Chief complaint: Follow-up Medical Summary: Diagnosis: Hepatocellular carcinoma Longstanding history of liver cirrhosis, history of alcoholism and hepatitis-C. 01/13/2018 core biopsy of liver mass performed at [facility], pathology-hepatocellular carcinoma, high-grade. Underwent partial hepatectomy on 04/10/2017. Final pathology showed 2.4 cm HCC confined to the liver. Margins negative. Surveillance CT abdomen with IV contrast performed at [facility] on 12/15/2019 revealed multiple new hypodense lesions throughout liver. 1.2 cm lesion in left hepatic lobe, 1.7 cm lesion in left hepatic lobe, 1.6 cm lesion right hepatic lobe, 9 mm lesion in right hepatic lobe, 1.5 cm lesion in right hepatic lobe. Prior cholecystectomy. Status post splenectomy. This was concerning for recurrent hepatocellular carcinoma, metastatic disease from another primary was also possible. Prominent upper abdominal lymph nodes measuring up to 1.2 cm, not significantly changed from prior exam. Supraumbilical ventral abdominal hernia containing nonobstructed non inflamed loops of small bowel, similar to prior. Postsurgical changes from prior ventral abdominal herniorrhaphy with mesh. 3 cm infrarenal abdominal aortic aneurysm. Tumor marker alpha-fetoprotein elevated 86.4, CEA level normal, 1.9. On 03/06/2020 he underwent core biopsy of lesion in the right lobe which revealed fragments of liver parenchyma with chronic hepatitis and mild inflammatory activity with bridging fibrosis. MRI abdomen performed 03/28/20 revealed 4 hepatic lesions under 2 cm suspicious for multifocal hepatocellular carcinoma. He was not a candidate for further surgery and based on lymphadenopathy, not an optimal candidate for localized therapies such as RFA or chemoembolization. Systemic therapy with targeted agents/immunotherapy with atezolizumab 1200 mg q. 3 weeks, bevacizumab 15 mg/kg q. 3 weeks was started 05/10/2020. EGD did not show esophageal varices, there was mild gastritis. He started Systemic therapy with targeted agents/immunotherapy with atezolizumab 1200 mg q. 3 weeks, bevacizumab 15 mg/kg q. 3 weeks on 05/10/2020. He received 5 treatments by end of July 2020. Unfortunately, repeat MRI abdomen showed slight progression with 3 of the 4 lesions increasing in size. Alpha fetoprotein also increased to 287. Interval History Interval history: Patient seen urgently today because of recent visit to the emergency room at [facility]. He had hematuria, he was started on antibiotics for probable UTI. He underwent CT scan, he was informed of liver masses. He denies fever or chills. He denies diarrhea or abdominal pain. He is currently on antibiotics. Review of Systems - Constitutional Reports fatigue, Reports weakness, Reports weight loss - Cardiovascular Reports no additional cardiovascular complaints - Respiratory Reports no additional respiratory complaints [facility] Medical History: Medical History (Last Updated 04/24/20 @ 11:51 by Sabrina Garsia) CVA (cerebral vascular accident) Hepatitis C Hepatocellular carcinoma History of alcohol abuse Liver cirrhosis Family History: Family History (Last Reviewed 06/06/20 @ 12:58 by Meño Michelle) Father No problems noted. Mother No problems noted. Family/Other FH: mental illness Surgical History: Surgical History (Last Reviewed 06/06/20 @ 12:58 by Meño Michelle) H/O resection of liver Onset Date: ~04/2017 History of splenectomy No pertinent past surgical history Social History: Social History (Last Updated 06/06/20 @ 12:59 by Meño Michelle) Living Situation History: Household Members Other:: alone Are you a primary overnight caregiver to a significant other at home: No Alcohol History: Alcohol intake: former Alcohol History Details: Alcohol intake frequency: former alcohol drinker Tobacco History: Smoked in Last 30 Days: Yes Substance Use History: Use of substances other than those prescribed or required for medical reasons: No Domestic Abuse History: Have you been hit, kicked, punched, or otherwise hurt by someone within the past year? If so, by whom?: No Do you feel safe in your current relationship?: No Current Relationship Healthcare Practices: Confucianist Healthcare Practices: [facility] Nutrition Assessment: Recently lost weight without trying: No Nutrition Risks: Poor intake 0-25% >4 days Poor oral hygiene: Yes Home Medications and Allergies Home Medications Medication Instructions Recorded Confirmed Type Esgic 50 - 325 mg PO TID PRN 02/24/20 02/24/20 History quetiapine 1 tab PO BEDTIME 02/24/20 02/24/20 History melatonin 3 mg PO BEDTIME PRN 04/12/20 04/20/20 History Allergies Allergy/AdvReac Type Severity Reaction Status Date / Time No Known Allergies Allergy Verified 06/06/20 12:55 Exam Vital signs: Vital Signs Temp 97.6 F 08/11/20 14:56 Pulse 67 08/11/20 14:56 Resp 18 08/11/20 14:56 BP 132/77 08/11/20 14:56 Pulse Ox 96 08/11/20 14:56 Weight 72.9 kg Body Mass Index 22.4 - Constitutional Present: no acute distress - Routine HEENT Exam Head: Present: normal inspection - Routine Neck Exam Absent: lymphadenopathy - Routine Respiratory Exam Present: CTAB - Routine Cardiovascular Exam Cardiovascular: Present: RRR, S1, S2 - Routine Abdominal Exam Present: hernia, normal bowel sounds, soft - Routine Extremities Exam Absent: calf tenderness, pedal edema Data - Labs CBC & Chem 7: 09/06/20 15:30 09/06/20 15:30 Labs: 02/23/20 14:45 Alpha Fetoprotein Routine CEA [Carcinoembryonic Antigen] Routine Complete Blood Count Auto Diff Routine Comprehensive Met. Panel Routine Hep C Viral Load Routine PTT [Partial Thromboplastin Time] Routine SLIDE REVIEW Routine Laboratory Last Values WBC 10.0 X10*3/uL (4.8-10.8) 02/23/20 14:45 RBC 4.80 X10*6/uL (4.60-5.80) 02/23/20 14:45 Hgb 15.8 g/dl (14.0-18.0) 02/23/20 14:45 Hct 47.1 % (42-52) 02/23/20 14:45 MCV 98.1 fL (80-98) H 02/23/20 14:45 MCH 32.9 pg (27.0-33.0) 02/23/20 14:45 MCHC 33.5 g/dl (31.0-36.0) 02/23/20 14:45 RDW 13.6 % (11.0-16.0) 02/23/20 14:45 Plt Count 345 X10*3/uL (160-400) 02/23/20 14:45 MPV 8.8 fL (9.4-12.4) L 02/23/20 14:45 Immature Gran % (Auto) 0.1 % (0.0-0.4) 02/23/20 14:45 Neut % (Auto) 30.1 % (45-73) L 02/23/20 14:45 Lymph % (Auto) 57.3 % (20-40) H 02/23/20 14:45 [place] % (Auto) 7.8 % (2-11) 02/23/20 14:45 Eos % (Auto) 3.8 % (0-4) 02/23/20 14:45 Baso % (Auto) 0.9 % (0-2) 02/23/20 14:45 Lymph # (Auto) 5.7 X10*3/uL (1.2-4.9) H 02/23/20 14:45 [place] # (Auto) 0.8 X10*3/uL (0.1-1.2) 02/23/20 14:45 Eos # (Auto) 0.4 X10*3/uL (0.0-0.4) 02/23/20 14:45 Baso # (Auto) 0.1 X10*3/uL (0.0-0.2) 02/23/20 14:45 Abs Immat Gran (auto) 0.01 X10*3/uL (0.00-0.03) 02/23/20 14:45 Absolute Neuts (auto) 3.0 X10*3/uL (2.0-8.3) 02/23/20 14:45 Absolute Nucleated RBC 0.000 X10*3/uL (0.0-0.012) 02/23/20 14:45 Nucleated RBC % (auto) 0.0 /100WBC (0.0-0.2) 02/23/20 14:45 Smear Tech's Comments VERIFIED 02/23/20 14:45 APTT 40.6 SEC (24.1-38.0) H 02/23/20 14:45 Sodium 140 mmol/L (135-145) 02/23/20 14:45 Potassium 4.9 mmol/l (3.3-5.1) 02/23/20 14:45 Chloride 102 mmol/L (96-108) 02/23/20 14:45 Carbon Dioxide 30 mmol/L (22-29) H 02/23/20 14:45 Anion Gap 13 (12-20) 02/23/20 14:45 BUN 9 mg/dL (9-16) 02/23/20 14:45 Creatinine 0.81 mg/dL (0.5-1.4) 02/23/20 14:45 Estim Creat Clear Calc 98.1 02/23/20 14:45 Estimated GFR > 60 02/23/20 14:45 Random Glucose 93 mg/dL (60-115) 02/23/20 14:45 Calcium 9.7 mg/dL (8.4-10.2) 02/23/20 14:45 Total Bilirubin 0.6 mg/dL (0.0-1.0) 02/23/20 14:45 AST 21 U/L (5-37) 02/23/20 14:45 ALT 10 U/L (0-40) 02/23/20 14:45 Alkaline Phosphatase 179 U/L (39-117) H 02/23/20 14:45 Total Protein 8.0 g/dL (6.5-8.0) 02/23/20 14:45 Albumin 4.1 g/dL (3.5-5.0) 02/23/20 14:45 Alpha Fetoprotein 86.4 ng/mL (<6.1) H 02/23/20 14:45 Carcinoembryonic Ag 1.90 mg/mL 02/23/20 14:45 Hep B Viral Load Log <1.18 NOT DETECTED Log IU/mL (NOT DETECTED) 02/23/20 14:45 Hep C Viral Load <15 NOT DETECTED IU/mL (NOT DETECTED) 02/23/20 14:45 Progress Note: A/P (1) Hepatocellular carcinoma Status: Chronic Assessment and plan: 1. This is a 65-year-old male with history of high-grade hepatocellular carcinoma for which she underwent partial hepatectomy in April 2017. In December 2019, surveillance CT of abdomen revealed multiple new hepatic lesions and persistent slightly prominent upper abdominal lymph nodes without enlargement. Tumor marker alpha-fetoprotein elevated 207, CEA level normal, 1.9. On 03/06/2020 he underwent core biopsy of lesion in the right lobe which revealed fragments of liver parenchyma with chronic hepatitis and mild inflammatory activity with bridging fibrosis. He started lenvatinib 12 mg once daily from 08/14/2020. He was seen in the emergency room at [facility] for UTI, currently on antibiotics. Obtain records. Blood work today is normal. AFP level pending. He has developed anorexia related to malignancy. He was given samples of Ensure in asked to take frequent small meals in order to maintain weight. 2. Chronic pain in abdomen. He is on oxycodone 5 mg Q hours 12 hours p.r.n.. Follow-up in 3 weeks. - Time Spent With Patient Total time spent is greater than 50% in coordination of care (as documented) at patient's floor/unit and/or counseling patient: 15 - 24 minutes
[2020-09-06 15:13] VITALS: BP 138/85; PULSE 87; RESP 17; TEMP 36.6; O2SAT 94
[2020-09-06 15:14] VITALS: BMI 21.1
[2020-09-06 15:41] LABS: Basophils Absolute Auto 0.1 X10*3/uL (0.0-0.2); Basophils Percent Auto 0.8 % (0-2); Eosinophils Absolute Auto 0.2 X10*3/uL (0.0-0.4); Eosinophils Percent Auto 1.9 % (0-4); Hematocrit 50.4 % (42-52); Hemoglobin 17.3 g/dl (14.0-18.0); Imm Gran Abs Auto 0.01 X10*3/uL (0.00-0.03); Imm Gran Pct Auto 0.1 % (0.0-0.4); Lymphocytes Absolute Auto 5.2 X10*3/uL (1.2-4.9); Lymphocytes Percent Auto 57.2 % (20-40); MANUAL DIFF FLAG SCAN; Mean Corpuscular HGB Conc 34.3 g/dl (31.0-36.0); Mean Corpuscular Hemoglobin 33.3 pg (27.0-33.0); Mean Corpuscular Volume 96.9 fL (80-98); Mean Platelet Volume 10.3 fL (9.4-12.4); Monocytes Absolute Auto 0.8 X10*3/uL (0.1-1.2); Monocytes Percent Auto 9.1 % (2-11); Neutrophils Absolute Auto 2.8 X10*3/uL (2.0-8.3); Neutrophils Percent Auto 30.9 % (45-73); Platelet Count 225 X10*3/uL (160-400); SCAN SMEAR FLAG 1
[2020-09-06 16:04] LABS: Alanine Aminotransferase 10 U/L (0-40); Albumin Level 3.7 g/dL (3.5-5.0); Alkaline Phosphatase 122 U/L (39-117); Anion Gap 15 (12-20); Aspartate Amino Transferase 30 U/L (5-37); Bilirubin Total 0.8 mg/dL (0.0-1.0); Blood Urea Nitrogen 16 mg/dL (9-16); Calcium 9.8 mg/dL (8.4-10.2); Carbon Dioxide 32 mmol/L (22-29); Chloride 100 mmol/L (96-108); Creatinine Clr Calc Pharmacy 95.2; Estimated Glomerular Filt Rate > 60; Glucose Random 117 mg/dL (60-115); Potassium 4.7 mmol/L (3.3-5.1); Sodium 142 mmol/L (135-145); Total Protein 7.8 g/dL (6.5-8.0)
[2020-09-06 16:19] LABS: SLIDE REVIEW VERIFIED
[2020-09-20 14:58] VITALS: BP 113/77; PULSE 94; RESP 14; TEMP 36.1; O2SAT 99; BMI 20.7
--- NOTE | 2020-09-20 15:12 | P.PNHO_ITS ---
Medical Summary - Medical Summary Date of Service: 09/20/20 Chief complaint: Generalized weakness Medical Summary: Diagnosis: Hepatocellular carcinoma Longstanding history of liver cirrhosis, history of alcoholism and hepatitis-C. 01/13/2018 core biopsy of liver mass performed at [facility], pathology-hepatocellular carcinoma, high-grade. Underwent partial hepatectomy on 04/10/2017. Final pathology showed 2.4 cm HCC confined to the liver. Margins negative. Surveillance CT abdomen with IV contrast performed at [facility] on 12/15/2019 revealed multiple new hypodense lesions throughout liver. 1.2 cm lesion in left hepatic lobe, 1.7 cm lesion in left hepatic lobe, 1.6 cm lesion right hepatic lobe, 9 mm lesion in right hepatic lobe, 1.5 cm lesion in right hepatic lobe. Prior cholecystectomy. Status post splenectomy. This was concerning for rec urrent hepatocellular carcinoma, metastatic disease from another primary was also possible. Prominent upper abdominal lymph nodes measuring up to 1.2 cm, not significantly changed from prior exam. Supraumbilical ventral abdominal hernia containing nonobstructed non inflamed loops of small bowel, similar to prior. Postsurgical changes from prior ventral abdominal herniorrhaphy with mesh. 3 cm infrarenal abdominal aortic aneurysm. Tumor marker alpha-fetoprotein elevated 86.4, CEA level normal, 1.9. On 03/06/2020 he underwent core biopsy of lesion in the right lobe which revealed fragments of liver parenchyma with chronic hepatitis and mild inflammatory activity with bridging fibrosis. MRI abdomen performed 03/28/20 revealed 4 hepatic lesions under 2 cm suspicious for multifocal hepatocellular carcinoma. He was not a candidate for further surgery and based on lymphadenopathy, not an optimal candidate for localized therapies such as RFA or chemoembolization. Systemic therapy with targeted agents/immunotherapy with atezolizumab 1200 mg q. 3 weeks, bevacizumab 15 mg/kg q. 3 weeks was started 05/10/2020. EGD did not show esophageal varices, there was mild gastritis. He started Systemic therapy with targeted agents/immunotherapy with atezolizumab 1200 mg q. 3 weeks, bevacizumab 15 mg/kg q. 3 weeks on 05/10/2020. He received 5 treatments by end of July 2020. Unfortunately, repeat MRI abdomen showed slight progression with 3 of the 4 lesions increasing in size. Alpha fetoprotein also increased to 287. Interval History Interval history: Patient is here in follow-up. He is feeling slightly better than his last visit here. He no longer has diarrhea on a daily basis. His abdominal pain is well controlled. However he does have anorexia and is not gaining weight. Review of Systems - Constitutional Reports as per HPI, Reports no additional constitutional complaints - Cardiovascular Reports no additional cardiovascular complaints - Respiratory Reports no additional respiratory complaints - Gastrointestinal Reports no additional gastrointestinal complaints - Neurologic Reports weakness [facility] Medical History: Medical History (Last Updated 04/24/20 @ 11:51 by Sabrina Garsia) CVA (cerebral vascular accident) Hepatitis C Hepatocellular carcinoma History of alcohol abuse Liver cirrhosis Family History: Family History (Last Reviewed 06/06/20 @ 12:58 by Meño Michelle) Father No problems noted. Mother No problems noted. Family/Other FH: mental illness Surgical History: Surgical History (Last Reviewed 06/06/20 @ 12:58 by Meño Michelle) H/O resection of liver Onset Date: ~04/2017 History of splenectomy No pertinent past surgical history Social History: Social History (Last Updated 06/06/20 @ 12:59 by Meño Michelle) Living Situation History: Household Members Other:: alone Are you a primary healthcare management to a significant other at home: No Alcohol History: Alcohol intake: former Alcohol History Details: Alcohol intake frequency: former alcohol drinker Tobacco History: Smoked in Last 30 Days: Yes Substance Use History: Use of substances other than those prescribed or required for medical reasons : No Domestic Abuse History: Have you been hit, kicked, punched, or otherwise hurt by someone within the past year? If so, by whom?: No Do you feel safe in your current relationship?: No Current Relationship Healthcare Practices: Jew Healthcare Practices: yarsanism Nutrition Assessment: Recently lost weight without trying: No Nutrition Risks: Poor intake 0-25% >4 days Poor oral hygiene: Yes Home Medications and Allergies Home Medications Medication Instructions Recorded Confirmed Type Esgic 50 - 325 mg PO TID PRN 02/24/20 02/24/20 History quetiapine 1 tab PO BEDTIME 02/24/20 02/24/20 History melatonin 3 mg PO BEDTIME PRN 04/12/20 04/20/20 History Allergies Allergy/AdvReac Type Severity Reaction Status Date / Time No Known Allergies Allergy Verified 06/06/20 12:55 Exam Vital signs: Vital Signs Temp 97.0 F 09/20/20 14:58 Pulse 94 09/20/20 14:58 Resp 14 09/20/20 14:58 BP 113/77 09/20/20 14:58 Pulse Ox 99 09/20/20 14:58 Intake & Output 09/19/20 09/20/20 09/20/20 18:59 06:59 18:59 Other: Weight 67.6 kg [place] Weight in Grams 53768 Weight 67.6 kg Body Mass Index 20.7 - Constitutional Present: no acute distress - Routine HEENT Exam Head: Present: normal inspection - Routine Neck Exam Absent: lymphadenopathy - Routine Respiratory Exam Present: CTAB - Routine Cardiovascular Exam Cardiovascular: Present: RRR, S1, S2 - Routine Abdominal Exam Present: hernia, normal bowel sounds, soft - Routine Extremities Exam Absent: calf tenderness, pedal edema Data - Labs CBC & Chem 7: 09/06/20 15:30 09/06/20 15:30 Labs: 02/23/20 14:45 Alpha Fetoprotein Routine CEA [Carcinoembryonic Antigen] Routine Complete Blood Count Auto Diff Routine Comprehensive Met. Panel Routine Hep C Viral Load Routine PTT [Partial Thromboplastin Time] Routine SLIDE REVIEW Routine Laboratory Last Values WBC 10.0 X10*3/uL (4.8-10.8) 02/23/20 14:45 RBC 4.80 X10*6/uL (4.60-5.80) 02/23/20 14:45 Hgb 15.8 g/dl (14.0-18.0) 02/23/20 14:45 Hct 47.1 % (42-52) 02/23/20 14:45 MCV 98.1 fL (80-98) H 02/23/20 14:45 MCH 32.9 pg (27.0-33.0) 02/23/20 14:45 MCHC 33.5 g/dl (31.0-36.0) 02/23/20 14:45 RDW 13.6 % (11.0-16.0) 02/23/20 14:45 Plt Count 345 X10*3/uL (160-400) 02/23/20 14:45 MPV 8.8 fL (9.4-12.4) L 02/23/20 14:45 Immature Gran % (Auto) 0.1 % (0.0-0.4) 02/23/20 14:45 Neut % (Auto) 30.1 % (45-73) L 02/23/20 14:45 Lymph % (Auto) 57.3 % (20-40) H 02/23/20 14:45 [place] % (Auto) 7.8 % (2-11) 02/23/20 14:45 Eos % (Auto) 3.8 % (0-4) 02/23/20 14:45 Baso % (Auto) 0.9 % (0-2) 02/23/20 14:45 Lymph # (Auto) 5.7 X10*3/uL (1.2-4.9) H 02/23/20 14:45 [place] # (Auto) 0.8 X10*3/uL (0.1-1.2) 02/23/20 14:45 Eos # (Auto) 0.4 X10*3/uL (0.0-0.4) 02/23/20 14:45 Baso # (Auto) 0.1 X10*3/uL (0.0-0.2) 02/23/20 14:45 Abs Immat Gran (auto) 0.01 X10*3/uL (0.00-0.03) 02/23/20 14:45 Absolute Neuts (auto) 3.0 X10*3/uL (2.0-8.3) 02/23/20 14:45 Absolute Nucleated RBC 0.000 X10*3/uL (0.0-0.012) 02/23/20 14:45 Nucleated RBC % (auto) 0.0 /100WBC (0.0-0.2) 02/23/20 14:45 Smear Tech's Comments VERIFIED 02/23/20 14:45 APTT 40.6 SEC (24.1-38.0) H 02/23/20 14:45 Sodium 140 mmol/L (135-145) 02/23/20 14:45 Potassium 4.9 mmol/l (3.3-5.1) 02/23/20 14:45 Chloride 102 mmol/L (96-108) 02/23/20 14:45 Carbon Dioxide 30 mmol/L (22-29) H 02/23/20 14:45 Anion Gap 13 (12-20) 02/23/20 14:45 BUN 9 mg/dL (9-16) 02/23/20 14:45 Creatinine 0.81 mg/dL (0.5-1.4) 02/23/20 14:45 Estim Creat Clear Calc 98.1 02/23/20 14:45 Estimated GFR > 60 02/23/20 14:45 Random Glucose 93 mg/dL (60-115) 02/23/20 14:45 Calcium 9.7 mg/dL (8.4-10.2) 02/23/20 14:45 Total Bilirubin 0.6 mg/dL (0.0-1.0) 02/23/20 14:45 AST 21 U/L (5-37) 02/23/20 14:45 ALT 10 U/L (0-40) 02/23/20 14:45 Alkaline Phosphatase 179 U/L (39-117) H 02/23/20 14:45 Total Protein 8.0 g/dL (6.5-8.0) 02/23/20 14:45 Albumin 4.1 g/dL (3.5-5.0) 02/23/20 14:45 Alpha Fetoprotein 86.4 ng/mL (<6.1) H 02/23/20 14:45 Carcinoembryonic Ag 1.90 mg/mL 02/23/20 14:45 Hep B Viral Load Log <1.18 NOT DETECTED Log IU/mL (NOT DETECTED) 02/23/20 14:45 Hep C Viral Load <15 NOT DETECTED IU/mL (NOT DETECTED) 02/23/20 14:45 Progress Note: A/P (1) Hepatocellular carcinoma Status: Chronic Assessment and plan: 1. This is a 65-year-old male with history of high-grade hepatocellular carcinoma for which she underwent partial hepatectomy in April 2017. In December 2019, surveillance CT of abdomen revealed multiple new hepatic lesions and persistent slightly prominent upper abdominal lymph nodes without enlargement. Tumor marker alpha-fetoprotein elevated 207, CEA level normal, 1.9. On 03/06/2020 he underwent core biopsy of lesion in the right lobe which revealed fragments of liver parenchyma with chronic hepatitis and mild inflammatory activity with bridging fibrosis. He started lenvatinib 12 mg once daily from 08/14/2020. AFP has come down slightly to 200. He has developed anorexia related to malignancy. He was given samples of Ensure in asked to take frequent small meals in order to maintain weight. His weight is stable he was encouraged to continue to take frequent small meals throughout the day. 2. Chronic pain in abdomen. He is on oxycodone 5 mg Q hours 12 hours p.r.n.. Follow-up in 3 weeks. - Time Spent With Patient 15 - 24 minutes
--- NOTE | 2020-09-20 15:14 | MHC.HEMONCMA ---
Patient came in for a follow up, states that he is doing ok. Clinical summary was reviewed and updated. Patient did not have labs and will return in 1 month for a follow up.
[2020-10-17 14:08] VITALS: BP 112/90; PULSE 90; RESP 14; TEMP 36.8; O2SAT 94; BMI 18.9
--- NOTE | 2020-10-17 14:39 | P.PNHO_ITS ---
Medical Summary - Medical Summary Date of Service: 10/17/20 Chief complaint: Failure to thrive Medical Summary: Diagnosis: Hepatocellular carcinoma Longstanding history of liver cirrhosis, history of alcoholism and hepatitis-C. 01/13/2018 core biopsy of liver mass performed at [facility], pathology-hepatocellular carcinoma, high-grade. Underwent partial hepatectomy on 04/10/2017. Final pathology showed 2.4 cm HCC confined to the liver. Margins negative. Surveillance CT abdomen with IV contrast performed at [facility] on 12/15/2019 revealed multiple new hypodense lesions throughout liver. 1.2 cm lesion in left hepatic lobe, 1.7 cm lesion in left hepatic lobe, 1.6 cm lesion right hepatic lobe, 9 mm lesion in right hepatic lobe, 1.5 cm lesion in right hepatic lobe. Prior cholecystectomy. Status post splenectomy. This was concerning for recu rrent hepatocellular carcinoma, metastatic disease from another primary was also possible. Prominent upper abdominal lymph nodes measuring up to 1.2 cm, not significantly changed from prior exam. Supraumbilical ventral abdominal hernia containing nonobstructed non inflamed loops of small bowel, similar to prior. Postsurgical changes from prior ventral abdominal herniorrhaphy with mesh. 3 cm infrarenal abdominal aortic aneurysm. Tumor marker alpha-fetoprotein elevated 86.4, CEA level normal, 1.9. On 03/06/2020 he underwent core biopsy of lesion in the right lobe which revealed fragments of liver parenchyma with chronic hepatitis and mild inflammatory activity with bridging fibrosis. MRI abdomen performed 03/28/20 revealed 4 hepatic lesions under 2 cm suspicious for multifocal hepatocellular carcinoma. He was not a candidate for further surgery and based on lymphadenopathy, not an optimal candidate for localized therapies such as RFA or chemoembolization. Systemic therapy with targeted agents/immunotherapy with atezolizumab 1200 mg q. 3 weeks, bevacizumab 15 mg/kg q. 3 weeks was started 05/10/2020. EGD did not show esophageal varices, there was mild gastritis. He started Systemic therapy with targeted agents/immunotherapy with atezolizumab 1200 mg q. 3 weeks, bevacizumab 15 mg/kg q. 3 weeks on 05/10/2020. He received 5 treatments by end of July 2020. Unfortunately, repeat MRI abdomen showed slight progression with 3 of the 4 lesions increasing in size. Alpha fetoprotein also increased to 287. Interval History Interval history: patient is here in follow-up. He was recently evaluated at [facility] for failure to thrive. He has not been eating, reports lack of appetite as well as dysphagia. He had speech and swallow evaluation, he was recommended physical therapy and rehabilitation but patient refused this. He has been prescribed Megace by his PCP which he took for a few days. He continues to lose weight. He denies nausea or emesis. No fever or chills. Review of Systems - Constitutional Reports as per HPI, Reports weight loss - Cardiovascular Reports no additional cardiovascular complaints - Respiratory Reports no additional respiratory complaints - Neurologic Reports weakness [facility] Medical History: Medical History (Last Updated 10/03/20 @ 14:12 by Epi Arnold MD) CVA (cerebral vascular accident) Hepatitis C Hepatocellular carcinoma History of alcohol abuse Liver cirrhosis Tobacco use disorder Family History: Family History (Last Reviewed 10/03/20 @ 14:12 by Epi Arnold MD) Father No problems noted. Mother No problems noted. Family/Other FH: mental illness Surgical History: Surgical History (Last Reviewed 10/03/20 @ 14:12 by Epi Arnold MD) H/O resection of liver Onset Date: ~04/2017 History of splenectomy No pertinent past surgical history Social History: Social History (Last Reviewed 10/03/20 @ 14:12 by Epi Arnold MD) Living Situation History: Household Members Other:: alone Housing: Apartment Are you a primary child care attendant school to a significant other at home: No Alcohol History: Alcohol intake: former Alcohol History Details: Alcohol intake frequency: former alcohol drinker Tobacco History: Patient Tobacco Use Status: Current everyday Tobacco Tobacco use type: Cigarette Smoked in Last 30 Days: Yes Substance Use History: Use of substances other than those prescribed or required for medical reasons : No Domestic Abuse History: Have you been hit, kicked, punched, or otherwise hurt by someone within the past year? If so, by whom?: No Do you feel safe in your current relationship?: No Current Relationship Healthcare Practices: Buddhist Healthcare Practices: sabianist Nutrition Assessment: Recently lost weight without trying: No Nutrition Risks: Poor intake 0-25% >4 days Poor oral hygiene: Yes Occupation Assessmet: service: No Current occupational status: disabled Oncology Screenings - ECOG Performance Status ECOG Performance Status: 3 Home Medications and Allergies Home Medications Medication Instructions Recorded Confirmed Type Esgic 50 - 325 mg PO TID PRN 02/24/20 10/03/20 History melatonin 3 mg PO BEDTIME PRN 04/12/20 10/03/20 History clonazepam 1 mg tablet 1 mg PO TID 10/03/20 10/17/20 History folic acid 1 mg PO DAILY 10/17/20 10/17/20 History Allergies Allergy/AdvReac Type Severity Reaction Status Date / Time No Known Allergies Allergy Verified 10/03/20 14:09 Exam Vital signs: Vital Signs Temp 98.3 F 10/17/20 14:08 Pulse 90 10/17/20 14:08 Resp 14 10/17/20 14:08 BP 112/90 H 10/17/20 14:08 Pulse Ox 94 10/17/20 14:08 Intake & Output 10/16/20 10/17/20 10/17/20 18:59 06:59 18:59 Other: Weight 61.7 kg [place] Weight in Grams [id number] Weight 61.7 kg Body Mass Index 18.9 - Constitutional Present: no acute distress, cachectic, chronically ill appearing - Routine HEENT Exam Head: Present: normal inspection - Routine Neck Exam Absent: lymphadenopathy - Routine Respiratory Exam Present: CTAB - Routine Cardiovascular Exam Cardiovascular: Present: RRR, S1, S2 - Routine Abdominal Exam Present: hernia, normal bowel sounds, soft - Routine Extremities Exam Absent: calf tenderness, pedal edema Data - Labs CBC & Chem 7: 10/17/20 14:54 10/17/20 14:54 Labs: 02/23/20 14:45 Alpha Fetoprotein Routine CEA [Carcinoembryonic Antigen] Routine Complete Blood Count Auto Diff Routine Comprehensive Met. Panel Routine Hep C Viral Load Routine PTT [Partial Thromboplastin Time] Routine SLIDE REVIEW Routine Laboratory Last Values WBC 10.0 X10*3/uL (4.8-10.8) 02/23/20 14:45 RBC 4.80 X10*6/uL (4.60-5.80) 02/23/20 14:45 Hgb 15.8 g/dl (14.0-18.0) 02/23/20 14:45 Hct 47.1 % (42-52) 02/23/20 14:45 MCV 98.1 fL (80-98) H 02/23/20 14:45 MCH 32.9 pg (27.0-33.0) 02/23/20 14:45 MCHC 33.5 g/dl (31.0-36.0) 02/23/20 14:45 RDW 13.6 % (11.0-16.0) 02/23/20 14:45 Plt Count 345 X10*3/uL (160-400) 02/23/20 14:45 MPV 8.8 fL (9.4-12.4) L 02/23/20 14:45 Immature Gran % (Auto) 0.1 % (0.0-0.4) 02/23/20 14:45 Neut % (Auto) 30.1 % (45-73) L 02/23/20 14:45 Lymph % (Auto) 57.3 % (20-40) H 02/23/20 14:45 [place] % (Auto) 7.8 % (2-11) 02/23/20 14:45 Eos % (Auto) 3.8 % (0-4) 02/23/20 14:45 Baso % (Auto) 0.9 % (0-2) 02/23/20 14:45 Lymph # (Auto) 5.7 X10*3/uL (1.2-4.9) H 02/23/20 14:45 [place] # (Auto) 0.8 X10*3/uL (0.1-1.2) 02/23/20 14:45 Eos # (Auto) 0.4 X10*3/uL (0.0-0.4) 02/23/20 14:45 Baso # (Auto) 0.1 X10*3/uL (0.0-0.2) 02/23/20 14:45 Abs Immat Gran (auto) 0.01 X10*3/uL (0.00-0.03) 02/23/20 14:45 Absolute Neuts (auto) 3.0 X10*3/uL (2.0-8.3) 02/23/20 14:45 Absolute Nucleated RBC 0.000 X10*3/uL (0.0-0.012) 02/23/20 14:45 Nucleated RBC % (auto) 0.0 /100WBC (0.0-0.2) 02/23/20 14:45 Smear Tech's Comments VERIFIED 02/23/20 14:45 APTT 40.6 SEC (24.1-38.0) H 02/23/20 14:45 Sodium 140 mmol/L (135-145) 02/23/20 14:45 Potassium 4.9 mmol/l (3.3-5.1) 02/23/20 14:45 Chloride 102 mmol/L (96-108) 02/23/20 14:45 Carbon Dioxide 30 mmol/L (22-29) H 02/23/20 14:45 Anion Gap 13 (12-20) 02/23/20 14:45 BUN 9 mg/dL (9-16) 02/23/20 14:45 Creatinine 0.81 mg/dL (0.5-1.4) 02/23/20 14:45 Estim Creat Clear Calc 98.1 02/23/20 14:45 Estimated GFR > 60 02/23/20 14:45 Random Glucose 93 mg/dL (60-115) 02/23/20 14:45 Calcium 9.7 mg/dL (8.4-10.2) 02/23/20 14:45 Total Bilirubin 0.6 mg/dL (0.0-1.0) 02/23/20 14:45 AST 21 U/L (5-37) 02/23/20 14:45 ALT 10 U/L (0-40) 02/23/20 14:45 Alkaline Phosphatase 179 U/L (39-117) H 02/23/20 14:45 Total Protein 8.0 g/dL (6.5-8.0) 02/23/20 14:45 Albumin 4.1 g/dL (3.5-5.0) 02/23/20 14:45 Alpha Fetoprotein 86.4 ng/mL (<6.1) H 02/23/20 14:45 Carcinoembryonic Ag 1.90 mg/mL 02/23/20 14:45 Hep B Viral Load Log <1.18 NOT DETECTED Log IU/mL (NOT DETECTED) 02/23/20 14:45 Hep C Viral Load <15 NOT DETECTED IU/mL (NOT DETECTED) 02/23/20 14:45 Progress Note: A/P (1) Hepatocellular carcinoma Status: Chronic Assessment and plan: 1. This is a 65-year-old male with history of high-grade hepatocellular carcinoma for which she underwent partial hepatectomy in April 2017. In December 2019, surveillance CT of abdomen revealed multiple new hepatic lesions and persistent slightly prominent upper abdominal lymph nodes without enlargement. Tumor marker alpha-fetoprotein elevated 207, CEA level normal, 1.9. On 03/06/2020 he underwent core biopsy of lesion in the right lobe which revealed fragments of liver parenchyma with chronic hepatitis and mild inflammatory activity with bridging fibrosis. He started lenvatinib 12 mg once daily from 08/14/2020. This was stopped on 10/09/2020 because of severe anorexia and weight loss. He has been recommended inpatient rehab and speech/swallow therapy after admission at [facility] but patient refused this. I have asked him to restart Megace to see if it helps improve his appetite. At this time I have recommended that week discontinued lenvatinib. 2. Chronic pain in abdomen. He is on oxycodone 5 mg Q hours 12 hours p.r.n.. Given his continued clinical deterioration, palliative hospice care will be disc ussed on his next visit. Follow-up in 3 weeks. - Time Spent With Patient Time Spent with Patient (in minutes): 20 Comment: Total time spent with patient was 20 minutes, 15 minutes [id number] and 5 minutes reviewing data.
[2020-10-17 14:56] LABS: MANUAL DIFF FLAG NO
[2020-10-17 15:03] LABS: Basophils Absolute Auto 0.1 X10*3/uL (0.0-0.2); Basophils Percent Auto 0.9 % (0-2); Eosinophils Absolute Auto 0.2 X10*3/uL (0.0-0.4); Eosinophils Percent Auto 2.4 % (0-4); Hematocrit 48.8 % (42-52); Hemoglobin 16.8 g/dl (14.0-18.0); Imm Gran Abs Auto 0.01 X10*3/uL (0.00-0.03); Imm Gran Pct Auto 0.1 % (0.0-0.4); Lymphocytes Absolute Auto 2.5 X10*3/uL (1.2-4.9); Lymphocytes Percent Auto 33.3 % (20-40); Mean Corpuscular HGB Conc 34.4 g/dl (31.0-36.0); Mean Corpuscular Volume 98.8 fL (80-98); Monocytes Absolute Auto 0.8 X10*3/uL (0.1-1.2); Monocytes Percent Auto 10.4 % (2-11); Neutrophils Percent Auto 52.9 % (45-73); Platelet Count 295 X10*3/uL (160-400); Red Blood Count 4.94 X10*6/uL (4.60-5.80); Red Cell Distribution Width 16.1 % (11.0-16.0); White Blood Count 7.5 X10*3/uL (4.8-10.8)
[2020-10-17 15:33] LABS: Alanine Aminotransferase 46 U/L (0-40); Albumin Level 3.3 g/dL (3.5-5.0); Alkaline Phosphatase 225 U/L (39-117); Anion Gap 14 (12-20); Aspartate Amino Transferase 94 U/L (5-37); Bilirubin Total 1.1 mg/dL (0.0-1.0); Blood Urea Nitrogen 14 mg/dL (9-16); Calcium 9.7 mg/dL (8.4-10.2); Carbon Dioxide 26 mmol/L (22-29); Chloride 106 mmol/L (96-108); Creatinine Clr Calc Pharmacy 80.3; Estimated Glomerular Filt Rate > 60; Glucose Random 164 mg/dL (60-115); Sodium 142 mmol/L (135-145); Total Protein 7.5 g/dL (6.5-8.0)
--- NOTE | 2020-10-17 16:19 | MHC.HEMONCMA ---
Patient came in for a follow up, he was admitted to [facility] for 4 days due to weakness. Clinical summary was reviewed and updated. Patient had labs and will return in 1 month for a follow up. Patient is having more trouble now with speech and swallowing- had brain MRI which showed nothing happened and was evaluated by speech therapy.
--- NOTE | 2020-10-27 12:18 | MHC.HEMONC ---
pt is no longer on Lenvima per Dr De Dios. Carina, Specialty Pharmacy rep advised.
--- NOTE | 2020-11-08 10:30 | P.PNHO_ITS ---
Medical Summary - Medical Summary Date of Service: 11/08/20 Chief complaint: Follow-up Medical Summary: Diagnosis: Hepatocellular carcinoma Longstanding history of liver cirrhosis, history of alcoholism and hepatitis-C. 01/13/2018 core biopsy of liver mass performed at [facility], pathology-hepatocellular carcinoma, high-grade. Underwent partial hepatectomy on 04/10/2017. Final pathology showed 2.4 cm HCC confined to the liver. Margins negative. Surveillance CT abdomen with IV contrast performed at [facility] on 12/15/2019 revealed multiple new hypodense lesions throughout liver. 1.2 cm lesion in left hepatic lobe, 1.7 cm lesion in left hepatic lobe, 1.6 cm lesion right hepatic lobe, 9 mm lesion in right hepatic lobe, 1.5 cm lesion in right hepatic lobe. Prior cholecystectomy. Status post splenectomy. This was concerning for recurrent hepatocellular carcinoma, metastatic disease from another primary was also possible. Prominent upper abdominal lymph nodes measuring up to 1.2 cm, not significantly changed from prior exam. Supraumbilical ventral abdominal hernia containing nonobstructed non inflamed loops of small bowel, similar to p rior. Postsurgical changes from prior ventral abdominal herniorrhaphy with mesh. 3 cm infrarenal abdominal aortic aneurysm. Tumor marker alpha-fetoprotein elevated 86.4, CEA level normal, 1.9. On 03/06/2020 he underwent core biopsy of lesion in the right lobe which revealed fragments of liver parenchyma with chronic hepatitis and mild inflammatory activity with bridging fibrosis. MRI abdomen performed 03/28/20 revealed 4 hepatic lesions under 2 cm suspicious for multifocal hepatocellular carcinoma. He was not a candidate for further surgery and based on lymphadenopathy, not an optimal candidate for localized therapies such as RFA or chemoembolization. Systemic therapy with targeted a gents/immunotherapy with atezolizumab 1200 mg q. 3 weeks, bevacizumab 15 mg/kg q. 3 weeks was started 05/10/2020. EGD did not show esophageal varices, there was mild gastritis. He started Systemic therapy with targeted agents/immunotherapy with atezolizumab 1200 mg q. 3 weeks, bevacizumab 15 mg/kg q. 3 weeks on 05/10/2020. He received 5 treatments by end of July 2020. Unfortunately, repeat MRI abdomen showed slight progression with 3 of the 4 lesions increasing in size. Alpha fetoprotein also increased to 287. Interval History Interval history: Patient is here in follow-up. He is feeling better and eating more since he discontinued lenvatinib and is on Megace. He denies any nausea, worsening of abdominal pain, diarrhea or change in bowel habits. He has a chronic hernia that bothers him and he takes oxycodone twice a day. He denies any fever or c hills. He wants to resume treatment for his cancer. Review of Systems - Constitutional Reports as per HPI - Neurologic Reports weakness [facility] Medical History: Medical History (Last Reviewed 11/08/20 @ 10:38 by Bita Mistry) CVA (cerebral vascular accident) Hepatitis C Hepatocellular carcinoma History of alcohol abuse Liver cirrhosis Tobacco use disorder Family History: Family History (Last Reviewed 11/08/20 @ 10:38 by Bita Mistry) Father No problems noted. Mother No problems noted. Family/Other FH: mental illness Surgical History: Surgical History (Last Reviewed 11/08/20 @ 10:38 by Bita Mistry) H/O resection of liver Onset Date: ~04/2017 History of splenectomy No pertinent past surgical history Social History: Social History (Last Updated 11/08/20 @ 10:39 by Bita Mistry) Living Situation History: Household Members Other:: alone Housing: Apartment Are you a primary career center advisor to a significant other at home: No Alcohol History: Alcohol intake: former Alcohol History Details: Alcohol intake frequency: former alcohol drinker Tobacco History: Patient Tobacco Use Status: Current everyday Tobacco Tobacco use type: Cigarette Cigarettes Per Day: 3 Occupation Assessmet: service: No Current occupational status: disabled Oncology Screenings - ECOG Performance Status ECOG Performance Status: 2 Home Medications and Allergies Home Medications Medication Instructions Recorded Confirmed Type Esgic 50 - 325 mg PO TID PRN 02/24/20 11/08/20 History melatonin 3 mg tablet 3 mg PO BEDTIME PRN 04/12/20 11/08/20 History clonazepam 1 mg tablet 1 mg PO TID 10/03/20 11/08/20 History folic acid 1 mg tablet 1 mg PO DAILY 10/17/20 11/08/20 History Allergies Allergy/AdvReac Type Severity Reaction Status Date / Time No Known Allergies Allergy Verified 10/03/20 14:09 Exam Vital signs: Vital Signs Temp 98.3 F 10/17/20 14:08 Pulse 90 10/17/20 14:08 Resp 14 10/17/20 14:08 BP 112/90 H 10/17/20 14:08 Pulse Ox 94 10/17/20 14:08 Weight 61.7 kg Body Mass Index 18.9 - Constitutional Present: no acute distress, cachectic, chronically ill appearing - Routine HEENT Exam Head: Present: normal inspection - Routine Neck Exam Absent: lymphadenopathy - Routine Respiratory Exam Present: CTAB - Routine Cardiovascular Exam Cardiovascular: Present: RRR, S1, S2 - Routine Abdominal Exam Present: hernia, normal bowel sounds, soft - Routine Extremities Exam Absent: calf tenderness, pedal edema Data - Labs CBC & Chem 7: 11/08/20 10:58 11/08/20 10:58 Labs: 02/23/20 14:45 Alpha Fetoprotein Routine CEA [Carcinoembryonic Antigen] Routine Complete Blood Count Auto Diff Routine Comprehensive Met. Panel Routine Hep C Viral Load Routine PTT [Partial Thromboplastin Time] Routine SLIDE REVIEW Routine Laboratory Last Values WBC 10.0 X10*3/uL (4.8-10.8) 02/23/20 14:45 RBC 4.80 X10*6/uL (4.60-5.80) 02/23/20 14:45 Hgb 15.8 g/dl (14.0-18.0) 02/23/20 14:45 Hct 47.1 % (42-52) 02/23/20 14:45 MCV 98.1 fL (80-98) H 02/23/20 14:45 MCH 32.9 pg (27.0-33.0) 02/23/20 14:45 MCHC 33.5 g/dl (31.0-36.0) 02/23/20 14:45 RDW 13.6 % (11.0-16.0) 02/23/20 14:45 Plt Count 345 X10*3/uL (160-400) 02/23/20 14:45 MPV 8.8 fL (9.4-12.4) L 02/23/20 14:45 Immature Gran % (Auto) 0.1 % (0.0-0.4) 02/23/20 14:45 Neut % (Auto) 30.1 % (45-73) L 02/23/20 14:45 Lymph % (Auto) 57.3 % (20-40) H 02/23/20 14:45 [place] % (Auto) 7.8 % (2-11) 02/23/20 14:45 Eos % (Auto) 3.8 % (0-4) 02/23/20 14:45 Baso % (Auto) 0.9 % (0-2) 02/23/20 14:45 Lymph # (Auto) 5.7 X10*3/uL (1.2-4.9) H 02/23/20 14:45 [place] # (Auto) 0.8 X10*3/uL (0.1-1.2) 02/23/20 14:45 Eos # (Auto) 0.4 X10*3/uL (0.0-0.4) 02/23/20 14:45 Baso # (Auto) 0.1 X10*3/uL (0.0-0.2) 02/23/20 14:45 Abs Immat Gran (auto) 0.01 X10*3/uL (0.00-0.03) 02/23/20 14:45 Absolute Neuts (auto) 3.0 X10*3/uL (2.0-8.3) 02/23/20 14:45 Absolute Nucleated RBC 0.000 X10*3/uL (0.0-0.012) 02/23/20 14:45 Nucleated RBC % (auto) 0.0 /100WBC (0.0-0.2) 02/23/20 14:45 Smear Tech's Comments VERIFIED 02/23/20 14:45 APTT 40.6 SEC (24.1-38.0) H 02/23/20 14:45 Sodium 140 mmol/L (135-145) 02/23/20 14:45 Potassium 4.9 mmol/l (3.3-5.1) 02/23/20 14:45 Chloride 102 mmol/L (96-108) 02/23/20 14:45 Carbon Dioxide 30 mmol/L (22-29) H 02/23/20 14:45 Anion Gap 13 (12-20) 02/23/20 14:45 BUN 9 mg/dL (9-16) 02/23/20 14:45 Creatinine 0.81 mg/dL (0.5-1.4) 02/23/20 14:45 Estim Creat Clear Calc 98.1 02/23/20 14:45 Estimated GFR > 60 02/23/20 14:45 Random Glucose 93 mg/dL (60-115) 02/23/20 14:45 Calcium 9.7 mg/dL (8.4-10.2) 02/23/20 14:45 Total Bilirubin 0.6 mg/dL (0.0-1.0) 02/23/20 14:45 AST 21 U/L (5-37) 02/23/20 14:45 ALT 10 U/L (0-40) 02/23/20 14:45 Alkaline Phosphatase 179 U/L (39-117) H 02/23/20 14:45 Total Protein 8.0 g/dL (6.5-8.0) 02/23/20 14:45 Albumin 4.1 g/dL (3.5-5.0) 02/23/20 14:45 Alpha Fetoprotein 86.4 ng/mL (<6.1) H 02/23/20 14:45 Carcinoembryonic Ag 1.90 mg/mL 02/23/20 14:45 Hep B Viral Load Log <1.18 NOT DETECTED Log IU/mL (NOT DETECTED) 02/23/20 14:45 Hep C Viral Load <15 NOT DETECTED IU/mL (NOT DETECTED) 02/23/20 14:45 Progress Note: A/P (1) Hepatocellular carcinoma Status: Chronic Assessment and plan: 1. This is a 65-year-old male with history of high-grade hepatocellular carcinoma for which she underwent partial hepatectomy in April 2017. In December 2019, surveillance CT of abdomen revealed multiple new hepatic lesions and persistent slightly prominent upper abdominal lymph nodes without enlargement. Tumor marker alpha-fetoprotein elevated 207, CEA level normal, 1.9. On 03/06/2020 he underwent core biopsy of lesion in the right lobe which revealed fragments of liver parenchyma with chronic hepatitis and mild inflammatory activity with bridging fibrosis. He started lenvatinib 12 mg once daily from 08/14/2020. This was stopped on 10/09/2020 because of severe anorexia and weight loss. He has been recommended inpatient rehab and speech/swallow therapy after admission at [facility] but patient refused this. He is on Megace. He is doing better now and wants to resume treatment for his liver cancer. He will be tried on immunotherapy again, nivolumab a single agent therapy will be administered starting next week. I discussed possible immune mediated toxicity, which can affect any organ system. He is willing to proceed with treatment. 2. Chronic pain in abdomen. He is on oxycodone 5 mg Q hours 12 hours p.r.n.. Follow-up in 3 weeks. - Time Spent With Patient Time Spent with Patient (in minutes): 20
[2020-11-08 10:37] VITALS: BP 116/68; PULSE 88; RESP 14; TEMP 36.7; O2SAT 94; BMI 20.9
[2020-11-08 11:12] LABS: MANUAL DIFF FLAG NO
[2020-11-08 11:16] LABS: Basophils Absolute Auto 0.1 X10*3/uL (0.0-0.2); Eosinophils Absolute Auto 0.5 X10*3/uL (0.0-0.4); Eosinophils Percent Auto 5.6 % (0-4); Hematocrit 40.6 % (42-52); Hemoglobin 14.1 g/dl (14.0-18.0); Imm Gran Abs Auto 0.01 X10*3/uL (0.00-0.03); Imm Gran Pct Auto 0.1 % (0.0-0.4); Lymphocytes Absolute Auto 4.4 X10*3/uL (1.2-4.9); Lymphocytes Percent Auto 47.5 % (20-40); Mean Corpuscular HGB Conc 34.7 g/dl (31.0-36.0); Mean Corpuscular Hemoglobin 34.8 pg (27.0-33.0); Mean Corpuscular Volume 100.2 fL (80-98); Mean Platelet Volume 9.3 fL (9.4-12.4); Monocytes Absolute Auto 0.9 X10*3/uL (0.1-1.2); Monocytes Percent Auto 9.1 % (2-11); Neutrophils Absolute Auto 3.4 X10*3/uL (2.0-8.3); Neutrophils Percent Auto 36.7 % (45-73); Platelet Count 375 X10*3/uL (160-400); Red Blood Count 4.05 X10*6/uL (4.60-5.80); Red Cell Distribution Width 16.6 % (11.0-16.0); White Blood Count 9.4 X10*3/uL (4.8-10.8)
[2020-11-08 11:54] LABS: Alanine Aminotransferase 54 U/L (0-40); Albumin Level 3.5 g/dL (3.5-5.0); Alkaline Phosphatase 309 U/L (39-117); Anion Gap 13 (12-20); Aspartate Amino Transferase 77 U/L (5-37); Bilirubin Total 0.6 mg/dL (0.0-1.0); Blood Urea Nitrogen 17 mg/dL (9-16); Calcium 9.6 mg/dL (8.4-10.2); Carbon Dioxide 26 mmol/L (22-29); Chloride 109 mmol/L (96-108); Creatinine Clr Calc Pharmacy 109.2; Estimated Glomerular Filt Rate > 60; Glucose Random 105 mg/dL (60-115); Potassium 5.2 mmol/L (3.3-5.1); Sodium 143 mmol/L (135-145); Total Protein 7.3 g/dL (6.5-8.0)
--- NOTE | 2020-11-08 14:39 | MHC.HEMONCMA ---
Patient came in for an onc follow up, states that he is doing well. Maximino has gained some weight, and says he is using the patch to stop smoking and is only smoking 3 cigarettes a day. Clinical summary was reviewed and updated. Patient had labs and will return Friday for treatment. He is also scheduled for an abdomen/pelvis CT for Friday at 8am. His microbiology lab manager is aware.
[2020-11-15 09:40] VITALS: BP 105/67; PULSE 72; RESP 14; TEMP 36.4; O2SAT 96; BMI 20.9
[2020-11-15 10:15] LABS: MANUAL DIFF FLAG NO
[2020-11-15 10:19] LABS: Basophils Absolute Auto 0.1 X10*3/uL (0.0-0.2); Eosinophils Absolute Auto 0.4 X10*3/uL (0.0-0.4); Eosinophils Percent Auto 3.8 % (0-4); Hematocrit 40.3 % (42-52); Imm Gran Abs Auto 0.02 X10*3/uL (0.00-0.03); Imm Gran Pct Auto 0.2 % (0.0-0.4); Lymphocytes Absolute Auto 4.6 X10*3/uL (1.2-4.9); Lymphocytes Percent Auto 49.4 % (20-40); Mean Corpuscular HGB Conc 34.7 g/dl (31.0-36.0); Mean Corpuscular Volume 100.8 fL (80-98); Mean Platelet Volume 9.3 fL (9.4-12.4); Monocytes Percent Auto 10.5 % (2-11); Neutrophils Absolute Auto 3.2 X10*3/uL (2.0-8.3); Neutrophils Percent Auto 35.1 % (45-73); Platelet Count 382 X10*3/uL (160-400); Red Cell Distribution Width 15.9 % (11.0-16.0); White Blood Count 9.2 X10*3/uL (4.8-10.8)
[2020-11-15 11:28] LABS: Alanine Aminotransferase 47 U/L (0-40); Albumin Level 3.6 g/dL (3.5-5.0); Alkaline Phosphatase 293 U/L (39-117); Anion Gap 12 (12-20); Aspartate Amino Transferase 70 U/L (5-37); Bilirubin Direct 0.3 mg/dL (0.0-0.5); Bilirubin Total 0.6 mg/dL (0.0-1.0); Blood Urea Nitrogen 16 mg/dL (9-16); Calcium 9.9 mg/dL (8.4-10.2); Carbon Dioxide 26 mmol/L (22-29); Chloride 107 mmol/L (96-108); Creatinine Clr Calc Pharmacy 98.5; Estimated Glomerular Filt Rate > 60; Glucose Random 90 mg/dL (60-115); Potassium 5.1 mmol/L (3.3-5.1); Sodium 140 mmol/L (135-145); Total Protein 7.3 g/dL (6.5-8.0)
[2020-11-15] MEDS: diphenhydrAMINE HCL 25 MG TABLET PO (12:04)
[2020-11-15] MEDS: Ondansetron ODT 8 MG TAB.RAPDIS TRANSLINGU (12:04)
[2020-11-15] MEDS: Famotidine/PF 20 MG/2 ML VIAL IVPUSH (12:05)
--- NOTE | 2020-11-15 13:37 | MHC.HEMONC ---
C1 DAY 1: NIVOLUMAB well tolerated. No complaints at this time. VSS. Labs obtained and reviewed. #24 to left lower arm with positive blood return. Patient to return in 2 weeks for treatment.
[2020-11-15 14:36] LABS: Thyroid Stimulating Hormone 3.75 uIU/mL (0.32-4.0)
[2020-11-29 09:21] LABS: Basophils Absolute Auto 0.1 X10*3/uL (0.0-0.2); Eosinophils Absolute Auto 0.6 X10*3/uL (0.0-0.4); Eosinophils Percent Auto 6.1 % (0-4); Hematocrit 40.9 % (42-52); Hemoglobin 14.3 g/dl (14.0-18.0); Imm Gran Abs Auto 0.02 X10*3/uL (0.00-0.03); Imm Gran Pct Auto 0.2 % (0.0-0.4); Lymphocytes Absolute Auto 5.1 X10*3/uL (1.2-4.9); MANUAL DIFF FLAG SCAN; Mean Corpuscular Volume 100.2 fL (80-98); Monocytes Percent Auto 9.6 % (2-11); Neutrophils Absolute Auto 3.5 X10*3/uL (2.0-8.3); Neutrophils Percent Auto 34.1 % (45-73); Platelet Count 288 X10*3/uL (160-400); Red Blood Count 4.08 X10*6/uL (4.60-5.80); Red Cell Distribution Width 14.4 % (11.0-16.0); SCAN SMEAR FLAG 1; White Blood Count 10.3 X10*3/uL (4.8-10.8)
[2020-11-29 09:23] VITALS: BP 148/90; PULSE 89; RESP 18; TEMP 36.2; O2SAT 98; BMI 20.9
[2020-11-29 09:40] LABS: SLIDE REVIEW VERIFIED
[2020-11-29 09:51] LABS: Alanine Aminotransferase 28 U/L (0-40); Albumin Level 3.8 g/dL (3.5-5.0); Alkaline Phosphatase 248 U/L (39-117); Anion Gap 12 (12-20); Aspartate Amino Transferase 36 U/L (5-37); Bilirubin Direct 0.3 mg/dL (0.0-0.5); Bilirubin Total 0.6 mg/dL (0.0-1.0); Blood Urea Nitrogen 20 mg/dL (9-16); Calcium 9.9 mg/dL (8.4-10.2); Carbon Dioxide 26 mmol/L (22-29); Chloride 108 mmol/L (96-108); Creatinine Clr Calc Pharmacy 96.1; Estimated Glomerular Filt Rate > 60; Glucose Random 108 mg/dL (60-115); Potassium 4.6 mmol/L (3.3-5.1); Sodium 141 mmol/L (135-145); Total Protein 7.5 g/dL (6.5-8.0)
[2020-11-29] MEDS: diphenhydrAMINE HCL 25 MG TABLET PO (10:06)
[2020-11-29] MEDS: Famotidine/PF 20 MG/2 ML VIAL IVPUSH (10:07)
[2020-11-29] MEDS: Ondansetron ODT 8 MG TAB.RAPDIS TRANSLINGU (10:07)
--- NOTE | 2020-11-29 15:15 | MHC.HEMONC ---
Patient in for Nivolumab Cycle 2. Patient requested a stretcher for treatment. IV placed in R lower arm. Labs drawn and reviewed. Pre-medications administered. Nivolumab administered after blood return was confirmed in IV. Patient tolerated it well. IV discontinued. Next appointment scheduled for 12/13/20. Patient was picked up by caregiver Ana at the conclusion of the visit. Next appointment 12/13/20.
[2020-12-13 08:56] VITALS: BP 150/76; PULSE 86; RESP 18; TEMP 36.6; O2SAT 97; BMI 21.8
[2020-12-13 10:11] LABS: MANUAL DIFF FLAG NO
[2020-12-13 10:14] LABS: Basophils Absolute Auto 0.1 X10*3/uL (0.0-0.2); Basophils Percent Auto 1.1 % (0-2); Eosinophils Absolute Auto 0.6 X10*3/uL (0.0-0.4); Eosinophils Percent Auto 6.5 % (0-4); Hematocrit 38.5 % (42-52); Hemoglobin 13.1 g/dl (14.0-18.0); Imm Gran Abs Auto 0.02 X10*3/uL (0.00-0.03); Imm Gran Pct Auto 0.2 % (0.0-0.4); Lymphocytes Absolute Auto 4.2 X10*3/uL (1.2-4.9); Lymphocytes Percent Auto 49.1 % (20-40); Mean Corpuscular Hemoglobin 34.8 pg (27.0-33.0); Mean Corpuscular Volume 102.4 fL (80-98); Mean Platelet Volume 8.9 fL (9.4-12.4); Monocytes Absolute Auto 0.8 X10*3/uL (0.1-1.2); Monocytes Percent Auto 9.9 % (2-11); Neutrophils Absolute Auto 2.8 X10*3/uL (2.0-8.3); Neutrophils Percent Auto 33.2 % (45-73); Platelet Count 309 X10*3/uL (160-400); Red Blood Count 3.76 X10*6/uL (4.60-5.80); Red Cell Distribution Width 13.6 % (11.0-16.0); White Blood Count 8.5 X10*3/uL (4.8-10.8)
[2020-12-13 10:31] LABS: Alanine Aminotransferase 17 U/L (0-40); Albumin Level 3.5 g/dL (3.5-5.0); Alkaline Phosphatase 201 U/L (39-117); Anion Gap 13 (12-20); Aspartate Amino Transferase 30 U/L (5-37); Bilirubin Direct 0.2 mg/dL (0.0-0.5); Bilirubin Total 0.4 mg/dL (0.0-1.0); Blood Urea Nitrogen 19 mg/dL (9-16); Calcium 9.5 mg/dL (8.4-10.2); Carbon Dioxide 24 mmol/L (22-29); Chloride 109 mmol/L (96-108); Creatinine Clr Calc Pharmacy 108.9; Estimated Glomerular Filt Rate > 60; Glucose Random 100 mg/dL (60-115); Potassium 4.3 mmol/L (3.3-5.1); Sodium 142 mmol/L (135-145); Total Protein 6.7 g/dL (6.5-8.0)
[2020-12-13 10:51] LABS: Thyroid Stimulating Hormone 2.88 uIU/mL (0.32-4.0)
[2020-12-13] MEDS: Famotidine/PF 20 MG/2 ML VIAL IVPUSH (11:45)
[2020-12-13] MEDS: Ondansetron ODT 8 MG TAB.RAPDIS TRANSLINGU (11:47)
[2020-12-13] MEDS: diphenhydrAMINE HCL 25 MG TABLET PO (11:47)
--- NOTE | 2020-12-13 13:09 | P.PNHO_ITS ---
Medical Summary - Medical Summary Date of Service: 12/13/20 Chief complaint: Follow-up and scheduled treatment Medical Summary: Diagnosis: Hepatocellular carcinoma Longstanding history of liver cirrhosis, history of alcoholism and hepatitis-C. 01/13/2018 core biopsy of liver mass performed at [facility], pathology-hepatocellular carcinoma, high-grade. Underwent partial hepatectomy on 04/10/2017. Final pathology showed 2.4 cm HCC confined to the liver. Margins negative. Surveillance CT abdomen with IV contrast performed at [facility] on 12/15/2019 re vealed multiple new hypodense lesions throughout liver. 1.2 cm lesion in left hepatic lobe, 1.7 cm lesion in left hepatic lobe, 1.6 cm lesion right hepatic lobe, 9 mm lesion in right hepatic lobe, 1.5 cm lesion in right hepatic lobe. Prior cholecystectomy. Status post splenectomy. This was concerning for recurrent hepatocellular carcinoma, metastatic disease from another primary was also possible. Prominent upper abdominal lymph nodes measuring up to 1.2 cm, not significantly changed from prior exam. Supraumbilical ventral abdominal hernia containing nonobstructed non inflamed loops of small bowel, similar to prior. Postsurgical changes from prior ventral abdominal herniorrhaphy with mesh. 3 cm infrarenal abdominal aortic aneurysm. Tumor marker alpha-fetoprotein elevated 86.4, CEA level normal, 1.9. On 03/06/2020 he underwent core biopsy of lesion in the right lobe which revea led fragments of liver parenchyma with chronic hepatitis and mild inflammatory activity with bridging fibrosis. MRI abdomen performed 03/28/20 revealed 4 hepatic lesions under 2 cm suspicious for multifocal hepatocellular carcinoma. He was not a candidate for further surgery and based on lymphadenopathy, not an optimal candidate for localized therapies such as RFA or chemoembolization. Systemic therapy with targeted agents/immunotherapy with atezolizumab 1200 mg q. 3 weeks, bevacizumab 15 mg/kg q. 3 weeks was started 05/10/2020. EGD did not show esophageal varices, there was mild gastritis. He started Systemic therapy with targeted agents/immunotherapy with atezolizumab 1200 mg q. 3 weeks, bevacizumab 15 mg/kg q. 3 weeks on 05/10/2020. He received 5 treatments by end of July 2020. Unfortunately, repeat MRI abdomen showed slight progression with 3 of the 4 lesions increasing in size. Alpha fetoprotein also increased to 287. Interval History Interval history: Patient is here in follow-up. He is doing a lot better, his pain is well controlled. His appetite is good and he has gained some weight. He denies any complaints such as nausea, emesis, chest pain, shortness of breath, diarrhea or constipation. No cough. Review of Systems - Neurologic Reports weakness [facility] Medical History: Medical History (Last Reviewed 11/15/20 @ 09:42 by Bita Mistry) CVA (cerebral vascular accident) Hepatitis C Hepatocellular carcinoma History of alcohol abuse Liver cirrhosis Tobacco use disorder Family History: Family History (Last Reviewed 11/15/20 @ 09:42 by Bita Mistry) Father No problems noted. Mother No problems noted. Family/Other FH: mental illness Surgical History: Surgical History (Last Reviewed 11/15/20 @ 09:42 by Bita Mistry) H/O resection of liver Onset Date: ~04/2017 History of splenectomy No pertinent past surgical history Social History: Social History (Last Reviewed 11/15/20 @ 09:42 by Bita Mistry) Living Situation History: Household Members Other:: alone Housing: Apartment Are you a primary laboratory animal care veterinarian to a significant other at home: No Alcohol History: Alcohol intake: former Alcohol History Details: Alcohol intake frequency: former alcohol drinker Tobacco History: Patient Tobacco Use Status: Current everyday Tobacco Tobacco use type: Cigarette Smoked in Last 30 Days: Yes Substance Use History: Use of substances other than those prescribed or required for medical reasons : No Domestic Abuse History: Have you been hit, kicked, punched, or otherwise hurt by someone within the past year? If so, by whom?: No Do you feel safe in your current relationship?: No Current Relationship Healthcare Practices: Restorationist Healthcare Practices: orthodox Nutrition Assessment: Recently lost weight without trying: No Nutrition Risks: Poor intake 0-25% >4 days Poor oral hygiene: Yes Occupation Assessmet: service: No Current occupational status: disabled Oncology Screenings - ECOG Performance Status ECOG Performance Status: 1 Home Medications and Allergies Current Medications: Current Medications Generic Name Dose Route Start Last Admin Trade Name Freq PRN Reason Stop Dose Admin Diphenhydramine HCl 25 mg 12/13/20 00:00 12/13/20 11:47 Diphenhydramine Hcl 25 Mg Tablet PO 12/13/20 23:59 25 mg ONCE RATNA Administration Famotidine 20 mg 12/13/20 00:00 12/13/20 11:45 Famotidine/Pf 20 Mg/2 Ml Vial IVPUSH 12/13/20 23:59 20 mg ONCE RATNA Administration Heparin Sodium (Porcine) 500 unit 12/13/20 00:00 Heparin Sodium,Porcine Flush 500 Unit/5 Ml Syringe IVFLUSH 12/13/20 23:59 ONCE ONE Nivolumab 240 mg/ Sodium 124 mls @ 248 mls/hr 12/13/20 00:00 12/13/20 12:53 Chloride IV 12/13/20 23:59 248 mls/hr ONCE RATNA Administration Ondansetron HCl 8 mg 12/13/20 00:00 12/13/20 11:47 Ondansetron Odt 8 Mg Tab.Rapdis TRANSLINGU 12/13/20 23:59 8 mg ONCE RATNA Administration Home Medications Medication Instructions Recorded Confirmed Type Esgic 50 - 325 mg PO TID PRN 02/24/20 11/29/20 History melatonin 3 mg tablet 3 mg PO BEDTIME PRN 04/12/20 11/29/20 History clonazepam 1 mg tablet 1 mg PO TID 10/03/20 11/29/20 History Allergies Allergy/AdvReac Type Severity Reaction Status Date / Time No Known Allergies Allergy Verified 10/03/20 14:09 Exam Vital signs: Vital Signs Temp 97.8 F 12/13/20 08:56 Pulse 86 12/13/20 08:56 Resp 18 12/13/20 08:56 BP 150/76 H 12/13/20 08:56 Pulse Ox 97 12/13/20 08:56 Intake & Output 12/12/20 12/13/20 12/13/20 18:59 06:59 18:59 Other: Weight 71.1 kg [place] Weight in Grams [id number] Weight 71.1 kg Body Mass Index 21.8 - Constitutional Present: no acute distress, cachectic, chronically ill appearing - Routine HEENT Exam Head: Present: normal inspection - Routine Neck Exam Absent: lymphadenopathy - Routine Respiratory Exam Present: CTAB - Routine Cardiovascular Exam Cardiovascular: Present: RRR, S1, S2 - Routine Abdominal Exam Present: hernia, normal bowel sounds, soft - Routine Extremities Exam Absent: calf tenderness, pedal edema Data - Labs CBC & Chem 7: 12/13/20 09:58 12/13/20 09:58 Labs: 02/23/20 14:45 Alpha Fetoprotein Routine CEA [Carcinoembryonic Antigen] Routine Complete Blood Count Auto Diff Routine Comprehensive Met. Panel Routine Hep C Viral Load Routine PTT [Partial Thromboplastin Time] Routine SLIDE REVIEW Routine Laboratory Last Values WBC 10.0 X10*3/uL (4.8-10.8) 02/23/20 14:45 RBC 4.80 X10*6/uL (4.60-5.80) 02/23/20 14:45 Hgb 15.8 g/dl (14.0-18.0) 02/23/20 14:45 Hct 47.1 % (42-52) 02/23/20 14:45 MCV 98.1 fL (80-98) H 02/23/20 14:45 MCH 32.9 pg (27.0-33.0) 02/23/20 14:45 MCHC 33.5 g/dl (31.0-36.0) 02/23/20 14:45 RDW 13.6 % (11.0-16.0) 02/23/20 14:45 Plt Count 345 X10*3/uL (160-400) 02/23/20 14:45 MPV 8.8 fL (9.4-12.4) L 02/23/20 14:45 Immature Gran % (Auto) 0.1 % (0.0-0.4) 02/23/20 14:45 Neut % (Auto) 30.1 % (45-73) L 02/23/20 14:45 Lymph % (Auto) 57.3 % (20-40) H 02/23/20 14:45 [place] % (Auto) 7.8 % (2-11) 02/23/20 14:45 Eos % (Auto) 3.8 % (0-4) 02/23/20 14:45 Baso % (Auto) 0.9 % (0-2) 02/23/20 14:45 Lymph # (Auto) 5.7 X10*3/uL (1.2-4.9) H 02/23/20 14:45 [place] # (Auto) 0.8 X10*3/uL (0.1-1.2) 02/23/20 14:45 Eos # (Auto) 0.4 X10*3/uL (0.0-0.4) 02/23/20 14:45 Baso # (Auto) 0.1 X10*3/uL (0.0-0.2) 02/23/20 14:45 Abs Immat Gran (auto) 0.01 X10*3/uL (0.00-0.03) 02/23/20 14:45 Absolute Neuts (auto) 3.0 X10*3/uL (2.0-8.3) 02/23/20 14:45 Absolute Nucleated RBC 0.000 X10*3/uL (0.0-0.012) 02/23/20 14:45 Nucleated RBC % (auto) 0.0 /100WBC (0.0-0.2) 02/23/20 14:45 Smear Tech's Comments VERIFIED 02/23/20 14:45 APTT 40.6 SEC (24.1-38.0) H 02/23/20 14:45 Sodium 140 mmol/L (135-145) 02/23/20 14:45 Potassium 4.9 mmol/l (3.3-5.1) 02/23/20 14:45 Chloride 102 mmol/L (96-108) 02/23/20 14:45 Carbon Dioxide 30 mmol/L (22-29) H 02/23/20 14:45 Anion Gap 13 (12-20) 02/23/20 14:45 BUN 9 mg/dL (9-16) 02/23/20 14:45 Creatinine 0.81 mg/dL (0.5-1.4) 02/23/20 14:45 Estim Creat Clear Calc 98.1 02/23/20 14:45 Estimated GFR > 60 02/23/20 14:45 Random Glucose 93 mg/dL (60-115) 02/23/20 14:45 Calcium 9.7 mg/dL (8.4-10.2) 02/23/20 14:45 Total Bilirubin 0.6 mg/dL (0.0-1.0) 02/23/20 14:45 AST 21 U/L (5-37) 02/23/20 14:45 ALT 10 U/L (0-40) 02/23/20 14:45 Alkaline Phosphatase 179 U/L (39-117) H 02/23/20 14:45 Total Protein 8.0 g/dL (6.5-8.0) 02/23/20 14:45 Albumin 4.1 g/dL (3.5-5.0) 02/23/20 14:45 Alpha Fetoprotein 86.4 ng/mL (<6.1) H 02/23/20 14:45 Carcinoembryonic Ag 1.90 mg/mL 02/23/20 14:45 Hep B Viral Load Log <1.18 NOT DETECTED Log IU/mL (NOT DETECTED) 02/23/20 14:45 Hep C Viral Load <15 NOT DETECTED IU/mL (NOT DETECTED) 02/23/20 14:45 Assessment and Plan Patient Active problem list reviewed?: Yes (1) Hepatocellular carcinoma Status: Chronic Assessment and plan: 1. This is a 65-year-old male with history of high-grade hepatocellular carcinoma for which she underwent partial hepatectomy in April 2017. In December 2019, surveillance CT of abdomen revealed multiple new hepatic lesions and persistent slightly prominent upper abdominal lymph nodes without enlargement. Tumor marker alpha-fetoprotein elevated 207, CEA level normal, 1.9. On 05/06/2019 he underwent core biopsy of lesion in the right lobe which revealed fragments of liver parenchyma with chronic hepatitis and mild inflammatory activity with bridging fibrosis. He started lenvatinib 12 mg once daily from 08/14/2020. This was stopped on 10/09/2020 because of severe anorexia and weight loss. He started nivolumab a single agent therapy in November 2020. He is doing better, liver function tests are coming down and he has gained weight. Proceed with cycle 3 today. His last imaging was 11/13/2020. Repeat scans in February. 2. Chronic pain in abdomen. He is on oxycodone 5 mg Q hours 12 hours p.r.n.. Follow-up in 3 weeks. - Time Spent With Patient Time Spent with Patient (in minutes): 15
--- NOTE | 2020-12-13 16:12 | MHC.HEMONC ---
Patient here for Cycle 7 Day 1 Nivolumab. Labs drawn by phlebotomy. IV placed in left lower arm. Patient reports belly aches and headaches, most of the time. Lab results reviewed- okay to receive treatment today. Patient pre-medicated with Zofran and Benadryl PO, and Pepcid 20mg IV. Nivolumab given as ordered and patient tolerated it well. Positive blood return in IV both pre and post chemotherapy infusion. IV discontinued with catheter intact. Dr De Dios met with Maximino today. Next infusion scheduled for 12/27/2020. Discharge packet given. Patient departed the unit with caregiver.
[2020-12-15 07:36] LABS: Alpha Fetoprotein 531.3 ng/mL (<6.1)
[2020-12-27 09:32] LABS: MANUAL DIFF FLAG NO
[2020-12-27 09:40] LABS: Basophils Absolute Auto 0.1 X10*3/uL (0.0-0.2); Basophils Percent Auto 0.9 % (0-2); Eosinophils Absolute Auto 0.5 X10*3/uL (0.0-0.4); Eosinophils Percent Auto 5.6 % (0-4); Hematocrit 38.9 % (42-52); Hemoglobin 13.2 g/dl (14.0-18.0); Imm Gran Abs Auto 0.02 X10*3/uL (0.00-0.03); Imm Gran Pct Auto 0.2 % (0.0-0.4); Lymphocytes Percent Auto 52.4 % (20-40); Mean Corpuscular HGB Conc 33.9 g/dl (31.0-36.0); Mean Corpuscular Volume 103.2 fL (80-98); Monocytes Absolute Auto 0.9 X10*3/uL (0.1-1.2); Monocytes Percent Auto 9.8 % (2-11); Neutrophils Percent Auto 31.1 % (45-73); Platelet Count 323 X10*3/uL (160-400); Red Blood Count 3.77 X10*6/uL (4.60-5.80); Red Cell Distribution Width 13.2 % (11.0-16.0); White Blood Count 9.5 X10*3/uL (4.8-10.8)
[2020-12-27 10:01] LABS: Alanine Aminotransferase 22 U/L (0-40); Albumin Level 3.8 g/dL (3.5-5.0); Alkaline Phosphatase 210 U/L (39-117); Anion Gap 12 (12-20); Aspartate Amino Transferase 33 U/L (5-37); Bilirubin Direct 0.2 mg/dL (0.0-0.5); Bilirubin Total 0.3 mg/dL (0.0-1.0); Blood Urea Nitrogen 18 mg/dL (9-16); Calcium 10.1 mg/dL (8.4-10.2); Carbon Dioxide 25 mmol/L (22-29); Chloride 110 mmol/L (96-108); Creatinine Clr Calc Pharmacy 102.8; Estimated Glomerular Filt Rate > 60; Glucose Random 69 mg/dL (60-115); Potassium 5.8 mmol/L (3.3-5.1); Sodium 141 mmol/L (135-145); Total Protein 7.4 g/dL (6.5-8.0)
[2020-12-27 10:18] VITALS: BP 140/81; PULSE 80; RESP 20; TEMP 37.3; O2SAT 98; BMI 22.4
[2020-12-27 10:29] LABS: Thyroid Stimulating Hormone 3.13 uIU/mL (0.32-4.0)
[2020-12-27] MEDS: Famotidine/PF 20 MG/2 ML VIAL IVPUSH (11:32)
[2020-12-27] MEDS: Ondansetron ODT 8 MG TAB.RAPDIS TRANSLINGU (11:34)
[2020-12-27] MEDS: diphenhydrAMINE HCL 25 MG TABLET PO (11:34)
[2020-12-27] MEDS: Lactulose 20 GM/30 ML SOLUTION 30 GM PO (11:37)
--- NOTE | 2020-12-27 15:49 | MHC.HEMONC ---
Pt here for C4 D1 of Nivolumab. States feels good, offers no c/o. Labs drawn and reviewed. Potassium 5.8, reported to Dr De Dios. Order for Lactulose, which was given. IV start to right forearm. Premeds given as ordered. Nivolumab infused and tolerated well. Scheduled to return in 2 weeks for next treatment.
[2021-01-10 09:15] VITALS: BP 133/75; PULSE 106; RESP 18; TEMP 36.7; O2SAT 98; BMI 22.2
[2021-01-10 09:58] LABS: MANUAL DIFF FLAG NO
[2021-01-10 10:01] LABS: Basophils Absolute Auto 0.1 X10*3/uL (0.0-0.2); Eosinophils Absolute Auto 0.5 X10*3/uL (0.0-0.4); Eosinophils Percent Auto 8.4 % (0-4); Hematocrit 38.7 % (42-52); Hemoglobin 13.4 g/dl (14.0-18.0); Imm Gran Abs Auto 0.01 X10*3/uL (0.00-0.03); Imm Gran Pct Auto 0.2 % (0.0-0.4); Lymphocytes Absolute Auto 2.4 X10*3/uL (1.2-4.9); Mean Corpuscular HGB Conc 34.6 g/dl (31.0-36.0); Mean Corpuscular Hemoglobin 35.1 pg (27.0-33.0); Mean Corpuscular Volume 101.3 fL (80-98); Mean Platelet Volume 8.6 fL (9.4-12.4); Monocytes Absolute Auto 0.7 X10*3/uL (0.1-1.2); Monocytes Percent Auto 11.4 % (2-11); Neutrophils Absolute Auto 2.4 X10*3/uL (2.0-8.3); Platelet Count 307 X10*3/uL (160-400); Red Blood Count 3.82 X10*6/uL (4.60-5.80); Red Cell Distribution Width 12.7 % (11.0-16.0); White Blood Count 6.1 X10*3/uL (4.8-10.8)
--- NOTE | 2021-01-10 10:23 | P.PNHO_ITS ---
Medical Summary - Medical Summary Date of Service: 01/10/21 Chief complaint: Follow-up Medical Summary: Diagnosis: Hepatocellular carcinoma Longstanding history of liver cirrhosis, history of alcoholism and hepatitis-C. 01/13/2018 core biopsy of liver mass performed at [facility], pathology-hepatocellular carcinoma, high-grade. Underwent partial hepatectomy on 04/10/2017. Final pathology showed 2.4 cm HCC confined to the liver. Margins negative. Surveillance CT abdomen with IV contrast performed at [facility] on 12/15/2019 revealed multiple new hypodense lesions throughout liver. 1.2 cm lesion in left hepatic lobe, 1.7 cm lesion in left hepatic lobe, 1.6 cm lesion right hepatic lobe, 9 mm lesion in right hepatic lobe, 1.5 cm lesion in right hepatic lobe. Prior cholecystectomy. Status post splenectomy. This was concerning for recurrent hepatocellular carcinoma, metastatic disease from another primary was also possible. Prominent upper abdominal lymph nodes measuring up to 1.2 cm, not significantly changed from prior exam. Supraumbilical ventral abdominal hernia containing nonobstructed non inflamed loops of small bowel, similar to p rior. Postsurgical changes from prior ventral abdominal herniorrhaphy with mesh. 3 cm infrarenal abdominal aortic aneurysm. Tumor marker alpha-fetoprotein elevated 86.4, CEA level normal, 1.9. On 03/06/2020 he underwent core biopsy of lesion in the right lobe which revealed fragments of liver parenchyma with chronic hepatitis and mild inflammatory activity with bridging fibrosis. MRI abdomen performed 03/28/20 revealed 4 hepatic lesions under 2 cm suspicious for multifocal hepatocellular carcinoma. He was not a candidate for further surgery and based on lymphadenopathy, not an optimal candidate for localized therapies such as RFA or chemoembolization. Systemic therapy with targeted a gents/immunotherapy with atezolizumab 1200 mg q. 3 weeks, bevacizumab 15 mg/kg q. 3 weeks was started 05/10/2020. EGD did not show esophageal varices, there was mild gastritis. He started Systemic therapy with targeted agents/immunotherapy with atezolizumab 1200 mg q. 3 weeks, bevacizumab 15 mg/kg q. 3 weeks on 05/10/2020. He received 5 treatments by end of July 2020. Unfortunately, repeat MRI abdomen showed slight progression with 3 of the 4 lesions increasing in size. Alpha fetoprotein also increased to 287. Interval History Interval history: Patient is here in follow-up and scheduled treatment. He is doing well and has no complaints today His appetite is good and he has gained some weight. He denies any complaints such as nausea, emesis, chest pain, shortness of breath, diarrhea or constipation. Review of Systems - Constitutional Reports as per HPI, Reports no additional constitutional complaints - Cardiovascular Reports no additional cardiovascular complaints - Respiratory Reports no additional respiratory complaints - Neurologic Reports weakness [facility], [facility] Medical History: Medical History (Last Reviewed 01/02/21 @ 10:27 by MARCO Navarro) CVA (cerebral vascular accident) Hepatitis C Hepatocellular carcinoma History of alcohol abuse Liver cirrhosis Tobacco use disorder Family History: Family History (Last Reviewed 01/02/21 @ 10:28 by MARCO Navarro) Father No problems noted. Mother No problems noted. Family/Other FH: mental illness Surgical History: Surgical History (Last Reviewed 01/02/21 @ 10:27 by MARCO Navarro) H/O resection of liver Onset Date: ~04/2017 History of splenectomy No pertinent past surgical history Social History: Social History (Last Reviewed 01/02/21 @ 10:28 by MARCO Navarro) Living Situation History: Household Members Other:: alone Housing: Apartment Are you a primary managed care manager to a significant other at home: No Alcohol History: Alcohol intake: former Alcohol History Details: Alcohol intake frequency: former alcohol drinker Tobacco History: Patient Tobacco Use Status: Current everyday Tobacco Tobacco use type: Cigarette Smoked in Last 30 Days: Yes Substance Use History: Use of substances other than those prescribed or required for medical reasons : No Domestic Abuse History: Have you been hit, kicked, punched, or otherwise hurt by someone within the past year? If so, by whom?: No Do you feel safe in your current relationship?: No Current Relationship Healthcare Practices: Christian Healthcare Practices: adventism Nutrition Assessment: Recently lost weight without trying: No Nutrition Risks: Poor intake 0-25% >4 days Poor oral hygiene: Yes Occupation Assessmet: service: No Current occupational status: disabled Oncology Screenings - ECOG Performance Status ECOG Performance Status: 1 Home Medications and Allergies Current Medications: Current Medications Diphenhydramine HCl (Diphenhydramine Hcl 25 Mg Tablet) 25 mg PO ONCE RATNA Stop: 01/10/21 23:59 Famotidine (Famotidine/Pf 20 Mg/2 Ml Vial) 20 mg IVPUSH ONCE RATNA Stop: 01/10/21 23:59 Heparin Sodium (Porcine) (Heparin Sodium,Porcine Flush 500 Unit/5 Ml Syringe) 500 unit IVFLUSH ONCE ONE Stop: 01/10/21 23:59 Ondansetron HCl (Ondansetron Odt 8 Mg Tab.Rapdis) 8 mg TRANSLINGU ONCE RATNA Stop: 01/10/21 23:59 Home Medications Medication Instructions Recorded Confirmed Type Esgic 50 - 325 mg PO TID PRN 02/24/20 01/02/21 History clonazepam 1 mg tablet 1 mg PO TID 10/03/20 01/02/21 History Allergies Allergy/AdvReac Type Severity Reaction Status Date / Time No Known Allergies Allergy Verified 01/02/21 10:25 Exam Vital signs: Vital Signs Temp 98.1 F 01/10/21 09:15 Pulse 106 H 01/10/21 09:15 Resp 18 01/10/21 09:15 BP 133/75 01/10/21 09:15 Pulse Ox 98 01/10/21 09:15 Intake & Output 01/09/21 01/10/21 01/10/21 18:59 06:59 18:59 Other: Weight 72.3 kg Weight in Grams 64743 Weight 72.3 kg Body Mass Index 22.2 - Constitutional Present: no acute distress, cachectic, chronically ill appearing - Routine HEENT Exam Head: Present: normal inspection - Routine Neck Exam Absent: lymphadenopathy - Routine Respiratory Exam Present: CTAB - Routine Cardiovascular Exam Cardiovascular: Present: RRR, S1, S2 - Routine Abdominal Exam Present: hernia, normal bowel sounds, soft - Routine Extremities Exam Absent: calf tenderness, pedal edema Data - Labs CBC & Chem 7: 01/10/21 09:47 01/10/21 09:47 Labs: 02/23/20 14:45 Alpha Fetoprotein Routine CEA [Carcinoembryonic Antigen] Routine Complete Blood Count Auto Diff Routine Comprehensive Met. Panel Routine Hep C Viral Load Routine PTT [Partial Thromboplastin Time] Routine SLIDE REVIEW Routine Laboratory Last Values WBC 10.0 X10*3/uL (4.8-10.8) 02/23/20 14:45 RBC 4.80 X10*6/uL (4.60-5.80) 02/23/20 14:45 Hgb 15.8 g/dl (14.0-18.0) 02/23/20 14:45 Hct 47.1 % (42-52) 02/23/20 14:45 MCV 98.1 fL (80-98) H 02/23/20 14:45 MCH 32.9 pg (27.0-33.0) 02/23/20 14:45 MCHC 33.5 g/dl (31.0-36.0) 02/23/20 14:45 RDW 13.6 % (11.0-16.0) 02/23/20 14:45 Plt Count 345 X10*3/uL (160-400) 02/23/20 14:45 MPV 8.8 fL (9.4-12.4) L 02/23/20 14:45 Immature Gran % (Auto) 0.1 % (0.0-0.4) 02/23/20 14:45 Neut % (Auto) 30.1 % (45-73) L 02/23/20 14:45 Lymph % (Auto) 57.3 % (20-40) H 02/23/20 14:45 [place] % (Auto) 7.8 % (2-11) 02/23/20 14:45 Eos % (Auto) 3.8 % (0-4) 02/23/20 14:45 Baso % (Auto) 0.9 % (0-2) 02/23/20 14:45 Lymph # (Auto) 5.7 X10*3/uL (1.2-4.9) H 02/23/20 14:45 [place] # (Auto) 0.8 X10*3/uL (0.1-1.2) 02/23/20 14:45 Eos # (Auto) 0.4 X10*3/uL (0.0-0.4) 02/23/20 14:45 Baso # (Auto) 0.1 X10*3/uL (0.0-0.2) 02/23/20 14:45 Abs Immat Gran (auto) 0.01 X10*3/uL (0.00-0.03) 02/23/20 14:45 Absolute Neuts (auto) 3.0 X10*3/uL (2.0-8.3) 02/23/20 14:45 Absolute Nucleated RBC 0.000 X10*3/uL (0.0-0.012) 02/23/20 14:45 Nucleated RBC % (auto) 0.0 /100WBC (0.0-0.2) 02/23/20 14:45 Smear Tech's Comments VERIFIED 02/23/20 14:45 APTT 40.6 SEC (24.1-38.0) H 02/23/20 14:45 Sodium 140 mmol/L (135-145) 02/23/20 14:45 Potassium 4.9 mmol/l (3.3-5.1) 02/23/20 14:45 Chloride 102 mmol/L (96-108) 02/23/20 14:45 Carbon Dioxide 30 mmol/L (22-29) H 02/23/20 14:45 Anion Gap 13 (12-20) 02/23/20 14:45 BUN 9 mg/dL (9-16) 02/23/20 14:45 Creatinine 0.81 mg/dL (0.5-1.4) 02/23/20 14:45 Estim Creat Clear Calc 98.1 02/23/20 14:45 Estimated GFR > 60 02/23/20 14:45 Random Glucose 93 mg/dL (60-115) 02/23/20 14:45 Calcium 9.7 mg/dL (8.4-10.2) 02/23/20 14:45 Total Bilirubin 0.6 mg/dL (0.0-1.0) 02/23/20 14:45 AST 21 U/L (5-37) 02/23/20 14:45 ALT 10 U/L (0-40) 02/23/20 14:45 Alkaline Phosphatase 179 U/L (39-117) H 02/23/20 14:45 Total Protein 8.0 g/dL (6.5-8.0) 02/23/20 14:45 Albumin 4.1 g/dL (3.5-5.0) 02/23/20 14:45 Alpha Fetoprotein 86.4 ng/mL (<6.1) H 02/23/20 14:45 Carcinoembryonic Ag 1.90 mg/mL 02/23/20 14:45 Hep B Viral Load Log <1.18 NOT DETECTED Log IU/mL (NOT DETECTED) 02/23/20 14:45 Hep C Viral Load <15 NOT DETECTED IU/mL (NOT DETECTED) 02/23/20 14:45 Assessment and Plan Patient Active problem list reviewed?: Yes (1) Hepatocellular carcinoma Status: Chronic Assessment and plan: 1. This is a 65-year-old male with history of high-grade hepatocellular carcinoma for which she underwent partial hepatectomy in April 2017. In December 2019, surveillance CT of abdomen revealed multiple new hepatic lesions and persistent slightly prominent upper abdominal lymph nodes without e nlargement. Tumor marker alpha-fetoprotein elevated 207, CEA level normal, 1.9. On 03/06/2020 he underwent core biopsy of lesion in the right lobe which revealed fragments of liver parenchyma with chronic hepatitis and mild inflammatory activity with bridging fibrosis. He started lenvatinib 12 mg once daily from 08/14/2020. This was stopped on 10/09/2020 because of severe anorexia and weight loss. He started nivolumab a single agent therapy in November 2020. He is doing better, liver function tests are coming down and he has gained weight. Proceed with cycle 4 today. His last imaging was 11/13/2020. Repeat scans in February. 2. Chronic pain in abdomen. He is on oxycodone 5 mg Q hours 12 hours p.r.n.. Follow-up in 3 weeks. - Time Spent With Patient Time Spent with Patient (in minutes): 15
[2021-01-10 10:25] LABS: Alanine Aminotransferase 23 U/L (0-40); Albumin Level 3.6 g/dL (3.5-5.0); Alkaline Phosphatase 206 U/L (39-117); Anion Gap 11 (12-20); Aspartate Amino Transferase 36 U/L (5-37); Bilirubin Direct 0.2 mg/dL (0.0-0.5); Bilirubin Total 0.4 mg/dL (0.0-1.0); Blood Urea Nitrogen 10 mg/dL (9-16); Calcium 9.3 mg/dL (8.4-10.2); Carbon Dioxide 24 mmol/L (22-29); Chloride 107 mmol/L (96-108); Creatinine Clr Calc Pharmacy 95.3; Estimated Glomerular Filt Rate > 60; Glucose Random 112 mg/dL (60-115); Potassium 3.3 mmol/L (3.3-5.1); Sodium 139 mmol/L (135-145); Total Protein 7.1 g/dL (6.5-8.0)
[2021-01-10] MEDS: Ondansetron ODT 8 MG TAB.RAPDIS TRANSLINGU (10:38)
[2021-01-10] MEDS: Famotidine/PF 20 MG/2 ML VIAL IVPUSH (10:38)
[2021-01-10] MEDS: diphenhydrAMINE HCL 25 MG TABLET PO (10:38)
[2021-01-10 10:46] LABS: Thyroid Stimulating Hormone 2.09 uIU/mL (0.32-4.0)
--- NOTE | 2021-01-10 13:07 | MHC.HEMONC ---
cycle 5 nivolumab patient saira. well f/u in 2 weeks.
[2021-01-24 09:22] LABS: MANUAL DIFF FLAG NO
[2021-01-24 09:31] LABS: Basophils Absolute Auto 0.1 X10*3/uL (0.0-0.2); Basophils Percent Auto 0.9 % (0-2); Eosinophils Absolute Auto 0.6 X10*3/uL (0.0-0.4); Eosinophils Percent Auto 6.3 % (0-4); Hematocrit 39.5 % (42-52); Hemoglobin 13.2 g/dl (14.0-18.0); Imm Gran Abs Auto 0.01 X10*3/uL (0.00-0.03); Imm Gran Pct Auto 0.1 % (0.0-0.4); Lymphocytes Absolute Auto 4.9 X10*3/uL (1.2-4.9); Lymphocytes Percent Auto 52.7 % (20-40); Mean Corpuscular HGB Conc 33.4 g/dl (31.0-36.0); Mean Corpuscular Hemoglobin 33.9 pg (27.0-33.0); Mean Corpuscular Volume 101.5 fL (80-98); Mean Platelet Volume 8.5 fL (9.4-12.4); Monocytes Absolute Auto 0.8 X10*3/uL (0.1-1.2); Monocytes Percent Auto 8.4 % (2-11); Neutrophils Absolute Auto 2.9 X10*3/uL (2.0-8.3); Neutrophils Percent Auto 31.6 % (45-73); Platelet Count 360 X10*3/uL (160-400); Red Blood Count 3.89 X10*6/uL (4.60-5.80); Red Cell Distribution Width 12.4 % (11.0-16.0); White Blood Count 9.3 X10*3/uL (4.8-10.8)
[2021-01-24 09:43] LABS: Alanine Aminotransferase 25 U/L (0-40); Albumin Level 3.7 g/dL (3.5-5.0); Alkaline Phosphatase 246 U/L (39-117); Anion Gap 12 (12-20); Aspartate Amino Transferase 41 U/L (5-37); Bilirubin Direct 0.2 mg/dL (0.0-0.5); Bilirubin Total 0.7 mg/dL (0.0-1.0); Blood Urea Nitrogen 15 mg/dL (9-16); Calcium 9.5 mg/dL (8.4-10.2); Carbon Dioxide 24 mmol/L (22-29); Chloride 108 mmol/L (96-108); Creatinine Clr Calc Pharmacy 101.7; Estimated Glomerular Filt Rate > 60; Glucose Random 83 mg/dL (60-115); Potassium 4.3 mmol/L (3.3-5.1); Sodium 140 mmol/L (135-145); Total Protein 7.5 g/dL (6.5-8.0)
[2021-01-24 10:02] LABS: Thyroid Stimulating Hormone 2.44 uIU/mL (0.32-4.0)
[2021-01-24] MEDS: Famotidine/PF 20 MG/2 ML VIAL IVPUSH (10:28)
[2021-01-24] MEDS: diphenhydrAMINE HCL 25 MG TABLET PO (10:28)
[2021-01-24] MEDS: Ondansetron ODT 8 MG TAB.RAPDIS TRANSLINGU (10:28)
--- NOTE | 2021-01-24 15:36 | MHC.HEMONC ---
Patient here for Cycle 7 Day 1 Nivolumab. Labs drawn by phlebotomy. IV placed in right lower arm. Lab results reviewed- okay to receive treatment today. Patient pre-medicated with Zofran and Benadryl PO, and Pepcid 20mg IV. Nivolumab given as ordered and patient tolerated it well. Positive blood return in IV both pre and post chemotherapy infusion. IV discontinued with catheter intact. Dr De Dios to meet with Maximino at next visit to discuss disease. Next infusion scheduled for 02/07/2021. Discharge packet given. Patient departed the unit with caregiver.
[2021-01-26 11:17] LABS: Alpha Fetoprotein 797.1 ng/mL (<6.1)
--- NOTE | 2021-02-05 08:24 | MHC.HEMONCMA ---
Dr De Dios ordered CT of abdomen/pelvis. I placed this order in order spool cleaner.
[2021-02-07 09:24] LABS: MANUAL DIFF FLAG NO
[2021-02-07 09:29] LABS: Basophils Absolute Auto 0.1 X10*3/uL (0.0-0.2); Basophils Percent Auto 0.7 % (0-2); Eosinophils Absolute Auto 0.5 X10*3/uL (0.0-0.4); Eosinophils Percent Auto 5.1 % (0-4); Hematocrit 40.6 % (42.0-52.0); Hemoglobin 13.5 g/dl (14.0-18.0); Imm Gran Abs Auto 0.02 X10*3/uL (0.00-0.03); Imm Gran Pct Auto 0.2 % (0.0-0.4); Mean Corpuscular HGB Conc 33.3 g/dl (31.0-36.0); Mean Corpuscular Hemoglobin 33.5 pg (27.0-33.0); Mean Corpuscular Volume 100.7 fL (80.0-98.0); Mean Platelet Volume 8.5 fL (9.4-12.4); Monocytes Absolute Auto 0.8 X10*3/uL (0.1-1.2); Monocytes Percent Auto 8.5 % (2-11); Neutrophils Absolute Auto 3.35 x10*3/uL (2.0-8.3); Neutrophils Percent Auto 34.5 % (45-73); Platelet Count 342 X10*3/uL (160-400); Red Blood Count 4.03 X10*6/uL (4.60-5.80); Red Cell Distribution Width 12.2 % (11.0-16.0); White Blood Count 9.7 X10*3/uL (4.8-10.8)
[2021-02-07 09:52] VITALS: BP 143/79; PULSE 85; RESP 18; TEMP 36.4; O2SAT 98; BMI 22.1
[2021-02-07 09:57] LABS: Alanine Aminotransferase 23 U/L (0-40); Albumin Level 3.8 g/dL (3.5-5.0); Alkaline Phosphatase 216 U/L (39-117); Anion Gap 11 (12-20); Aspartate Amino Transferase 40 U/L (5-37); Bilirubin Direct 0.2 mg/dL (0.0-0.5); Bilirubin Total 0.5 mg/dL (0.0-1.0); Blood Urea Nitrogen 16 mg/dL (9-16); Calcium 9.9 mg/dL (8.4-10.2); Carbon Dioxide 28 mmol/L (22-29); Chloride 107 mmol/L (96-108); Creatinine Clr Calc Pharmacy 92.7; Estimated Glomerular Filt Rate > 60; Glucose Random 112 mg/dL (60-115); Potassium 4.9 mmol/L (3.3-5.1); Sodium 141 mmol/L (135-145); Total Protein 7.5 g/dL (6.5-8.0)
[2021-02-07 10:17] LABS: Thyroid Stimulating Hormone 1.94 uIU/mL (0.32-4.0)
[2021-02-07] MEDS: Ondansetron ODT 8 MG TAB.RAPDIS TRANSLINGU (10:34)
[2021-02-07] MEDS: diphenhydrAMINE HCL 25 MG TABLET PO (10:34)
[2021-02-07] MEDS: Famotidine/PF 20 MG/2 ML VIAL IVPUSH (10:34)
--- NOTE | 2021-02-07 11:55 | MHC.HEMONC ---
Call to bin Chacon at to inform her that Maximino will be going to Radiology for a CT Scan at 2:30 after his chemotherapy. Ana asked to give Radiology her phone # when Maximino is done with his CT Scan.
--- NOTE | 2021-02-07 13:25 | P.PNHO_ITS ---
Medical Summary - Medical Summary Date of Service: 02/07/21 Chief complaint: Follow-up Medical Summary: Diagnosis: Hepatocellular carcinoma Longstanding history of liver cirrhosis, history of alcoholism and hepatitis-C. 01/13/2018 core biopsy of liver mass performed at [facility], pathology-hepatocellular carcinoma, high-grade. Underwent partial hepatectomy on 04/10/2017. Final pathology showed 2.4 cm HCC confined to the liver. Margins negative. Surveillance CT abdomen with IV contrast performed at [facility] on 12/15/2019 revealed multiple new hypodense lesions throughout liver. 1.2 cm lesion in left hepatic lobe, 1.7 cm lesion in left hepatic lobe, 1.6 cm lesion right hepatic lobe, 9 mm lesion in right hepatic lobe, 1.5 cm lesion in right hepatic lobe. Prior cholecystectomy. Status post splenectomy. This was concerning for recurrent hepatocellular carcinoma, metastatic disease from another primary was also possible. Prominent upper abdominal lymph nodes measuring up to 1.2 cm, not significantly changed from prior exam. Supraumbilical ventral abdominal hernia containing nonobstructed non inflamed loops of small bowel, similar to p rior. Postsurgical changes from prior ventral abdominal herniorrhaphy with mesh. 3 cm infrarenal abdominal aortic aneurysm. Tumor marker alpha-fetoprotein elevated 86.4, CEA level normal, 1.9. On 03/06/2020 he underwent core biopsy of lesion in the right lobe which revealed fragments of liver parenchyma with chronic hepatitis and mild inflammatory activity with bridging fibrosis. MRI abdomen performed 03/28/20 revealed 4 hepatic lesions under 2 cm suspicious for multifocal hepatocellular carcinoma. He was not a candidate for further surgery and based on lymphadenopathy, not an optimal candidate for localized therapies such as RFA or chemoembolization. Systemic therapy with targeted a gents/immunotherapy with atezolizumab 1200 mg q. 3 weeks, bevacizumab 15 mg/kg q. 3 weeks was started 05/10/2020. EGD did not show esophageal varices, there was mild gastritis. He started Systemic therapy with targeted agents/immunotherapy with atezolizumab 1200 mg q. 3 weeks, bevacizumab 15 mg/kg q. 3 weeks on 05/10/2020. He received 5 treatments by end of July 2020. Unfortunately, repeat MRI abdomen showed slight progression with 3 of the 4 lesions increasing in size. Alpha fetoprotein also increased to 287. Interval History Interval history: Patient is here in follow-up and scheduled treatment. He is doing well, her reports persistent right upper quadrant pain. His appetite is stable and he denies weight loss. No other complaints such as nausea, emesis, chest pain, shortness of breath, diarrhea or constipation. He wants to know if his treatm ent is working. He is aware that he is scheduled for CT abdomen today. He is tolerating treatment well without any significant side effects. Review of Systems - Constitutional Denies anorexia, Denies chills, Reports fatigue, Reports lack of energy, Denies weight loss - Cardiovascular Denies chest pain, Denies excessive sweating, Denies fast heart rate, Denies foot swelling - Respiratory Denies cough, Denies dyspnea - Gastrointestinal Reports no additional gastrointestinal complaints, Reports change in stools, Denies diarrhea - Neurologic Reports weakness PMFSH Medical History: Medical History (Last Reviewed 01/02/21 @ 10:27 by MARCO Navarro) CVA (cerebral vascular accident) Hepatitis C Hepatocellular carcinoma History of alcohol abuse Liver cirrhosis Tobacco use disorder Family History: Family History (Last Reviewed 01/02/21 @ 10:28 by MARCO Navarro) Father No problems noted. Mother No problems noted. Family/Other FH: mental illness Surgical History: Surgical History (Last Reviewed 01/02/21 @ 10:27 by MARCO Navarro) H/O resection of liver Onset Date: ~04/2017 History of splenectomy No pertinent past surgical history Social History: Social History (Last Reviewed 01/02/21 @ 10:28 by MARCO Navarro) Living Situation History: Household Members Other:: alone Housing: Apartment Are you a primary career development facilitator to a significant other at home: No Alcohol History: Alcohol intake: former Alcohol History Details: Alcohol intake frequency: former alcohol drinker Tobacco History: Patient Tobacco Use Status: Current everyday Tobacco Tobacco use type: Cigarette Smoked in Last 30 Days: Yes Substance Use History: Use of substances other than those prescribed or required for medical reasons : No Domestic Abuse History: Have you been hit, kicked, punched, or otherwise hurt by someone within the past year? If so, by whom?: No Do you feel safe in your current relationship?: No Current Relationship Healthcare Practices: Zoroastrian Healthcare Practices: gnosticism Nutrition Assessment: Recently lost weight without trying: No Nutrition Risks: Poor intake 0-25% >4 days Poor oral hygiene: Yes Occupation Assessmet: service: No Current occupational status: disabled Oncology Screenings - ECOG Performance Status ECOG Performance Status: 1 Home Medications and Allergies Current Medications: Current Medications Diphenhydramine HCl (Diphenhydramine Hcl 25 Mg Tablet) 25 mg PO ONCE RATNA Stop: 02/07/21 23:59 Last Admin: 02/07/21 10:34 Dose: 25 mg Documented by: Famotidine (Famotidine/Pf 20 Mg/2 Ml Vial) 20 mg IVPUSH ONCE RATNA Stop: 02/07/21 23:59 Last Admin: 02/07/21 10:34 Dose: 20 mg Documented by: Heparin Sodium (Porcine) (Heparin Sodium,Porcine Flush 500 Unit/5 Ml Syringe) 500 unit IVFLUSH ONCE ONE Stop: 02/07/21 23:59 Nivolumab 240 mg/ Sodium (Chloride) 124 mls @ 248 mls/hr IV ONCE RATNA Stop: 02/07/21 23:59 Last Infusion: 02/07/21 12:58 Dose: Infused Documented by: Ondansetron HCl (Ondansetron Odt 8 Mg Tab.Rapdis) 8 mg TRANSLINGU ONCE RATNA Stop: 02/07/21 23:59 Last Admin: 02/07/21 10:34 Dose: 8 mg Documented by: Home Medications Medication Instructions Recorded Confirmed Type clonazepam 1 mg tablet 1 mg PO TID 10/03/20 02/07/21 History Allergies Allergy/AdvReac Type Severity Reaction Status Date / Time No Known Allergies Allergy Verified 01/02/21 10:25 Exam Vital signs: Vital Signs Temp 97.6 F 02/07/21 09:52 Pulse 85 02/07/21 09:52 Resp 18 02/07/21 09:52 BP 143/79 H 02/07/21 09:52 Pulse Ox 98 02/07/21 09:52 Intake & Output 02/06/21 02/07/21 02/07/21 18:59 06:59 18:59 Intake Total 124 / 124 Balance 124 / 124 Intake: Intake, IV Amount 124 / 124 Nivolumab 240 mg In 0.9 % 124 / 124 Sodium Chloride 100 ml @ 248 mls/hr IV ONCE RATNA Rx#: [id number] Other: Weight 72.1 kg Weight in Grams 21320 Weight 72.1 kg Body Mass Index 22.1 - Constitutional Present: no acute distress, cachectic, chronically ill appearing - Routine HEENT Exam Head: Present: normal inspection - Routine Neck Exam Absent: lymphadenopathy - Routine Respiratory Exam Present: CTAB - Routine Cardiovascular Exam Cardiovascular: Present: RRR, S1, S2 - Routine Abdominal Exam Present: hernia, normal bowel sounds, soft - Routine Extremities Exam Absent: calf tenderness, pedal edema Data - Labs CBC & Chem 7: 02/07/21 09:22 02/07/21 09:22 Labs: 02/23/20 14:45 Alpha Fetoprotein Routine CEA [Carcinoembryonic Antigen] Routine Complete Blood Count Auto Diff Routine Comprehensive Met. Panel Routine Hep C Viral Load Routine PTT [Partial Thromboplastin Time] Routine SLIDE REVIEW Routine Laboratory Last Values WBC 10.0 X10*3/uL (4.8-10.8) 02/23/20 14:45 RBC 4.80 X10*6/uL (4.60-5.80) 02/23/20 14:45 Hgb 15.8 g/dl (14.0-18.0) 02/23/20 14:45 Hct 47.1 % (42-52) 02/23/20 14:45 MCV 98.1 fL (80-98) H 02/23/20 14:45 MCH 32.9 pg (27.0-33.0) 02/23/20 14:45 MCHC 33.5 g/dl (31.0-36.0) 02/23/20 14:45 RDW 13.6 % (11.0-16.0) 02/23/20 14:45 Plt Count 345 X10*3/uL (160-400) 02/23/20 14:45 MPV 8.8 fL (9.4-12.4) L 02/23/20 14:45 Immature Gran % (Auto) 0.1 % (0.0-0.4) 02/23/20 14:45 Neut % (Auto) 30.1 % (45-73) L 02/23/20 14:45 Lymph % (Auto) 57.3 % (20-40) H 02/23/20 14:45 [place] % (Auto) 7.8 % (2-11) 02/23/20 14:45 Eos % (Auto) 3.8 % (0-4) 02/23/20 14:45 Baso % (Auto) 0.9 % (0-2) 02/23/20 14:45 Lymph # (Auto) 5.7 X10*3/uL (1.2-4.9) H 02/23/20 14:45 [place] # (Auto) 0.8 X10*3/uL (0.1-1.2) 02/23/20 14:45 Eos # (Auto) 0.4 X10*3/uL (0.0-0.4) 02/23/20 14:45 Baso # (Auto) 0.1 X10*3/uL (0.0-0.2) 02/23/20 14:45 Abs Immat Gran (auto) 0.01 X10*3/uL (0.00-0.03) 02/23/20 14:45 Absolute Neuts (auto) 3.0 X10*3/uL (2.0-8.3) 02/23/20 14:45 Absolute Nucleated RBC 0.000 X10*3/uL (0.0-0.012) 02/23/20 14:45 Nucleated RBC % (auto) 0.0 /100WBC (0.0-0.2) 02/23/20 14:45 Smear Tech's Comments VERIFIED 02/23/20 14:45 APTT 40.6 SEC (24.1-38.0) H 02/23/20 14:45 Sodium 140 mmol/L (135-145) 02/23/20 14:45 Potassium 4.9 mmol/l (3.3-5.1) 02/23/20 14:45 Chloride 102 mmol/L (96-108) 02/23/20 14:45 Carbon Dioxide 30 mmol/L (22-29) H 02/23/20 14:45 Anion Gap 13 (12-20) 02/23/20 14:45 BUN 9 mg/dL (9-16) 02/23/20 14:45 Creatinine 0.81 mg/dL (0.5-1.4) 02/23/20 14:45 Estim Creat Clear Calc 98.1 02/23/20 14:45 Estimated GFR > 60 02/23/20 14:45 Random Glucose 93 mg/dL (60-115) 02/23/20 14:45 Calcium 9.7 mg/dL (8.4-10.2) 02/23/20 14:45 Total Bilirubin 0.6 mg/dL (0.0-1.0) 02/23/20 14:45 AST 21 U/L (5-37) 02/23/20 14:45 ALT 10 U/L (0-40) 02/23/20 14:45 Alkaline Phosphatase 179 U/L (39-117) H 02/23/20 14:45 Total Protein 8.0 g/dL (6.5-8.0) 02/23/20 14:45 Albumin 4.1 g/dL (3.5-5.0) 02/23/20 14:45 Alpha Fetoprotein 86.4 ng/mL (<6.1) H 02/23/20 14:45 Carcinoembryonic Ag 1.90 mg/mL 02/23/20 14:45 Hep B Viral Load Log <1.18 NOT DETECTED Log IU/mL (NOT DETECTED) 02/23/20 14:45 Hep C Viral Load <15 NOT DETECTED IU/mL (NOT DETECTED) 02/23/20 14:45 Assessment and Plan Patient Active problem list reviewed?: Yes (1) Hepatocellular carcinoma Status: Chronic Assessment and plan: 1. This is a 65-year-old male with history of high-grade hepatocellular carcinoma for which she underwent partial hepatectomy in April 2017. In December 2019, surveillance CT of abdomen revealed multiple new hepatic lesions and persistent slightly prominent upper abdominal lymph nodes without enlargement. Tumor marker alpha-fetoprotein elevated 207, CEA level normal, 1.9. On 03/06/2020 he underwent core biopsy of lesion in the right lobe which revealed fragments of liver parenchyma with chronic hepatitis and mild inflammatory activity with bridging fibrosis. He started lenvatinib 12 mg once daily from 08/14/2020. This was stopped on 10/09/2020 because of severe anorexia and weight loss. He started nivolumab a single agent therapy in November 2020. Although he is doing better clinically, his tumor marker continues to rise, last AFP level 797 NG/mL. CT abdomen/pelvis with contrast is scheduled for 02/07/2021. If he has progressive disease, his treatment will be switched to Regorafinib. Fortunately, he is still a Child Garcia score A, hopefully he should be able to tolerate it. 2. Chronic pain in abdomen. He was on oxycodone 5 mg Q hours 12 hours p.r.n.. He wants to switch this to Percocet as he feels oxycodone alone is not helping him enough. Percocet 5/325 p.o. b.i.d. has been prescribed. Follow-up in 3 weeks. - Time Spent With Patient Time Spent with Patient (in minutes): 15
--- NOTE | 2021-02-07 15:46 | MHC.HEMONC ---
Patient here for Cycle 7 Day 1 Nivolumab. Labs drawn by phlebotomy. IV placed in left lower arm. Lab results reviewed - okay to receive treatment today. Patient pre-medicated with Zofran and Benadryl PO, and Pepcid IV. Nivolumab given as ordered and patient tolerated it well. Positive blood return in IV both pre and post chemotherapy infusion. Patient reported that he is not sleeping d/t generalized pain and requested something to help. Dr De Dios informed. Patient transferred to Radiology via wheelchair for CT scan. Left PIV remained in place per request of Joao in CT scan, he stated that they would d/c it after the scan is complete. Radiology informed to call caregiver Ana (phone # provided) when Maximino is done and she will come and pick him up. Next infusion scheduled for 02/21/2021. Discharge packet given.
--- NOTE | 2021-02-12 15:22 | MHC.HEMONC ---
PT. CAME INTO THE DEPT. AROUND 12:25pm ASKING FOR DR. MUNOZ TO WRITE HIM A LETTER THAT HIS CHEMOTHERAPY IS MAKING HIM IMPAIRED. DR MUNOZ TOLD ME TO INFORM PT. THAT SHE IS NOT ABLE TO WRITE THE LETTER. SHE WOULD BE TALKING TO HIS PSYCHIATRIST. I CALLED PT, AND NOTIFIED GUME(FINANCIAL OFFICER/CONTACT) WHO ASSISTS PATIENT. GUME WAS GOING TO NOTIFY PATIENT.
--- NOTE | 2021-02-14 09:52 | MHC.HEMONC ---
Info given to Carina Rees on Stivarga. Pt will not get infusion any longer due to progression. Ana aware.
--- NOTE | 2021-02-15 11:19 | MHC.HEMONC ---
spoke to Ana, pt assistant program director. She was told that Maximino will have delivery of Stivarga through [facility]. Carina has been incolved and PA approved. Ana knows that she should call us when pt receives so he can come in for education. She will tell him that he will not start it until then. Pt will be starting on only 80mg per day for 1st cycle per Dr De Dios.
--- NOTE | 2021-02-21 12:44 | MHC.HEMONC ---
Ana called to say that Maximino received his Stivarga as scheuled today. I made appt for teaching next week. He will need weekly labs and I made f/u appt with Dr De Dios later next month. He will bring his pills in so that we can go over them.
[2021-02-27 13:42] VITALS: BP 138/73; PULSE 76; RESP 18; TEMP 36.6; O2SAT 97; BMI 22.2
--- NOTE | 2021-02-27 14:37 | MHC.HEMONC ---
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 He had baseline labs drawn but not until nearly done with teaching. I will review as pt scheduled to start his Stivarga tomorrow morning. Both he and Ana are aware that he will start on 80mg per day vs 160mg (per rx) daily to minimize side effects and see how he tolerates for c#1. He will be 3 weeks on followed by one week off. He knows he will take in the morning following low fat breakfast. he and Ana were given copies of drug info by [facility]. Ana will stay with him tomorrow after first dose is taken. He knows s/sx to report, fever, chills, signs of dehydration or sickness. He will return weekly for labs and see Dr De Dios in one month. Maximino signed informed consent and stated I want to try this medicine and am ready.
[2021-02-27 14:42] LABS: Basophils Absolute Auto 0.1 X10*3/uL (0.0-0.2); Basophils Percent Auto 0.7 % (0-2); Eosinophils Absolute Auto 0.3 X10*3/uL (0.0-0.4); Eosinophils Percent Auto 3.4 % (0-4); Hematocrit 40.5 % (42.0-52.0); Hemoglobin 13.4 g/dl (14.0-18.0); Imm Gran Abs Auto 0.02 X10*3/uL (0.00-0.03); Imm Gran Pct Auto 0.2 % (0.0-0.4); Lymphocytes Absolute Auto 3.8 X10*3/uL (1.2-4.9); Lymphocytes Percent Auto 44.5 % (20-40); MANUAL DIFF FLAG NO; Mean Corpuscular HGB Conc 33.1 g/dl (31.0-36.0); Mean Corpuscular Hemoglobin 32.8 pg (27.0-33.0); Mean Platelet Volume 8.6 fL (9.4-12.4); Monocytes Absolute Auto 0.7 X10*3/uL (0.1-1.2); Monocytes Percent Auto 7.6 % (2-11); Neutrophils Absolute Auto 3.7 x10*3/uL (2.0-8.3); Neutrophils Percent Auto 43.6 % (45-73); Platelet Count 402 X10*3/uL (160-400); Red Blood Count 4.09 X10*6/uL (4.60-5.80); Red Cell Distribution Width 12.6 % (11.0-16.0); White Blood Count 8.6 X10*3/uL (4.8-10.8)
[2021-02-27 15:11] LABS: Alanine Aminotransferase 32 U/L (0-40); Albumin Level 3.8 g/dL (3.5-5.0); Alkaline Phosphatase 282 U/L (39-117); Anion Gap 14 (12-20); Aspartate Amino Transferase 41 U/L (5-37); Bilirubin Total 0.2 mg/dL (0.0-1.0); Blood Urea Nitrogen 16 mg/dL (9-16); Carbon Dioxide 25 mmol/L (22-29); Chloride 107 mmol/L (96-108); Creatinine Clr Calc Pharmacy 97.9; Estimated Glomerular Filt Rate > 60; Glucose Random 102 mg/dL (60-115); Sodium 141 mmol/L (135-145); Total Protein 7.8 g/dL (6.5-8.0)
[2021-03-05 12:06] LABS: Alpha Fetoprotein 1471.7 ng/mL (<6.1)
--- NOTE | 2021-03-06 11:45 | MHC.HEMONC ---
Ana called today to say that Maximino is c/o abdominal pain and this is a side effect that she read about from Stivarga. He is only taking 1/2 dose as instructed per Dr De Dios. His pain, per Maximino is the same pain he had prior to starting the rx. It is in my liver like before . I advised he take his Percocet as ordered and we will see him for labs tomorrow and evaluate. He is comfortable with the plan.
[2021-03-07 13:49] LABS: Hematocrit 44.1 % (42.0-52.0); Mean Corpuscular Hemoglobin 33.5 pg (27.0-33.0); Mean Corpuscular Volume 98.4 fL (80.0-98.0); Mean Platelet Volume 8.6 fL (9.4-12.4); Platelet Count 366 X10*3/uL (160-400); Red Blood Count 4.48 X10*6/uL (4.60-5.80); Red Cell Distribution Width 12.5 % (11.0-16.0); White Blood Count 10.8 X10*3/uL (4.8-10.8)
[2021-03-07 14:07] LABS: Alanine Aminotransferase 29 U/L (0-40); Alkaline Phosphatase 289 U/L (39-117); Anion Gap 12 (12-20); Aspartate Amino Transferase 49 U/L (5-37); Bilirubin Total 0.6 mg/dL (0.0-1.0); Blood Urea Nitrogen 14 mg/dL (9-16); Calcium 9.7 mg/dL (8.4-10.2); Carbon Dioxide 26 mmol/L (22-29); Chloride 105 mmol/L (96-108); Creatinine Clr Calc Pharmacy 90.8; Estimated Glomerular Filt Rate > 60; Glucose Random 106 mg/dL (60-115); Potassium 4.4 mmol/L (3.3-5.1); Sodium 139 mmol/L (135-145); Total Protein 8.2 g/dL (6.5-8.0)
[2021-03-07 14:52] LABS: Appearance Urine CLEAR; Color Urine YELLOW; Glucose Urine UA NEG (NEG); Leukocyte Esterase Urine NEG (NEG); Nitrite Urine NEG (NEG); Specific Gravity - Urine 1.025 (1.005-1.025); Urine Blood NEG (NEG); Urine Ketones NEG (NEG); Urine Protein TRACE MG/DL (NEG-TRACE)
--- NOTE | 2021-03-07 17:01 | MHC.HEMONC ---
Pt was in for scheduled peripheral lab draws, appeared in good spirits, though reported baseline abd pain, poor appetite, and intermittent constipation. Nurse Omer Garcia informed this nurse that pt's visiting nurse had called to request a UA be obtained. Pt confirmed that he was having dysuria for about the past 2 weeks, and 2 separate incidents of hematuria, but all since resolved. Nurse obtained VO for UA w/ micro, and obtained clean catch specimen, which was brought to the lab. Nurse and Nurse Omer Garcia reviewed w/ pt that he is ordered to continue daily PO Stivarga 80 mg tabs (two 40 mg tabs), which is half the typical dose, and he is not to increase to taking the full 160 mg daily dose (four tabs) until so ordered by Dr. De Dios. Pt was concerned about lab results and nurse assured him that this nurse or Dr. De Dios would notify him of any lab results that warrant any change, also asked the pt to notify this office if he has any new symptoms or changes to report. Pt was d/c w/ next scheduled Onc f/u booked for 04/02/21.
[2021-03-14 14:37] LABS: MANUAL DIFF FLAG NO
[2021-03-14 14:47] LABS: Basophils Absolute Auto 0.1 X10*3/uL (0.0-0.2); Basophils Percent Auto 0.7 % (0-2); Eosinophils Absolute Auto 0.5 X10*3/uL (0.0-0.4); Eosinophils Percent Auto 4.2 % (0-4); Hematocrit 41.8 % (42.0-52.0); Hemoglobin 14.2 g/dl (14.0-18.0); Imm Gran Abs Auto 0.02 X10*3/uL (0.00-0.03); Imm Gran Pct Auto 0.2 % (0.0-0.4); Lymphocytes Absolute Auto 4.8 X10*3/uL (1.2-4.9); Lymphocytes Percent Auto 44.5 % (20-40); Mean Corpuscular Hemoglobin 33.7 pg (27.0-33.0); Mean Corpuscular Volume 99.3 fL (80.0-98.0); Monocytes Absolute Auto 0.9 X10*3/uL (0.1-1.2); Monocytes Percent Auto 7.9 % (2-11); Neutrophils Absolute Auto 4.5 x10*3/uL (2.0-8.3); Neutrophils Percent Auto 42.5 % (45-73); Platelet Count 311 X10*3/uL (160-400); Red Blood Count 4.21 X10*6/uL (4.60-5.80); Red Cell Distribution Width 13.1 % (11.0-16.0); White Blood Count 10.7 X10*3/uL (4.8-10.8)
[2021-03-14 14:56] LABS: Alanine Aminotransferase 39 U/L (0-40); Albumin Level 3.6 g/dL (3.5-5.0); Alkaline Phosphatase 253 U/L (39-117); Anion Gap 12 (12-20); Aspartate Amino Transferase 52 U/L (5-37); Bilirubin Total 0.5 mg/dL (0.0-1.0); Blood Urea Nitrogen 14 mg/dL (9-16); Calcium 9.5 mg/dL (8.4-10.2); Carbon Dioxide 26 mmol/L (22-29); Chloride 107 mmol/L (96-108); Creatinine Clr Calc Pharmacy 104.7; Estimated Glomerular Filt Rate > 60; Glucose Random 110 mg/dL (60-115); Potassium 4.3 mmol/L (3.3-5.1); Sodium 141 mmol/L (135-145); Total Protein 7.7 g/dL (6.5-8.0)
--- NOTE | 2021-03-14 15:20 | P.PNHO_ITS ---
Medical Summary - Medical Summary Date of Service: 03/14/21 Chief complaint: wound on his right leg Medical Summary: Diagnosis: Hepatocellular carcinoma Longstanding history of liver cirrhosis, history of alcoholism and hepatitis-C. 01/13/2018 core biopsy of liver mass performed at [facility], pathology-hepatocellular carcinoma, high-grade. Underwent partial hepatectomy on 04/10/2017. Final pathology showed 2.4 cm HCC confined to the liver. Margins negative. Surveillance CT abdomen with IV contrast performed at [facility] on 12/15/2019 revealed multiple new hypodense lesions throughout liver. 1.2 cm lesion in left hepatic lobe, 1.7 cm lesion in left hepatic lobe, 1.6 cm lesion right hepatic lobe, 9 mm lesion in right hepatic lobe, 1.5 cm lesion in right hepatic lobe. Prior cholecystectomy. Status post splenectomy. This was concerning for recurrent hepatocellular carcinoma, metastatic disease from another primary was also possible. Prominent upper abdominal lymph nodes measuring up to 1.2 cm, not significantly changed from prior exam. Supraumbilical ventral abdominal hernia containing nonobstructed non inflamed loops of small bowel, similar to prior. Postsurgical changes from prior ventral abdominal herniorrhaphy with mesh. 3 cm infrarenal abdominal aortic aneurysm. Tumor marker alpha-fetoprotein elevated 86.4, CEA level normal, 1.9. On 03/06/2020 he underwent core biopsy of lesion in the right lobe which revealed fragments of liver parenchyma with chronic hepatitis and mild inflammatory activity with bridging fibrosis. MRI abdomen performed 03/28/20 revealed 4 hepatic lesions under 2 cm suspicious for multifocal hepatocellular carcinoma. He was not a candidate for further surgery and based on lymphadenopathy, not an optimal candidate for localized therapies such as RFA or chemoembolization. Systemic therapy with targeted agents/immunotherapy with atezolizumab 1200 mg q. 3 weeks, bevacizumab 15 mg/kg q. 3 weeks was started 05/10/2020. EGD did not show esophageal varices, there was mild gastritis. He started Systemic therapy with targeted agents/immunotherapy with atezolizumab 1200 mg q. 3 weeks, bevacizumab 15 mg/kg q. 3 weeks on 05/10/2020. He received 5 treatments by end of July 2020. Unfortunately, repeat MRI abdomen showed slight progression with 3 of the 4 lesions increasing in size. Alpha fetoprotein also increased to 287. Interval History Interval history: Patient is here in follow-up. He started chemo pill on 02/28/21. He is tolerating it fairly well so far. His appetite is stable and he denies weight loss. No other complaints such as nausea, emesis, chest pain, shortness of breath, diarrhea or constipation. He hit his right leg on a chair and he has developed a wound. He did have some bleeding which has resolved now. Review of Systems - Constitutional Reports as per HPI, Reports no additional constitutional complaints, Denies fatigue, Denies fever(s), Denies lack of energy, Denies weight loss - Cardiovascular Reports no additional cardiovascular complaints - Respiratory Reports no additional respiratory complaints - Neurologic Reports weakness PMFSH Medical History: Medical History (Last Reviewed 01/02/21 @ 10:27 by MARCO Navarro) CVA (cerebral vascular accident) Hepatitis C Hepatocellular carcinoma History of alcohol abuse Liver cirrhosis Tobacco use disorder Family History: Family History (Last Reviewed 01/02/21 @ 10:28 by MARCO Navarro) Father No problems noted. Mother No problems noted. Family/Other FH: mental illness Surgical History: Surgical History (Last Reviewed 01/02/21 @ 10:27 by MARCO Navarro) H/O resection of liver Onset Date: ~04/2017 History of splenectomy No pertinent past surgical history Social History: Social History (Last Reviewed 01/02/21 @ 10:28 by MARCO Navarro) Living Situation History: Household Members Other:: alone Housing: Apartment Are you a primary health and social care teacher to a significant other at home: No Alcohol History: Alcohol intake: former Alcohol History Details: Alcohol intake frequency: former alcohol drinker Tobacco History: Patient Tobacco Use Status: Current everyday Tobacco Tobacco use type: Cigarette Smoked in Last 30 Days: Yes Substance Use History: Use of substances other than those prescribed or required for medical reasons : No Domestic Abuse History: Have you been hit, kicked, punched, or otherwise hurt by someone within the past year? If so, by whom?: No Do you feel safe in your current relationship?: No Current Relationship Healthcare Practices: [employer] Healthcare Practices: mandaen Nutrition Assessment: Recently lost weight without trying: No Nutrition Risks: Poor intake 0-25% >4 days Poor oral hygiene: Yes Occupation Assessmet: service: No Current occupational status: disabled Oncology Screenings - ECOG Performance Status ECOG Performance Status: 1 Home Medications and Allergies Home Medications Medication Instructions Recorded Confirmed Type clonazepam 1 mg tablet 1 mg PO TID 10/03/20 02/07/21 History Allergies Allergy/AdvReac Type Severity Reaction Status Date / Time No Known Allergies Allergy Verified 01/02/21 10:25 Exam Vital signs: Vital Signs Temp 97.9 F 02/27/21 13:42 Pulse 76 02/27/21 13:42 Resp 18 02/27/21 13:42 BP 138/73 02/27/21 13:42 Pulse Ox 97 02/27/21 13:42 Weight 72.4 kg BMI result Body Mass Index 22.2 - Constitutional Present: no acute distress, cachectic, chronically ill appearing - Routine HEENT Exam Head: Present: normal inspection - Routine Neck Exam Absent: lymphadenopathy - Routine Respiratory Exam Present: CTAB - Routine Cardiovascular Exam Cardiovascular: Present: RRR, S1, S2 - Routine Abdominal Exam Present: hernia, normal bowel sounds, soft - Routine Extremities Exam Absent: calf tenderness, pedal edema Comments: Right chin there was an open area with mild surrounding erythema. Data - Labs CBC & Chem 7: 03/14/21 14:20 03/14/21 14:20 Assessment and Plan Patient Active problem list reviewed?: Yes (1) Hepatocellular carcinoma Status: Chronic Assessment and plan: 1. This is a 65-year-old male with history of high-grade hepatocellular carcinoma for which she underwent partial hepatectomy in April 2017. In December 2019, surveillance CT of abdomen revealed multiple new hepatic lesions and persistent slightly prominent upper abdominal lymph nodes without enlargement. Tumor marker alpha-fetoprotein elevated 207, CEA level normal, 1.9. On 03/06/2020 he underwent core biopsy of lesion in the right lobe which revealed fragments of liver parenchyma with chronic hepatitis and mild inflammatory activity with bridging fibrosis. He started lenvatinib 12 mg once daily from 08/14/2020. This was stopped on 10/09/2020 because of severe anorexia and weight loss. He received nivolumab from November 2020 until end of January 2021. A CT abdomen/pelvis with contrast on 02/07/2021 showed progressive disease with increase in size and number of liver lesions. Increasing periportal, gastrohepatic lymphadenopathy. New clustered left lower lobe lung nodules largest measuring 6 x 12 mm. He has been started on Regorafinib, currently on 80 mg once daily. Dose to be increased if he tolerates it well. 2. Chronic pain in abdomen. He was on oxycodone 5 mg Q hours 12 hours p.r.n.. He wants to switch this to Percocet as he feels oxycodone alone is not helping him enough. Percocet 5/325 p.o. b.i.d. has been prescribed. 3. Right leg wound after trauma. Wound was cleaned and dressing applied. He was prescribed bacitracin ointment to be applied topically 3 times a day. Cephalexin 250 mg p.o. t.i.d. for 7 days prescribed. Patient was advised to call if he develops any worsening pain or swelling. Follow-up in 3 weeks. - Time Spent With Patient Time Spent with Patient (in minutes): 15
--- NOTE | 2021-03-14 16:14 | MHC.HEMONC ---
Lab draw done and results reviewed. When talking with pt, he stated his hands have been dry. Then he pulled up his pant leg and stated I did this too . Pt had open area to lower leg with some smaller scabbed areas above open area. Dr De Dios in to assess area. Order placed for bacitracin ointment and oral antibiotics. Area cleaned with NS and gauze applied to area, and wrapped with gauze. Some yellow drainage noted. Scheduled for labs and follow up with Dr De Dios in 1 week.
[2021-03-21 08:38] VITALS: BP 153/82; PULSE 97; RESP 18; TEMP 36.8; O2SAT 96; BMI 21.7
--- NOTE | 2021-03-21 08:44 | P.PNHO_ITS ---
Medical Summary - Medical Summary Date of Service: 03/21/21 Chief complaint: Follow-up Medical Summary: Diagnosis: Hepatocellular carcinoma Longstanding history of liver cirrhosis, history of alcoholism and hepatitis-C. 01/13/2018 core biopsy of liver mass performed at [facility], pathology-hepatocellular carcinoma, high-grade. Underwent partial hepatectomy on 04/10/2017. Final pathology showed 2.4 cm HCC confined to the liver. Margins negative. Surveillance CT abdomen with IV contrast performed at [facility] on 12/15/2019 revealed multiple new hypodense lesions throughout liver. 1.2 cm lesion in left hepatic lobe, 1.7 cm lesion in left hepatic lobe, 1.6 cm lesion right hepatic lobe, 9 mm lesion in right hepatic lobe, 1.5 cm lesion in right hepatic lobe. Prior cholecystectomy. Status post splenectomy. This was concerning for recurrent hepatocellular carcinoma, metastatic disease from another primary was also possible. Prominent upper abdominal lymph nodes measuring up to 1.2 cm, not significantly changed from prior exam. Supraumbilical ventral abdominal hernia containing nonobstructed non inflamed loops of small bowel, similar to p rior. Postsurgical changes from prior ventral abdominal herniorrhaphy with mesh. 3 cm infrarenal abdominal aortic aneurysm. Tumor marker alpha-fetoprotein elevated 86.4, CEA level normal, 1.9. On 03/06/2020 he underwent core biopsy of lesion in the right lobe which revealed fragments of liver parenchyma with chronic hepatitis and mild inflammatory activity with bridging fibrosis. MRI abdomen performed 03/28/20 revealed 4 hepatic lesions under 2 cm suspicious for multifocal hepatocellular carcinoma. He was not a candidate for further surgery and based on lymphadenopathy, not an optimal candidate for localized therapies such as RFA or chemoembolization. Systemic therapy with targeted a gents/immunotherapy with atezolizumab 1200 mg q. 3 weeks, bevacizumab 15 mg/kg q. 3 weeks was started 05/10/2020. EGD did not show esophageal varices, there was mild gastritis. He started Systemic therapy with targeted agents/immunotherapy with atezolizumab 1200 mg q. 3 weeks, bevacizumab 15 mg/kg q. 3 weeks on 05/10/2020. He received 5 treatments by end of July 2020. Unfortunately, repeat MRI abdomen showed slight progression with 3 of the 4 lesions increasing in size. Alpha fetoprotein also increased to 287. He started lenvatinib 12 mg once daily from 08/14/2020. This was stopped on 10/09/2020 because of severe anorexia and weight loss. He received nivolumab from November 2020 until end of January 2021. A CT abdomen/pelvis with contrast on 02/07/2021 showed progressive disease with increase in size and number of liver lesions. Increasing periportal, gastrohepatic lymphadenopathy. New clustered left lower lobe lung nodules largest measuring 6 x 12 mm. He started regorafenib from 02/28/2021. Interval History Interval history: Patient is here in follow-up. He is now on regorafenib. He is tolerating it fairly well so far. His appetite is stable and he denies weight loss. No other complaints such as nausea, emesis, chest pain, shortness of breath, diarrhea or constipation. He has no complaints today. He continues to smoke. Review of Systems - Constitutional Reports as per HPI, Reports no additional constitutional complaints - Cardiovascular Reports no additional cardiovascular complaints - Respiratory Reports no additional respiratory complaints - Neurologic Reports weakness [facility] Medical History: Medical History (Last Reviewed 03/21/21 @ 08:40 by Bita Mistry) CVA (cerebral vascular accident) Hepatitis C Hepatocellular carcinoma History of alcohol abuse Liver cirrhosis Tobacco use disorder Family History: Family History (Last Reviewed 03/21/21 @ 08:40 by Bita Mistry) Father No problems noted. Mother No problems noted. Family/Other FH: mental illness Surgical History: Surgical History (Last Reviewed 03/21/21 @ 08:40 by Bita Mistry) H/O resection of liver Onset Date: ~04/2017 History of splenectomy No pertinent past surgical history Social History: Social History (Last Reviewed 03/21/21 @ 08:40 by Bita Mistry) Living Situation History: Household Members Other:: alone Housing: Apartment Are you a primary palliative care nurse practitioner to a significant other at home: No Alcohol History: Alcohol intake: former Alcohol History Details: Alcohol intake frequency: former alcohol drinker Tobacco History: Patient Tobacco Use Status: Current everyday Tobacco Tobacco use type: Cigarette Smoked in Last 30 Days: Yes Substance Use History: Use of substances other than those prescribed or required for medical reasons : No Domestic Abuse History: Have you been hit, kicked, punched, or otherwise hurt by someone within the past year? If so, by whom?: No Do you feel safe in your current relationship?: No Current Relationship Healthcare Practices: Anabaptism Healthcare Practices: latter-day Nutrition Assessment: Recently lost weight without trying: No Nutrition Risks: Poor intake 0-25% >4 days Poor oral hygiene: Yes Occupation Assessmet: service: No Current occupational status: disabled Home Medications and Allergies Home Medications Medication Instructions Recorded Confirmed Type clonazepam 1 mg tablet 1 mg PO TID 10/03/20 03/21/21 History Allergies Allergy/AdvReac Type Severity Reaction Status Date / Time No Known Allergies Allergy Verified 03/21/21 08:40 Exam Vital signs: Vital Signs Temp 98.3 F 03/21/21 08:38 Pulse 97 03/21/21 08:38 Resp 18 03/21/21 08:38 BP 153/82 H 03/21/21 08:38 Pulse Ox 96 03/21/21 08:38 Intake & Output 03/20/21 03/21/21 03/21/21 18:59 06:59 18:59 Other: Weight 70.5 kg [place] Weight in Grams 13943 Weight 70.5 kg BMI result Body Mass Index 21.7 - Constitutional Present: no acute distress, cachectic, chronically ill appearing - Routine HEENT Exam Head: Present: normal inspection - Routine Neck Exam Absent: lymphadenopathy - Routine Respiratory Exam Present: CTAB - Routine Cardiovascular Exam Cardiovascular: Present: RRR, S1, S2 - Routine Abdominal Exam Present: hernia, normal bowel sounds, soft - Routine Extremities Exam Absent: calf tenderness, pedal edema Data - Labs CBC & Chem 7: 03/21/21 08:57 03/21/21 08:57 Assessment and Plan Patient Active problem list reviewed?: Yes (1) Hepatocellular carcinoma Status: Chronic Assessment and plan: 1. This is a 65-year-old male with history of high-grade hepatocellular carcinoma for which she underwent partial hepatectomy in April 2017. In December 2019, surveillance CT of abdomen revealed multiple new hepatic lesions and persistent slightly prominent upper abdominal lymph nodes without enlargement. Tumor marker alpha-fetoprotein elevated 207, CEA level normal, 1.9. On 03/06/2020 he underwent core biopsy of lesion in the right lobe which revealed fragments of liver parenchyma with chronic hepatitis and mild inflammatory activity with bridging fibrosis. He is on Regorafinib 80 mg/d since 02/28/2021. Dose to be increased to 120 mg daily with cycle 2. His LFTs are stable. AFP level pending. 2. Chronic pain in abdomen. He was on oxycodone 5 mg Q hours 12 hours p.r.n.. He is now on Percocet 5/325 p.o. b.i.d. has been prescribed. 3. Right leg wound after trauma. He is on Keflex in, his advised to complete course. He denies any pain or swelling of the leg. Follow-up in 3 weeks. - Time Spent With Patient Time Spent with Patient (in minutes): 15
[2021-03-21 09:08] LABS: MANUAL DIFF FLAG NO
[2021-03-21 09:12] LABS: Basophils Absolute Auto 0.1 X10*3/uL (0.0-0.2); Basophils Percent Auto 0.8 % (0-2); Eosinophils Absolute Auto 0.9 X10*3/uL (0.0-0.4); Eosinophils Percent Auto 7.5 % (0-4); Hematocrit 43.1 % (42.0-52.0); Hemoglobin 14.3 g/dl (14.0-18.0); Imm Gran Abs Auto 0.03 X10*3/uL (0.00-0.03); Imm Gran Pct Auto 0.2 % (0.0-0.4); Lymphocytes Absolute Auto 4.5 X10*3/uL (1.2-4.9); Lymphocytes Percent Auto 36.5 % (20-40); Mean Corpuscular HGB Conc 33.2 g/dl (31.0-36.0); Mean Corpuscular Hemoglobin 33.2 pg (27.0-33.0); Mean Platelet Volume 8.5 fL (9.4-12.4); Monocytes Percent Auto 8.4 % (2-11); Neutrophils Absolute Auto 5.7 x10*3/uL (2.0-8.3); Neutrophils Percent Auto 46.6 % (45-73); Platelet Count 375 X10*3/uL (160-400); Red Blood Count 4.31 X10*6/uL (4.60-5.80); Red Cell Distribution Width 13.2 % (11.0-16.0); White Blood Count 12.3 X10*3/uL (4.8-10.8)
[2021-03-21 09:32] LABS: Alanine Aminotransferase 36 U/L (0-40); Albumin Level 3.7 g/dL (3.5-5.0); Alkaline Phosphatase 301 U/L (39-117); Anion Gap 12 (12-20); Aspartate Amino Transferase 58 U/L (5-37); Bilirubin Total 0.6 mg/dL (0.0-1.0); Blood Urea Nitrogen 16 mg/dL (9-16); Calcium 9.7 mg/dL (8.4-10.2); Carbon Dioxide 25 mmol/L (22-29); Chloride 109 mmol/L (96-108); Creatinine Clr Calc Pharmacy 92.9; Estimated Glomerular Filt Rate > 60; Glucose Random 116 mg/dL (60-115); Potassium 3.8 mmol/L (3.3-5.1); Sodium 142 mmol/L (135-145); Total Protein 7.9 g/dL (6.5-8.0)
--- NOTE | 2021-03-21 09:47 | MHC.HEMONC ---
Spoke to Ana per Dr De Dios after she reviewed Maximino's labs today. Maximino will start stivarga 120mg with next cycle in a week (3x40mg daily). Ana will be letting RN who fills his med box know. She will call if there are any questions.
--- NOTE | 2021-03-21 15:56 | MHC.HEMONCMA ---
Patient came in for a follow up, states that he feels good. Clinical summary was reviewed and updated. Patient had labs and will return in 3 months for a follow up.
[2021-03-23 12:06] LABS: Alpha Fetoprotein 1784.6 ng/mL (<6.1)
[2021-03-28 14:20] LABS: MANUAL DIFF FLAG NO
[2021-03-28 14:23] LABS: Basophils Absolute Auto 0.1 X10*3/uL (0.0-0.2); Basophils Percent Auto 0.7 % (0-2); Eosinophils Absolute Auto 0.7 X10*3/uL (0.0-0.4); Eosinophils Percent Auto 6.2 % (0-4); Hematocrit 39.1 % (42.0-52.0); Hemoglobin 13.1 g/dl (14.0-18.0); Imm Gran Abs Auto 0.02 X10*3/uL (0.00-0.03); Imm Gran Pct Auto 0.2 % (0.0-0.4); Lymphocytes Absolute Auto 4.5 X10*3/uL (1.2-4.9); Lymphocytes Percent Auto 40.8 % (20-40); Mean Corpuscular HGB Conc 33.5 g/dl (31.0-36.0); Mean Corpuscular Hemoglobin 33.1 pg (27.0-33.0); Mean Corpuscular Volume 98.7 fL (80.0-98.0); Mean Platelet Volume 8.6 fL (9.4-12.4); Monocytes Percent Auto 8.8 % (2-11); Neutrophils Absolute Auto 4.8 x10*3/uL (2.0-8.3); Neutrophils Percent Auto 43.3 % (45-73); Platelet Count 430 X10*3/uL (160-400); Red Blood Count 3.96 X10*6/uL (4.60-5.80); Red Cell Distribution Width 14.1 % (11.0-16.0); White Blood Count 11.1 X10*3/uL (4.8-10.8)
[2021-03-28 14:44] LABS: Alanine Aminotransferase 197 U/L (0-40); Albumin Level 3.4 g/dL (3.5-5.0); Alkaline Phosphatase 437 U/L (39-117); Anion Gap 15 (12-20); Aspartate Amino Transferase 178 U/L (5-37); Bilirubin Total 1.6 mg/dL (0.0-1.0); Blood Urea Nitrogen 13 mg/dL (9-16); Calcium 9.4 mg/dL (8.4-10.2); Carbon Dioxide 22 mmol/L (22-29); Chloride 110 mmol/L (96-108); Creatinine Clr Calc Pharmacy 100.6; Estimated Glomerular Filt Rate > 60; Glucose Random 116 mg/dL (60-115); Sodium 143 mmol/L (135-145); Total Protein 7.7 g/dL (6.5-8.0)
--- NOTE | 2021-03-28 16:11 | MHC.HEMONC ---
Here for labs. Liver enzymes elevated. AST 178, ALT 197. Results reported to Dr Crystal. Plan is to have pt stop taking Stavarga for now. Pt has follow up with Dr De Dios on Monday 04/02. Telephone call to Ana to make her aware.
--- NOTE | 2021-04-02 12:35 | PM.HEMONCPN ---
Medical Summary - Medical Summary Date of Service: 04/02/21 Chief complaint: follow-up Medical Summary: Diagnosis: Hepatocellular carcinoma Longstanding history of liver cirrhosis, history of alcoholism and hepatitis-C. 01/13/2018 core biopsy of liver mass performed at [facility], pathology-hepatocellular carcinoma, high-grade. Underwent partial hepatectomy on 04/10/2017. Final pathology showed 2.4 cm HCC confined to the liver. Margins negative. Surveillance CT abdomen with IV contrast performed at [facility] on 12/15/2019 revealed multiple new hypodense lesions throughout liver. 1.2 cm lesion in left hepatic lobe, 1.7 cm lesion in left hepatic lobe, 1.6 cm lesion right hepatic lobe, 9 mm lesion in right hepatic lobe, 1.5 cm lesion in right hepatic lobe. Prior cholecystectomy. Status post splenectomy. This was concerning for recurrent hepatocellular carcinoma, metastatic disease from another primary was also possible. Prominent upper abdominal lymph nodes measuring up to 1.2 cm, not significantly changed from prior exam. Supraumbilical ventral abdominal hernia containing nonobstructed non inflamed loops of small bowel, similar to prior. Postsurgical changes from prior ventral abdominal herniorrhaphy with mesh. 3 cm infrarenal abdominal aortic aneurysm. Tumor marker alpha-fetoprotein elevated 86.4, CEA level normal, 1.9. On 03/06/2020 he underwent core biopsy of lesion in the right lobe which revealed fragments of liver parenchyma with chronic hepatitis and mild inflammatory activity with bridging fibrosis. MRI abdomen performed 03/28/20 revealed 4 hepatic lesions under 2 cm suspicious for multifocal hepatocellular carcinoma. He was not a candidate for further surgery and based on lymphadenopathy, not an optimal candidate for localized therapies such as RFA or chemoembolization. Systemic therapy with targeted agents/immunotherapy with atezolizumab 1200 mg q. 3 weeks, bevacizumab 15 mg/kg q. 3 weeks was started 05/10/2020. EGD did not show esophageal varices, there was mild gastritis. He started Systemic therapy with targeted agents/immunotherapy with atezolizumab 1200 mg q. 3 weeks, bevacizumab 15 mg/kg q. 3 weeks on 05/10/2020. He received 5 treatments by end of July 2020. Unfortunately, repeat MRI abdomen showed slight progression with 3 of the 4 lesions increasing in size. Alpha fetoprotein also increased to 287. He started lenvatinib 12 mg once daily from 08/14/2020. This was stopped on 10/09/2020 because of severe anorexia and weight loss. He received nivolumab from November 2020 until end of January 2021. A CT abdomen/pelvis with contrast on 02/07/2021 showed progressive disease with increase in size and number of liver lesions. Increasing periportal, gastrohepatic lymphadenopathy. New clustered left lower lobe lung nodules largest measuring 6 x 12 mm. He started regorafenib from 02/28/2021. Interval History Interval history: Patient is here in follow-up. He is now on regorafenib. He is tolerating it fairly well so far. His appetite is stable and he denies weight loss. No other complaints such as nausea, emesis, chest pain, shortness of breath, diarrhea or constipation. He has no complaints today. He has been taking 2 pills for the last 10 days. Review of Systems - Constitutional Reports as per HPI, Reports no additional constitutional complaints - Neurologic Reports weakness [facility] Medical History: Medical History (Last Reviewed 04/02/21 @ 12:46 by Bita Mistry) CVA (cerebral vascular accident) Hepatitis C Hepatocellular carcinoma History of alcohol abuse Liver cirrhosis Tobacco use disorder Family History: Family History (Last Reviewed 03/21/21 @ 08:40 by Bita Mistry) Father No problems noted. Mother No problems noted. Family/Other FH: mental illness Surgical History: Surgical History (Last Reviewed 04/02/21 @ 12:46 by Bita Mistry) H/O resection of liver Onset Date: ~04/2017 History of splenectomy No pertinent past surgical history Social History: Social History (Last Reviewed 04/02/21 @ 12:46 by Bita Mistry) Living Situation History: Household Members Other:: alone Housing: Apartment Are you a primary patient care provider to a significant other at home: No Alcohol History: Alcohol intake: former Alcohol History Details: Alcohol intake frequency: former alcohol drinker Tobacco History: Patient Tobacco Use Status: Current everyday Tobacco Tobacco use type: Cigarette Smoked in Last 30 Days: Yes Substance Use History: Use of substances other than those prescribed or required for medical reasons: No Domestic Abuse History: Have you been hit, kicked, punched, or otherwise hurt by someone within the past year? If so, by whom?: No Do you feel safe in your current relationship?: No Current Relationship Healthcare Practices: Restorationism Healthcare Practices: caodaism Nutrition Assessment: Recently lost weight without trying: No Nutrition Risks: Poor intake 0-25% >4 days Poor oral hygiene: Yes Occupation Assessmet: service: No Current occupational status: disabled Home Medications and Allergies Home Medications Medication Instructions Recorded Confirmed Type clonazepam 1 mg tablet 1 mg PO TID 10/03/20 04/02/21 History Allergies Allergy/AdvReac Type Severity Reaction Status Date / Time No Known Allergies Allergy Verified 04/02/21 12:46 Exam Vital signs: Vital Signs Temp 98.3 F 03/21/21 08:38 Pulse 97 03/21/21 08:38 Resp 18 03/21/21 08:38 BP 153/82 H 03/21/21 08:38 Pulse Ox 96 03/21/21 08:38 Weight 70.5 kg BMI result Body Mass Index 21.7 - Constitutional Present: no acute distress, cachectic, chronically ill appearing - Routine HEENT Exam Head: Present: normal inspection - Routine Neck Exam Absent: lymphadenopathy - Routine Respiratory Exam Present: CTAB - Routine Cardiovascular Exam Cardiovascular: Present: RRR, S1, S2 - Routine Abdominal Exam Present: hernia, normal bowel sounds, soft - Routine Extremities Exam Absent: calf tenderness, pedal edema Data - Labs CBC & Chem 7: 03/28/21 14:19 04/02/21 12:51 Assessment and Plan Patient Active problem list reviewed?: Yes (1) Hepatocellular carcinoma Status: Chronic Assessment and plan: 1. This is a 65-year-old male with history of high-grade hepatocellular carcinoma for which she underwent partial hepatectomy in April 2017. In December 2019, surveillance CT of abdomen revealed multiple new hepatic lesions and persistent slightly prominent upper abdominal lymph nodes without enlargement. Tumor marker alpha-fetoprotein elevated 207, CEA level normal, 1.9. On 03/06/2020 he underwent core biopsy of lesion in the right lobe which revealed fragments of liver parenchyma with chronic hepatitis and mild inflammatory activity with bridging fibrosis. He is on Regorafinib 40 mg tablets, 80 mg/d since 02/28/2021. I have asked him to increase to 3 pills, 120 mg once daily. 2. Chronic pain in abdomen. He was on oxycodone 5 mg Q hours 12 hours p.r.n.. He is now on Percocet 5/325 p.o. b.i.d. has been prescribed. Follow-up for labs in 1 week. Follow-up in 3 weeks. - Time Spent With Patient Time Spent with Patient (in minutes): 15
[2021-04-02 12:47] VITALS: BP 146/86; PULSE 68; RESP 16; TEMP 36.7; O2SAT 98; BMI 22.0
[2021-04-02 13:16] LABS: Alanine Aminotransferase 73 U/L (0-40); Albumin Level 3.5 g/dL (3.5-5.0); Alkaline Phosphatase 396 U/L (39-117); Anion Gap 12 (12-20); Aspartate Amino Transferase 58 U/L (5-37); Bilirubin Total 0.9 mg/dL (0.0-1.0); Blood Urea Nitrogen 14 mg/dL (9-16); Calcium 9.8 mg/dL (8.4-10.2); Carbon Dioxide 26 mmol/L (22-29); Chloride 107 mmol/L (96-108); Creatinine Clr Calc Pharmacy 95.5; Estimated Glomerular Filt Rate > 60; Glucose Random 115 mg/dL (60-115); Potassium 4.8 mmol/L (3.3-5.1); Sodium 140 mmol/L (135-145); Total Protein 7.8 g/dL (6.5-8.0)
--- NOTE | 2021-04-03 08:31 | MHC.HEMONC ---
Dr De Dios updated that Maximino stopped taking his oral Stivarga on the per Dr Crystal. His labs yesterday were inmproved. She would like him to go back on 80mg (2 pills x 40. I explained this to Ana who did confirm he hadn't taken any since 04/[address] Crystal. He is due in for labs next Friday.
--- NOTE | 2021-04-03 10:39 | MHC.HEMONC ---
Spoke to Melba at [facility] to advise her of Maximino order to restart Stivarga 80mg daily. They will be placed in his pill box tomorrow per Melba.
--- NOTE | 2021-04-09 16:49 | MHC.HEMONC ---
Nurse called pt's Medical Charge Entry Specialist Ana, notified her that pt did not show up for sched blood work today. She apologized, said she'd been sick. Nurse reminded her that pt has a f/u appt w/ Dr. De Dios the following week on 06/14/21 at 14:20, but that pt must come in this week for blood work prior to this appt. NURYS Perez said that she would try to get him in for tomorrow morning to have blood drawn.
[2021-04-10 14:17] LABS: MANUAL DIFF FLAG NO
[2021-04-10 14:24] LABS: Basophils Absolute Auto 0.1 X10*3/uL (0.0-0.2); Eosinophils Absolute Auto 0.5 X10*3/uL (0.0-0.4); Hematocrit 41.6 % (42.0-52.0); Imm Gran Abs Auto 0.02 X10*3/uL (0.00-0.03); Imm Gran Pct Auto 0.2 % (0.0-0.4); Lymphocytes Absolute Auto 4.3 X10*3/uL (1.2-4.9); Mean Corpuscular HGB Conc 33.7 g/dl (31.0-36.0); Mean Corpuscular Hemoglobin 33.8 pg (27.0-33.0); Mean Corpuscular Volume 100.5 fL (80.0-98.0); Mean Platelet Volume 8.6 fL (9.4-12.4); Monocytes Absolute Auto 1.1 X10*3/uL (0.1-1.2); Monocytes Percent Auto 9.6 % (2-11); Neutrophils Absolute Auto 5.3 x10*3/uL (2.0-8.3); Neutrophils Percent Auto 47.2 % (45-73); Platelet Count 444 X10*3/uL (160-400); Red Blood Count 4.14 X10*6/uL (4.60-5.80); Red Cell Distribution Width 13.7 % (11.0-16.0); White Blood Count 11.3 X10*3/uL (4.8-10.8)
[2021-04-10 14:46] LABS: Alanine Aminotransferase 48 U/L (0-40); Albumin Level 3.4 g/dL (3.5-5.0); Alkaline Phosphatase 336 U/L (39-117); Anion Gap 11 (12-20); Aspartate Amino Transferase 83 U/L (5-37); Bilirubin Total 0.3 mg/dL (0.0-1.0); Blood Urea Nitrogen 15 mg/dL (9-16); Calcium 9.1 mg/dL (8.4-10.2); Carbon Dioxide 28 mmol/L (22-29); Chloride 107 mmol/L (96-108); Creatinine Clr Calc Pharmacy 96.8; Estimated Glomerular Filt Rate > 60; Glucose Random 90 mg/dL (60-115); Potassium 4.2 mmol/L (3.3-5.1); Sodium 142 mmol/L (135-145)
--- NOTE | 2021-04-10 15:37 | MHC.HEMONC ---
Call from Melba at [facility] (no tel# left on message) to report that she fills Maximino's pill boxes and that he will run out of Oxycodone 10mg early next week. Dr De Dios sent over script to pharmacy.
[2021-04-17 09:31] VITALS: BP 153/85; PULSE 102; RESP 16; TEMP 36.3; O2SAT 97; BMI 21.4
--- NOTE | 2021-04-17 09:44 | PM.HEMONCPN ---
Medical Summary - Medical Summary Date of Service: 04/17/21 Chief complaint: follow-up Medical Summary: Diagnosis: Hepatocellular carcinoma Longstanding history of liver cirrhosis, history of alcoholism and hepatitis-C. 01/13/2018 core biopsy of liver mass performed at [facility], pathology-hepatocellular carcinoma, high-grade. Underwent partial hepatectomy on 04/10/2017. Final pathology showed 2.4 cm HCC confined to the liver. Margins negative. Surveillance CT abdomen with IV contrast performed at [facility] on 12/15/2019 revealed multiple new hypodense lesions throughout liver. 1.2 cm lesion in left hepatic lobe, 1.7 cm lesion in left hepatic lobe, 1.6 cm lesion right hepatic lobe, 9 mm lesion in right hepatic lobe, 1.5 cm lesion in right hepatic lobe. Prior cholecystectomy. Status post splenectomy. This was concerning for recurrent hepatocellular carcinoma, metastatic disease from another primary was also possible. Prominent upper abdominal lymph nodes measuring up to 1.2 cm, not significantly changed from prior exam. Supraumbilical ventral abdominal hernia containing nonobstructed non inflamed loops of small bowel, similar to prior. Postsurgical changes from prior ventral abdominal herniorrhaphy with mesh. 3 cm infrarenal abdominal aortic aneurysm. Tumor marker alpha-fetoprotein elevated 86.4, CEA level normal, 1.9. On 03/06/2020 he underwent core biopsy of lesion in the right lobe which revealed fragments of liver parenchyma with chronic hepatitis and mild inflammatory activity with bridging fibrosis. MRI abdomen performed 03/28/20 revealed 4 hepatic lesions under 2 cm suspicious for multifocal hepatocellular carcinoma. He was not a candidate for further surgery and based on lymphadenopathy, not an optimal candidate for localized therapies such as RFA or chemoembolization. Systemic therapy with targeted agents/immunotherapy with atezolizumab 1200 mg q. 3 weeks, bevacizumab 15 mg/kg q. 3 weeks was started 05/10/2020. EGD did not show esophageal varices, there was mild gastritis. He started Systemic therapy with targeted agents/immunotherapy with atezolizumab 1200 mg q. 3 weeks, bevacizumab 15 mg/kg q. 3 weeks on 05/10/2020. He received 5 treatments by end of July 2020. Unfortunately, repeat MRI abdomen showed slight progression with 3 of the 4 lesions increasing in size. Alpha fetoprotein also increased to 287. He started lenvatinib 12 mg once daily from 08/14/2020. This was stopped on 10/09/2020 because of severe anorexia and weight loss. He received nivolumab from November 2020 until end of January 2021. A CT abdomen/pelvis with contrast on 02/07/2021 showed progressive disease with increase in size and number of liver lesions. Increasing periportal, gastrohepatic lymphadenopathy. New clustered left lower lobe lung nodules largest measuring 6 x 12 mm. He started regorafenib from 02/28/2021. Interval History Interval history: Patient is here in follow-up. He started back on regorafenib 04/02/21. He is tolerating it fairly well so far. His appetite is stable and he denies weight loss. No other complaints such as nausea, emesis, chest pain, shortness of breath, diarrhea or constipation. He has been taking 2 pills for the last 10 days. Review of Systems - Constitutional Reports no additional constitutional complaints - Cardiovascular Reports no additional cardiovascular complaints - Respiratory Reports no additional respiratory complaints - Neurologic Reports weakness [facility] Medical History: Medical History (Last Reviewed 04/17/21 @ 09:33 by Bita Mistry) CVA (cerebral vascular accident) Hepatitis C Hepatocellular carcinoma History of alcohol abuse Liver cirrhosis Tobacco use disorder Family History: Family History (Last Reviewed 04/17/21 @ 10:45 by TARA Mccain) Father No problems noted. Mother No problems noted. Family/Other FH: mental illness Surgical History: Surgical History (Last Reviewed 04/17/21 @ 10:45 by TARA Mccain) H/O resection of liver Onset Date: ~04/2017 History of splenectomy No pertinent past surgical history Social History: Social History (Last Reviewed 04/17/21 @ 10:45 by TARA Mccain) Living Situation History: Household Members Other:: alone Housing: Apartment Are you a primary home care and home health aides teacher to a significant other at home: No Alcohol History Details: 1. How often do you have a drink containing alcohol?: a. Never AUDIT-C Alcohol total score: 0 Tobacco History: Patient Tobacco Use Status: Current everyday Tobacco Tobacco use type: Cigarette Cigarettes Per Day: 5 e-Cigarette/Vaping Use: Never Used Second Hand Smoke Exposure: No Occupation Assessmet: service: No Current occupational status: disabled Home Medications and Allergies Home Medications Medication Instructions Recorded Confirmed Type clonazepam 1 mg tablet 1 mg PO TID 10/03/20 04/17/21 History Allergies Allergy/AdvReac Type Severity Reaction Status Date / Time No Known Allergies Allergy Verified 04/17/21 10:43 Exam Vital signs: Vital Signs Temp 97.4 F 04/17/21 09:31 Pulse 102 H 04/17/21 09:31 Resp 16 04/17/21 09:31 BP 153/85 H 04/17/21 09:31 Pulse Ox 97 04/17/21 09:31 Intake & Output 04/16/21 04/17/21 04/17/21 18:59 06:59 18:59 Other: Weight 69.9 kg [place] Weight in Grams 24526 Weight 69.9 kg BMI result Body Mass Index 21.4 - Constitutional Present: no acute distress, cachectic, chronically ill appearing - Routine HEENT Exam Head: Present: normal inspection - Routine Neck Exam Absent: lymphadenopathy - Routine Respiratory Exam Present: CTAB - Routine Cardiovascular Exam Cardiovascular: Present: RRR, S1, S2 - Routine Abdominal Exam Present: hernia, normal bowel sounds, soft - Routine Extremities Exam Absent: calf tenderness, pedal edema Data - Labs CBC & Chem 7: 04/10/21 14:15 04/10/21 14:15 Assessment and Plan Patient Active problem list reviewed?: Yes (1) Hepatocellular carcinoma Status: Chronic Assessment and plan: 1. This is a 66-year-old male with history of high-grade hepatocellular carcinoma for which she underwent partial hepatectomy in April 2017. In December 2019, surveillance CT of abdomen revealed multiple new hepatic lesions and persistent slightly prominent upper abdominal lymph nodes without enlargement. Tumor marker alpha-fetoprotein elevated 207, CEA level normal, 1.9. On 03/06/2020 he underwent core biopsy of lesion in the right lobe which revealed fragments of liver parenchyma with chronic hepatitis and mild inflammatory activity with bridging fibrosis. He is on Regorafinib 40 mg tablets, 80 mg/d since 04/02/2021. I have asked him to increase to 3 pills, 120 mg once daily from 04/18/2021. His LFTs have improved. 2. Chronic pain in abdomen. He was on oxycodone 5 mg Q hours 12 hours p.r.n.. He is now on Percocet 5/325 p.o. b.i.d. has been prescribed. Follow-up in 2 weeks. - Time Spent With Patient Time Spent with Patient (in minutes): 15
[2021-04-17 10:37] LABS: Alanine Aminotransferase 31 U/L (0-40); Albumin Level 3.5 g/dL (3.5-5.0); Alkaline Phosphatase 288 U/L (39-117); Aspartate Amino Transferase 37 U/L (5-37); Bilirubin Direct 0.4 mg/dL (0.0-0.5); Bilirubin Total 0.7 mg/dL (0.0-1.0); Total Protein 8.2 g/dL (6.5-8.0)
--- NOTE | 2021-04-17 16:20 | MHC.HEMONCMA ---
Patient came in for a follow up today, states that he is doing well. Clinical summary was reviewed and updated. Patient had labs and will return in 2 weeks for a follow up.
[2021-04-19 12:16] LABS: Alpha Fetoprotein 1920.8 ng/mL (<6.1)
--- NOTE | 2021-04-24 08:42 | MHC.HEMONC ---
Call from Ana this morning stating Maximino is not tolerating his Stivarga increse to 120mg daily. he is nauseous and vomits and has had diarrhea. Per Dr De Dios - pt is to stop the rx. I will suggest supportive measures for the sx. She should call if he does not feel better and we will see him next week at his scheduled appt.
[2021-05-02 15:42] VITALS: BP 134/72; PULSE 95; TEMP 38; O2SAT 97; BMI 21.5
[2021-05-02 16:14] LABS: MANUAL DIFF FLAG NO
[2021-05-02 16:22] LABS: Basophils Absolute Auto 0.1 X10*3/uL (0.0-0.2); Basophils Percent Auto 0.9 % (0-2); Eosinophils Absolute Auto 1.1 X10*3/uL (0.0-0.4); Eosinophils Percent Auto 9.9 % (0-4); Hematocrit 40.2 % (42.0-52.0); Hemoglobin 13.4 g/dl (14.0-18.0); Imm Gran Abs Auto 0.02 X10*3/uL (0.00-0.03); Imm Gran Pct Auto 0.2 % (0.0-0.4); Lymphocytes Absolute Auto 4.1 X10*3/uL (1.2-4.9); Lymphocytes Percent Auto 37.1 % (20-40); Mean Corpuscular HGB Conc 33.3 g/dl (31.0-36.0); Mean Corpuscular Hemoglobin 33.3 pg (27.0-33.0); Mean Corpuscular Volume 99.8 fL (80.0-98.0); Mean Platelet Volume 8.9 fL (9.4-12.4); Monocytes Percent Auto 8.6 % (2-11); Neutrophils Absolute Auto 4.8 x10*3/uL (2.0-8.3); Neutrophils Percent Auto 43.3 % (45-73); Platelet Count 336 X10*3/uL (160-400); Red Blood Count 4.03 X10*6/uL (4.60-5.80); Red Cell Distribution Width 14.1 % (11.0-16.0); White Blood Count 11.1 X10*3/uL (4.8-10.8)
--- NOTE | 2021-05-02 16:25 | MHC.HEMONC ---
per Dr Lanre Stanton to start Sorafenib 200mg BID. Order submitted to Carla (covering Carina[facility]. We will schedule teach once delivery has been arranged.
[2021-05-02 16:41] LABS: Alanine Aminotransferase 19 U/L (0-40); Albumin Level 3.1 g/dL (3.5-5.0); Alkaline Phosphatase 219 U/L (39-117); Anion Gap 11 (12-20); Aspartate Amino Transferase 37 U/L (5-37); Bilirubin Total 0.3 mg/dL (0.0-1.0); Blood Urea Nitrogen 16 mg/dL (9-16); Calcium 9.2 mg/dL (8.4-10.2); Carbon Dioxide 26 mmol/L (22-29); Chloride 108 mmol/L (96-108); Creatinine Clr Calc Pharmacy 91.1; Estimated Glomerular Filt Rate > 60; Glucose Random 129 mg/dL (60-115); Potassium 4.1 mmol/L (3.3-5.1); Sodium 141 mmol/L (135-145); Total Protein 7.4 g/dL (6.5-8.0)
--- NOTE | 2021-05-02 16:55 | P.PNHO_ITS ---
Medical Summary - Medical Summary Date of Service: 05/02/21 Chief complaint: Follow-up Medical Summary: Diagnosis: Hepatocellular carcinoma Longstanding history of liver cirrhosis, history of alcoholism and hepatitis-C. 01/13/2018 core biopsy of liver mass performed at [facility], pathology-hepatocellular carcinoma, high-grade. Underwent partial hepatectomy on 04/10/2017. Final pathology showed 2.4 cm HCC confined to the liver. Margins negative. Surveillance CT abdomen with IV contrast performed at [facility] on 12/15/2019 revealed multiple new hypodense lesions throughout liver. 1.2 cm lesion in left hepatic lobe, 1.7 cm lesion in left hepatic lobe, 1.6 cm lesion right hepatic lobe, 9 mm lesion in right hepatic lobe, 1.5 cm lesion in right hepatic lobe. Prior cholecystectomy. Status post splenectomy. This was concerning for recurrent hepatocellular carcinoma, metastatic disease from another primary was also possible. Prominent upper abdominal lymph nodes measuring up to 1.2 cm, not significantly changed from prior exam. Supraumbilical ventral abdominal hernia containing nonobstructed non inflamed loops of small bowel, similar to p rior. Postsurgical changes from prior ventral abdominal herniorrhaphy with mesh. 3 cm infrarenal abdominal aortic aneurysm. Tumor marker alpha-fetoprotein elevated 86.4, CEA level normal, 1.9. On 03/06/2020 he underwent core biopsy of lesion in the right lobe which revealed fragments of liver parenchyma with chronic hepatitis and mild inflammatory activity with bridging fibrosis. MRI abdomen performed 03/28/20 revealed 4 hepatic lesions under 2 cm suspicious for multifocal hepatocellular carcinoma. He was not a candidate for further surgery and based on lymphadenopathy, not an optimal candidate for localized therapies such as RFA or chemoembolization. Systemic therapy with targeted a gents/immunotherapy with atezolizumab 1200 mg q. 3 weeks, bevacizumab 15 mg/kg q. 3 weeks was started 05/10/2020. EGD did not show esophageal varices, there was mild gastritis. He started Systemic therapy with targeted agents/immunotherapy with atezolizumab 1200 mg q. 3 weeks, bevacizumab 15 mg/kg q. 3 weeks on 05/10/2020. He received 5 treatments by end of July 2020. Unfortunately, repeat MRI abdomen showed slight progression with 3 of the 4 lesions increasing in size. Alpha fetoprotein also increased to 287. He started lenvatinib 12 mg once daily from 08/14/2020. This was stopped on 10/09/2020 because of severe anorexia and weight loss. He received nivolumab from November 2020 until end of January 2021. A CT abdomen/pelvis with contrast on 02/07/2021 showed progressive disease with increase in size and number of liver lesions. Increasing periportal, gastrohepatic lymphadenopathy. New clustered left lower lobe lung nodules largest measuring 6 x 12 mm. He started regorafenib from 02/28/2021. Interval History Interval history: Patient is here in follow-up. He had stopped the higher dose of regorafenib, 120 mg daily a week ago. He did not tolerated. He developed severe nausea, anorexia and weight loss. He is feeling better now that he stopped taking it. Patient states that he wants to increase dose of oxycodone, twice daily medication is not helping him enough. His psychiatrist wants to start him on mirtazapine for sleep. He denies fever, chills or diarrhea. Review of Systems - Constitutional Reports as per HPI, Reports no additional constitutional complaints - Cardiovascular Reports no additional cardiovascular complaints - Respiratory Reports no additional respiratory complaints - Neurologic Reports weakness [facility] Medical History: Medical History (Last Reviewed 05/02/21 @ 15:44 by Lelo Bacon CMA) CVA (cerebral vascular accident) Hepatitis C Hepatocellular carcinoma History of alcohol abuse Liver cirrhosis Tobacco use disorder Family History: Family History (Last Reviewed 05/02/21 @ 15:44 by Lelo Bacon CMA) Father No problems noted. Mother No problems noted. Family/Other FH: mental illness Surgical History: Surgical History (Last Reviewed 05/02/21 @ 15:44 by Lelo Bacon CMA) H/O resection of liver Onset Date: ~04/2017 History of splenectomy No pertinent past surgical history Social History: Social History (Last Reviewed 05/02/21 @ 15:44 by Lelo Bacon CMA) Living Situation History: Household Members Other:: alone Housing: Apartment Are you a primary medicare compliance auditor to a significant other at home: No Alcohol History Details: Currently Displaying Signs/Symptoms of Alcohol Withdrawal: No Tobacco History: Patient Tobacco Use Status: Current everyday Tobacco Tobacco use type: Cigarette Cigarettes Per Day: 5 Smoked in Last 30 Days: Yes e-Cigarette/Vaping Use: Never Used Second Hand Smoke Exposure: No Substance Use History: Use of substances other than those prescribed or required for medical reasons : No Domestic Abuse History: Have you been hit, kicked, punched, or otherwise hurt by someone within the past year? If so, by whom?: No Do you feel safe in your current relationship?: No Current Relationship Healthcare Practices: Roman Catholic Healthcare Practices: episcopalian Nutrition Assessment: Recently lost weight without trying: No Nutrition Risks: Poor intake 0-25% >4 days Poor oral hygiene: Yes Occupation Assessmet: service: No Current occupational status: disabled Oncology Screenings - ECOG Performance Status ECOG Performance Status: 2 Home Medications and Allergies Home Medications Medication Instructions Recorded Confirmed Type clonazepam 1 mg tablet 1 mg PO TID 10/03/20 05/02/21 History quetiapine 150 mg 150 mg PO BEDTIME 05/02/21 05/02/21 History tablet,extended release 24 hr (Seroquel XR) Allergies Allergy/AdvReac Type Severity Reaction Status Date / Time No Known Allergies Allergy Verified 05/02/21 15:45 Exam Vital signs: Vital Signs Temp 100.4 F 05/02/21 15:42 Pulse 95 05/02/21 15:42 Resp 16 04/17/21 09:31 BP 134/72 05/02/21 15:42 Pulse Ox 97 05/02/21 15:42 Intake & Output 05/01/21 05/02/21 05/02/21 18:59 06:59 18:59 Other: Weight 70.1 kg Brandon Weight in Grams 13746 Weight 70.1 kg BMI result Verdana 4d Body Mass Index 21.5 - Constitutional Present: no acute distress, cachectic, chronically ill appearing - Routine HEENT Exam Head: Present: normal inspection - Routine Neck Exam Absent: lymphadenopathy - Routine Respiratory Exam Present: CTAB - Routine Cardiovascular Exam Cardiovascular: Present: RRR, S1, S2 - Routine Abdominal Exam Present: hernia, normal bowel sounds, soft - Routine Extremities Exam Absent: calf tenderness, pedal edema Data - Labs CBC & Chem 7: 05/02/21 16:12 05/02/21 16:12 Assessment and Plan Patient Active problem list reviewed?: Yes (1) Hepatocellular carcinoma Status: Chronic Assessment and plan: 1. This is a 66-year-old male with history of high-grade hepatocellular carcinoma for which she underwent partial hepatectomy in April 2017. In December 2019, surveillance CT of abdomen revealed multiple new hepatic lesions and persistent slightly prominent upper abdominal lymph nodes without enlargement. Tumor marker alpha-fetoprotein elevated 207, CEA level normal, 1.9. On 03/06/2020 he underwent core biopsy of lesion in the right lobe which revealed fragments of liver parenchyma with chronic hepatitis and mild inflammatory activity with bridging fibrosis. He received 4 cycles of atezolizumab with bevacizumab. He did not have any response, developed progressive disease. He was tried on lenvatinib for about 2 months he did not tolerate it. He developed severe GI side effects and significant weight loss. He was again tried on single agent nivolumab for a couple of months, developed further progression of disease. He started Regorafinib on 02/28/2027 in the 3rd line setting. He has been unable to tolerate full dose of 120 mg a day. I have asked him to cut back and just take 80 mg a day, 3 weeks on, 1 week off. His blood work today looks good, alkaline phosphatase level is coming down. 2. Chronic pain in abdomen. I have advised him not to take any Tylenol. New prescription has been sent for oxycodone 5 mg p.o. t.i.d.. Follow-up in 3 weeks. - Time Spent With Patient Time Spent with Patient (in minutes): 20
--- NOTE | 2021-05-02 17:12 | MHC.HEMONC ---
Dr De Dios saw pt today and he was doing well. His labs looked very good and so she would like Maximino to go back on his Regorafenib 40mg taking two pills daily (80mg) daily for 21 days followed by 7 days off. This was communicated to Ana. She will have nurses fill pill dispenser for him in the next day or two. She will call with any concerns. Maximino has f/u here in 2 weeks.
--- NOTE | 2021-05-04 15:29 | MHC.HEMONC ---
Spoke to nurse at [facility]. She wanted to be sure that Maximino was not getting new chemo med and what dose of Stivarga would be. I told her per Dr Lanre Stanton should take 2 (x40mg) pills daily for 21 days with 7 days off. She will fill his box.
--- NOTE | 2021-05-15 12:58 | MHC.HEMONC ---
Spoke with Ana. Maximino was not feeling well, c/o sore throat and mouth with difficulty speaking due to pain. No fever. Went to urgent care, and he was found to have mouth sores. He was given magic mouthwash, and now is feeling better. Continues to take stavarga. Is scheduled for follow up with Dr De Dios on 05/23.
--- NOTE | 2021-05-21 15:06 | P.PNHO_ITS ---
Medical Summary - Medical Summary Date of Service: 05/21/21 Chief complaint: Body pains Medical Summary: Diagnosis: Hepatocellular carcinoma Longstanding history of liver cirrhosis, history of alcoholism and hepatitis-C. 01/13/2018 core biopsy of liver mass performed at [facility], pathology-hepatocellular carcinoma, high-grade. Underwent partial hepatectomy on 04/10/2017. Final pathology showed 2.4 cm HCC confined to the liver. Margins negative. Surveillance CT abdomen with IV contrast performed at [facility] on 12/15/2019 revealed multiple new hypodense lesions throughout liver. 1.2 cm lesion in left hepatic lobe, 1.7 cm lesion in left hepatic lobe, 1.6 cm lesion right hepatic lobe, 9 mm lesion in right hepatic lobe, 1.5 cm lesion in right hepatic lobe. Prior cholecystectomy. Status post splenectomy. This was concerning for recurrent hepatocellular carcinoma, metastatic disease from another primary was also possible. Prominent upper abdominal lymph nodes measuring up to 1.2 cm, not significantly changed from prior exam. Supraumbilical ventral abdominal hernia containing nonobstructed non inflamed loops of small bowel, similar to prior. Postsurgical changes from prior ventral abdominal herniorrhaphy with mesh. 3 cm infrarenal abdominal aortic aneurysm. Tumor marker alpha-fetoprotein elevated 86.4, CEA level normal, 1.9. On 03/06/2020 he underwent core biopsy of lesion in the right lobe which revealed fragments of liver parenchyma with chronic hepatitis and mild inflammatory activity with bridging fibrosis. MRI abdomen performed 03/28/20 revealed 4 hepatic lesions under 2 cm suspicious for multifocal hepatocellular carcinoma. He was not a candidate for further surgery and based on lymphadenopathy, not an optimal candidate for localized therapies such as RFA or chemoembolization. Systemic therapy with targeted agents/immunotherapy with atezolizumab 1200 mg q. 3 weeks, bevacizumab 15 mg/kg q. 3 weeks was started 05/10/2020. EGD did not show esophageal varices, there was mild gastritis. He started Systemic therapy with targeted agents/immunotherapy with atezolizumab 1200 mg q. 3 weeks, bevacizumab 15 mg/kg q. 3 weeks on 05/10/2020. He received 5 treatments by end of July 2020. Unfortunately, repeat MRI abdomen showed slight progression with 3 of the 4 lesions increasing in size. Alpha fetoprotein also increased to 287. He started lenvatinib 12 mg once daily from 08/14/2020. This was stopped on 10/09/2020 because of severe anorexia and weight loss. He received nivolumab from November 2020 until end of January 2021. A CT abdomen/pelvis with contrast on 02/07/2021 showed progressive disease with increase in size and number of liver lesions. Increasing periportal, gastrohepatic lymphadenopathy. New clustered left lower lobe lung nodules largest measuring 6 x 12 mm. He started regorafenib from 02/28/2021. Interval History Interval history: Patient came for urgent visit without appointment complaining of generalized body pains. He was brought in by his aide from the long term. He appeared rather groggy and did not give any history other than saying that he had pains all over including his head. He was dozing off in his chair during the interview. His eyes appeared red and when specifically asked he says that he did notice his eyes to be red with slight sticky discharge. He denies fever, chills or diarrhea. Review of Systems - Constitutional Reports as per HPI - Neurologic Reports [facility] Medical History: Medical History (Last Reviewed 05/02/21 @ 15:44 by Lelo Bacon CMA) CVA (cerebral vascular accident) Hepatitis C Hepatocellular carcinoma History of alcohol abuse Liver cirrhosis Tobacco use disorder Family History: Family History (Last Reviewed 05/02/21 @ 15:44 by Lelo Bacon CMA) Father No problems noted. Mother No problems noted. Family/Other FH: mental illness Surgical History: Surgical History (Last Reviewed 05/02/21 @ 15:44 by Lelo Bacon CMA) H/O resection of liver Onset Date: ~04/2017 History of splenectomy No pertinent past surgical history Social History: Social History (Last Reviewed 05/02/21 @ 15:44 by Lelo Bacon CMA) Living Situation History: Household Members Other:: alone Housing: Apartment Are you a primary career technical education teacher to a significant other at home: No Alcohol History Details: Currently Displaying Signs/Symptoms of Alcohol Withdrawal: No Tobacco History: Patient Tobacco Use Status: Current everyday Tobacco Tobacco use type: Cigarette Smoked in Last 30 Days: Yes e-Cigarette/Vaping Use: Never Used Second Hand Smoke Exposure: No Substance Use History: Use of substances other than those prescribed or required for medical reasons : No Domestic Abuse History: Have you been hit, kicked, punched, or otherwise hurt by someone within the past year? If so, by whom?: No Do you feel safe in your current relationship?: No Current Relationship Healthcare Practices: Holiness Healthcare Practices: christian Nutrition Assessment: Recently lost weight without trying: No Nutrition Risks: Poor intake 0-25% >4 days Poor oral hygiene: Yes Occupation Assessmet: service: No Current occupational status: disabled Home Medications and Allergies Home Medications Medication Instructions Recorded Confirmed Type clonazepam 1 mg tablet 1 mg PO TID 10/03/20 05/02/21 History quetiapine 150 mg tablet,extended 150 mg PO BEDTIME 05/02/21 05/02/21 History release 24 hr (Seroquel XR) Allergies Allergy/AdvReac Type Severity Reaction Status Date / Time No Known Allergies Allergy Verified 05/02/21 15:45 Exam Vital signs: Vital Signs Temp 100.4 F 05/02/21 15:42 Pulse 95 05/02/21 15:42 Resp 16 04/17/21 09:31 BP 134/72 05/02/21 15:42 Pulse Ox 97 05/02/21 15:42 Weight 70.1 kg BMI result Body Mass Index 21.5 - Constitutional Present: no acute distress, cachectic, chronically ill appearing - Routine HEENT Exam Head: Present: normal inspection - Routine Neck Exam Absent: lymphadenopathy - Routine Respiratory Exam Present: CTAB - Routine Cardiovascular Exam Cardiovascular: Present: RRR, S1, S2 - Routine Abdominal Exam Present: hernia, normal bowel sounds, soft - Routine Extremities Exam Absent: calf tenderness, pedal edema Data - Labs CBC & Chem 7: 05/21/21 15:57 05/21/21 15:57 Assessment and Plan Patient Active problem list reviewed?: Yes (1) Hepatocellular carcinoma Status: Chronic Assessment and plan: 1. This is a 66-year-old male with history of high-grade hepatocellular carcinoma for which she underwent partial hepatectomy in April 2017. In December 2019, surveillance CT of abdomen revealed multiple new hepatic lesions and persistent slightly prominent upper abdominal lymph nodes without enlargement. Tumor marker alpha-fetoprotein elevated 207, CEA level normal, 1.9. On 03/06/2020 he underwent core biopsy of lesion in the right lobe which revealed fragments of liver parenchyma with chronic hepatitis and mild inflammatory activity with bridging fibrosis. He received 4 cycles of atezolizumab with bevacizumab. He did not have any response, developed progressive disease. He was tried on lenvatinib for about 2 months he did not tolerate it. He developed severe GI side effects and significant weight loss. He was again tried on single agent nivolumab for a couple of months, developed further progression of disease. He started Regorafinib on 02/28/2027 in the 3rd line setting. He has been unable to tolerate full dose of 120 mg a day. I have asked him to cut back and just take 80 mg a day, 3 weeks on, 1 week off. 2. Chronic pain in abdomen. Patient is on oxycodone 5 mg p.o. t.i.d.. 3. Bilateral conjunctivitis. Could be allergic, bacterial infection is also possibility as he has some discharge. Erythromycin eye ointment has been was prescribed. 4. Anorexia, poor oral intake. Probably secondary to malignancy. He appears rather too sedated, could be secondary to medications. IV fluids administered t darien. Patient came in today complaining of diffuse body aches. However he seemed rather somnolent and was not able to provide much of a history. He is on narcotic pain medications. I will speak to his social worker delinquency prevention and psychiatrist as he is on several medications that can be sedating. Follow-up in 3 weeks. - Time Spent With Patient Time Spent with Patient (in minutes): 15
[2021-05-21 15:35] VITALS: BP 139/85; PULSE 91; RESP 18; TEMP 37.3; O2SAT 95
[2021-05-21 15:59] LABS: MANUAL DIFF FLAG NO
[2021-05-21 16:05] LABS: Basophils Absolute Auto 0.1 X10*3/uL (0.0-0.2); Eosinophils Absolute Auto 0.4 X10*3/uL (0.0-0.4); Hematocrit 41.4 % (42.0-52.0); Hemoglobin 13.9 g/dl (14.0-18.0); Imm Gran Abs Auto 0.01 X10*3/uL (0.00-0.03); Imm Gran Pct Auto 0.1 % (0.0-0.4); Lymphocytes Absolute Auto 3.5 X10*3/uL (1.2-4.9); Lymphocytes Percent Auto 39.4 % (20-40); Mean Corpuscular HGB Conc 33.6 g/dl (31.0-36.0); Mean Corpuscular Hemoglobin 32.5 pg (27.0-33.0); Mean Corpuscular Volume 96.7 fL (80.0-98.0); Mean Platelet Volume 9.1 fL (9.4-12.4); Monocytes Absolute Auto 0.8 X10*3/uL (0.1-1.2); Monocytes Percent Auto 9.2 % (2-11); Neutrophils Absolute Auto 4.1 x10*3/uL (2.0-8.3); Neutrophils Percent Auto 46.3 % (45-73); Platelet Count 413 X10*3/uL (160-400); Red Blood Count 4.28 X10*6/uL (4.60-5.80)
--- NOTE | 2021-05-21 16:14 | MHC.HEMONC ---
Pt arrived to office c/o not feeling well. He states he has been having pain all over for the past 2 days, and c/o sore throat and dick. His eyes are watery, with the right eye reddened. He also states he has not eaten in the last [address] De Dios in to see pt. IV started right AC, with 500cc NS infusing. Labs drawn.
[2021-05-21 16:24] LABS: Alanine Aminotransferase 19 U/L (0-40); Albumin Level 3.1 g/dL (3.5-5.0); Alkaline Phosphatase 239 U/L (39-117); Anion Gap 13 (12-20); Aspartate Amino Transferase 51 U/L (5-37); Bilirubin Total 0.5 mg/dL (0.0-1.0); Blood Urea Nitrogen 11 mg/dL (9-16); Calcium 8.9 mg/dL (8.4-10.2); Carbon Dioxide 23 mmol/L (22-29); Chloride 106 mmol/L (96-108); Creatinine Clr Calc Pharmacy 98.6; Estimated Glomerular Filt Rate > 60; Glucose Random 103 mg/dL (60-115); Potassium 4.1 mmol/L (3.3-5.1); Sodium 138 mmol/L (135-145); Total Protein 7.6 g/dL (6.5-8.0)
--- NOTE | 2021-05-21 17:04 | MHC.HEMONC ---
Lab results reviewed by Dr De Dios. Pt to go home, and prescription to be sent for eye drops. Dr De Dios also would like to speak to Ana in AM. Call to Ana, and updated her on Maximino's visit. She will call in the AM. IV dc'd and pt departed office.
--- NOTE | 2021-05-22 09:34 | MHC.HEMONC ---
I called Ana at Dr De Dios's request to discuss Maximino's presentation yesterday in our Clinic. He came in unscheduled and was asking for pain med. His eyes were red and he was lethargic. He has one of his media aid with him. He had vitals and labs which were WNL. He received 500cc NS and was evaluated by Dr De Dios.Per Ana, he was started on Remeron 15mg at bedtime per his Psychiatrist. He has been on it two weeks. He is on other sedating meds. I asked her to call the Psychiatric Provider and discuss his lethargy. Dr De Dios did order eye antibiotic for him. Ana will call me back after speaking with his Provider.
--- NOTE | 2021-05-22 11:29 | MHC.HEMONC ---
Maximino's honey extractor is Roopa Toth
--- NOTE | 2021-05-22 11:45 | MHC.HEMONC ---
Spoke to Roopa MONTOYA re: Maximino. He hasredness in his mouth that is quite bad and white patches. He had some Nystatin in ER but none presently. I spoke to Dr De Dios and Miracle Mouthwash ordered. also ordered CT scan. Given to Donna for placement in Filling Carrier. Maximino takes Oxycodone 5mg twice a day and 10mg at 2 pm. Nurse to call us when he runs out of pain med.
[2021-05-30 11:47] VITALS: BP 139/92; PULSE 92; RESP 16; TEMP 37.2; O2SAT 96; BMI 20.2
--- NOTE | 2021-05-30 14:20 | MHC.HEMONCMA ---
Patient was in for follow up. Clinical summary reviewed and updated,VSS. Patient will return in 1 week.
--- NOTE | 2021-05-30 15:01 | PM.HEMONCPN ---
Medical Summary - Medical Summary Date of Service: 05/30/21 Chief complaint: follow-up Medical Summary: Diagnosis: Hepatocellular carcinoma Longstanding history of liver cirrhosis, history of alcoholism and hepatitis-C. 01/13/2018 core biopsy of liver mass performed at [facility], pathology-hepatocellular carcinoma, high-grade. Underwent partial hepatectomy on 04/10/2017. Final pathology showed 2.4 cm HCC confined to the liver. Margins negative. Surveillance CT abdomen with IV contrast performed at [facility] on 12/15/2019 revealed multiple new hypodense lesions throughout liver. 1.2 cm lesion in left hepatic lobe, 1.7 cm lesion in left hepatic lobe, 1.6 cm lesion right hepatic lobe, 9 mm lesion in right hepatic lobe, 1.5 cm lesion in right hepatic lobe. Prior cholecystectomy. Status post splenectomy. This was concerning for recurrent hepatocellular carcinoma, metastatic disease from another primary was also possible. Prominent upper abdominal lymph nodes measuring up to 1.2 cm, not significantly changed from prior exam. Supraumbilical ventral abdominal hernia containing nonobstructed non inflamed loops of small bowel, similar to prior. Postsurgical changes from prior ventral abdominal herniorrhaphy with mesh. 3 cm infrarenal abdominal aortic aneurysm. Tumor marker alpha-fetoprotein elevated 86.4, CEA level normal, 1.9. On 03/06/2020 he underwent core biopsy of lesion in the right lobe which revealed fragments of liver parenchyma with chronic hepatitis and mild inflammatory activity with bridging fibrosis. MRI abdomen performed 03/28/20 revealed 4 hepatic lesions under 2 cm suspicious for multifocal hepatocellular carcinoma. He was not a candidate for further surgery and based on lymphadenopathy, not an optimal candidate for localized therapies such as RFA or chemoembolization. Systemic therapy with targeted agents/immunotherapy with atezolizumab 1200 mg q. 3 weeks, bevacizumab 15 mg/kg q. 3 weeks was started 05/10/2020. EGD did not show esophageal varices, there was mild gastritis. He started Systemic therapy with targeted agents/immunotherapy with atezolizumab 1200 mg q. 3 weeks, bevacizumab 15 mg/kg q. 3 weeks on 05/10/2020. He received 5 treatments by end of July 2020. Unfortunately, repeat MRI abdomen showed slight progression with 3 of the 4 lesions increasing in size. Alpha fetoprotein also increased to 287. He started lenvatinib 12 mg once daily from 08/14/2020. This was stopped on 10/09/2020 because of severe anorexia and weight loss. He received nivolumab from November 2020 until end of January 2021. A CT abdomen/pelvis with contrast on 02/07/2021 showed progressive disease with increase in size and number of liver lesions. Increasing periportal, gastrohepatic lymphadenopathy. New clustered left lower lobe lung nodules largest measuring 6 x 12 mm. He started regorafenib from 02/28/2021. Interval History Interval history: Patient is here for follow-up. He is a little more awake and alert today. He has been taken off the sleep medication. Redness of his right eye has improved slightly. 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 He is trying to eat but he is appetite is poor. He denies nausea or emesis. Abdominal pain is stable. Review of Systems - Neurologic Reports [facility] Medical History: Medical History (Last Reviewed 05/30/21 @ 11:52 by Lelo Bacon CMA) CVA (cerebral vascular accident) Hepatitis C Hepatocellular carcinoma History of alcohol abuse Liver cirrhosis Tobacco use disorder Family History: Family History (Last Reviewed 05/30/21 @ 11:52 by Lelo Bacon CMA) Father No problems noted. Mother No problems noted. Family/Other FH: mental illness Surgical History: Surgical History (Last Reviewed 05/30/21 @ 11:52 by Lelo Bacon CMA) H/O resection of liver Onset Date: ~04/2017 History of splenectomy No pertinent past surgical history Social History: Social History (Last Updated 05/30/21 @ 11:53 by Lelo Bacon CMA) Living Situation History: Household Members: None Household Members Other:: alone Housing: Apartment Are you a primary director critical care to a significant other at home: No Do you presently have visiting nurse or other home services: Yes Alcohol History Details: 1. How often do you have a drink containing alcohol?: a. Never Currently Displaying Signs/Symptoms of Alcohol Withdrawal: No Tobacco History: Patient Tobacco Use Status: Current everyday Tobacco Tobacco use type: Cigarette Cigarettes Per Day: 10 Smoked in Last 30 Days: Yes e-Cigarette/Vaping Use: Never Used Second Hand Smoke Exposure: No Substance Use History: Use of substances other than those prescribed or required for medical reasons: No Substance Use Type: Marijuana Domestic Abuse History: Have you been hit, kicked, punched, or otherwise hurt by someone within the past year? If so, by whom?: No Do you feel safe in your current relationship?: No Current Relationship Healthcare Practices: [facility]: [facility] Nutrition Assessment: Recently lost weight without trying: No Nutrition Risks: Poor intake 0-25% >4 days Poor oral hygiene: Yes Occupation Assessmet: service: No Current occupational status: disabled Home Medications and Allergies Home Medications Medication Instructions Recorded Confirmed Type clonazepam 1 mg tablet 1 mg PO TID 10/03/20 05/30/21 History quetiapine 150 mg tablet,extended 150 mg PO BEDTIME 05/02/21 05/30/21 History release 24 hr (Seroquel XR) regorafenib 40 mg tablet (Stivarga) 80 mg PO DAILY 05/30/21 05/30/21 History Allergies Allergy/AdvReac Type Severity Reaction Status Date / Time No Known Allergies Allergy Verified 05/30/21 11:53 Exam Vital signs: Vital Signs Temp 99.0 F 05/30/21 11:47 Pulse 92 05/30/21 11:47 Resp 16 05/30/21 11:47 BP 139/92 H 05/30/21 11:47 Pulse Ox 96 05/30/21 11:47 Intake & Output 05/29/21 05/30/21 05/30/21 18:59 06:59 18:59 Other: Weight 65.9 kg Weight in Grams [id number] Weight 65.9 kg BMI result Body Mass Index 20.2 - Constitutional Present: no acute distress, cachectic, chronically ill appearing - Routine HEENT Exam Head: Present: normal inspection - Routine Neck Exam Absent: lymphadenopathy - Routine Respiratory Exam Present: CTAB - Routine Cardiovascular Exam Cardiovascular: Present: RRR, S1, S2 - Routine Abdominal Exam Present: hernia, normal bowel sounds, soft - Routine Extremities Exam Absent: calf tenderness, pedal edema Data - Labs CBC & Chem 7: 05/21/21 15:57 05/21/21 15:57 Assessment and Plan Patient Active problem list reviewed?: Yes (1) Hepatocellular carcinoma Status: Chronic Assessment and plan: 1. This is a 66-year-old male with history of high-grade hepatocellular carcinoma for which she underwent partial hepatectomy in April 2017. In December 2019, surveillance CT of abdomen revealed multiple new hepatic lesions and persistent slightly prominent upper abdominal lymph nodes without enlargement. Tumor marker alpha-fetoprotein elevated 207, CEA level normal, 1.9. On 03/06/2020 he underwent core biopsy of lesion in the right lobe which revealed fragments of liver parenchyma with chronic hepatitis and mild inflammatory activity with bridging fibrosis. He received 4 cycles of atezolizumab with bevacizumab. He did not have any response, developed progressive disease. He was tried on lenvatinib for about 2 months he did not tolerate it. He developed severe GI side effects and significant weight loss. He was again tried on single agent nivolumab for a couple of months, developed further progression of disease. He started Regorafinib on 02/28/2027 in the 3rd line setting. He has been unable to tolerate full dose of 120 mg a day. I have asked him to cut back and just take 80 mg a day, 3 weeks on, 1 week off. 2. Chronic pain in abdomen. Patient is on oxycodone 5 mg p.o. t.i.d.. Repeat imaging scans, CT abdomen/pelvis is pending. Follow-up in 2 weeks. - Time Spent With Patient Time Spent with Patient (in minutes): 15
--- NOTE | 2021-06-04 10:35 | MHC.HEMONC ---
nAa and pt home RN aware Maximino is to continue on 80mg Stivarga 3 weeks on - one week off. He will be seeing Dr De Dios on 06/12.
--- NOTE | 2021-06-08 12:06 | MHC.HEMONC ---
Spoke to pt BRIDGERA RN from [facility]. Pt has been dx with pneumonia and is on 2 antibiotics. She was asking about starting up Stivarga for this cycle vs holding off. Per Dr De Dios, pt is to wait until pneumonia has been fully treated. Nurse to call us with update at that time. We also are sinding order for Palliative Care through [facility].
[2021-06-12 10:44] LABS: MANUAL DIFF FLAG NO
[2021-06-12 10:48] VITALS: BP 128/86; PULSE 101; TEMP 37.1; O2SAT 95; BMI 20.2
[2021-06-12 10:49] LABS: Basophils Absolute Auto 0.1 X10*3/uL (0.0-0.2); Basophils Percent Auto 0.8 % (0-2); Eosinophils Absolute Auto 0.6 X10*3/uL (0.0-0.4); Eosinophils Percent Auto 5.3 % (0-4); Hematocrit 41.4 % (42.0-52.0); Hemoglobin 13.9 g/dl (14.0-18.0); Imm Gran Abs Auto 0.02 X10*3/uL (0.00-0.03); Imm Gran Pct Auto 0.2 % (0.0-0.4); Lymphocytes Absolute Auto 4.4 X10*3/uL (1.2-4.9); Lymphocytes Percent Auto 41.4 % (20-40); Mean Corpuscular HGB Conc 33.6 g/dl (31.0-36.0); Mean Corpuscular Hemoglobin 32.3 pg (27.0-33.0); Mean Corpuscular Volume 96.3 fL (80.0-98.0); Mean Platelet Volume 9.3 fL (9.4-12.4); Monocytes Percent Auto 9.7 % (2-11); Neutrophils Absolute Auto 4.5 x10*3/uL (2.0-8.3); Neutrophils Percent Auto 42.6 % (45-73); Platelet Count 337 X10*3/uL (160-400); Red Cell Distribution Width 13.9 % (11.0-16.0); White Blood Count 10.6 X10*3/uL (4.8-10.8)
[2021-06-12 11:06] LABS: Alanine Aminotransferase 14 U/L (0-40); Albumin Level 3.1 g/dL (3.5-5.0); Alkaline Phosphatase 230 U/L (39-117); Anion Gap 16 (12-20); Aspartate Amino Transferase 42 U/L (5-37); Bilirubin Total 0.6 mg/dL (0.0-1.0); Blood Urea Nitrogen 13 mg/dL (9-16); Calcium 9.7 mg/dL (8.4-10.2); Carbon Dioxide 25 mmol/L (22-29); Chloride 106 mmol/L (96-108); Creatinine Clr Calc Pharmacy 88.8; Estimated Glomerular Filt Rate > 60; Glucose Random 100 mg/dL (60-115); Potassium 4.5 mmol/L (3.3-5.1); Sodium 142 mmol/L (135-145); Total Protein 7.6 g/dL (6.5-8.0)
--- NOTE | 2021-06-12 12:58 | MHC.HEMONCSW ---
WITH PT PERMISSION I SPOKE WITH ALENA BISWAS [facility] HE HAS ALSO NOTHING TO ADD ABOUT COMPETENCE ISSUE. [phone].
--- NOTE | 2021-06-12 13:11 | MHC.HEMONCSW ---
[facility] [place] INVOLVED FOR NURSING AND CASE MANAGEMENT. GUME [phone] IS APPRAISER TIMBER. WORRIED PT IS FAILING, EDUCATION AND SUPPORT PROVIDED. MET WITH PT WHO WANTS TREATMENT ALTHOUGH HE IS FAILING AND NOT TOLERATING THE ORAL CHEMO.
--- NOTE | 2021-06-12 13:54 | P.PNHO_ITS ---
Medical Summary - Medical Summary Date of Service: 06/12/21 Chief complaint: follow-up Medical Summary: Diagnosis: Hepatocellular carcinoma Longstanding history of liver cirrhosis, history of alcoholism and hepatitis-C. 01/13/2018 core biopsy of liver mass performed at [facility], pathology-hepatocellular carcinoma, high-grade. Underwent partial hepatectomy on 04/10/2017. Final pathology showed 2.4 cm HCC confined to the liver. Margins negative. Surveillance CT abdomen with IV contrast performed at [facility] on 12/15/2019 revealed multiple new hypodense lesions throughout liver. 1.2 cm lesion in left hepatic lobe, 1.7 cm lesion in left hepatic lobe, 1.6 cm lesion right hepatic lobe, 9 mm lesion in right hepatic lobe, 1.5 cm lesion in right hepatic lobe. Prior cholecystectomy. Status post splenectomy. This was concerning for recurrent hepatocellular carcinoma, metastatic disease from another primary was also possible. Prominent upper abdominal lymph nodes measuring up to 1.2 cm, not significantly changed from prior exam. Supraumbilical ventral abdominal hernia containing nonobstructed non inflamed loops of small bowel, similar to prior. Postsurgical changes from prior ventral abdominal herniorrhaphy with mesh. 3 cm infrarenal abdominal aortic aneurysm. Tumor marker alpha-fetoprotein elevated 86.4, CEA level normal, 1.9. On 03/06/2020 he underwent core biopsy of lesion in the right lobe which revealed fragments of liver parenchyma with chronic hepatitis and mild inflammatory activity with bridging fibrosis. MRI abdomen performed 03/28/20 revealed 4 hepatic lesions under 2 cm suspicious for multifocal hepatocellular carcinoma. He was not a candidate for further surgery and based on lymphadenopathy, not an optimal candidate for localized therapies such as RFA or chemoembolization. Systemic therapy with targeted agents/immunotherapy with atezolizumab 1200 mg q. 3 weeks, bevacizumab 15 mg/kg q. 3 weeks was started 05/10/2020. EGD did not show esophageal varices, there was mild gastritis. He started Systemic therapy with targeted agents/immunotherapy with atezolizumab 1200 mg q. 3 weeks, bevacizumab 15 mg/kg q. 3 weeks on 05/10/2020. He received 5 treatments by end of July 2020. Unfortunately, repeat MRI abdomen showed slight progression with 3 of the 4 lesions increasing in size. Alpha fetoprotein also increased to 287. He started lenvatinib 12 mg once daily from 08/14/2020. This was stopped on 10/09/2020 because of severe anorexia and weight loss. He received nivolumab from November 2020 until end of January 2021. A CT abdomen/pelvis with contrast on 02/07/2021 showed progressive disease with increase in size and number of liver lesions. Increasing periportal, gastrohepatic lymphadenopathy. New clustered left lower lobe lung nodules largest measuring 6 x 12 mm. He started regorafenib from 02/28/2021. Interval History Interval history: Patient is here for follow-up. He is doing about the same. Poor appetite and continues to lose weight. He was recently treated for pneumonia with antibiotics. He denies nausea or emesis. Abdominal pain is stable. He wants to continue receiving treatment for his cancer. Review of Systems - Constitutional Reports as per HPI, Reports fatigue, Reports lack of energy, Reports poor appetite, Reports weight loss - Cardiovascular Reports no additional cardiovascular complaints - Respiratory Reports no additional respiratory complaints - Neurologic Reports weakness PMFSH Medical History: Medical History (Last Reviewed 06/07/21 @ 13:26 by Dominga Reyes DO) CVA (cerebral vascular accident) Hepatitis C Hepatocellular carcinoma History of alcohol abuse Incisional hernia Liver cirrhosis Tobacco use disorder Family History: Family History (Last Reviewed 05/31/21 @ 12:55 by MOISES Astorga) Father No problems noted. Mother No problems noted. Family/Other FH: mental illness Surgical History: Surgical History (Last Reviewed 06/07/21 @ 13:26 by Dominga Reyes DO) H/O resection of liver Onset Date: ~04/2017 History of splenectomy No pertinent past surgical history Social History: Social History (Last Reviewed 06/07/21 @ 13:26 by Dominga Reyes DO) Living Situation History: Household Members: None Household Members Other:: alone Housing: Apartment Are you a primary post acute care nurse practitioner to a significant other at home: No Do you presently have visiting nurse or other home services: Yes Alcohol History Details: 1. How often do you have a drink containing alcohol?: a. Never Currently Displaying Signs/Symptoms of Alcohol Withdrawal: No Tobacco History: Patient Tobacco Use Status: Former Tobacco user Tobacco use type: Cigarette Smoked in Last 30 Days: Yes e-Cigarette/Vaping Use: Never Used Second Hand Smoke Exposure: No Substance Use History: Use of substances other than those prescribed or required for medical reasons : No Substance Use Type: Marijuana Domestic Abuse History: Have you been hit, kicked, punched, or otherwise hurt by someone within the past year? If so, by whom?: No Do you feel safe in your current relationship?: No Current Relationship Healthcare Practices: Congregational Healthcare Practices: denominational Nutrition Assessment: Recently lost weight without trying: No Nutrition Risks: Poor intake 0-25% >4 days Poor oral hygiene: Yes Occupation Assessmet: service: No Current occupational status: disabled Home Medications and Allergies Home Medications Medication Instructions Recorded Confirmed Type quetiapine 150 mg tablet,extended 150 mg PO BEDTIME 05/02/21 06/12/21 History release 24 hr (Seroquel XR) regorafenib 40 mg tablet (Stivarga) 80 mg PO DAILY 05/30/21 06/12/21 History ondansetron HCl 8 mg tablet 1 tab PO Q8H 06/01/21 06/12/21 History Allergies Allergy/AdvReac Type Severity Reaction Status Date / Time No Known Allergies Allergy Verified 05/30/21 11:53 Exam Vital signs: Vital Signs Temp 98.7 F 06/12/21 10:48 Pulse 101 H 06/12/21 10:48 Resp 16 05/30/21 11:47 BP 128/86 06/12/21 10:48 Pulse Ox 95 06/12/21 10:48 Intake & Output 06/11/21 06/12/21 06/12/21 18:59 06:59 18:59 Other: Weight 65.7 kg [place] Weight in Grams [id number] Weight 65.7 kg BMI result Body Mass Index 20.2 - Constitutional Present: no acute distress, cachectic, chronically ill appearing - Routine HEENT Exam Head: Present: normal inspection - Routine Neck Exam Absent: lymphadenopathy - Routine Respiratory Exam Present: CTAB - Routine Cardiovascular Exam Cardiovascular: Present: RRR, S1, S2 - Routine Abdominal Exam Present: hernia, normal bowel sounds, soft - Routine Extremities Exam Absent: calf tenderness, pedal edema Data - Labs CBC & Chem 7: 06/12/21 10:28 06/12/21 10:28 Assessment and Plan Patient Active problem list reviewed?: Yes (1) Hepatocellular carcinoma Status: Chronic Assessment and plan: 1. This is a 66-year-old male with history of high-grade hepatocellular carcinoma for which he underwent partial hepatectomy in April 2017. In 2019, surveillance CT of abdomen revealed multiple new hepatic lesions and persistent slightly prominent upper abdominal lymph nodes without enlargement. Tumor marker alpha-fetoprotein elevated 207, CEA level normal, 1.9. On 03/06/2020 he underwent core biopsy of lesion in the right lobe which revealed fragments of liver parenchyma with chronic hepatitis and mild inflammatory activity with bridging fibrosis. He received 4 cycles of atezolizumab with bevacizumab. He did not have any re sponse, developed progressive disease. He was tried on lenvatinib for about 2 months he did not tolerate it. He developed severe GI side effects and significant weight loss. He was again tried on single agent nivolumab for a couple of months, developed further progression of disease. He started Regorafinib on 02/28/2027 in the 3rd line setting. He has been unable to tolerate full dose of 120 mg a day. I have asked him to cut back and just take 80 mg a day, 3 weeks on, 1 week off. 2. Chronic pain in abdomen. Patient is on oxycodone 5 mg p.o. t.i.d.. 3. Disposition. He is declining with poor performance status overall. Today we discussed goals of care and possibility of going on palliative/hospice care. Patient was not interested, he wants to continue to receive active treatment for his cancer. Repeat imaging scans, CT abdomen/pelvis performed in June [address] chest revealed tree-in-bud nodularity in the left lung, mild infectious process. He is status post antibiotics. Follow-up in 3 weeks. - Time Spent With Patient Time Spent with Patient (in minutes): 15
--- NOTE | 2021-06-12 14:02 | MHC.HEMONCSW ---
PT RECEIVES [facility]ERK [facility]...GUME IS THE MODEL AND PATTERN SUPERVISOR AND I SPOKE WITH LAVERNE MONTOYA AT [facility], STATES PT AGREES TO PALLIATIVE CARE SERVICES AND HIS PSYCHIATRIC WORKER IS CHERIE SCHILLING AT [facility]..CLINICAL SUPPORT OPTIONS # [phone] I PHONED AND L/M TO CALL ME.
--- NOTE | 2021-06-12 15:27 | MHC.HEMONCSW ---
nurse at [facility] is marv who can be reached at [phone]
--- NOTE | 2021-06-12 16:11 | MHC.HEMONC ---
Patient present for follow up with Dr De Dios, his careworker Ana was present. Vital signs done, medications reviewed and labs drawn by phlebotomy. Dr De Dios in to see the patient. Next follow up scheduled for 07/03/21.
[2021-06-13 11:56] LABS: Alpha Fetoprotein 2950.7 ng/mL (<6.1)
--- NOTE | 2021-06-19 12:46 | MHC.HEMONC ---
Pt was in [facility] ER last night per [facility] (Jessika) and Ana. He was having abdominal pain. He was given pain med and discharged. No imaging that they knew of. Pt has multiple ER trips for same and VNRN wondering if pain rx could be increased. Per Dr De Dios - pt oxycodone order will be changed to 10mg TID. I informed Roopa so that Maximino's pill box could be refilled with this change.
--- NOTE | 2021-06-29 13:54 | MHC.HEMONC ---
Received call from Ivanna at [facility] stating pt is home from the hospital. States Stivargo dose is 160mg not pt's usual dose of 80mg daily. Dr De Dios notified. Pt unable to tolerate 160mg daily per provider. Pt to take 80mg daily per provider. Ivanna from [facility] notified.
[2021-07-03 09:37] VITALS: BP 107/68; PULSE 101; RESP 16; TEMP 36.1; O2SAT 96; BMI 19.0
--- NOTE | 2021-07-03 09:44 | PM.HEMONCPN ---
Medical Summary - Medical Summary Date of Service: 07/03/21 Chief complaint: Follow-up Medical Summary: Diagnosis: Hepatocellular carcinoma Longstanding history of liver cirrhosis, history of alcoholism and hepatitis-C. 01/13/2018 core biopsy of liver mass performed at [facility], pathology-hepatocellular carcinoma, high-grade. Underwent partial hepatectomy on 04/10/2017. Final pathology showed 2.4 cm HCC confined to the liver. Margins negative. Surveillance CT abdomen with IV contrast performed at [facility] on 12/15/2019 revealed multiple new hypodense lesions throughout liver. 1.2 cm lesion in left hepatic lobe, 1.7 cm lesion in left hepatic lobe, 1.6 cm lesion right hepatic lobe, 9 mm lesion in right hepatic lobe, 1.5 cm lesion in right hepatic lobe. Prior cholecystectomy. Status post splenectomy. This was concerning for recurrent hepatocellular carcinoma, metastatic disease from another primary was also possible. Prominent upper abdominal lymph nodes measuring up to 1.2 cm, not significantly changed from prior exam. Supraumbilical ventral abdominal hernia containing nonobstructed non inflamed loops of small bowel, similar to prior. Postsurgical changes from prior ventral abdominal herniorrhaphy with mesh. 3 cm infrarenal abdominal aortic aneurysm. Tumor marker alpha-fetoprotein elevated 86.4, CEA level normal, 1.9. On 03/06/2020 he underwent core biopsy of lesion in the right lobe which revealed fragments of liver parenchyma with chronic hepatitis and mild inflammatory activity with bridging fibrosis. MRI abdomen performed 03/28/20 revealed 4 hepatic lesions under 2 cm suspicious for multifocal hepatocellular carcinoma. He was not a candidate for further surgery and based on lymphadenopathy, not an optimal candidate for localized therapies such as RFA or chemoembolization. Systemic therapy with targeted agents/immunotherapy with atezolizumab 1200 mg q. 3 weeks, bevacizumab 15 mg/kg q. 3 weeks was started 05/10/2020. EGD did not show esophageal varices, there was mild gastritis. He started Systemic therapy with targeted agents/immunotherapy with atezolizumab 1200 mg q. 3 weeks, bevacizumab 15 mg/kg q. 3 weeks on 05/10/2020. He received 5 treatments by end of July 2020. Unfortunately, repeat MRI abdomen showed slight progression with 3 of the 4 lesions increasing in size. Alpha fetoprotein also increased to 287. He started lenvatinib 12 mg once daily from 08/14/2020. This was stopped on 10/09/2020 because of severe anorexia and weight loss. He received nivolumab from November 2020 until end of January 2021. A CT abdomen/pelvis with contrast on 02/07/2021 showed progressive disease with increase in size and number of liver lesions. Increasing periportal, gastrohepatic lymphadenopathy. New clustered left lower lobe lung nodules largest measuring 6 x 12 mm. He started regorafenib from 02/28/2021. Interval History Interval history: Patient is here for follow-up. He is doing about the same. He was again admitted to the hospital and treated for pneumonia. He continues to do poorly. He denies nausea or emesis. Abdominal pain is stable. He is finishing course of antibiotics. No reports of fever or cough at this time. Review of Systems - Neurologic Reports weakness [facility] Medical History: Medical History (Last Reviewed 07/03/21 @ 09:38 by Lelo Bacon CMA) CVA (cerebral vascular accident) Hepatitis C Hepatocellular carcinoma History of alcohol abuse Incisional hernia Liver cirrhosis Tobacco use disorder Family History: Family History (Last Reviewed 07/03/21 @ 09:38 by Lelo Bacon CMA) Father No problems noted. Mother No problems noted. Family/Other FH: mental illness Surgical History: Surgical History (Last Reviewed 07/03/21 @ 09:38 by Lelo Bacon CMA) H/O resection of liver Onset Date: ~04/2017 History of splenectomy No pertinent past surgical history Social History: Social History (Last Updated 07/03/21 @ 09:40 by Lelo Bacon CMA) Living Situation History: Household Members: None Household Members Other:: alone Housing: Apartment Are you a primary primary care nurse to a significant other at home: No Do you presently have visiting nurse or other home services: Yes Alcohol History: Unable to assess alcohol history related to: Unable to respond Alcohol History Details: 1. How often do you have a drink containing alcohol?: a. Never Currently Displaying Signs/Symptoms of Alcohol Withdrawal: No Tobacco History: Patient Tobacco Use Status: Former Tobacco user Tobacco use type: Cigarette Smoked in Last 30 Days: Yes e-Cigarette/Vaping Use: Never Used Second Hand Smoke Exposure: No Substance Use History: Use of substances other than those prescribed or required for medical reasons: No Substance Use Type: Marijuana Domestic Abuse History: Have you been hit, kicked, punched, or otherwise hurt by someone within the past year? If so, by whom?: No Do you feel safe in your current relationship?: No Current Relationship Healthcare Practices: [employer] Healthcare Practices: sabianism Homicidal Assessment: Do you have thoughts of harming others: None Do you have a plan to hurt others: No Plan Do you have the means to hurt others: No Nutrition Assessment: Recently lost weight without trying: Yes How much weight loss: 2-13 pounds Eating poorly because of decreased appetite: Yes Nutrition screen score: 4 Nutrition Risks: Poor intake 0-25% >4 days Poor oral hygiene: Yes Occupation Assessmet: service: No Current occupational status: disabled Home Medications and Allergies Home Medications Medication Instructions Recorded Confirmed Type quetiapine 150 mg tablet,extended 150 mg PO BEDTIME 05/02/21 07/03/21 History release 24 hr (Seroquel XR) ondansetron HCl 8 mg tablet 1 tab PO Q12H 06/01/21 07/03/21 History clopidogrel 75 mg tablet 75 mg PO DAILY 06/20/21 07/03/21 History regorafenib 40 mg tablet (Stivarga) 80 mg PO DAILY tab 06/29/21 07/03/21 History Allergies Allergy/AdvReac Type Severity Reaction Status Date / Time No Known Allergies Allergy Verified 07/03/21 09:40 Exam Vital signs: Vital Signs Temp 97 F 07/03/21 09:37 Pulse 101 H 07/03/21 09:37 Resp 16 07/03/21 09:37 BP 107/68 07/03/21 09:37 Pulse Ox 96 07/03/21 09:37 Intake & Output 07/02/21 07/03/21 07/03/21 18:59 06:59 18:59 Other: Weight 61.9 kg Weight in Grams 16366 Weight 61.9 kg BMI result Body Mass Index 19.0 - Constitutional Present: no acute distress, cachectic, chronically ill appearing - Routine HEENT Exam Head: Present: normal inspection - Routine Neck Exam Absent: lymphadenopathy - Routine Respiratory Exam Present: CTAB - Routine Cardiovascular Exam Cardiovascular: Present: RRR, S1, S2 - Routine Abdominal Exam Present: hernia, normal bowel sounds, soft - Routine Extremities Exam Absent: calf tenderness, pedal edema Data - Labs CBC & Chem 7: 07/03/21 10:00 07/03/21 10:00 Assessment and Plan Patient Active problem list reviewed?: Yes (1) Hepatocellular carcinoma Status: Chronic Assessment and plan: 1. This is a 66-year-old male with history of high-grade hepatocellular carcinoma for which he underwent partial hepatectomy in April 2017. In December 2019, surveillance CT of abdomen revealed multiple new hepatic lesions and persistent slightly prominent upper abdominal lymph nodes without enlargement. Tumor marker alpha-fetoprotein elevated 207, CEA level normal, 1.9. On 03/06/2020 he underwent core biopsy of lesion in the right lobe which revealed fragments of liver parenchyma with chronic hepatitis and mild inflammatory activity with bridging fibrosis. He received 4 cycles of atezolizumab with bevacizumab. He did not have any response, developed progressive disease. He was tried on lenvatinib for about 2 months he did not tolerate it. He developed severe GI side effects and significant weight loss. He was again tried on single agent nivolumab for a couple of months, developed further progression of disease. He started Regorafinib on 02/28/2027 in the 3rd line setting. He has been unable to tolerate full dose, I have asked him to cut back and just take 80 mg a day, 3 weeks on, 1 week off. 2. Chronic pain in abdomen. Patient is on oxycodone 5 mg p.o. t.i.d.. 3. Disposition. He is declining with poor performance status overall. Pt declined hospice care, he wants to continue to receive active treatment for his cancer. Continue current regimen. Follow-up in 3 weeks. - Time Spent With Patient Time Spent with Patient (in minutes): 15
[2021-07-03 10:08] LABS: Hematocrit 37.4 % (42.0-52.0); Hemoglobin 12.7 g/dl (14.0-18.0); Mean Corpuscular Hemoglobin 31.9 pg (27.0-33.0); Mean Platelet Volume 9.3 fL (9.4-12.4); Platelet Count 392 X10*3/uL (160-400); Red Blood Count 3.98 X10*6/uL (4.60-5.80); Red Cell Distribution Width 14.5 % (11.0-16.0); White Blood Count 12.8 X10*3/uL (4.8-10.8)
[2021-07-03 10:32] LABS: Alanine Aminotransferase 45 U/L (0-40); Albumin Level 2.6 g/dL (3.5-5.0); Alkaline Phosphatase 267 U/L (39-117); Anion Gap 14 (12-20); Aspartate Amino Transferase 62 U/L (5-37); Bilirubin Total 1.5 mg/dL (0.0-1.0); Blood Urea Nitrogen 17 mg/dL (9-16); Calcium 8.9 mg/dL (8.4-10.2); Carbon Dioxide 27 mmol/L (22-29); Chloride 99 mmol/L (96-108); Creatinine Clr Calc Pharmacy 85.9; Estimated Glomerular Filt Rate > 60; Glucose Random 99 mg/dL (60-115); Potassium 4.2 mmol/L (3.3-5.1); Sodium 136 mmol/L (135-145); Total Protein 6.8 g/dL (6.5-8.0)
--- NOTE | 2021-07-03 11:26 | MHC.HEMONCMA ---
Pt was in for follow up. Clinical summary reviewed and updated, VSS. Labs were drawn. Pt to return in 2 months.
--- NOTE | 2021-07-13 11:58 | MHC.HEMONC ---
Pt Palliative Care [employer]APPER HELPER, Allyson number is [phone]. She is recommending Maximino go to Oxycodone ER 20mg every 12 hours with Oxycodone 5mg every 6 hr prn/breakthrough pain. Dexamethasone was suggested for appetite and energy but this is contraindicated per Dr De Dios due to chemo pill. She will call next week to let us know how he is doing but he does sound like he's declining. Dr De Dios to send Rx.
--- NOTE | 2021-07-16 13:56 | MHC.HEMONC ---
Recieved call from Allyson Lynne stating pt continues with thrush and is non compliant with Nystatin swish and swallow secondary to taste. Requesting oral fluconazole. Dr De Dios notified-provider states pt can not have oral fluconazole secondary to current medications and possible reactions. Allyson Lynne called and notified.
--- NOTE | 2021-08-06 08:57 | MHC.HEMONC ---
Spoke to Lizabeth, pt niece and #2 HCP. Maximino yesterday and she did not have any details as family has been estranged for many years. She gave me permission to share the news with Peter, his Network Applications Specialist.
--- NOTE | 2021-08-06 09:47 | MHC.HEMONCSW ---
PATIENT AT HOME YESTERDAY.
== END 2021-08-07 14:42 | disposition home or self-care (01) ==
LOC: HO.ONC 09:20
PROVIDERS: PCP Internal Medicine; Referring Provider Internal Medicine; Visit Provider Internal Medicine
DX: C22.0 Liver cell carcinoma (principal); K74.60 Unspecified cirrhosis of liver; B18.2 Chronic viral hepatitis C; G89.29 Other chronic pain; R10.9 Unspecified abdominal pain; F17.210 Nicotine dependence, cigarettes, uncomplicated; Z79.891 Long term (current) use of opiate analgesic; Z79.899 Other long term (current) drug therapy
CPT/HCPCS: 36415; 80053; 80076; 81001; 81003; 82105; 82248; 82378; 83735; 84443; 85025; 85027; 85730; 87522; 96375; 96413; 96415; 96417; 99204; 99211; 99213; 99214; 99215; J2405; J9022; J9035; J9299; Q0163

== ENCOUNTER 2021-07-27 11:31 | Inpatient (IN) | payer MEDICARE, MEDICAID, SELFPAY ==
--- NOTE | ~2021-07-27 | XR_ITS ---
EXAMINATION: XR CHEST CLINICAL INFORMATION: Altered mental status. COMPARISON: Chest radiograph and CT of the chest done on 06/21/2021. TECHNIQUE: 2 views of the chest were obtained. FINDINGS: Extensive emphysematous disease with a large emphysematous pole at left mid to lower lateral lung field appear unchanged. Superimposed patchy airspace disease is noted at both upper lobes and left lower lobe, unchanged as well. The cardiomediastinal silhouette is within normal limit. No evidence of any pleural effusion or pneumothorax. XR/XR chest 2V IMPRESSION: Large curvilinear radiolucency at left mid to lower lateral lung field corresponds to large emphysematous disease, documented on prior CT of the chest dated 06/21/2021. Superimposed left lower lobar airspace disease and bilateral upper lobar airspace appear unchanged with underlying severe emphysematous changes.
--- NOTE | ~2021-07-27 | CT_ITS ---
EXAMINATION: CT ABDOMEN AND PELVIS WITH CONTRAST CLINICAL INFORMATION: Diffuse abdominal pain COMPARISON: CT abdomen and pelvis with contrast 06/20/2021 TECHNIQUE: Multidetector volumetric images were obtained from the superior aspect of the liver through the pubic symphysis following administration 85 mL of Omnipaque 350 intravenous contrast. Sagittal and coronal reformatted images were obtained on the technologist's workstation. Oral contrast: No This CT examination was performed using dose optimization techniques as appropriate, variously including the following: *Automated exposure control *Adjustment of mA and/or kV according to patient size (this includes techniques or standardized protocols for targeted exams where dose is matched to indication/reason for exam; i.e. extremities or head) *Use of iterative reconstruction technique DLP: 393 mGy-cm FINDINGS: LUNG BASES: There is left lower lobe scarring or atelectasis with emphysematous changes and a small cyst in the anterior segment left lower lobe. Heart size is borderline normal. LIVER, GALLBLADDER, AND BILIARY TREE: There are multiple hypodense and heterogeneous enhancing lesions liver lesions seen throughout the right and left hepatic lobe but more prominent in the left hepatic lobe. There are similar in size and and heterogeneity to previous 2 exams. No intrahepatic ductal dilatation seen. The gallbladder has been surgically removed. There are small periportal and peripancreatic lymph nodes similar to previous study. The gallbladder is unremarkable with no evidence of radiopaque gallstones, gallbladder wall thickening, or obvious pericholecystic inflammatory changes. PANCREAS: Unremarkable. SPLEEN: The spleen has been surgically removed. ADRENAL GLANDS: Unremarkable. KIDNEYS AND URETERS: The kidneys are normal in size, shape, and attenuation. No hydronephrosis, hydroureter, or calculi seen. No perinephric stranding. BLADDER: Unremarkable. GASTROINTESTINAL TRACT: There is scattered stool and gas seen throughout the colon suggesting mild constipation. The small bowel loops are normal caliber. The stomach is mildly distended with recent ingestion of fluids. No wall thickening seen. ABDOMINAL WALL: There is abdominal wall hernia repair with mesh in place similar to previous study. LYMPH NODES: No abnormal size lymph nodes visualized. VASCULAR: There is aneurysmal dilatation of infrarenal abdominal aorta measuring 2.6 x 2.7 cm in AP and transverse dimension. Previously it measured 2.7 cm.. PELVIC VISCERA: Unremarkable. OSSEOUS STRUCTURES: No lytic or sclerotic process seen. There is facet joint arthropathy and hypertrophy right L5-S1 and bilateral L4-L5 disc levels. No lytic or sclerotic process seen. CT/CT abdomen pelvis w con IMPRESSION: Multiple hypodense and heterogeneous enhancing lesions throughout the liver parenchyma greater on the left side, similar in size and heterogeneity from previous exam. Small periportal and peripancreatic lymph nodes are stable. The gallbladder, spleen has been surgically removed. Previous abdominal wall hernia repair with mesh in place. Fleischner guidelines were followed.
--- NOTE | ~2021-07-27 | XR_ITS ---
EXAMINATION: XR CHEST CLINICAL INFORMATION: Aspiration COMPARISON: 07/27/2021 TECHNIQUE: Frontal view of the chest was obtained. FINDINGS: Cardiac leads overlie the chest. The lungs are well expanded. Unchanged appearance of linearity along the periphery of the left mid to lower lung, this likely represents suture line and scarring as seen on prior CT. Minimal patchy basilar opacity on the left. Bilateral apical opacity may be associated with chronic scarring. No pneumothorax. The cardiomediastinal silhouette is normal in size, with a calcified aorta. XR/XR chest 1V IMPRESSION: No significant change from prior. Postoperative appearance at the left base. Pleural scarring at the apices.
--- NOTE | ~2021-07-27 | CT_ITS ---
EXAMINATION: CT HEAD WITHOUT CONTRAST CLINICAL INFORMATION: Altered mental status. COMPARISON: 06/20/[address] scan. TECHNIQUE: Contiguous axial imaging was performed from the skull base to vertex without intravenous administration of contrast. Coronal and sagittal reformatted images were obtained. This CT examination was performed using dose optimization techniques as appropriate, variously including the following: *Automated exposure control *Adjustment of mA and/or kV according to patient size (this includes techniques or standardized protocols for targeted exams where dose is matched to indication/reason for exam; i.e. extremities or head) *Use of iterative reconstruction technique DLP: 636 mGy-cm FINDINGS: There is mild widening of the cortical sulci and associated ventriculomegaly. The lateral ventricles are symmetrical. The third and fourth ventricles are in their normal midline position. The basilar and prepontine cisterns are unremarkable. Chronic gliosis/encephalomalacia is seen in the left frontal lobe with similar distribution and appearance. There is no acute intra or extracerebral abnormality. There is no mass effect or midline shift. Sections through the bony calvarium are unremarkable. The orbits are intact. Mild anterior nasal septal deviation, apex the left is seen. The paranasal sinuses are clear. The mastoid air cells are clear. CT/CT head/brain wo con IMPRESSION: No acute intracranial pathology. Previous is seen left frontal lobe infarct without significant interval change.
--- NOTE | ~2021-07-27 | XR_ITS ---
EXAMINATION: XR CHEST CLINICAL INFORMATION: Fever COMPARISON: Multiple prior examinations including chest CT June 2021 and multiple radiographs most recent performed earlier same day for 25/07/2021 TECHNIQUE: Frontal view of the chest was obtained. FINDINGS: Bilateral linear and patchy opacities throughout both lungs unchanged. Postoperative changes in the left lung scarring and suture line over the left midlung. Cardiomediastinal silhouette is possible aorta. XR/XR chest 1V IMPRESSION: No acute disease. Bilateral stable opacities appear most likely chronic
[2021-07-27 11:41] VITALS: BP 128/80; BP 130/73; PULSE 85; PULSE 90; RESP 20; O2SAT 95; BMI 18.3
--- NOTE | 2021-07-27 12:41 | ED.GENADULT ---
HPI - General Adult General Chief complaint: Failure to Thrive <MOISES Perez - Last Filed: 07/27/21 17:57> Stated complaint: lethargy/failure to thrive <MOISES Perez - Last Filed: 07/27/21 17:57> Time Seen by Provider: 07/27/21 12:41 <MOISES Perez Last Filed: 07/27/21 17:57> Source: patient and EMS <MOISES Perez Last Filed: 07/27/21 17:57> Mode of arrival: EMS <MOISES Perez Last Filed: 07/27/21 17:57> Limitations: altered mental status <MOISES Perez Last Filed: 07/27/21 17:57> History of Present Illness HPI narrative: 66-year-old male presents from home for failure to thrive that is worsening. Per [employer] at home and visiting nurse at home, patient has decreased oral intake over the last several days and worsening failure to thrive over the last several days. Patient was admitted in June to [facility] for hypoxic respiratory failure secondary to aspiration pneumonia, but refused short-term rehab patient has a history of CVA, hepatocellular carcinoma, liver cirrhosis, hepatitis-C, and alcohol abuse. Patient is alert and oriented only to his name, review of systems is unable to be obtained. <MOISES Perez Last Filed: 07/27/21 17:57> Related Data Home medications: Home Medications Medication Instructions Recorded Confirmed quetiapine 150 mg tablet,extended 150 mg PO BEDTIME 05/02/21 07/03/21 release 24 hr (Seroquel XR) ondansetron HCl 8 mg tablet 1 tab PO Q12H 06/01/21 07/03/21 regorafenib 40 mg tablet (Stivarga) 80 mg PO DAILY tab 06/29/21 07/03/21 Previous Rx's Medication Instructions Recorded folic acid 1 mg tablet 1 mg PO DAILY #90 tab 02/14/21 megestrol 40 mg tablet 40 mg PO DAILY #30 tab 06/01/21 amoxicillin 500 mg-potassium 500 mg PO Q12H 3 Days #5 tab 06/28/21 clavulanate 125 mg tablet nicotine 14 mg/24 hr daily 1 patch TRANSDERMAL Q24H #28 ea 06/28/21 transdermal patch clonazepam 1 mg tablet 1 mg PO TID #10 tab 06/29/21 fluconazole 100 mg tablet 100 mg PO DAILY #3 tab 07/09/21 oxycodone 20 mg tablet,crush 20 mg PO Q12H #60 tab 07/13/21 resistant,extended release 12 hr (OxyContin) oxycodone 5 mg tablet 5 mg PO Q6H PRN #90 tab 07/13/21 docusate sodium 100 mg capsule 100 mg PO DAILY #30 cap 07/20/21 (Colace) aspirin 81 mg tablet,delayed 81 mg PO DAILY #90 tab 07/27/21 release clopidogrel 75 mg tablet 75 mg PO DAILY #30 tab 07/27/21 famotidine 20 mg tablet 20 mg PO BEDTIME 30 Days #30 tab 07/27/21 multivitamin 1 tab PO QAM #90 tab 07/27/21 <MOISES Perez - Last Filed: 07/27/21 17:57> Allergies/adverse reactions: Allergies Allergy/AdvReac Type Severity Reaction Status Date / Time No Known Allergies Allergy Verified 07/03/21 09:40 <MOISES Perez - Last Filed: 07/27/21 17:57> Review of Systems Review of Systems: Yes Unobtainable due to mental status <MOISES Perez - Last Filed: 07/27/21 17:57> Neurologic: Reports confusion <MOISES Perez - Last Filed: 07/27/21 17:57> Psychiatric: Psychiatric: Reports confusion <MOISES Perez - Last Filed: 07/27/21 17:57> [facility] Past Medical History Medical History: Medical History CVA (cerebral vascular accident) Fall Hepatitis C Hepatocellular carcinoma Hepatocellular carcinoma History of alcohol abuse Incisional hernia Liver cirrhosis Tobacco use disorder <MOISES Perez - Last Filed: 07/27/21 17:57> Surgical History: Surgical History H/O resection of liver (~04/2017) History of splenectomy No pertinent past surgical history <MOISES Perez - Last Filed: 07/27/21 17:57> Family History Family History: Family History Father No problems noted. Mother No problems noted. Family/Other FH: mental illness <MOISES Perez Last Filed: 07/27/21 17:57> Social History Social History: Social History (Updated 07/03/21 @ 09:40 by Lelo Bacon CMA) Household Members: Unknown / Unable to assess Household Members Other:: alone Housing: Apartment Are you a primary landcare facilitator to a significant other at home: No Do you presently have visiting nurse or other home services: No Unable to assess alcohol history related to: Unable to respond Alcohol intake: never Patient Tobacco Use Status: Former Tobacco user Tobacco use type: Cigarette e-Cigarette/Vaping Use: Never Used Second Hand Smoke Exposure: No Substance Use Type: Marijuana Advance Directives: No Advance Directives Information Provided: Yes service: No Current occupational status: disabled Cognitive needs: No Hearing needs: Yes (hearing aide) Vision needs: Yes (reading glasses) <MOISES Perez - Last Filed: 07/27/21 17:57> Physical Exam ED Vital Signs: Vital Signs - 24 hr 07/27/21 11:41 07/27/21 15:25 Temperature 97.7 F Pulse Rate 85 76 Respiratory Rate 20 20 Blood Pressure 128/80 137/77 Pulse Oximetry 95 95 BMI result Body Mass Index 18.3 <MOISES Perez - Last Filed: 07/27/21 17:57> Vital Signs - 24 hr 07/27/21 11:41 07/27/21 15:25 Temperature 97.7 F Pulse Rate 85 76 Respiratory Rate 20 20 Blood Pressure 128/80 137/77 Pulse Oximetry 95 95 BMI result Body Mass Index 18.3 <MOISES Astorga Last Filed: 07/27/21 19:14> Const General: alert, awake, confusion and ill appearing chronically <MOISES Perez Last Filed: 07/27/21 17:57> Nutritional Appearance: cachectic and malnourished <MOISES Perez Last Filed: 07/27/21 17:57> Orientation/consciousness: oriented to person, No oriented to place, No oriented to time and confusion <MOISES Perez Last Filed: 07/27/21 17:57> Limitations: altered mental status <Savannah Danielson [facility] Last Filed: 07/27/21 17:57> HENMT Head: Yes normal to inspection, Yes normocephalic and Yes atraumatic <Savannah Danielson [facility] Last Filed: 07/27/21 17:57> Ears: hearing grossly normal bilaterally <Savannah Danielson [place] - Last Filed: 07/27/21 17:57> General nose exam: Normal external nose present <Savannah Danielson [facility] Last Filed: 07/27/21 17:57> Face and sinus: Yes normal facial exam <Savannah Danielson [facility] Last Filed: 07/27/21 17:57> Mouth: mucous membranes dry <Savannah Danielson [facility] Last Filed: 07/27/21 17:57> Throat: Yes posterior oropharynx normal <Savannah Danielson [facility] Last Filed: 07/27/21 17:57> Eyes Other: Bilateral Blephartis <Savannah Danielson [facility] Last Filed: 07/27/21 17:57> Conjunctivae: conjunctival abnormal bilateral conjunctival injection <Savannah Danielson [facility] Last Filed: 07/27/21 17:57> Neck Neck: Yes normal visual inspection, Yes full ROM, Yes no lymphadenopathy, Yes no meningeal signs and Yes supple <Savannah Danielson [facility] Last Filed: 07/27/21 17:57> Chest Other: kyphosis <Savannah Danielson [facility] Last Filed: 07/27/21 17:57> Resp Effort & Inspection: normal respiratory effort <Savannah Danielson [facility] Last Filed: 07/27/21 17:57> Auscultation: clear to auscultation bilaterally, no crackles, no rales, no rhonchi and no wheezes <Savannah Danielson [facility] Last Filed: 07/27/21 17:57> Cardio Rate: regular rate <Savannah Danielson [facility] Last Filed: 07/27/21 17:57> Rhythm: regular rhythm <Savannah Danielson [facility] Last Filed: 07/27/21 17:57> Heart sounds: S1 normal heart sound present and S2 normal heart sound present <Savannah Danielson [place] - Last Filed: 07/27/21 17:57> GI Inspection: Yes normal to inspection <MOISES Perez Last Filed: 07/27/21 17:57> Palpation (GI): Soft to palpation, nontender, no guarding and not rigid <Savannah Danielson [facility] Last Filed: 07/27/21 17:57> Percussion: Yes normal to percussion <MOISES Perez Last Filed: 07/27/21 17:57> Auscultation: normal bowel sounds <Savannah Danielson [facility] Last Filed: 07/27/21 17:57> Back/Spine/Pelvis Thoracic/Lumbar Spine: kyphosis <MOISES Perez Last Filed: 07/27/21 17:57> Skin General skin exam: no rashes or lesions noted <MOISES Perez Last Filed: 07/27/21 17:57> Neuro General: oriented to person, No oriented to place, No oriented to time, tone normal, moves all extremities, no meningeal signs and confusion <MOISES Perez Last Filed: 07/27/21 17:57> Extrem General: Yes full ROM <Savannah Danielson [facility] Last Filed: 07/27/21 17:57> Psych Appearance: disheveled <MOISES Perez Last Filed: 07/27/21 17:57> Speech and movement: Slowed speech present (Psych) <MOISES Perez Last Filed: 07/27/21 17:57> Attitude: cooperative <MOISES Perez Last Filed: 07/27/21 17:57> Course Course Course Narrative: 66-year-old male with liver cancer and CVA presents for altered mental status and failure to thrive from home. On exam, patient is encephalopathic, is only oriented to his name, is cachectic and has slowed speech. no focal neurological deficits <MOISES Perez Last Filed: 07/27/21 17:57> Reevaluation(s) Reevaluation #1: white blood cell 10.9, INR 1.4, ammonia 24, lipase 8, COVID negative, EKG shows no acute ischemia, troponin normal, lactic 1.2, chest x-ray shows COPD. Awaiting urine. Patient is afebrile, stable vitals CT/CT head/brain wo con IMPRESSION: No acute intracranial pathology. Previous is seen left frontal lobe infarct without significant interval change. XR/XR chest 2V IMPRESSION: Large curvilinear radiolucency at left mid to lower lateral lung field corresponds to large emphysematous disease, documented on prior CT of the chest dated 06/21/2021. Superimposed left lower lobar airspace disease and bilateral upper lobar airspace appear unchanged with underlying severe emphysematous changes. <MOISES Perez Last Filed: 07/27/21 17:57> Reevaluation #2: nursing tells me she has clarified with [employer]BBER [employer]ATOR at home the patient being alert and oriented x1 is his baseline. We will get urine, consult case management. RN reports patient is telling her that his abdomen hurts. Possible reduced oral intake due to belly pain. Patient did not answer any questions for me on review of systems, but will get CT abdomen pelvis to rule out any acute abdominal pathology. <MOISES Perez Last Filed: 07/27/21 17:57> Reevaluation #3: Eliana, Case Management, states She cannot get a hold of patient's RUBBER INSULATOR, we are unclear of patient's code status or if patient is his own guardian. Will put in PT eval and psychiatric consult to determine if patient has capacity to be his own to cider. Awaiting urine and abdominal CT, if these are negative will place patient in physician observation <MOISES Perez Last Filed: 07/27/21 17:57> Additional Reevaluation(s): Urine obtained and is negative Awaiting result of abd CT. If negative, pt will be paced in physician observation, awaiting PT eval and Psychiatry consult tomorrow Signed pt out to Marco Antonio Carrillo PA-C, pending abdominal CT results <MOISES Perez Last Filed: 07/27/21 17:57> Urine obtained and is negative Awaiting result of abd CT. If negative, pt will be paced in physician observation, awaiting PT eval and Psychiatry consult tomorrow Signed pt out to Marco Antonio Carrillo PA-C, pending abdominal CT results 1909 CT of the abdomen and pelvis appears to be at patient's baseline. I spoke to Kell DE LEON patient's initial provider is states that Case Management recommended a psychiatry consult, Physical therapy and Case Management consult. At this time patient will be placed into physician observation to allow more time to be evaluated by Physical therapy, Psychiatry and case management. At time observation was started patient common cooperative no acute distress. Will continue to monitor <MOISES Astorga - Last Filed: 07/27/21 19:14> Medical Decision Making Lab Data Result diagrams: : 07/27/21 13:16 07/27/21 13:16 <MOISES Perez - Last Filed: 07/27/21 17:57> Labs: Lab Results 07/27/21 07/27/21 07/27/21 Range/Units 13:16 13:16 13:16 WBC 10.9 H (4.8-10.8) X10*3/uL RBC 4.42 L (4.60-5.80) X10*6/uL Hgb 13.6 L (14.0-18.0) g/dl Hct 41.6 L (42.0-52.0) % MCV 94.1 (80.0-98.0) fL MCH 30.8 (27.0-33.0) pg MCHC 32.7 (31.0-36.0) g/dl RDW 14.1 (11.0-16.0) % Plt Count 422 H (160-400) X10*3/uL MPV 9.8 (9.4-12.4) fL Immature Gran % (Auto) 0.2 (0.0-0.4) % Neut % (Auto) 44.1 L (45-73) % Lymph % (Auto) 44.3 H (20-40) % [place] % (Auto) 8.3 (2-11) % Eos % (Auto) 1.2 (0-4) % Baso % (Auto) 1.9 (0-2) % Lymph # (Auto) 4.8 (1.2-4.9) X10*3/uL [place] # (Auto) 0.9 (0.1-1.2) X10*3/uL Eos # (Auto) 0.1 (0.0-0.4) X10*3/uL Baso # (Auto) 0.2 (0.0-0.2) X10*3/uL Abs Immat Gran (auto) 0.02 (0.00-0.03) X10*3/uL Absolute Neuts (auto) 4.8 (2.0-8.3) x10*3/uL Absolute Nucleated RBC 0.000 (0.0-0.012) X10*3/uL Nucleated RBC % (auto) 0.0 (0.0-0.2) /100WBC PT (9.9-13.0) SEC INR (0.9-1.1) Sodium 138 (135-145) mmol/L Potassium 4.9 (3.3-5.1) mmol/L Chloride 104 (96-108) mmol/L Carbon Dioxide 24 (22-29) mmol/L Anion Gap 15 (12-20) BUN 12 (9-16) mg/dL Creatinine 0.73 (0.5-1.4) mg/dL Estim Creat Clear Calc 83.7 Estimated GFR > 60 Random Glucose 67 (60-115) mg/dL Lactic Acid (0.5-2.0) mmol/L Calcium 8.9 (8.4-10.2) mg/dL Total Bilirubin 0.8 (0.0-1.0) mg/dL Direct Bilirubin 0.4 (0.0-0.5) mg/dL AST 66 H (5-37) U/L ALT 11 (0-40) U/L Alkaline Phosphatase 198 H D (39-117) U/L Ammonia (13-55) umol/L Troponin I High Sens (<3.5-35.0) ng/L Total Protein 7.9 (6.5-8.0) g/dL Albumin 2.5 L (3.5-5.0) g/dL Lipase 8 (8-78) U/L Urine Color Urine Appearance Urine pH (5.0-8.0) Ur Specific [place] (1.005-1.025) Urine Protein (NEG-TRACE) MG/DL Urine Glucose (UA) (NEG) MG/DL Urine Ketones (NEG) MG/DL Urine Blood (NEG) Urine Nitrite (NEG) Ur Leukocyte Esterase (NEG) Urine RBC (0) /HPF Urine WBC (0-4) /HPF Ur Squamous Epith Cells /LPF Urine Bacteria /LPF Ethyl Alcohol mg/dL COVID-19 (JOSEPH) Negative (Negative) COVID-19 Clin Com See Note 07/27/21 07/27/21 07/27/21 Range/Units 13:16 13:16 13:16 WBC (4.8-10.8) X10*3/uL RBC (4.60-5.80) X10*6/uL Hgb (14.0-18.0) g/dl Hct (42.0-52.0) % MCV (80.0-98.0) fL MCH (27.0-33.0) pg MCHC (31.0-36.0) g/dl RDW (11.0-16.0) % Plt Count (160-400) X10*3/uL MPV (9.4-12.4) fL Immature Gran % (Auto) (0.0-0.4) % Neut % (Auto) (45-73) % Lymph % (Auto) (20-40) % [place] % (Auto) (2-11) % Eos % (Auto) (0-4) % Baso % (Auto) (0-2) % Lymph # (Auto) (1.2-4.9) X10*3/uL [place] # (Auto) (0.1-1.2) X10*3/uL Eos # (Auto) (0.0-0.4) X10*3/uL Baso # (Auto) (0.0-0.2) X10*3/uL Abs Immat Gran (auto) (0.00-0.03) X10*3/uL Absolute Neuts (auto) (2.0-8.3) x10*3/uL Absolute Nucleated RBC (0.0-0.012) X10*3/uL Nucleated RBC % (auto) (0.0-0.2) /100WBC PT 15.6 H (9.9-13.0) SEC INR 1.4 H (0.9-1.1) Sodium (135-145) mmol/L Potassium (3.3-5.1) mmol/L Chloride (96-108) mmol/L Carbon Dioxide (22-29) mmol/L Anion Gap (12-20) BUN (9-16) mg/dL Creatinine (0.5-1.4) mg/dL Estim Creat Clear Calc Estimated GFR Random Glucose (60-115) mg/dL Lactic Acid 1.2 (0.5-2.0) mmol/L Calcium (8.4-10.2) mg/dL Total Bilirubin (0.0-1.0) mg/dL Direct Bilirubin (0.0-0.5) mg/dL AST (5-37) U/L ALT (0-40) U/L Alkaline Phosphatase (39-117) U/L Ammonia (13-55) umol/L Troponin I High Sens 5.0 (<3.5-35.0) ng/L Total Protein (6.5-8.0) g/dL Albumin (3.5-5.0) g/dL Lipase (8-78) U/L Urine Color Urine Appearance Urine pH (5.0-8.0) Ur Specific [place] (1.005-1.025) Urine Protein (NEG-TRACE) MG/DL Urine Glucose (UA) (NEG) MG/DL Urine Ketones (NEG) MG/DL Urine Blood (NEG) Urine Nitrite (NEG) Ur Leukocyte Esterase (NEG) Urine RBC (0) /HPF Urine WBC (0-4) /HPF Ur Squamous Epith Cells /LPF Urine Bacteria /LPF Ethyl Alcohol mg/dL COVID-19 (JOSEPH) (Negative) COVID-19 Clin Com 07/27/21 07/27/21 07/27/21 Range/Units 14:19 17:20 17:34 WBC (4.8-10.8) X10*3/uL RBC (4.60-5.80) X10*6/uL Hgb (14.0-18.0) g/dl Hct (42.0-52.0) % MCV (80.0-98.0) fL MCH (27.0-33.0) pg MCHC (31.0-36.0) g/dl RDW (11.0-16.0) % Plt Count (160-400) X10*3/uL MPV (9.4-12.4) fL Immature Gran % (Auto) (0.0-0.4) % Neut % (Auto) (45-73) % Lymph % (Auto) (20-40) % [place] % (Auto) (2-11) % Eos % (Auto) (0-4) % Baso % (Auto) (0-2) % Lymph # (Auto) (1.2-4.9) X10*3/uL [place] # (Auto) (0.1-1.2) X10*3/uL Eos # (Auto) (0.0-0.4) X10*3/uL Baso # (Auto) (0.0-0.2) X10*3/uL Abs Immat Gran (auto) (0.00-0.03) X10*3/uL Absolute Neuts (auto) (2.0-8.3) x10*3/uL Absolute Nucleated RBC (0.0-0.012) X10*3/uL Nucleated RBC % (auto) (0.0-0.2) /100WBC PT (9.9-13.0) SEC INR (0.9-1.1) Sodium (135-145) mmol/L Potassium (3.3-5.1) mmol/L Chloride (96-108) mmol/L Carbon Dioxide (22-29) mmol/L Anion Gap (12-20) BUN (9-16) mg/dL Creatinine (0.5-1.4) mg/dL Estim Creat Clear Calc Estimated GFR Random Glucose (60-115) mg/dL Lactic Acid (0.5-2.0) mmol/L Calcium (8.4-10.2) mg/dL Total Bilirubin (0.0-1.0) mg/dL Direct Bilirubin (0.0-0.5) mg/dL AST (5-37) U/L ALT (0-40) U/L Alkaline Phosphatase (39-117) U/L Ammonia 24 (13-55) umol/L Troponin I High Sens (<3.5-35.0) ng/L Total Protein (6.5-8.0) g/dL Albumin (3.5-5.0) g/dL Lipase (8-78) U/L Urine Color YELLOW Urine Appearance CLEAR Urine pH 6.0 (5.0-8.0) Ur Specific [place] 1.015 (1.005-1.025) Urine Protein NEG (NEG-TRACE) MG/DL Urine Glucose (UA) NEG (NEG) MG/DL Urine Ketones 15 (NEG) MG/DL Urine Blood 2+ H (NEG) Urine Nitrite NEG (NEG) Ur Leukocyte Esterase NEG (NEG) Urine RBC 30-49 H (0) /HPF Urine WBC 0 (0-4) /HPF Ur Squamous Epith Cells 1+ /LPF Urine Bacteria NONE /LPF Ethyl Alcohol < 10 mg/dL COVID-19 (JOSEPH) (Negative) COVID-19 Clin Com <MOISES Perez - Last Filed: 07/27/21 17:57> Lab Results 07/27/21 07/27/21 07/27/21 Range/Units 13:16 13:16 13:16 WBC 10.9 H (4.8-10.8) X10*3/uL RBC 4.42 L (4.60-5.80) X10*6/uL Hgb 13.6 L (14.0-18.0) g/dl Hct 41.6 L (42.0-52.0) % MCV 94.1 (80.0-98.0) fL MCH 30.8 (27.0-33.0) pg MCHC 32.7 (31.0-36.0) g/dl RDW 14.1 (11.0-16.0) % Plt Count 422 H (160-400) X10*3/uL MPV 9.8 (9.4-12.4) fL Immature Gran % (Auto) 0.2 (0.0-0.4) % Neut % (Auto) 44.1 L (45-73) % Lymph % (Auto) 44.3 H (20-40) % [place] % (Auto) 8.3 (2-11) % Eos % (Auto) 1.2 (0-4) % Baso % (Auto) 1.9 (0-2) % Lymph # (Auto) 4.8 (1.2-4.9) X10*3/uL [place] # (Auto) 0.9 (0.1-1.2) X10*3/uL Eos # (Auto) 0.1 (0.0-0.4) X10*3/uL Baso # (Auto) 0.2 (0.0-0.2) X10*3/uL Abs Immat Gran (auto) 0.02 (0.00-0.03) X10*3/uL Absolute Neuts (auto) 4.8 (2.0-8.3) x10*3/uL Absolute Nucleated RBC 0.000 (0.0-0.012) X10*3/uL Nucleated RBC % (auto) 0.0 (0.0-0.2) /100WBC PT (9.9-13.0) SEC INR (0.9-1.1) Sodium 138 (135-145) mmol/L Potassium 4.9 (3.3-5.1) mmol/L Chloride 104 (96-108) mmol/L Carbon Dioxide 24 (22-29) mmol/L Anion Gap 15 (12-20) BUN 12 (9-16) mg/dL Creatinine 0.73 (0.5-1.4) mg/dL Estim Creat Clear Calc 83.7 Estimated GFR > 60 Random Glucose 67 (60-115) mg/dL Lactic Acid (0.5-2.0) mmol/L Calcium 8.9 (8.4-10.2) mg/dL Total Bilirubin 0.8 (0.0-1.0) mg/dL Direct Bilirubin 0.4 (0.0-0.5) mg/dL AST 66 H (5-37) U/L ALT 11 (0-40) U/L Alkaline Phosphatase 198 H D (39-117) U/L Ammonia (13-55) umol/L Troponin I High Sens (<3.5-35.0) ng/L Total Protein 7.9 (6.5-8.0) g/dL Albumin 2.5 L (3.5-5.0) g/dL Lipase 8 (8-78) U/L Urine Color Urine Appearance Urine pH (5.0-8.0) Ur Specific [place] (1.005-1.025) Urine Protein (NEG-TRACE) MG/DL Urine Glucose (UA) (NEG) MG/DL Urine Ketones (NEG) MG/DL Urine Blood (NEG) Urine Nitrite (NEG) Ur Leukocyte Esterase (NEG) Urine RBC (0) /HPF Urine WBC (0-4) /HPF Ur Squamous Epith Cells /LPF Urine Bacteria /LPF Ethyl Alcohol mg/dL COVID-19 (JOSEPH) Negative (Negative) COVID-19 Clin Com See Note 07/27/21 07/27/21 07/27/21 Range/Units 13:16 13:16 13:16 WBC (4.8-10.8) X10*3/uL RBC (4.60-5.80) X10*6/uL Hgb (14.0-18.0) g/dl Hct (42.0-52.0) % MCV (80.0-98.0) fL MCH (27.0-33.0) pg MCHC (31.0-36.0) g/dl RDW (11.0-16.0) % Plt Count (160-400) X10*3/uL MPV (9.4-12.4) fL Immature Gran % (Auto) (0.0-0.4) % Neut % (Auto) (45-73) % Lymph % (Auto) (20-40) % [place] % (Auto) (2-11) % Eos % (Auto) (0-4) % Baso % (Auto) (0-2) % Lymph # (Auto) (1.2-4.9) X10*3/uL [place] # (Auto) (0.1-1.2) X10*3/uL Eos # (Auto) (0.0-0.4) X10*3/uL Baso # (Auto) (0.0-0.2) X10*3/uL Abs Immat Gran (auto) (0.00-0.03) X10*3/uL Absolute Neuts (auto) (2.0-8.3) x10*3/uL Absolute Nucleated RBC (0.0-0.012) X10*3/uL Nucleated RBC % (auto) (0.0-0.2) /100WBC PT 15.6 H (9.9-13.0) SEC INR 1.4 H (0.9-1.1) Sodium (135-145) mmol/L Potassium (3.3-5.1) mmol/L Chloride (96-108) mmol/L Carbon Dioxide (22-29) mmol/L Anion Gap (12-20) BUN (9-16) mg/dL Creatinine (0.5-1.4) mg/dL Estim Creat Clear Calc Estimated GFR Random Glucose (60-115) mg/dL Lactic Acid 1.2 (0.5-2.0) mmol/L Calcium (8.4-10.2) mg/dL Total Bilirubin (0.0-1.0) mg/dL Direct Bilirubin (0.0-0.5) mg/dL AST (5-37) U/L ALT (0-40) U/L Alkaline Phosphatase (39-117) U/L Ammonia (13-55) umol/L Troponin I High Sens 5.0 (<3.5-35.0) ng/L Total Protein (6.5-8.0) g/dL Albumin (3.5-5.0) g/dL Lipase (8-78) U/L Urine Color Urine Appearance Urine pH (5.0-8.0) Ur Specific [place] (1.005-1.025) Urine Protein (NEG-TRACE) MG/DL Urine Glucose (UA) (NEG) MG/DL Urine Ketones (NEG) MG/DL Urine Blood (NEG) Urine Nitrite (NEG) Ur Leukocyte Esterase (NEG) Urine RBC (0) /HPF Urine WBC (0-4) /HPF Ur Squamous Epith Cells /LPF Urine Bacteria /LPF Ethyl Alcohol mg/dL COVID-19 (JOSEPH) (Negative) COVID-19 Clin Com 07/27/21 07/27/21 07/27/21 Range/Units 14:19 17:20 17:34 WBC (4.8-10.8) X10*3/uL RBC (4.60-5.80) X10*6/uL Hgb (14.0-18.0) g/dl Hct (42.0-52.0) % MCV (80.0-98.0) fL MCH (27.0-33.0) pg MCHC (31.0-36.0) g/dl RDW (11.0-16.0) % Plt Count (160-400) X10*3/uL MPV (9.4-12.4) fL Immature Gran % (Auto) (0.0-0.4) % Neut % (Auto) (45-73) % Lymph % (Auto) (20-40) % [place] % (Auto) (2-11) % Eos % (Auto) (0-4) % Baso % (Auto) (0-2) % Lymph # (Auto) (1.2-4.9) X10*3/uL [place] # (Auto) (0.1-1.2) X10*3/uL Eos # (Auto) (0.0-0.4) X10*3/uL Baso # (Auto) (0.0-0.2) X10*3/uL Abs Immat Gran (auto) (0.00-0.03) X10*3/uL Absolute Neuts (auto) (2.0-8.3) x10*3/uL Absolute Nucleated RBC (0.0-0.012) X10*3/uL Nucleated RBC % (auto) (0.0-0.2) /100WBC PT (9.9-13.0) SEC INR (0.9-1.1) Sodium (135-145) mmol/L Potassium (3.3-5.1) mmol/L Chloride (96-108) mmol/L Carbon Dioxide (22-29) mmol/L Anion Gap (12-20) BUN (9-16) mg/dL Creatinine (0.5-1.4) mg/dL Estim Creat Clear Calc Estimated GFR Random Glucose (60-115) mg/dL Lactic Acid (0.5-2.0) mmol/L Calcium (8.4-10.2) mg/dL Total Bilirubin (0.0-1.0) mg/dL Direct Bilirubin (0.0-0.5) mg/dL AST (5-37) U/L ALT (0-40) U/L Alkaline Phosphatase (39-117) U/L Ammonia 24 (13-55) umol/L Troponin I High Sens (<3.5-35.0) ng/L Total Protein (6.5-8.0) g/dL Albumin (3.5-5.0) g/dL Lipase (8-78) U/L Urine Color YELLOW Urine Appearance CLEAR Urine pH 6.0 (5.0-8.0) Ur Specific [place] 1.015 (1.005-1.025) Urine Protein NEG (NEG-TRACE) MG/DL Urine Glucose (UA) NEG (NEG) MG/DL Urine Ketones 15 (NEG) MG/DL Urine Blood 2+ H (NEG) Urine Nitrite NEG (NEG) Ur Leukocyte Esterase NEG (NEG) Urine RBC 30-49 H (0) /HPF Urine WBC 0 (0-4) /HPF Ur Squamous Epith Cells 1+ /LPF Urine Bacteria NONE /LPF Ethyl Alcohol < 10 mg/dL COVID-19 (JOSEPH) (Negative) COVID-19 Clin Com <MOISES Astorga - Last Filed: 07/27/21 19:14> ECG Data Interpretation: sinus at a rate of 73, IL interval 112, QRS 98, QTC 447, normal axis, incomplete right bundle-branch block, no ST elevations or depressions, no T-wave abnormalities <MOISES Perez - Last Filed: 07/27/21 17:57> Discharge Plan Discharge Clinical Impression: Adult failure to thrive <MOISES Perez Last Filed: 07/27/21 17:57> Patient Disposition: Still a Patient <MOISES Perez Last Filed: 07/27/21 17:57> Prescriptions: No Action folic acid 1 mg tablet 1 mg PO DAILY Qty: 90 1RF Stivarga 40 mg tablet 80 mg PO DAILY 0RF clonazepam 1 mg tablet 1 mg PO TID Qty: 10 0RF Rx Instructions: Patient can partially fill this prescription upon request clopidogrel 75 mg tablet 75 mg PO DAILY Qty: 30 0RF aspirin 81 mg tablet,delayed release (DR/EC) 81 mg PO DAILY Qty: 90 1RF famotidine 20 mg tablet 20 mg PO BEDTIME 30 Days Qty: 30 0RF multivitamin Tablet 1 tab PO QAM Qty: 90 0RF quetiapine [Seroquel XR] 150 mg tablet extended release 24 hr 150 mg PO BEDTIME 0RF ondansetron HCl 8 mg tablet 1 tab PO Q12H 0RF megestrol 40 mg Tablet 40 mg PO DAILY Qty: 30 2RF fluconazole 100 mg Tablet 100 mg PO DAILY Qty: 3 0RF oxycodone [OxyContin] 20 mg Tablet,Oral Only,Ext.Rel.12 Hr 20 mg PO Q12H Qty: 60 0RF oxycodone 5 mg Tablet 5 mg PO Q6H PRN (Reason: Pain) Qty: 90 0RF docusate sodium [Colace] 100 mg Capsule 100 mg PO DAILY Qty: 30 3RF amoxicillin-pot clavulanate 500-125 mg Tablet 500 mg PO Q12H 3 Days Qty: 5 0RF nicotine 14 mg/24 hr patch 24 hour 1 patch transdermal Q24H Qty: 28 2RF <MOISES Perez - Last Filed: 07/27/21 17:57>
--- NOTE | 2021-07-27 12:51 | ECG_ITS ---
Test Reason : SOB Blood Pressure : / mmHG Vent. Rate : 073 BPM Atrial Rate : 073 BPM P-R Int : 112 ms QRS Dur : 098 ms QT Int : 406 ms P-R-T Axes : 034 005 036 degrees QTc Int : 447 ms Normal sinus rhythm Incomplete right bundle branch block Borderline ECG When compared with ECG of 27-JUN-2021 21:47, Premature atrial complexes are no longer Present Incomplete right bundle branch block is now Present Referred By: Savannah Danielson Electronically Signed By:ACACIA CHAUDHARI MD
[2021-07-27 13:25] LABS: MANUAL DIFF FLAG NO
[2021-07-27 13:29] LABS: Basophils Absolute Auto 0.2 X10*3/uL (0.0-0.2); Basophils Percent Auto 1.9 % (0-2); Eosinophils Absolute Auto 0.1 X10*3/uL (0.0-0.4); Eosinophils Percent Auto 1.2 % (0-4); Hematocrit 41.6 % (42.0-52.0); Hemoglobin 13.6 g/dl (14.0-18.0); Imm Gran Abs Auto 0.02 X10*3/uL (0.00-0.03); Imm Gran Pct Auto 0.2 % (0.0-0.4); Lymphocytes Absolute Auto 4.8 X10*3/uL (1.2-4.9); Lymphocytes Percent Auto 44.3 % (20-40); Mean Corpuscular HGB Conc 32.7 g/dl (31.0-36.0); Mean Corpuscular Hemoglobin 30.8 pg (27.0-33.0); Mean Corpuscular Volume 94.1 fL (80.0-98.0); Mean Platelet Volume 9.8 fL (9.4-12.4); Monocytes Absolute Auto 0.9 X10*3/uL (0.1-1.2); Monocytes Percent Auto 8.3 % (2-11); Neutrophils Absolute Auto 4.8 x10*3/uL (2.0-8.3); Neutrophils Percent Auto 44.1 % (45-73); Platelet Count 422 X10*3/uL (160-400); Red Blood Count 4.42 X10*6/uL (4.60-5.80); Red Cell Distribution Width 14.1 % (11.0-16.0); White Blood Count 10.9 X10*3/uL (4.8-10.8)
[2021-07-27 13:35] LABS: INTERNATIONAL NORM RATIO 1.4 (0.9-1.1); Prothrombin Time 15.6 SEC (9.9-13.0)
[2021-07-27 13:41] LABS: Lactic Acid 1.2 mmol/L (0.5-2.0)
[2021-07-27 13:43] LABS: COVID-19 Test Negative (Negative)
[2021-07-27 14:05] LABS: Alanine Aminotransferase 11 U/L (0-40); Albumin Level 2.5 g/dL (3.5-5.0); Alkaline Phosphatase 198 U/L (39-117); Anion Gap 15 (12-20); Aspartate Amino Transferase 66 U/L (5-37); Bilirubin Direct 0.4 mg/dL (0.0-0.5); Bilirubin Total 0.8 mg/dL (0.0-1.0); Blood Urea Nitrogen 12 mg/dL (9-16); Calcium 8.9 mg/dL (8.4-10.2); Carbon Dioxide 24 mmol/L (22-29); Chloride 104 mmol/L (96-108); Creatinine Clr Calc Pharmacy 83.7; Estimated Glomerular Filt Rate > 60; Glucose Random 67 mg/dL (60-115); Lipase 8 U/L (8-78); Potassium 4.9 mmol/L (3.3-5.1); Sodium 138 mmol/L (135-145); Total Protein 7.9 g/dL (6.5-8.0)
[2021-07-27 14:44] LABS: Ammonia 24 umol/L (13-55)
[2021-07-27 15:25] VITALS: BP 137/77; PULSE 76; RESP 20; TEMP 36.5; O2SAT 95
[2021-07-27] MEDS: iohexoL 350 MG/ML 100 ML INFUS..BTL IV (16:44)
--- NOTE | 2021-07-27 17:00 | MHC.CM.ED ---
Addendum entered by Romy Mitchell 07/27/21 17:09: Review of medical record from previous admission on 06/21-06/28/21; Vax x3. Active with Maged SINGLETON. Jessika MONTOYA ([phone]). SQL SSRS DEVELOPER (clinical support services for psych meds0 Bonita Tellezvey ([phone]). Pt has a IT HELP DESK TECHNICIAN that assists with ADL's. Pt is orientated x1 at baseline. STR was recommended at last admission and pt refused. Unsure if patient presentation is worse that last admission, but pt appears very weak, emaciated and is unable to give CM any meaningful information. There is no HCP from previous hospitalization. CM to follow for d/c needs. Original Note: No HCP on file. Called pt contact, Ana Mendiola for information, message left at 1630 to return call. CM met with emaciated elderly gentlemen, who is orientated to self. Work up pending. Pt has IT HELP DESK TECHNICIAN and visiting nurse from [facility]. Lives at home. Pt cannot give any information. CM spoke with Savannah JETT. Medical work-up pending. Requested psych consult for capacity. CM will follow for d/c needs.
[2021-07-27 17:45] LABS: Appearance Urine CLEAR; Color Urine YELLOW; Glucose Urine UA NEG (NEG); Leukocyte Esterase Urine NEG (NEG); Nitrite Urine NEG (NEG); Specific Gravity - Urine 1.015 (1.005-1.025); UACC Culture Trigger NO; Urine Blood 2+ (NEG); Urine Ketones 15 MG/DL (NEG); Urine Protein NEG (NEG-TRACE)
[2021-07-27 17:49] LABS: Ethanol < 10 mg/dL
[2021-07-27 18:09] LABS: RBC Urine 30-49 /HPF (0); Squamous Epithelial Cell Urine 1+ /LPF; WBC Urine 0 /HPF (0-4)
[2021-07-27 19:51] VITALS: BP 116/65; PULSE 69; RESP 10; O2SAT 94
[2021-07-27 22:11] VITALS: BP 132/80; PULSE 68; RESP 16; O2SAT 97
[2021-07-28] VITALS (8 sets, daily range): BP systolic 101–130; BP diastolic 59–72; PULSE 65–84; RESP 15–26; TEMP 36.8; O2SAT 95–97
--- NOTE | 2021-07-28 02:28 | PC.NURSE ---
Patient alert and oriented x 1. Patient states he doesn't drink much thats why he can't void. Patient denies pain, sob, and dizziness. Patient here for failure to thrive needs case management, and PT. Will continue with plan of care.
--- NOTE | 2021-07-28 07:56 | MHC.CM.PN ---
Addendum entered by Myesha Zamorano RN 07/28/21 08:16: PT EVAL ALSO PENDING, CM WILL CONT TO FOLLOW. Original Note: EMR REVIEWED, PT REMAINS IN ED, PT NOT BEING ADMITTED AT THIS TIME, PYSCH CONSULT PENDING, CM WILL REVISIT STR W/PT LATER TODAY.
--- NOTE | 2021-07-28 09:57 | PC.NURSE ---
Ana Odell (Community Support Personnel) called regarding Maximino for updates. Maximino consented to Short term rehabilitation with Physical Therapist earlier this shift. PT able to stand/walk with walker use, but is noted to be weak. Ana aware of pending transfer to short term rehab, but awaiting facility/bed placement. Maximino's VNA services also updated regarding plan. Ana stated okay, we'll talk with him about going into his house to help clean it while he's there. He must be really sick if he agreed to go to rehab, because he usually doesn't agree to leave his home . Ana provided her phone number, .
--- NOTE | 2021-07-28 11:04 | MHC.CM.PN ---
CM CONTACTED PT'S SENIOR INTERACTIVE DEVELOPER GUME AT 10:55AM [phone] TO FIND OUT IF PT HAS A HCP, GUME REPORTS KATHRYN SPARKSA DOES HAVE A COPY AND IT HIS EX SISTER IN LAW, GUME DOES NOT RECALL HER NAME, CM [facility], KATHRYN WAS PROVIDED FAX NUMBER, CM AWAITING RESPONSE. CM TO DISCUSS SNF PREFERENCES HOWEVER CM DID SEND BLANKET REFERRAL W/12 DENIALS AND NO BED OVER W/E FROM SNFS.
--- NOTE | 2021-07-28 12:23 | PC.NURSE ---
pt resting quietly, denies pain, no new orders at this time.
--- NOTE | 2021-07-28 12:32 | MHC.CM.PN ---
CM MET W/PT AT BEDSIDE, PT STILL IN AGREEMENT FOR STR, PT DOES REPORT HE PREFERS TO STAY AROUND [facility] OR STAY HERE [place] [facility], PT AWARE IT IS LIKELY HE WILL REMAIN INPT OVER W/E. CM STILL AWAITING BED OFFER AND WILL CONT TO FOLLOW.
--- NOTE | 2021-07-28 15:24 | PHA.MEDREC ---
Pharmacy Consult ? Medication Reconciliation Pharmacy has completed the medication reconciliation. Spoke with Ana who had a list of patients medication. Patient often refuses meds.
--- NOTE | 2021-07-28 17:15 | PC.NURSE ---
provider made aware med req was completed by pharmacy
--- NOTE | 2021-07-28 20:08 | PC.NURSE ---
pt c/o spleen /abd pain. provider notified.
[2021-07-28] MEDS: Melatonin 3 MG TABLET PO (23:06)
[2021-07-28] MEDS: Famotidine 20 MG TABLET PO (23:07)
[2021-07-28] MEDS: Multivitamin TABLET 1 TAB PO (23:07)
[2021-07-28] MEDS: clonazePAM 1 MG TABLET PO (23:08)
[2021-07-28] MEDS: oxyCODONE HCl ER 10 MG TAB.ER.12H 20 MG PO (23:08)
--- NOTE | 2021-07-28 23:14 | PC.NURSE ---
medicated per provider order.
[2021-07-29] VITALS (21 sets, daily range): BP systolic 84–139; BP diastolic 42–83; PULSE 71–128; RESP 16–30; TEMP 36.2–39.1; O2SAT 93–100
[2021-07-29] MEDS: ondansetron HCL 4 MG/2 ML VIAL IVPUSH ×3 (02:31→14:47)
--- NOTE | 2021-07-29 07:47 | PC.NURSE ---
Pt A&Ox1 to person only, ST on the monitor, febrile at this time. MD made aware. Will treat as per orders.
[2021-07-29] MEDS: clonazePAM 1 MG TABLET PO ×2 (08:01→20:12)
[2021-07-29] MEDS: Acetaminophen 325 MG TABLET 975 MG PO (08:01)
[2021-07-29] MEDS: Multivitamin TABLET 1 TAB PO (08:01)
[2021-07-29] MEDS: Aspirin Enteric Coated 81 MG TABLET.DR PO (08:01)
[2021-07-29] MEDS: Clopidogrel Bisulfate 75 MG TABLET PO (08:01)
[2021-07-29] MEDS: Docusate Sodium 100 MG CAPSULE 200 MG PO (08:01)
[2021-07-29] MEDS: oxyCODONE HCl ER 10 MG TAB.ER.12H 20 MG PO ×2 (08:01→20:12)
[2021-07-29] MEDS: Folic Acid 1 MG TABLET PO (08:01)
[2021-07-29] MEDS: Nicotine 14 MG PATCH.TD24 TRANSDERMA (08:02)
--- NOTE | 2021-07-29 08:07 | MHC.CM.PN ---
CM REVIEWED CHART, PER ED PROVIDER DR CARLOS HAS ASSESSED PT AND REPORTS PT DOES NOT HAVE CAPACITY AND HCP INVOKED, PSYCH EVAL NOT IN EXPANSE AT TIME OF THIS NOTE, PER [facility] THEY DO NOT HAVE A COPY OF PT'S HCP HOWEVER RE[place]ED [place] [facility] [place] PER RECORDS, CM HAS CONTACTED MEDICAL [facility] [place] [facility] [place] THEY WILL FA[place] COPY IF FOUNF TO OFFICE [phone], CM AWAITING FAX. BREANN SHARMA FOLLOWING, ODILON ARDON INTERESTED AND AWAITING PSYCH EVAL & UPDATED ON HCP INVOKED, FACILITIES INTERESTED BUT HAVE NO BEDS OVER W/E.
--- NOTE | 2021-07-29 08:23 | MHC.CM.PN ---
CM HAS RECEIVED COPY OF [facility], [facility] [phone], COPY UPLOADED TO [facility], CM WILL GIVE COPY TO PT REGISTRATION AND PLACE IN ED CHART.
[2021-07-29 08:40] LABS: MANUAL DIFF FLAG NO
[2021-07-29 08:42] LABS: Basophils Absolute Auto 0.1 X10*3/uL (0.0-0.2); Basophils Percent Auto 0.6 % (0-2); Eosinophils Absolute Auto 0.1 X10*3/uL (0.0-0.4); Eosinophils Percent Auto 0.5 % (0-4); Hematocrit 47.2 % (42.0-52.0); Hemoglobin 15.8 g/dl (14.0-18.0); Imm Gran Abs Auto 0.08 X10*3/uL (0.00-0.03); Imm Gran Pct Auto 0.4 % (0.0-0.4); Lymphocytes Absolute Auto 3.4 X10*3/uL (1.2-4.9); Lymphocytes Percent Auto 15.3 % (20-40); Mean Corpuscular HGB Conc 33.5 g/dl (31.0-36.0); Mean Corpuscular Hemoglobin 31.1 pg (27.0-33.0); Mean Corpuscular Volume 92.9 fL (80.0-98.0); Mean Platelet Volume 9.4 fL (9.4-12.4); Monocytes Absolute Auto 0.2 X10*3/uL (0.1-1.2); Monocytes Percent Auto 0.7 % (2-11); Neutrophils Absolute Auto 18.4 x10*3/uL (2.0-8.3); Neutrophils Percent Auto 82.5 % (45-73); Platelet Count 341 X10*3/uL (160-400); Red Blood Count 5.08 X10*6/uL (4.60-5.80); Red Cell Distribution Width 14.2 % (11.0-16.0); White Blood Count 22.3 X10*3/uL (4.8-10.8)
[2021-07-29] MEDS: levoFLOXacin/D5W 750 MG/150 ML PIGGYBACK 100 MG IV (09:12)
[2021-07-29 09:15] LABS: Lactic Acid 3.1 mmol/L (0.5-2.0)
[2021-07-29 09:16] LABS: Alanine Aminotransferase 11 U/L (0-40); Albumin Level 2.8 g/dL (3.5-5.0); Alkaline Phosphatase 218 U/L (39-117); Aspartate Amino Transferase 66 U/L (5-37); Bilirubin Total 1.4 mg/dL (0.0-1.0); Blood Urea Nitrogen 7 mg/dL (9-16); Creatinine Clr Calc Pharmacy 87.3; Estimated Glomerular Filt Rate > 60; Glucose Random 60 mg/dL (60-115); Total Protein 8.7 g/dL (6.5-8.0)
[2021-07-29 09:44] LABS: Anion Gap 17 (12-20); Carbon Dioxide 25 mmol/L (22-29); Chloride 98 mmol/L (96-108); Potassium 3.4 mmol/L (3.3-5.1); Sodium 137 mmol/L (135-145)
--- NOTE | 2021-07-29 10:27 | PC.NURSE ---
@nd line established, kirkland inserted, fluids running per sepsis protocol. Call brambila within reach, will continue to monitor.
[2021-07-29] MEDS: Albumin Human 25 % 100 ML IV (10:38)
[2021-07-29 10:39] LABS: Reflex Lactate? Lactic Acid Added
[2021-07-29] MEDS: Enoxaparin Sodium 40 MG/0.4 ML SYRINGE SUBCUT (10:39)
[2021-07-29 10:54] LABS: Appearance Urine HAZY; Color Urine YELLOW; Glucose Urine UA NEG (NEG); Leukocyte Esterase Urine NEG (NEG); Nitrite Urine NEG (NEG); UACC Culture Trigger NO; Urine Blood 3+ (NEG); Urine Ketones 5 MG/DL (NEG); Urine Protein TRACE MG/DL (NEG-TRACE)
[2021-07-29 11:07] LABS: WBC Urine 0-2 /HPF (0-4)
[2021-07-29 11:08] LABS: Mucus Urine TRACE /LPF
--- NOTE | 2021-07-29 11:24 | PC.NURSE ---
override albumin rate per verbal order from provider. albumin running at 300ml/hr.
--- NOTE | 2021-07-29 11:27 | P.CONCC_ITS ---
History of Present Illness Data of Consult Service Date: 07/29/21 Requesting physician: Mookie Collins Primary Care Provider: Epi Arnold MD HPI Dr. Collins asked me to look at Mr. Landon bec of hypotension. Briefly, the patient is a 66-year-old man with history of CVA, alcohol abuse, hepatic (presumably alcoholic) cirrhosis, hepatitis-C, hepatocellular carcinoma, and tobacco use disorder.? The patient was admitted to [facility] last month for hypoxemic respiratory failure secondary to aspiration pneumonia, but at that time refused short-term rehab. The patient was brought in by ambulance to the ED on July 27 for worsening failure to thrive.? Per the patient's TRANSPORT ANALYST at home, patient had decreased oral intake over the prior few days.? In the ED, he was afebrile, with heart rate 85, blood pressure 128/80, respiratory rate 20, with sat 95-97% on room air.? Body mass index was 18.? He was disheveled, awake but confused, appearing chronically ill, cachectic.? Mucous membranes look dry.? Chest was clear with normal respiratory effort.? According to the TRANSPORT ANALYST, at baseline he is alert and oriented x1. Labs in the ED showed a white count of 10, hemoglobin 13 (his baseline), PT 15/1.4, BUN/creat 12/0.7, normal total bili, slightly elevated AST, albumin 2.5 (was 2.6 last month), ammonia 24, lactate 1.2.? Chest x-ray showed COPD.? Abdominal CT showed mult liver lesions, nothing acute.? Gallbladder and spleen are surgically absent.? Previous abdominal wall hernia repair has mesh. ?Lung cuts showed severe and bullous emphysema and some shmutz in the left base. The patient was kept on observation status in the ED pending a psychiatric evaluation.? Yesterday, the patient was more responsive and alert than the previous day and had some physical therapy during which he was able to walk with assistance.? Patient stated he was willing to go to short-term rehab.? He was in no distress in the chest was clear.? He was seen by Dr. Fu from Psychiatry later on the day, and determined to be not competent.? The patient was kept in the ED under observation. This morning, patient spiked a temperature to 102 and became tachycardic and tachypneic.? Sat dropped and he required supplemental oxygen. ?He bumped his white count.? Apparently, the previous day the patient had vomited, and it was thought that he aspirated.? Lungs were coarse and rhonchorous.? CXR 2am this morning (my reading) showed maybe some infiltrate in the left perihilar region.? Repeat chest x-ray at about 09:00 this morning showed maybe a little more infiltrate in the left perihilar/medial lower lobe area. Blood pressure dropped into the 80s and Dr. Collins called me.? Volume resusci tation was started.? I saw Mr. Landon in the ED at about 11:15.? The patient was sitting up in bed, fully awake and alert, smiling at me.? Respiratory rate was about 20 with some upper airway gurgling.? Other than his upper airway gurgle, doesn?t look toxic.? Minimal work of breathing if any.? Heart rate was about 100, blood pressure 87/42.? Sat mid 90s on 2 L oxygen by nasal cannula.? Tongue and muc membranes very dry, no JVD, no edema. LABORATORY DATA:? Below.? White count spiked to 22, hemoglobin went up to 15.8, BUN creatinine still low, lactic acid 3.1. IMPRESSION: 1. I agree that he likely aspirated.? Likely LLL aspiration pneumonia. 2. Hypoxemic respiratory failure. 3. He is septic. 4. Hypotension:? Septic shock with hypovolemia.? He?s very dry. ?Rec albumin plus crystalloid. 5. Elevated lactate:? Septic shock vs. hypovolemia. Doing reasonably OK at present.? Continue vol resusc.? Needs Fitzgerald cath.? Follow u/o and muc membranes.? Recheck labs around noon.? Spoke w Dr. Collins.? OK to stay on medical service for now. ADDENDUM:? I saw him again in the ED at 12:50.? He has had a total of 3 L of normal saline and 200 cc 25% albumin this morning. ?Looks even better.? Upper airway gurgle and WOB completely resolved.? Muc membranes still somewhat dry, but much less than earlier.? HR down to 98, BP up to 91/50, Sat up to 100% on 2.5L NC.? Making clear medium-yellow urine. NEW LABORATORY DATA:? Hemoglobin down to 10.8 with volume resuscitation.? Renal indices stable.? Lactate up to 4.2; repeat pending.? Phosphorus and magnesium very low. Spoke with Dr. Collins.? OK to stay on medical service for now.? Vol resusc OK for now.? Follow u/o. Time:? 90+ min [facility] Past Medical History Medical History CVA (cerebral vascular accident) Fall Hepatitis C Hepatocellular carcinoma Hepatocellular carcinoma History of alcohol abuse Incisional hernia Liver cirrhosis Tobacco use disorder Family History Family History Father No problems noted. Mother No problems noted. Family/Other FH: mental illness Surgical History Surgical History H/O resection of liver (~04/2017) History of splenectomy No pertinent past surgical history Social History Social History Household Members: Unknown / Unable to assess Household Members Other:: alone Housing: Apartment Are you a primary lawn caretaker to a significant other at home: No Do you presently have visiting nurse or other home services: No Unable to assess alcohol history related to: Unable to respond Alcohol intake: never Patient Tobacco Use Status: Former Tobacco user Tobacco use type: Cigarette e-Cigarette/Vaping Use: Never Used Second Hand Smoke Exposure: No Substance Use Type: Marijuana Advance Directives: No Advance Directives Information Provided: Yes service: No Current occupational status: disabled Cognitive needs: No Hearing needs: Yes (hearing aide) Vision needs: Yes (reading glasses) Meds Allergies Allergy/AdvReac Type Severity Reaction Status Date / Time No Known Allergies Allergy Verified 07/03/21 09:40 Active Medications: Current Medications Acetaminophen (Acetaminophen Supp 650 Mg Supp.Rect) 650 mg OH Q6H PRN PRN Reason: Fever >100.4 Aspirin (Aspirin Enteric Coated 81 Mg Tablet.) 81 mg PO DAILY [facility] Last Admin: 07/29/21 08:01 Dose: 81 mg Documented by: Clonazepam (Clonazepam 1 Mg Tablet) 1 mg PO TID [facility] Last Admin: 07/29/21 08:01 Dose: 1 mg Documented by: Clopidogrel Bisulfate (Clopidogrel Bisulfate 75 Mg Tablet) 75 mg PO DAILY [facility] Last Admin: 07/29/21 08:01 Dose: 75 mg Documented by: Docusate Sodium (Docusate Sodium 100 Mg Capsule) 200 mg PO DAILY [facility] Last Admin: 07/29/21 08:01 Dose: 200 mg Documented by: Enoxaparin Sodium (Enoxaparin Sodium 40 Mg/0.4 Ml Syringe) 40 mg SUBCUT Q24H [facility] Last Admin: 07/29/21 10:39 Dose: 40 mg Documented by: Famotidine (Famotidine 20 Mg Tablet) 20 mg PO BEDTIME [facility] Last Admin: 07/28/21 23:07 Dose: 20 mg Documented by: Folic Acid (Folic Acid 1 Mg Tablet) 1 mg PO DAILY [facility] Last Admin: 07/29/21 08:01 Dose: 1 mg Documented by: Megestrol Acetate (Megestrol Acetate 20 Mg Tablet) 40 mg PO DAILY [facility] Last Admin: 07/29/21 11:12 Dose: Not Given Documented by: Melatonin (Melatonin 3 Mg Tablet) 3 mg PO BEDTIME [facility] Last Admin: 07/28/21 23:06 Dose: 3 mg Documented by: Multivitamins/Vitamin C (Multivitamin Tablet) 1 tab PO DAILY [facility] Last Admin: 07/29/21 08:01 Dose: 1 tab Documented by: Nicotine (Nicotine 14 Mg Patch.Td24) 14 mg TRANSDERMA DAILY [facility] Last Admin: 07/29/21 08:02 Dose: 14 mg Documented by: Ondansetron HCl (Ondansetron Odt 4 Mg Tab.Rapdis) 4 mg TRANSLINGU Q12H PRN PRN Reason: Nausea And Vomiting Ondansetron HCl (Ondansetron Hcl 4 Mg/2 Ml Vial) 4 mg IVPUSH Q8H PRN PRN Reason: Nausea and Vomiting Last Admin: 07/29/21 09:15 Dose: 4 mg Documented by: Oxycodone HCl (Oxycodone Hcl Immed Release 5 Mg Tablet) 5 mg PO Q6H PRN PRN Reason: Pain, Severe (Pain Scale 7-10) Oxycodone HCl (Oxycodone Hcl Er 10 Mg Tab.Er.12h) 20 mg PO BID [facility] Last Admin: 07/29/21 08:01 Dose: 20 mg Documented by: Pharmacy Consult (Consult Rx Perform Med Rec) 1 each MISCELLANE ONCE PRN PRN Reason: Consult order Pharmacy Consult (Consult Rx Perform Med Rec) 1 each MISCELLANE ONCE PRN PRN Reason: Consult order Sodium Chloride (0.9 % Sodium Chloride Flush 3 Ml Syringe) 3 ml IVFLUSH QSHIFT [facility] Medications Medication Instructions Recorded Confirmed Last Taken Type ondansetron HCl 8 mg tablet 1 tab PO Q12H PRN 06/01/21 07/28/21 Unknown History regorafenib 40 mg tablet (Stivarga) 160 mg PO DAILY tab 06/29/21 07/28/21 Unknown History docusate sodium 100 mg capsule 200 mg PO DAILY 07/28/21 07/28/21 Unknown History (Colace) melatonin 3 mg tablet 3 mg PO BEDTIME 07/28/21 07/28/21 Unknown History nicotine 14 mg/24 hr daily 1 patch TRANSDERMAL DAILY 07/28/21 07/28/21 Unknown History transdermal patch oxycodone 20 mg tablet,crush 1 tab PO BID 07/28/21 07/28/21 Unknown History resistant,extended release 12 hr (OxyContin) quetiapine 200 mg tablet,extended 1 tab PO BEDTIME 07/28/21 07/28/21 Unknown History release 24 hr sennosides 8.6 mg-docusate sodium 1 tab-cap PO BEDTIME 07/28/21 07/28/21 Unknown History 50 mg capsule (Senna Plus) Physical Exam Vital Signs: Vital Signs: Last Vital Signs Temp 100.1 F 07/29/21 09:10 Pulse 101 H 07/29/21 11:19 Resp 21 H 07/29/21 11:19 BP 87/42 L 07/29/21 11:19 Pulse Ox 99 07/29/21 10:30 BMI result Body Mass Index 18.3 Results Labs CBC & Chem 7: 07/29/21 12:55 07/29/21 11:22 Labs: Short CBC 07/29/21 Range/Units 08:36 WBC 22.3 H (4.8-10.8) X10*3/uL Hgb 15.8 (14.0-18.0) g/dl Hct 47.2 (42.0-52.0) % Plt Count 341 (160-400) X10*3/uL BMP 07/29/21 08:36 Sodium 137 Potassium 3.4 D Chloride 98 Carbon Dioxide 25 BUN 7 L Creatinine 0.70 Calcium 9.0 Liver Function 07/29/21 Range/Units 08:36 Total Bilirubin 1.4 H (0.0-1.0) mg/dL AST 66 H (5-37) U/L ALT 11 (0-40) U/L Alkaline Phosphatase 218 H (39-117) U/L Albumin 2.8 L (3.5-5.0) g/dL Urine 07/29/21 Range/Units 10:28 Urine Color YELLOW Urine Appearance HAZY Urine pH 7.0 (5.0-8.0) Ur Specific Mc[place] 1.020 (1.005-1.025) Urine Protein TRACE (NEG-TRACE) MG/DL Urine Glucose (UA) NEG (NEG) MG/DL Microbiology Microbiology Results: Microbiology 07/27/21 13:16 Blood - Venous Blood Culture - Preliminary No growth after 24 hours. 07/27/21 13:16 Blood - Venous Blood Culture - Preliminary No growth after 24 hours. Critical Care Time Critical Care Time (minutes): 90
--- NOTE | 2021-07-29 11:29 | P.HPHOSP_ITS ---
History of Present Illness Date of Service: 07/29/21 Chief Complaint: sepsis secondary to aspiration pneumonia ?66-year-old male presents from home for failure to thrive that is worsening. ? Per SENIOR TREASURY ANALYST at home and visiting nurse at home, patient has decreased oral intake over the last several days and worsening failure to thrive over the last several days.? Patient was admitted in June to [facility] for hypoxic respiratory failure secondary to aspiration pneumonia, but refused short-term rehab ?patient has a history of CVA, hepatocellular carcinoma, liver cirrhosis, hepatitis-C, and alcohol abuse. Patient was boarded in the ER awaiting fdc facility placement; early this a.m. patient had an episode of vomiting during which she aspirated. This a.m. temp to 102 for tachycardic in the 120s with blood pressures 70s. Lactate 3.1. Sepsis protocol initiated; blood cultures x2 drawn saline bolus at 30 cc/kilogram begun and patient also given 100 cc of 25% albumin. Over the next 1-1.5 hours patient responded to fluid bolus. Will continue fluid bolus to maintain map greater than equal to 55. Patient is satting 90% on 2 L Review of Systems Review of Systems: Unable to obtain secondary to sepsis [facility] Medical History CVA (cerebral vascular accident) Fall Hepatitis C Hepatocellular carcinoma Hepatocellular carcinoma History of alcohol abuse Incisional hernia Liver cirrhosis Tobacco use disorder Family History Father No problems noted. Mother No problems noted. Family/Other FH: mental illness Surgical History H/O resection of liver (~04/2017) History of splenectomy No pertinent past surgical history Social History Household Members: Unknown / Unable to assess Household Members Other:: alone Housing: Apartment Are you a primary director of critical care to a significant other at home: No Do you presently have visiting nurse or other home services: No Unable to assess alcohol history related to: Unable to respond Alcohol intake: never Patient Tobacco Use Status: Former Tobacco user Tobacco use type: Cigarette e-Cigarette/Vaping Use: Never Used Second Hand Smoke Exposure: No Substance Use Type: Marijuana Advance Directives: No Advance Directives Information Provided: Yes service: No Current occupational status: disabled Cognitive needs: No Hearing needs: Yes (hearing aide) Vision needs: Yes (reading glasses) Meds Allergies Allergy/AdvReac Type Severity Reaction Status Date / Time No Known Allergies Allergy Verified 07/03/21 09:40 Active Medications: Current Medications Acetaminophen (Acetaminophen Supp 650 Mg Supp.Rect) 650 mg [place] Q6H PRN PRN Reason: Fever >100.4 Aspirin (Aspirin Enteric Coated 81 Mg Tablet.Dr) 81 mg PO DAILY [facility] Last Admin: 07/29/21 08:01 Dose: 81 mg Documented by: Clonazepam (Clonazepam 1 Mg Tablet) 1 mg PO TID [facility] Last Admin: 07/29/21 08:01 Dose: 1 mg Documented by: Clopidogrel Bisulfate (Clopidogrel Bisulfate 75 Mg Tablet) 75 mg PO DAILY [facility] Last Admin: 07/29/21 08:01 Dose: 75 mg Documented by: Docusate Sodium (Docusate Sodium 100 Mg Capsule) 200 mg PO DAILY [facility] Last Admin: 07/29/21 08:01 Dose: 200 mg Documented by: Enoxaparin Sodium (Enoxaparin Sodium 40 Mg/0.4 Ml Syringe) 40 mg SUBCUT Q24H [facility] Last Admin: 07/29/21 10:39 Dose: 40 mg Documented by: Famotidine (Famotidine 20 Mg Tablet) 20 mg PO BEDTIME [facility] Last Admin: 07/28/21 23:07 Dose: 20 mg Documented by: Folic Acid (Folic Acid 1 Mg Tablet) 1 mg PO DAILY [facility] Last Admin: 07/29/21 08:01 Dose: 1 mg Documented by: Albumin Human (Kedbumin 25 %) 100 mls @ 100 mls/hr IV Q1H [facility] Stop: 07/29/21 13:29 Sodium Chloride (Ns) 1,000 mls @ 999 mls/hr IVCONT .Q1H1M [facility] Stop: 07/29/21 13:30 Megestrol Acetate (Megestrol Acetate 20 Mg Tablet) 40 mg PO DAILY [facility] Last Admin: 07/29/21 11:12 Dose: Not Given Documented by: Melatonin (Melatonin 3 Mg Tablet) 3 mg PO BEDTIME [facility] Last Admin: 07/28/21 23:06 Dose: 3 mg Documented by: Multivitamins/Vitamin C (Multivitamin Tablet) 1 tab PO DAILY [facility] Last Admin: 07/29/21 08:01 Dose: 1 tab Documented by: Nicotine (Nicotine 14 Mg Patch.Td24) 14 mg TRANSDERMA DAILY [facility] Last Admin: 07/29/21 08:02 Dose: 14 mg Documented by: Ondansetron HCl (Ondansetron Odt 4 Mg Tab.Rapdis) 4 mg TRANSLINGU Q12H PRN PRN Reason: Nausea And Vomiting Ondansetron HCl (Ondansetron Hcl 4 Mg/2 Ml Vial) 4 mg IVPUSH Q8H PRN PRN Reason: Nausea and Vomiting Last Admin: 07/29/21 09:15 Dose: 4 mg Documented by: Oxycodone HCl (Oxycodone Hcl Immed Release 5 Mg Tablet) 5 mg PO Q6H PRN PRN Reason: Pain, Severe (Pain Scale 7-10) Oxycodone HCl (Oxycodone Hcl Er 10 Mg Tab.Er.12h) 20 mg PO BID [facility] Last Admin: 07/29/21 08:01 Dose: 20 mg Documented by: Pharmacy Consult (Consult Rx Perform Med Rec) 1 each MISCELLANE ONCE PRN PRN Reason: Consult order Pharmacy Consult (Consult Rx Perform Med Rec) 1 each MISCELLANE ONCE PRN PRN Reason: Consult order Sodium Chloride (0.9 % Sodium Chloride Flush 3 Ml Syringe) [address] [facility] Home Medications Medication Instructions Recorded Confirmed Last Taken Type ondansetron HCl 8 mg tablet 1 tab PO Q12H PRN 06/01/21 07/28/21 Unknown History regorafenib 40 mg tablet (Stivarga) 160 mg PO DAILY tab 06/29/21 07/28/21 Unknown History docusate sodium 100 mg capsule 200 mg PO DAILY 07/28/21 07/28/21 Unknown History (Colace) melatonin 3 mg tablet 3 mg PO BEDTIME 07/28/21 07/28/21 Unknown History nicotine 14 mg/24 hr daily 1 patch TRANSDERMAL DAILY 07/28/21 07/28/21 Unknown History transdermal patch oxycodone 20 mg tablet,crush 1 tab PO BID 07/28/21 07/28/21 Unknown History resistant,extended release 12 hr (OxyContin) quetiapine 200 mg tablet,extended 1 tab PO BEDTIME 07/28/21 07/28/21 Unknown History release 24 hr sennosides 8.6 mg-docusate sodium 1 tab-cap PO BEDTIME 07/28/21 07/28/21 Unknown History 50 mg capsule (Senna Plus) Physical Exam Vital Signs and Narrative: Vital Signs: Last Vital Signs Temp 100.1 F 07/29/21 09:10 Pulse 101 H 07/29/21 11:19 Resp 21 H 07/29/21 11:19 BP 87/42 L 07/29/21 11:19 Pulse Ox 99 07/29/21 10:30 BMI result Body Mass Index 18.3 Results Labs CBC and Chem 7: 07/29/21 08:36 07/29/21 08:36 Labs: Laboratory Results - last 24 hr 07/29/21 07/29/21 07/29/21 08:36 08:36 08:36 MCV 92.9 MCH 31.1 MCHC 33.5 RDW 14.2 Plt Count 341 MPV 9.4 Immature Gran % (Auto) 0.4 Neut % (Auto) 82.5 H Lymph % (Auto) 15.3 L [place] % (Auto) 0.7 L Eos % (Auto) 0.5 Baso % (Auto) 0.6 Lymph # (Auto) 3.4 [place] # (Auto) 0.2 Eos # (Auto) 0.1 Baso # (Auto) 0.1 Abs Immat Gran (auto) 0.08 H Absolute Neuts (auto) 18.4 H Absolute Nucleated RBC 0.000 Nucleated RBC % (auto) 0.0 Anion Gap 17 Estim Creat Clear Calc 87.3 Estimated GFR > 60 Random Glucose 60 Lactic Acid 3.1 H* Calcium 9.0 Total Bilirubin 1.4 H AST 66 H ALT 11 Alkaline Phosphatase 218 H Total Protein 8.7 H Albumin 2.8 L Urine Color Urine Appearance Urine pH Ur Specific [place] Urine Protein Urine Glucose (UA) Urine Ketones Urine Blood Urine Nitrite Ur Leukocyte Esterase Urine RBC Urine WBC Ur Squamous Epith Cells Urine Bacteria Urine Mucus 07/29/21 10:28 MCV MCH MCHC RDW Plt Count MPV Immature Gran % (Auto) Neut % (Auto) Lymph % (Auto) [place] % (Auto) Eos % (Auto) Baso % (Auto) Lymph # (Auto) [place] # (Auto) Eos # (Auto) Baso # (Auto) Abs Immat Gran (auto) Absolute Neuts (auto) Absolute Nucleated RBC Nucleated RBC % (auto) Anion Gap Estim Creat Clear Calc Estimated GFR Random Glucose Lactic Acid Calcium Total Bilirubin AST ALT Alkaline Phosphatase Total Protein Albumin Urine Color YELLOW Urine Appearance HAZY Urine pH 7.0 Ur Specific [place] 1.020 Urine Protein TRACE Urine Glucose (UA) NEG Urine Ketones 5 Urine Blood 3+ H Urine Nitrite NEG Ur Leukocyte Esterase NEG Urine RBC 10-14 H Urine WBC 0-2 Ur Squamous Epith Cells NONE Urine Bacteria NONE Urine Mucus TRACE Imaging Radiologist's Impressions: Impressions Chest X-Ray 07/29/21 02:28 IMPRESSION: No significant change from prior. Postoperative appearance at the left base. Pleural scarring at the apices. Chest X-Ray 07/29/21 09:03 IMPRESSION: No acute disease. Bilateral stable opacities appear most likely chronic Assessment and Plan (1) Sepsis: Status: Acute (2) Aspiration pneumonia: Status: Acute (3) GERD (gastroesophageal reflux disease): Status: Acute Plan 66-year-old male admitted to emergency room initially for SNF placement. Over last 24 hours, vomiting with aspiration pneumonia. Hypotensive this a.m. with fever to 102 responding to therapies 1. Sepsis secondary to aspiration pneumonia -sepsis focused exam completed -IV Zosyn -continue IV normal saline. .. A 2 L bolus in addition to sepsis protocol -25% albumin x2 bottles -titrate O2 to maintain sats greater than or equal to 92% -monitor on telemetry 2. GERD -will treat with IV pantoprazole q.12 hours until speech eval complete -HOB 35 degrees Full code. .. Unable to get a hold of proxy; maintain full code status until told otherwise Lovenox Will need 2 midnights going forward for treatment of aspiration pneumonia/sepsis and stabilization of parameters. Dist could not be accomplished and a less acute setting Quality Stroke Does the patient have a stroke diagnosis?: No VTE Prior VTE?: No VTE Risk Level:: Medical - moderate - high VTE Device Contraindication: Treatment Not Indicated VTE Drug Contraindication: N/A - Med Ordered
[2021-07-29] MEDS: 0.9 % Sodium Chloride 1,000 ML 999 ML IVCONT ×2 (11:32→12:12)
[2021-07-29] MEDS: Piperacillin Sodium/Tazobactam 4.5 GM in 0.9 % Sodium Chloride 100 ML IV (11:32)
[2021-07-29] MEDS: Albumin Human 25 % 100 ML 300 ML IV ×2 (11:47→12:09)
--- NOTE | 2021-07-29 11:52 | PC.NURSE ---
medicated provider order, albumin running at 300mL/hr per provider order.
[2021-07-29] MEDS: methylPREDNISolone Sod Succ 125 MG/2 ML VIAL IVPUSH (11:57)
[2021-07-29 11:58] LABS: ~Lactic Acid-LAB USE ONLY 4.2 mmol/L (0.5-2.0)
--- NOTE | 2021-07-29 11:59 | PC.NURSE ---
medicated per provider order, vss remain consistent. pt a&o to person and place. O2 @ 2.5L, 97%.
--- NOTE | 2021-07-29 12:11 | PC.NURSE ---
Albumin 3/3 started at 300mL/hr per verbal provider order.
[2021-07-29 13:08] LABS: Hemoglobin 10.8 g/dl (14.0-18.0)
[2021-07-29 13:09] LABS: Hematocrit 32.7 % (42.0-52.0)
[2021-07-29 13:25] LABS: Reflex Lactate? 2 Y
--- NOTE | 2021-07-29 13:28 | MHC.CM.PN ---
CM ATTEMPTED TO CONTACT PT'S HCP ERIKKita BUTTS AT 12:55PM [phone], NO ANSWER, MESSAGE LEFT W/CM CONTACT INFO.
[2021-07-29 13:54] LABS: Anion Gap 15 (12-20); Blood Urea Nitrogen 7 mg/dL (9-16); Calcium 7.5 mg/dL (8.4-10.2); Carbon Dioxide 21 mmol/L (22-29); Chloride 108 mmol/L (96-108); Creatinine Clr Calc Pharmacy 83.7; Estimated Glomerular Filt Rate > 60; Glucose Random 59 mg/dL (60-115); Magnesium 1.4 mg/dL (1.6-2.6); Potassium 3.7 mmol/L (3.3-5.1); Sodium 140 mmol/L (135-145)
[2021-07-29 14:19] LABS: Lactic Acid 2.5 mmol/L (0.5-2.0)
[2021-07-29] MEDS: Lactated Ringers 1,000 ML 250 ML IVCONT (14:30)
--- NOTE | 2021-07-29 14:30 | PC.NURSE ---
iv.f started per order
--- NOTE | 2021-07-29 14:51 | PC.NURSE ---
called floor to give report nurse will call the ed back.
--- NOTE | 2021-07-29 15:07 | PM.EVENT ---
Event Note Date of Service: 07/29/21 Event Note: Patient re-evaluated acute 2 hours in ER. Excellent response to therapy; now more awake and interactive with staff. Will switch fluids to lactated Ringer's and replete phosphorus. Further plans as dictated by clinical course
[2021-07-29] MEDS: Dextrose 5 % and Lactated Ring 1,000 ML 125 ML IVCONT (15:16)
[2021-07-29] MEDS: Potassium Phosphate/NS 15 MMOL/250 ML PLAST..BAG 62.5 MMOL IV ×2 (15:26→21:03)
[2021-07-29 15:42] LABS: Reflex Lactate? Lactic Acid Added
--- NOTE | 2021-07-29 16:13 | PM.EVENT ---
Event Note Date of Service: 07/29/21 Event Note: Saw the patient about 3pm in the ED. BP now up to 102/66. The patient is sitting up in bed, looking very comfortable and 'well', thoroughly nontoxic, engrossed in his iPad.
[2021-07-29] MEDS: Piperacillin Sodium/Tazobactam 3.375 GM in 0.9 % Sodium Chloride 50 ML IV ×2 (16:29→22:46)
[2021-07-29] MEDS: 0.9 % Sodium Chloride Flush 3 ML SYRINGE IVFLUSH (16:30)
[2021-07-29] MEDS: Pantoprazole Sodium 40 MG/10 ML VIAL IVPUSH (16:30)
[2021-07-29 17:03] LABS: ~Lactic Acid-LAB USE ONLY 3.2 mmol/L (0.5-2.0)
[2021-07-29 18:40] LABS: Reflex Lactate? 2 Y
[2021-07-29 19:35] LABS: ~Lactic Acid-LAB USE ONLY 2.4 mmol/L (0.5-2.0)
[2021-07-29] MEDS: Famotidine 20 MG TABLET PO (20:12)
[2021-07-29] MEDS: Melatonin 3 MG TABLET PO (20:12)
[2021-07-30] VITALS (7 sets, daily range): BP systolic 96–106; BP diastolic 48–67; PULSE 75–85; RESP 16–20; TEMP 35.6–37.1; O2SAT 97–100; BMI 18.3
[2021-07-30] MEDS: 0.9 % Sodium Chloride Flush 3 ML SYRINGE IVFLUSH (00:35)
[2021-07-30] MEDS: Dextrose 5 % and Lactated Ring 1,000 ML 125 ML IVCONT ×2 (01:09→10:46)
[2021-07-30] MEDS: Piperacillin Sodium/Tazobactam 3.375 GM in 0.9 % Sodium Chloride 50 ML IV ×4 (05:07→21:54)
[2021-07-30] MEDS: Pantoprazole Sodium 40 MG/10 ML VIAL IVPUSH ×2 (05:35→18:02)
[2021-07-30 07:06] LABS: Basophils Percent Auto 0.1 % (0-2); Imm Gran Abs Auto 0.23 X10*3/uL (0.00-0.03); Imm Gran Pct Auto 0.8 % (0.0-0.4); Lymphocytes Absolute Auto 1.6 X10*3/uL (1.2-4.9); Lymphocytes Percent Auto 5.5 % (20-40); MANUAL DIFF FLAG SCAN; Mean Corpuscular HGB Conc 32.4 g/dl (31.0-36.0); Mean Corpuscular Hemoglobin 31.1 pg (27.0-33.0); Mean Platelet Volume 10.2 fL (9.4-12.4); Monocytes Absolute Auto 0.5 X10*3/uL (0.1-1.2); Monocytes Percent Auto 1.7 % (2-11); Neutrophils Absolute Auto 27.1 x10*3/uL (2.0-8.3); Neutrophils Percent Auto 91.9 % (45-73); Platelet Count 249 X10*3/uL (160-400); Red Blood Count 3.54 X10*6/uL (4.60-5.80); Red Cell Distribution Width 14.6 % (11.0-16.0); SCAN SMEAR FLAG 1; White Blood Count 29.5 X10*3/uL (4.8-10.8)
[2021-07-30 07:29] LABS: Alanine Aminotransferase 12 U/L (0-40); Albumin Level 2.8 g/dL (3.5-5.0); Alkaline Phosphatase 118 U/L (39-117); Anion Gap 13 (12-20); Aspartate Amino Transferase 51 U/L (5-37); Bilirubin Total 0.5 mg/dL (0.0-1.0); Blood Urea Nitrogen 8 mg/dL (9-16); Calcium 7.8 mg/dL (8.4-10.2); Carbon Dioxide 22 mmol/L (22-29); Chloride 113 mmol/L (96-108); Creatinine Clr Calc Pharmacy 88.6; Estimated Glomerular Filt Rate > 60; Glucose Fasting 201 mg/dL (60-99); Potassium 3.8 mmol/L (3.3-5.1); Sodium 144 mmol/L (135-145); Total Protein 6.4 g/dL (6.5-8.0)
[2021-07-30 08:14] LABS: SLIDE REVIEW VERIFIED
[2021-07-30 08:39] LABS: Magnesium 1.4 mg/dL (1.6-2.6); Phosphorus 2.6 mg/dL (2.7-4.5)
[2021-07-30] MEDS: oxyCODONE HCl ER 10 MG TAB.ER.12H 20 MG PO (09:13)
[2021-07-30] MEDS: Aspirin Enteric Coated 81 MG TABLET.DR PO (09:14)
[2021-07-30] MEDS: Docusate Sodium 100 MG CAPSULE 200 MG PO (09:14)
[2021-07-30] MEDS: Megestrol Acetate 20 MG TABLET 40 MG PO (09:14)
[2021-07-30] MEDS: Folic Acid 1 MG TABLET PO (09:14)
[2021-07-30] MEDS: clonazePAM 1 MG TABLET PO ×2 (09:14→19:59)
[2021-07-30] MEDS: Clopidogrel Bisulfate 75 MG TABLET PO (09:14)
[2021-07-30] MEDS: Multivitamin TABLET 1 TAB PO (09:14)
[2021-07-30] MEDS: Enoxaparin Sodium 40 MG/0.4 ML SYRINGE SUBCUT (09:15)
--- NOTE | 2021-07-30 09:35 | P.CDIC_ITS ---
CDI Concurrent Query Documentation Clarification: PHYSICIAN'S DOCUMENTATION REQUEST Date of Query: 07/30/21 0935 Patient Name: Maximino Landon Admit Date: 07/29/21 Dear Doctor, A review of the medical record indicates additional documentation may be needed. Please review below and update the documentation accordingly. Clinical Indicators: Risk Factors/Clinical Indicators/Treatments Notes from ED 07/27 - Altered mental status, patient had refused SNF, confused, chronically ill appearing. Patient is encephalopathic, unable to give CM any meaningful information. BMI 18 Based on the above, please further specify, in the Progress Notes, the known or suspected type of the documented encephalopathy: * Metabolic * Septic * Toxic * Toxic metabolic * Due to a specified condition (such as UTI, hyponatremia, CVA, etc.) * Other (please specify) * Unable to determine Use of terms such as suspected, likely, concern for, or probable (associated with a specific diagnosis that is being evaluated, monitored, or treated as if it exists) are acceptable and can be coded in the inpatient setting, when documented at the time of discharge. Thank you, Frances Du [facility], CDIS Extension: [phone] Please use your independent medical judgment in providing your response. THIS QUERY IS PART OF THE PERMANENT MEDICAL RECORD Provider Response: Other Other Diagnosis: Metabolic encephalopathy secondary to aspiration pneumonia
[2021-07-30] MEDS: Magnesium Sulfate/H2O 2 GM/50 ML PIGGYBACK IV (11:18)
--- NOTE | 2021-07-30 11:55 | P.CDIC_ITS ---
CDI Concurrent Query Documentation Clarification: PHYSICIAN'S DOCUMENTATION REQUEST Date of Query: 07/30/21 1153 Patient Name: Maximino Landon Admit Date: 07/29/21 Dear Doctor, A review of the medical record indicates additional documentation may be needed. Please review below and update the documentation accordingly. Clinical Indicators: Risk Factors/Clinical Indicators/Treatments Ed 07/27 - Nutritional care: cachectic, malnourished. Albumin 2.8 Nursing notes: emaciated, weak and lethargic. Chronically ill appearing, decreased oral intake. Liver cancer. BMI 18 ASPEN Criteria* Acute Illness Chronic Illness Clinical Characteristic Non-Severe (2 or more criteria present) Severe (2 or more criteria present) Non-Severe (2 or more criteria present) Severe (2 or more criteria present) Energy Intake <75% for >7 days <=50% for >=5 days <75% for >=1 month <=75% for >=1 month Weight Loss 1 week 1 ? 2% >2% N/A N/A 1 month 5% >5% 5% >5% 3 months 7.5 % >7.5% 7.5% >7.5% 6 months N/A N/A 10% >10% 1 year N/A N/A 20% >20% Body Fat Mild Moderate Mild Severe Muscle Mass Mild Moderate Mild Severe Fluid Accumulation Mild Moderate to Severe Mild Severe Reduced Experimental Display Builder Strength N/A Measurably Reduced N/A Measurably Reduced *[facility], 2017 If possible, please provide in your progress notes, additional specificity regarding the severity of the malnutrition using the above information: * Mild * Moderate * Severe * Other (please specify) * Unable to determine Use of terms such as suspected, likely, concern for, or probable (associated with a specific diagnosis that is being evaluated, monitored, or treated as if it exists) are acceptable and can be coded in the inpatient setting, when documented at the time of discharge. Thank you, Frances Du [facility], CDIS Extension: [phone] Please use your independent medical judgment in providing your response. THIS QUERY IS PART OF THE PERMANENT MEDICAL RECORD Provider Response: Other Other Diagnosis: Severe malnutrition secondary to hepatocellular carcinoma
--- NOTE | 2021-07-30 12:04 | HO.PM.IMPN ---
Subjective Subjective Date of Service: 07/30/21 Interval History: Awake alert no acute distress. Interacting appropriately Review of Systems Denies chest pain Denies shortness of breath Denies nausea vomiting diarrhea Denies fever chills Physical Exam Vital Signs: Vital Signs: Last Vital Signs Temp 98.3 F 07/30/21 12:00 Pulse 75 07/30/21 12:00 Resp 16 07/30/21 12:00 BP 97/62 07/30/21 12:00 Pulse Ox 99 07/30/21 12:00 BMI result Body Mass Index 18.3 Const: Other: Awake alert no acute distress HEENT: Other: Membranes moist Resp: Other: Rhonchorous throughout with improved aeration to bases Cardio: Other: No S4; positive S1-S2; no S3 murmurs rubs or gallops GI: Other: Soft nontender nondistended with normoactive bowel sounds Extrem: Other: No edema bilaterally Objective Data Active Medications Acetaminophen (Acetaminophen Supp 650 Mg Supp.Rect) 650 mg [place] Q6H PRN PRN Reason: Fever >100.4 Aspirin (Aspirin Enteric Coated 81 Mg Tablet.) 81 mg PO DAILY [facility] Last Admin: 07/30/21 09:14 Dose: 81 mg Documented by: FORREST Clonazepam (Clonazepam 1 Mg Tablet) 1 mg PO TID [facility] Last Admin: 07/30/21 09:14 Dose: 1 mg Documented by: FORREST Clopidogrel Bisulfate (Clopidogrel Bisulfate 75 Mg Tablet) 75 mg PO DAILY [facility] Last Admin: 07/30/21 09:14 Dose: 75 mg Documented by: FORREST Docusate Sodium (Docusate Sodium 100 Mg Capsule) 200 mg PO DAILY [facility] Last Admin: 07/30/21 09:14 Dose: 200 mg Documented by: FORREST Enoxaparin Sodium (Enoxaparin Sodium 40 Mg/0.4 Ml Syringe) 40 mg SUBCUT Q24H [facility] Last Admin: 07/30/21 09:15 Dose: 40 mg Documented by: FORREST Famotidine (Famotidine 20 Mg Tablet) 20 mg PO BEDTIME [facility] Last Admin: 07/29/21 20:12 Dose: 20 mg Documented by: ANA Folic Acid (Folic Acid 1 Mg Tablet) 1 mg PO DAILY [facility] Last Admin: 07/30/21 09:14 Dose: 1 mg Documented by: FORREST Piperacillin Sod/Tazobactam (Sod 3.375 gm/ Sodium Chloride) 50 mls @ 100 mls/hr IV Q6H [facility] Last Infusion: 07/30/21 11:17 Dose: 0 mls/hr Documented by: FORREST Dextrose/Lactated Ringer's (D5lr) 1,000 mls @ 125 mls/hr IVCONT .Q8H [facility] Last Infusion: 07/30/21 10:47 Dose: 0 mls/hr Documented by: FORREST Magnesium Sulfate (Magnesium Sulfate/H2o) 2 gm in 50 mls @ 25 mls/hr IV ONCE ONE Stop: 07/30/21 12:05 Last Admin: 07/30/21 11:18 Dose: 25 mls/hr Documented by: FORREST Potassium Phosphate (Kphos) 15 mmol in 250 mls @ 62.5 mls/hr IV ONCE ONE Stop: 07/30/21 14:05 Megestrol Acetate (Megestrol Acetate 20 Mg Tablet) 40 mg PO DAILY [facility] Last Admin: 07/30/21 09:14 Dose: 40 mg Documented by: FORREST Melatonin (Melatonin 3 Mg Tablet) 3 mg PO BEDTIME [facility] Last Admin: 07/29/21 20:12 Dose: 3 mg Documented by: ANA Multivitamins/Vitamin C (Multivitamin Tablet) 1 tab PO DAILY [facility] Last Admin: 07/30/21 09:14 Dose: 1 tab Documented by: FORREST Nicotine (Nicotine 14 Mg Patch.Td24) 14 mg TRANSDERMA DAILY [facility] Last Admin: 07/30/21 09:13 Dose: Not Given Documented by: FORREST Non-Admin Reason: Patient Refused Ondansetron HCl (Ondansetron Odt 4 Mg Tab.Rapdis) 4 mg TRANSLINGU Q12H PRN PRN Reason: Nausea And Vomiting Ondansetron HCl (Ondansetron Hcl 4 Mg/2 Ml Vial) 4 mg IVPUSH Q8H PRN PRN Reason: Nausea and Vomiting Last Admin: 07/29/21 09:15 Dose: 4 mg Documented by: RAFFY-RAMSK Ondansetron HCl (Ondansetron Hcl 4 Mg/2 Ml Vial) 4 mg IVPUSH Q8H PRN PRN Reason: Nausea Last Admin: 07/29/21 14:47 Dose: 4 mg Documented by: EDILIADENAnne Oxycodone HCl (Oxycodone Hcl Immed Release 5 Mg Tablet) 5 mg PO Q6H PRN PRN Reason: Pain, Severe (Pain Scale 7-10) Oxycodone HCl (Oxycodone Hcl Er 10 Mg Tab.Er.12h) 20 mg PO BID [facility] Last Admin: 07/30/21 09:13 Dose: 20 mg Documented by: FORREST Pantoprazole Sodium (Pantoprazole Sodium 40 Mg/10 Ml Vial) 40 mg IVPUSH BID@0630,1630 [facility] Last Admin: 07/30/21 05:35 Dose: 40 mg Documented by: ARGENIS Pharmacy Consult (Consult Rx Perform Med Rec) 1 each MISCELLANE ONCE PRN PRN Reason: Consult order Pharmacy Consult (Consult Rx Perform Med Rec) 1 each MISCELLANE ONCE PRN PRN Reason: Consult order Sodium Chloride (0.9 % Sodium Chloride Flush 3 Ml Syringe) 3 ml IVFLUSH QSHIFT [facility] Last Admin: 07/30/21 09:12 Dose: Not Given Documented by: FORREST Non-Admin Reason: IV Running Labs CBC & Chem 7: 07/30/21 06:36 07/30/21 06:36 Labs: Laboratory Results - last 24 hr 07/29/21 07/29/21 07/29/21 11:22 13:38 16:21 MCV MCH MCHC RDW Plt Count MPV Immature Gran % (Auto) Neut % (Auto) Lymph % (Auto) [place] % (Auto) Eos % (Auto) Baso % (Auto) Lymph # (Auto) [place] # (Auto) Eos # (Auto) Baso # (Auto) Abs Immat Gran (auto) Absolute Neuts (auto) Absolute Nucleated RBC Nucleated RBC % (auto) Smear Tech's Comments Anion Gap 15 Estim Creat Clear Calc 83.7 Estimated GFR > 60 Random Glucose 59 L* Fasting Glucose Lactic Acid 2.5 H* Lactic Acid F/U @ 2Hr 3.2 H* Lactic Acid F/U @ 4Hr Calcium 7.5 L D Phosphorus 1.0 L* Magnesium 1.4 L* Total Bilirubin AST ALT Alkaline Phosphatase Total Protein Albumin 07/29/21 07/30/21 07/30/21 18:50 06:36 06:36 MCV 96.0 MCH 31.1 MCHC 32.4 RDW 14.6 Plt Count 249 D MPV 10.2 Immature Gran % (Auto) 0.8 H Neut % (Auto) 91.9 H Lymph % (Auto) 5.5 L [place] % (Auto) 1.7 L Eos % (Auto) 0.0 Baso % (Auto) 0.1 Lymph # (Auto) 1.6 [place] # (Auto) 0.5 Eos # (Auto) 0.0 Baso # (Auto) 0.0 Abs Immat Gran (auto) 0.23 H Absolute Neuts (auto) 27.1 H Absolute Nucleated RBC 0.000 Nucleated RBC % (auto) 0.0 Smear Tech's Comments VERIFIED Anion Gap 13 Estim Creat Clear Calc 88.6 Estimated GFR > 60 Random Glucose Fasting Glucose 201 H D Lactic Acid Lactic Acid F/U @ 2Hr Lactic Acid F/U @ 4Hr 2.4 H* Calcium 7.8 L Phosphorus 2.6 L Magnesium 1.4 L* Total Bilirubin 0.5 AST 51 H ALT 12 Alkaline Phosphatase 118 H D Total Protein 6.4 L D Albumin 2.8 L Microbiology Microbiology Results: Microbiology 07/29/21 08:36 Blood Culture - Preliminary Blood - Venous No growth after 24 hours. 07/29/21 08:21 Blood Culture - Preliminary Blood - Venous No growth after 24 hours. 07/27/21 13:16 Blood Culture - Preliminary Blood - Venous No growth after 48 hours. 07/27/21 13:16 Blood Culture - Preliminary Blood - Venous No growth after 48 hours. Assessment and Plan (1) Sepsis: Status: Acute (2) GERD (gastroesophageal reflux disease): Status: Acute (3) Aspiration pneumonia: Status: Acute Plan 66-year-old male admitted to emergency room initially for SNF placement. Over last 24 hours, vomiting with aspiration pneumonia. Hypotensive this a.m. with fever to 102 responding to therapies 1. Sepsis secondary to aspiration pneumonia... Markedly improved/sepsis resolved -continue IV Zosyn -D5LR @ 100/hr -monitor on telemetry 2. GERD -will treat with IV pantoprazole q.12 hours until speech eval complete -HOB 35 degrees 3. Hepatocellular carcinoma -will attempt to get hold of the proxy; at this time patient wishes to be a full code Full code. .. Unable to get a hold of proxy; maintain full code status until told otherwise Lovenox Will need for treatment of aspiration pneumonia and stabilization of parameters. Quality Stroke Does the patient have a stroke diagnosis?: No VTE Prior VTE?: No VTE Risk Level:: Medical - moderate - high VTE Device Contraindication: Treatment Not Indicated VTE Drug Contraindication: N/A - Med Ordered
[2021-07-30] MEDS: Potassium Phosphate/NS 15 MMOL/250 ML PLAST..BAG 62.5 MMOL IV (13:18)
--- NOTE | 2021-07-30 13:49 | MHC.CLN ---
RE; CONSULT PT IS SEVERELY MALNOURISHED PT IS SEVERELY DEPLETED IN SUBCUTANEOUS FAT AND MUSCLE MASS, BMI 18.3 WITH 18% SIGNIFICANT WT LOSS X 6 MONTHS AND CHRONIC POOR PO INTAKE. PT WITH HEPATOCELLULAR CA PREVIOUS WT 72.3KG (01/10/21) DIET RX: REGULAR-APPROPRIATE RECOMMEND ADDING ENSURE TID TO INCREASE KCALS AND PROMOTE WOUND HEALING SUPP TO PROVIDE 1050KCALS, 60 G PROTEIN MONITOR PO INTAKE CLOSELY SEE ALSO FULL CLINICAL NUTRITION ASSESSMENT
--- NOTE | 2021-07-30 15:34 | MHC.CM.PN ---
Addendum entered by Marely Oliver 07/30/21 15:45: PCP is Dr Arnold. Original Note: IMM 07/30/21 Male 66 DX Respiratory failure Patient lives alone with services. He has [facility] [employer] services. He has [facility] as well. HCP is Sister IN Law and niece. T/W has spoken with both HCPs today. [facility] was contacted as well. The HCPs have not been involved with this Patient for 40 years, per Rosi Landon, S-IN-Law. She provided the contact info for [facility]. He requires assistance and supervision all functional mobility. He has not been using an AD. He furniture surfs in his small apartment. He has a DX of End stage liver disease. DP placement STR/LTC. Per [facility] Patient is no longer safe to live by himself. Preferences for Facilities were obtained and the referrals made. Per MD rounds DC 2-3 days r/t WBC elevated. He will transport via BLS at [place].
[2021-07-30] MEDS: Famotidine 20 MG TABLET PO (19:59)
[2021-07-30] MEDS: Melatonin 3 MG TABLET PO (20:00)
--- NOTE | 2021-07-31 00:34 | PC.NURSE ---
Patient had a 15 beat of vtach at 0020. Pt assessed, reports no pain or discomort. Dr. Rehman notified via [employer].
[2021-07-31 03:27] VITALS: BP 120/69; PULSE 75; RESP 18; TEMP 36.6; O2SAT 98
[2021-07-31] MEDS: Dextrose 5 % and Lactated Ring 1,000 ML 125 ML IVCONT ×2 (05:30→12:05)
[2021-07-31] MEDS: Piperacillin Sodium/Tazobactam 3.375 GM in 0.9 % Sodium Chloride 50 ML IV ×3 (05:31→16:11)
[2021-07-31] MEDS: Pantoprazole Sodium 40 MG/10 ML VIAL IVPUSH ×2 (05:31→16:11)
[2021-07-31 07:11] LABS: Basophils Absolute Auto 0.1 X10*3/uL (0.0-0.2); Basophils Percent Auto 0.2 % (0-2); Hematocrit 34.8 % (42.0-52.0); Hemoglobin 11.3 g/dl (14.0-18.0); Imm Gran Pct Auto 0.7 % (0.0-0.4); Lymphocytes Absolute Auto 3.3 X10*3/uL (1.2-4.9); Lymphocytes Percent Auto 11.6 % (20-40); MANUAL DIFF FLAG SCAN; Mean Corpuscular HGB Conc 32.5 g/dl (31.0-36.0); Mean Corpuscular Hemoglobin 31.2 pg (27.0-33.0); Mean Corpuscular Volume 96.1 fL (80.0-98.0); Mean Platelet Volume 10.5 fL (9.4-12.4); Monocytes Absolute Auto 0.7 X10*3/uL (0.1-1.2); Monocytes Percent Auto 2.6 % (2-11); Neutrophils Percent Auto 84.9 % (45-73); Platelet Count 235 X10*3/uL (160-400); Red Blood Count 3.62 X10*6/uL (4.60-5.80); Red Cell Distribution Width 15.2 % (11.0-16.0); SCAN SMEAR FLAG 1; White Blood Count 28.2 X10*3/uL (4.8-10.8)
[2021-07-31 07:24] VITALS: BP 108/58; PULSE 98; RESP 20; TEMP 36.8; O2SAT 97
[2021-07-31 07:33] LABS: SLIDE REVIEW VERIFIED
[2021-07-31 07:39] LABS: Alanine Aminotransferase 9 U/L (0-40); Albumin Level 2.6 g/dL (3.5-5.0); Alkaline Phosphatase 118 U/L (39-117); Anion Gap 12 (12-20); Aspartate Amino Transferase 63 U/L (5-37); Bilirubin Total 0.5 mg/dL (0.0-1.0); Blood Urea Nitrogen 10 mg/dL (9-16); Calcium 8.2 mg/dL (8.4-10.2); Carbon Dioxide 25 mmol/L (22-29); Chloride 112 mmol/L (96-108); Creatinine Clr Calc Pharmacy 101.9; Estimated Glomerular Filt Rate > 60; Glucose Fasting 98 mg/dL (60-99); Potassium 4.2 mmol/L (3.3-5.1); Sodium 145 mmol/L (135-145); Total Protein 6.6 g/dL (6.5-8.0)
[2021-07-31] MEDS: Megestrol Acetate 20 MG TABLET 40 MG PO (09:27)
[2021-07-31] MEDS: Multivitamin TABLET 1 TAB PO (09:27)
[2021-07-31] MEDS: clonazePAM 1 MG TABLET PO ×3 (09:27→21:08)
[2021-07-31] MEDS: Clopidogrel Bisulfate 75 MG TABLET PO (09:28)
[2021-07-31] MEDS: Enoxaparin Sodium 40 MG/0.4 ML SYRINGE SUBCUT (09:28)
[2021-07-31] MEDS: Folic Acid 1 MG TABLET PO (09:28)
[2021-07-31] MEDS: Aspirin Enteric Coated 81 MG TABLET.DR PO (09:28)
[2021-07-31] MEDS: oxyCODONE HCl ER 10 MG TAB.ER.12H 20 MG PO ×2 (09:30→21:09)
[2021-07-31] MEDS: Docusate Sodium 100 MG CAPSULE 200 MG PO (09:31)
[2021-07-31 11:07] VITALS: BP 130/82; PULSE 96; RESP 20; TEMP 37.2; O2SAT 98
--- NOTE | 2021-07-31 12:49 | HO.PM.IMPN ---
Subjective Subjective Date of Service: 07/31/21 Interval History: Awake alert no acute distress. Interacting appropriately Review of Systems Denies chest pain Denies shortness of breath Denies nausea vomiting diarrhea Denies fever chills Physical Exam Vital Signs: Vital Signs: Last Vital Signs Temp 99.0 F 07/31/21 11:07 Pulse 96 07/31/21 11:07 Resp 20 07/31/21 11:07 BP 130/82 07/31/21 11:07 Pulse Ox 98 07/31/21 11:07 BMI result Body Mass Index 18.3 Const: Other: Awake alert no acute distress HEENT: Other: Membranes moist Resp: Other: Rhonchorous throughout with improved aeration to bases Cardio: Other: No S4; positive S1-S2; no S3 murmurs rubs or gallops GI: Other: Soft nontender nondistended with normoactive bowel sounds Extrem: Other: No edema bilaterally Objective Data Active Medications Acetaminophen (Acetaminophen Supp 650 Mg Supp.Rect) 650 mg SD Q6H PRN PRN Reason: Fever >100.4 Aspirin (Aspirin Enteric Coated 81 Mg Tablet.) 81 mg PO DAILY [facility] Last Admin: 07/31/21 09:28 Dose: 81 mg Documented by: WILLIAM Clonazepam (Clonazepam 1 Mg Tablet) 1 mg PO TID [facility] Last Admin: 07/31/21 09:27 Dose: 1 mg Documented by: WILLIAM Clopidogrel Bisulfate (Clopidogrel Bisulfate 75 Mg Tablet) 75 mg PO DAILY [facility] Last Admin: 07/31/21 09:28 Dose: 75 mg Documented by: WILLIAM Docusate Sodium (Docusate Sodium 100 Mg Capsule) 200 mg PO DAILY [facility] Last Admin: 07/31/21 09:31 Dose: 200 mg Documented by: WILLIAM Enoxaparin Sodium (Enoxaparin Sodium 40 Mg/0.4 Ml Syringe) 40 mg SUBCUT Q24H [facility] Last Admin: 07/31/21 09:28 Dose: 40 mg Documented by: WILLIAM Famotidine (Famotidine 20 Mg Tablet) 20 mg PO BEDTIME [facility] Last Admin: 07/30/21 19:59 Dose: 20 mg Documented by: JOSE Folic Acid (Folic Acid 1 Mg Tablet) 1 mg PO DAILY [facility] Last Admin: 07/31/21 09:28 Dose: 1 mg Documented by: WILLIAM Piperacillin Sod/Tazobactam (Sod 3.375 gm/ Sodium Chloride) 50 mls @ 100 mls/hr IV Q6H [facility] Last Infusion: 07/31/21 12:17 Dose: 0 mls/hr Documented by: WILLIAM Dextrose/Lactated Ringer's (D5lr) 1,000 mls @ 125 mls/hr IVCONT .Q8H [facility] Last Admin: 07/31/21 12:05 Dose: 125 mls/hr Documented by: WILLIAM Megestrol Acetate (Megestrol Acetate 20 Mg Tablet) 40 mg PO DAILY [facility] Last Admin: 07/31/21 09:27 Dose: 40 mg Documented by: WILLIAM Melatonin (Melatonin 3 Mg Tablet) 3 mg PO BEDTIME [facility] Last Admin: 07/30/21 20:00 Dose: 3 mg Documented by: JOSE Multivitamins/Vitamin C (Multivitamin Tablet) 1 tab PO DAILY [facility] Last Admin: 07/31/21 09:27 Dose: 1 tab Documented by: WILLIAM Nicotine (Nicotine 14 Mg Patch.Td24) 14 mg TRANSDERMA DAILY [facility] Last Admin: 07/31/21 09:28 Dose: Not Given Documented by: WILLIAM Non-Admin Reason: Patient Refused Ondansetron HCl (Ondansetron Odt 4 Mg Tab.Rapdis) 4 mg TRANSLINGU Q12H PRN PRN Reason: Nausea And Vomiting Ondansetron HCl (Ondansetron Hcl 4 Mg/2 Ml Vial) 4 mg IVPUSH Q8H PRN PRN Reason: Nausea and Vomiting Last Admin: 07/29/21 09:15 Dose: 4 mg Documented by: RAFFY-RAMJOHANNY Ondansetron HCl (Ondansetron Hcl 4 Mg/2 Ml Vial) 4 mg IVPUSH Q8H PRN PRN Reason: Nausea Last Admin: 07/29/21 14:47 Dose: 4 mg Documented by: NICO Oxycodone HCl (Oxycodone Hcl Immed Release 5 Mg Tablet) 5 mg PO Q6H PRN PRN Reason: Pain, Severe (Pain Scale 7-10) Oxycodone HCl (Oxycodone Hcl Er 10 Mg Tab.Er.12h) 20 mg PO BID [facility] Last Admin: 07/31/21 09:30 Dose: 20 mg Documented by: WILLIAM Pantoprazole Sodium (Pantoprazole Sodium 40 Mg/10 Ml Vial) 40 mg IVPUSH BID@0630,1630 [facility] Last Admin: 07/31/21 05:31 Dose: 40 mg Documented by: JOSE Pharmacy Consult (Consult Rx Perform Med Rec) 1 each MISCELLANE ONCE PRN PRN Reason: Consult order Pharmacy Consult (Consult Rx Perform Med Rec) 1 each MISCELLANE ONCE PRN PRN Reason: Consult order Sodium Chloride (0.9 % Sodium Chloride Flush 3 Ml Syringe) 3 ml IVFLUSH QSHIFT [facility] Last Admin: 07/31/21 09:21 Dose: Not Given Documented by: WILLIAM Non-Admin Reason: IV Running Labs CBC & Chem 7: 07/31/21 06:49 07/31/21 06:49 Labs: Laboratory Results - last 24 hr 07/31/21 07/31/21 06:49 06:49 MCV 96.1 MCH 31.2 MCHC 32.5 RDW 15.2 Plt Count 235 MPV 10.5 Immature Gran % (Auto) 0.7 H Neut % (Auto) 84.9 H Lymph % (Auto) 11.6 L [place] % (Auto) 2.6 Eos % (Auto) 0.0 Baso % (Auto) 0.2 Lymph # (Auto) 3.3 [place] # (Auto) 0.7 Eos # (Auto) 0.0 Baso # (Auto) 0.1 Abs Immat Gran (auto) 0.20 H Absolute Neuts (auto) 24.0 H Absolute Nucleated RBC 0.000 Nucleated RBC % (auto) 0.0 Smear Tech's Comments VERIFIED Anion Gap 12 Estim Creat Clear Calc 101.9 Estimated GFR > 60 Fasting Glucose 98 D Calcium 8.2 L Total Bilirubin 0.5 AST 63 H ALT 9 Alkaline Phosphatase 118 H Total Protein 6.6 Albumin 2.6 L Microbiology Microbiology Results: Microbiology 07/29/21 08:36 Blood Culture - Preliminary Blood - Venous No growth after 48 hours. 07/29/21 08:21 Blood Culture - Preliminary Blood - Venous No growth after 48 hours. Assessment and Plan (1) Aspiration pneumonia: Status: Acute (2) Hepatocellular carcinoma: Status: Chronic Plan 66-year-old male admitted to emergency room initially for SNF placement. Over last 24 hours, vomiting with aspiration pneumonia. Hypotensive this a.m. with fever to 102 responding to therapies 1. Sepsis secondary to aspiration pneumonia... Markedly improved/sepsis resolved -continue IV Zosyn -D5LR @ 100/hr -monitor on telemetry 2. GERD -will treat with IV pantoprazole q.12 hours until speech eval complete -HOB 35 degrees 3. Hepatocellular carcinoma -will attempt to get hold of the proxy; at this time patient wishes to be a full code Full code. .. Unable to get a hold of proxy; maintain full code status until told otherwise Lovenox Will need for treatment of aspiration pneumonia and stabilization of parameters. Quality Stroke Does the patient have a stroke diagnosis?: No VTE Prior VTE?: No VTE Risk Level:: Medical - moderate - high VTE Device Contraindication: Treatment Not Indicated VTE Drug Contraindication: N/A - Med Ordered
--- NOTE | 2021-07-31 13:44 | PC.NURSE ---
Skin/wound assessment completed. Patient has a stage 2 pressure injury tp coccyx. Cleansed with wound cleanser then small amount of Triad applied covered with foam dressing.
--- NOTE | 2021-07-31 15:57 | PC.NURSE ---
Pts k[place] catheter removed this am at 0940. External catheter applied. Patient as voided 600mls of clear yellow urine. Post void bladder scan for 32mls. Pt in bed resting comfortably. Call brambila in reach. [employer] monitoring on.
[2021-07-31] MEDS: 0.9 % Sodium Chloride Flush 3 ML SYRINGE IVFLUSH (16:11)
[2021-07-31] MEDS: Melatonin 3 MG TABLET PO (21:08)
[2021-07-31] MEDS: Famotidine 20 MG TABLET PO (21:09)
[2021-07-31 21:14] VITALS: BP 133/87; PULSE 101; RESP 20; O2SAT 96
[2021-08-01] MEDS: Piperacillin Sodium/Tazobactam 3.375 GM in 0.9 % Sodium Chloride 50 ML IV ×5 (00:39→22:27)
[2021-08-01] MEDS: Dextrose 5 % and Lactated Ring 1,000 ML 125 ML IVCONT ×2 (03:59→14:15)
[2021-08-01 04:00] VITALS: BP 137/68; PULSE 95; RESP 18; TEMP 36.9
[2021-08-01] MEDS: Pantoprazole Sodium 40 MG/10 ML VIAL IVPUSH (06:03)
[2021-08-01 07:13] LABS: MANUAL DIFF FLAG NO
[2021-08-01 07:20] LABS: Basophils Absolute Auto 0.2 X10*3/uL (0.0-0.2); Basophils Percent Auto 0.9 % (0-2); Eosinophils Absolute Auto 0.9 X10*3/uL (0.0-0.4); Eosinophils Percent Auto 4.5 % (0-4); Hematocrit 35.9 % (42.0-52.0); Hemoglobin 11.6 g/dl (14.0-18.0); Imm Gran Abs Auto 0.08 X10*3/uL (0.00-0.03); Imm Gran Pct Auto 0.4 % (0.0-0.4); Lymphocytes Absolute Auto 4.8 X10*3/uL (1.2-4.9); Lymphocytes Percent Auto 24.5 % (20-40); Mean Corpuscular HGB Conc 32.3 g/dl (31.0-36.0); Monocytes Absolute Auto 1.2 X10*3/uL (0.1-1.2); Monocytes Percent Auto 5.9 % (2-11); Neutrophils Absolute Auto 12.6 x10*3/uL (2.0-8.3); Neutrophils Percent Auto 63.8 % (45-73); Platelet Count 191 X10*3/uL (160-400); Red Blood Count 3.74 X10*6/uL (4.60-5.80); Red Cell Distribution Width 15.5 % (11.0-16.0); White Blood Count 19.7 X10*3/uL (4.8-10.8)
[2021-08-01 07:39] LABS: Alanine Aminotransferase 16 U/L (0-40); Albumin Level 2.4 g/dL (3.5-5.0); Alkaline Phosphatase 136 U/L (39-117); Anion Gap 10 (12-20); Aspartate Amino Transferase 72 U/L (5-37); Blood Urea Nitrogen 5 mg/dL (9-16); Calcium 8.2 mg/dL (8.4-10.2); Carbon Dioxide 30 mmol/L (22-29); Chloride 105 mmol/L (96-108); Creatinine Clr Calc Pharmacy 124.8; Estimated Glomerular Filt Rate > 60; Glucose Fasting 94 mg/dL (60-99); Potassium 3.4 mmol/L (3.3-5.1); Sodium 142 mmol/L (135-145); Total Protein 6.1 g/dL (6.5-8.0)
[2021-08-01 08:00] VITALS: BP 113/68; PULSE 86; RESP 17; TEMP 36.7; O2SAT 100
[2021-08-01] MEDS: Enoxaparin Sodium 40 MG/0.4 ML SYRINGE SUBCUT (10:23)
[2021-08-01] MEDS: 0.9 % Sodium Chloride Flush 3 ML SYRINGE IVFLUSH ×2 (10:27→16:30)
[2021-08-01] MEDS: Nicotine 14 MG PATCH.TD24 TRANSDERMA (10:27)
[2021-08-01 11:01] VITALS: BP 128/75; PULSE 84; RESP 18; TEMP 36.7; O2SAT 98
--- NOTE | 2021-08-01 11:17 | P.PNIM_ITS ---
Subjective Subjective Date of Service: 08/01/21 Physical Exam Vital Signs: Vital Signs: Last Vital Signs Temp 98.1 F 08/01/21 11:01 Pulse 84 08/01/21 11:01 Resp 18 08/01/21 11:01 BP 128/75 08/01/21 11:01 Pulse Ox 98 08/01/21 11:01 BMI result Body Mass Index 18.3 Const: Other: Awake alert no acute distress HEENT: Other: Membranes moist Resp: Other: Rhonchorous throughout with improved aeration to bases Cardio: Other: No S4; positive S1-S2; no S3 murmurs rubs or gallops GI: Other: Soft nontender nondistended with normoactive bowel sounds Extrem: Other: No edema bilaterally Objective Data Active Medications Acetaminophen (Acetaminophen Supp 650 Mg Supp.Rect) 650 mg IN Q6H PRN PRN Reason: Fever >100.4 Aspirin (Aspirin Enteric Coated 81 Mg Tablet.Dr) 81 mg PO DAILY [facility] Last Admin: 08/01/21 10:30 Dose: Not Given Documented by: KOREY Non-Admin Reason: Patient Refused Clonazepam (Clonazepam 1 Mg Tablet) 1 mg PO TID [facility] Last Admin: 08/01/21 10:30 Dose: Not Given Documented by: KOREY Non-Admin Reason: Patient Refused Clopidogrel Bisulfate (Clopidogrel Bisulfate 75 Mg Tablet) 75 mg PO DAILY [facility] Last Admin: 08/01/21 10:30 Dose: Not Given Documented by: KOREY Non-Admin Reason: Patient Refused Docusate Sodium (Docusate Sodium 100 Mg Capsule) 200 mg PO DAILY [facility] Last Admin: 08/01/21 10:30 Dose: Not Given Documented by: KOREY Non-Admin Reason: Patient Refused Enoxaparin Sodium (Enoxaparin Sodium 40 Mg/0.4 Ml Syringe) 40 mg SUBCUT Q24H [facility] Last Admin: 08/01/21 10:23 Dose: 40 mg Documented by: KOREY Famotidine (Famotidine 20 Mg Tablet) 20 mg PO BEDTIME [facility] Last Admin: 07/31/21 21:09 Dose: 20 mg Documented by: JOSE Folic Acid (Folic Acid 1 Mg Tablet) 1 mg PO DAILY [facility] Last Admin: 08/01/21 10:31 Dose: Not Given Documented by: KOREY Non-Admin Reason: Patient Refused Piperacillin Sod/Tazobactam (Sod 3.375 gm/ Sodium Chloride) 50 mls @ 100 mls/hr IV Q6H [facility] Last Infusion: 08/01/21 11:16 Dose: 0 mls/hr Documented by: KOREY Dextrose/Lactated Ringer's (D5lr) 1,000 mls @ 125 mls/hr IVCONT .Q8H [facility] Last Admin: 08/01/21 03:59 Dose: 125 mls/hr Documented by: ARGENIS Megestrol Acetate (Megestrol Acetate 20 Mg Tablet) 40 mg PO DAILY [facility] Last Admin: 08/01/21 10:31 Dose: Not Given Documented by: KOREY Non-Admin Reason: Patient Refused Melatonin (Melatonin 3 Mg Tablet) 3 mg PO BEDTIME [facility] Last Admin: 07/31/21 21:08 Dose: 3 mg Documented by: JOSE Multivitamins/Vitamin C (Multivitamin Tablet) 1 tab PO DAILY [facility] Last Admin: 08/01/21 10:31 Dose: Not Given Documented by: KOREY Non-Admin Reason: Patient Refused Nicotine (Nicotine 14 Mg Patch.Td24) 14 mg TRANSDERMA DAILY [facility] Last Admin: 08/01/21 10:27 Dose: 14 mg Documented by: KOREY Ondansetron HCl (Ondansetron Odt 4 Mg Tab.Rapdis) 4 mg TRANSLINGU Q12H PRN PRN Reason: Nausea And Vomiting Ondansetron HCl (Ondansetron Hcl 4 Mg/2 Ml Vial) 4 mg IVPUSH Q8H PRN PRN Reason: Nausea and Vomiting Last Admin: 07/29/21 09:15 Dose: 4 mg Documented by: RAFFY-RAMJOHANNY Ondansetron HCl (Ondansetron Hcl 4 Mg/2 Ml Vial) 4 mg IVPUSH Q8H PRN PRN Reason: Nausea Last Admin: 07/29/21 14:47 Dose: 4 mg Documented by: EDILIADENL Oxycodone HCl (Oxycodone Hcl Immed Release 5 Mg Tablet) 5 mg PO Q6H PRN PRN Reason: Pain, Severe (Pain Scale 7-10) Oxycodone HCl (Oxycodone Hcl Er 10 Mg Tab.Er.12h) 20 mg PO BID [facility] Last Admin: 08/01/21 10:31 Dose: Not Given Documented by: KOREY Non-Admin Reason: Patient Refused Pantoprazole Sodium (Pantoprazole Sodium 40 Mg/10 Ml Vial) 40 mg IVPUSH BID@0630,1630 [facility] Last Admin: 08/01/21 06:03 Dose: 40 mg Documented by: ARGENIS Pharmacy Consult (Consult Rx Perform Med Rec) 1 each MISCELLANE ONCE PRN PRN Reason: Consult order Pharmacy Consult (Consult Rx Perform Med Rec) 1 each MISCELLANE ONCE PRN PRN Reason: Consult order Sodium Chloride (0.9 % Sodium Chloride Flush 3 Ml Syringe) 3 ml IVFLUSH QSHIFT [facility] Last Admin: 08/01/21 10:27 Dose: 3 ml Documented by: KOREY Labs CBC & Chem 7: 08/01/21 06:47 08/01/21 06:47 Labs: Laboratory Results - last 24 hr 08/01/21 08/01/21 06:47 06:47 MCV 96.0 MCH 31.0 MCHC 32.3 RDW 15.5 Plt Count 191 MPV 11.0 Immature Gran % (Auto) 0.4 Neut % (Auto) 63.8 Lymph % (Auto) 24.5 [place] % (Auto) 5.9 Eos % (Auto) 4.5 H Baso % (Auto) 0.9 Lymph # (Auto) 4.8 [place] # (Auto) 1.2 Eos # (Auto) 0.9 H Baso # (Auto) 0.2 Abs Immat Gran (auto) 0.08 H Absolute Neuts (auto) 12.6 H Absolute Nucleated RBC 0.000 Nucleated RBC % (auto) 0.0 Anion Gap 10 L Estim Creat Clear Calc 124.8 Estimated GFR > 60 Fasting Glucose 94 Calcium 8.2 L Total Bilirubin 1.0 AST 72 H ALT 16 Alkaline Phosphatase 136 H Total Protein 6.1 L Albumin 2.4 L Microbiology Microbiology Results: Microbiology 07/29/21 08:36 Blood Culture - Preliminary Blood - Venous No growth after 48 hours. 07/29/21 08:21 Blood Culture - Preliminary Blood - Venous No growth after 48 hours. Assessment and Plan (1) Aspiration pneumonia: Status: Acute (2) Hepatocellular carcinoma: Status: Chronic Plan 66-year-old male with hepatocellular carcinoma admitted to emergency room initially for SNF placement. Over last 24 hours, vomiting with aspiration pneumonia. Hypotensive this a.m. with fever to 102 responding to therapies 1. Sepsis secondary to aspiration pneumonia...Continue to improve, no hypoxia -continue IV Zosyn and change to PO if able take oral, he refused oral meds today -Speech eval 2. GERD--PPI 3. Hepatocellular carcinoma -will attempt to get hold of the proxy; at this time patient wishes to be a full code 3. Moderate to severe--protein calory malnutrition-- Speech, nutrition eval Full code. .. Will need for treatment of aspiration pneumonia and stabilization of parameters. Quality Stroke Does the patient have a stroke diagnosis?: No VTE Prior VTE?: No VTE Risk Level:: Medical - moderate - high VTE Device Contraindication: Treatment Not Indicated VTE Drug Contraindication: N/A - Med Ordered
--- NOTE | 2021-08-01 12:07 | MHC.CM.PN ---
Male 66 DX Aspiration PNA. No discharge today, WBC are elevated. Referrals have received a clinical update today.
--- NOTE | 2021-08-01 13:47 | MHC.CLN ---
RE: CONSULT & F/U PT IS SEVERELY MALNOURISHED SEE ALSO FULL CLINICAL NUTRITION ASSESSMENT DATED 07/30/21 PO INTAKE 25% X 3 MEALS DIET RX: REGULAR-APPROPRIATE PT RECEIVING ENSURE TID TO INCREASE KCALS AND PROMOTE WOUND HEALING SUPP TO PROVIDE 1050KCALS, 60 G PROTEIN MONITOR PO INTAKE AND SUPPLEMENT ACCEPTANCE CLOSELY
--- NOTE | 2021-08-01 15:57 | MHC.SLORD ---
Speech Language Pathology Order Status: Order received this afternoon. CAR REPAIRER PULLMAN attempted to see patient for bedside dysphagia evaluation. Patient refusing to open his mouth for oral care. Patient was given teaspoon of water, spit it out. Will re-attempt tomorrow morning.
[2021-08-01 22:30] VITALS: BP 123/77; PULSE 85; RESP 18; TEMP 36.4; O2SAT 95
[2021-08-01 23:17] VITALS: BP 117/81; PULSE 88; RESP 20; TEMP 37.3; O2SAT 94
[2021-08-02] MEDS: Dextrose 5 % and Lactated Ring 1,000 ML 125 ML IVCONT ×2 (00:44→10:12)
[2021-08-02 02:52] VITALS: BP 146/92; PULSE 79; RESP 20; TEMP 37.6; O2SAT 90
[2021-08-02] MEDS: Piperacillin Sodium/Tazobactam 3.375 GM in 0.9 % Sodium Chloride 50 ML IV ×4 (06:14→23:09)
[2021-08-02 07:35] VITALS: BP 123/66; PULSE 101; RESP 18; TEMP 37.2; O2SAT 95
[2021-08-02] MEDS: 0.9 % Sodium Chloride Flush 3 ML SYRINGE IVFLUSH ×3 (10:13→23:10)
[2021-08-02] MEDS: Enoxaparin Sodium 40 MG/0.4 ML SYRINGE SUBCUT (10:56)
[2021-08-02] MEDS: Nicotine 14 MG PATCH.TD24 TRANSDERMA (10:57)
[2021-08-02 11:21] VITALS: BP 120/81; PULSE 95; RESP 18; TEMP 37.2; O2SAT 97
--- NOTE | 2021-08-02 11:30 | MHC.SL.SWA ---
Speech Pathologist Impression: Risk of Aspiration Due to: Medically Fragile History of Pneumonia Poor PO Intake Reduced Cognition Dysphasia Diet Status: Pt requires direct supervision/assistance at ALL MEALS. Liquid Consistency and Strategies for Safe Swallow: Liquid Intake Recommendation: Thin Liquid Intake Strategies: Small Sips No Straws Solid Food Consistency: Dietary Recommendations: Grnd/Mech Altered (NDD2) Additional Modifications to Solid Foods: Add sauces/gravies. Pt will need full supervision/assistance during all meals, w/encouragement to eat, close monitor for clinical signs of aspiration. Oral Medication Intake: Crushed with Puree Please contact the pharmacy regarding appropriate crushable or liquid drug formulations that are available whenever modified delivery is recommended. Compensatory Strategies and Precautions to be Taken for Safe Swallow: Sitting Upright (90 deg) No Straw Liquids from Cup Liquids from Spoon Small Bites and Sips Alternate Liquids/Solids Oral Check Supervision While Eating and Drinking for Safe Swallow: Total Supervision (1:1) Foods to Avoid: Difficult to chew solids, overly sticky foods. Swallowing Recommended Treatments: Compens. Strategy Educat. Recommendation for Speech: Inpatient Speech Therapy Comment: Pt was minimally cooperative with today's assessment, tolerating only small amounts of thin liquid and one presentation of puree. Pt is edentulous, dentures not present at the time of this assessment, Pt not responding reliably to ? related to self care. Pt presents w/sporadic delay initiating swallow on liquid and puree, and difficulty containing liquid w/anterior spillage noted. Recommend DOWNGRADE current diet to Ground/Mechanical (NDD2), primarily due to edentulous state, w/ THIN liquids by spoon or cup sip, but NO STRAWS. Pt will need strict supervision and full support at all meals, w/encouragement to eat, and positive reinforcement when accepting food. Recommendations sent by secure text to MD/Ip Paralegal, and discussed w/ nursing. SNOWBOARDING INSTRUCTOR will continue to follow, re-assess swallow, recommend upgrades when appropriate. Frequency/Duration: Date Range for Service Req: Timeline to reassess: Librarian Assistant Clinican/Clinical Fellow: No Supervisory Statement: I have reviewed and agree with the student/clinical fellow's documentation: N/A Speech Language Pathologist: Myesha Diaz M.A., CCC-SNOWBOARDING INSTRUCTOR
--- NOTE | 2021-08-02 12:35 | P.PNIM_ITS ---
Subjective Subjective Date of Service: 08/02/21 Interval History: F/u on aspiration interval history: overall doing poorly, refusing meds at time, still with signs of aspriation, very cachectic and malnurished, not saying much Review of Systems Review of Systems: Yes Unobtainable due to mental status Physical Exam Vital Signs: Vital Signs: Last Vital Signs Temp 98.9 F 08/02/21 11:21 Pulse 95 08/02/21 11:21 Resp 18 08/02/21 11:21 BP 120/81 08/02/21 11:21 Pulse Ox 97 08/02/21 11:21 BMI result Body Mass Index 18.3 Const: Other: General: No distress, cachectic Resp: erika rhonchi CVS: S1,S2,RRR GI: +BS, NT, no distention Skin: No rash Neuro: motor grossly intact Psych: appropriate affect Objective Data Active Medications Acetaminophen (Acetaminophen Supp 650 Mg Supp.Rect) 650 mg OK Q6H PRN PRN Reason: Fever >100.4 Aspirin (Aspirin Enteric Coated 81 Mg Tablet.Dr) 81 mg PO DAILY [facility] Last Admin: 08/02/21 10:57 Dose: Not Given Documented by: CHARLIE Non-Admin Reason: Patient Refused Clonazepam (Clonazepam 1 Mg Tablet) 1 mg PO TID [facility] Last Admin: 08/02/21 11:20 Dose: Not Given Documented by: CHARLIE Non-Admin Reason: Patient Refused Clopidogrel Bisulfate (Clopidogrel Bisulfate 75 Mg Tablet) 75 mg PO DAILY [facility] Last Admin: 08/02/21 11:21 Dose: Not Given Documented by: CHARLIE Non-Admin Reason: Patient Refused Docusate Sodium (Docusate Sodium 100 Mg Capsule) 200 mg PO DAILY [facility] Last Admin: 08/02/21 10:57 Dose: Not Given Documented by: CHARLIE Non-Admin Reason: Patient Refused Enoxaparin Sodium (Enoxaparin Sodium 40 Mg/0.4 Ml Syringe) 40 mg SUBCUT Q24H [facility] Last Admin: 08/02/21 10:56 Dose: 40 mg Documented by: CHARLIE Famotidine (Famotidine 20 Mg Tablet) 20 mg PO BEDTIME [facility] Last Admin: 08/01/21 22:01 Dose: Not Given Documented by: ANA Non-Admin Reason: Patient Refused Folic Acid (Folic Acid 1 Mg Tablet) 1 mg PO DAILY [facility] Last Admin: 08/02/21 11:21 Dose: Not Given Documented by: CHARLIE Non-Admin Reason: Patient Refused Piperacillin Sod/Tazobactam (Sod 3.375 gm/ Sodium Chloride) 50 mls @ 100 mls/hr IV Q6H [facility] Last Infusion: 08/02/21 11:30 Dose: 0 mls/hr Documented by: CHARLIE Megestrol Acetate (Megestrol Acetate 20 Mg Tablet) 40 mg PO DAILY [facility] Last Admin: 08/02/21 11:21 Dose: Not Given Documented by: CHARLIE Non-Admin Reason: Patient Refused Melatonin (Melatonin 3 Mg Tablet) 3 mg PO BEDTIME [facility] Last Admin: 08/01/21 22:01 Dose: Not Given Documented by: ANA Non-Admin Reason: Patient Refused Multivitamins/Vitamin C (Multivitamin Tablet) 1 tab PO DAILY [facility] Last Admin: 08/02/21 11:22 Dose: Not Given Documented by: CHARLIE Non-Admin Reason: Patient Refused Nicotine (Nicotine 14 Mg Patch.Td24) 14 mg TRANSDERMA DAILY [facility] Last Admin: 08/02/21 10:57 Dose: 14 mg Documented by: CHARLIE Ondansetron HCl (Ondansetron Odt 4 Mg Tab.Rapdis) 4 mg TRANSLINGU Q12H PRN PRN Reason: Nausea And Vomiting Ondansetron HCl (Ondansetron Hcl 4 Mg/2 Ml Vial) 4 mg IVPUSH Q8H PRN PRN Reason: Nausea and Vomiting Last Admin: 07/29/21 09:15 Dose: 4 mg Documented by: LAQUITA Ondansetron HCl (Ondansetron Hcl 4 Mg/2 Ml Vial) 4 mg IVPUSH Q8H PRN PRN Reason: Nausea Last Admin: 07/29/21 14:47 Dose: 4 mg Documented by: NICO Oxycodone HCl (Oxycodone Hcl Immed Release 5 Mg Tablet) 5 mg PO Q6H PRN PRN Reason: Pain, Severe (Pain Scale 7-10) Oxycodone HCl (Oxycodone Hcl Er 10 Mg Tab.Er.12h) 20 mg PO BID [facility] Last Admin: 08/02/21 10:58 Dose: Not Given Documented by: CHARLIE Non-Admin Reason: Patient Refused Pharmacy Consult (Consult Rx Perform Med Rec) 1 each MISCELLANE ONCE PRN PRN Reason: Consult order Pharmacy Consult (Consult Rx Perform Med Rec) 1 each MISCELLANE ONCE PRN PRN Reason: Consult order Sodium Chloride (0.9 % Sodium Chloride Flush 3 Ml Syringe) 3 ml IVFLUSH QSHIFT [facility] Last Admin: 08/02/21 10:13 Dose: 3 ml Documented by: CHARLIE Labs CBC & Chem 7: 08/01/21 06:47 08/01/21 06:47 Microbiology Microbiology Results: Microbiology 07/27/21 13:16 Blood Culture - Final Blood - Venous No growth after 5 days. 07/27/21 13:16 Blood Culture - Final Blood - Venous No growth after 5 days. Assessment and Plan (1) Aspiration pneumonia: Status: Acute (2) Hepatocellular carcinoma: Status: Chronic Plan 66-year-old male with hepatocellular carcinoma admitted to emergency room initially for SNF placement. Over last 24 hours, vomiting with aspiration pneumonia. Hypotensive this a.m. with fever to 102 responding to therapies 1. Sepsis secondary to aspiration pneumonia..Hypoxia resolved -continue IV Zosyn and change to PO by tomorrow Diet per speech 2. GERD--PPI 3. Moderate to severe--protein calory malnutrition-- Speech, nutrition eval 4. Hepatocellular carcinoma--not candidate for treatment, prognosis poor, and discusssed with HCP and changing status to DNR/DNI and hospice consult is requested Full code. .. Will need for treatment of aspiration pneumonia and stabilization of parameters. Quality Stroke Does the patient have a stroke diagnosis?: No VTE Prior VTE?: No VTE Risk Level:: Medical - moderate - high VTE Device Contraindication: Treatment Not Indicated VTE Drug Contraindication: N/A - Med Ordered
[2021-08-02 19:15] VITALS: BP 147/90; PULSE 89; RESP 20; TEMP 36.1; O2SAT 99
[2021-08-03] VITALS (7 sets, daily range): BP systolic 103–152; BP diastolic 63–76; PULSE 78–132; RESP 19–22; TEMP 36.4–37.8; O2SAT 92–99
--- NOTE | 2021-08-03 02:15 | PC.NURSE ---
Around 01:45AM pt. HR noted to be sustaining 120's - 130's. Pt. assessed. Pt. nonverbal. Respiratory rate increased. Pt. noted to have junky breath sounds. Vital signs taken - BP 152/76, Rectal Temp 100.1, O2 Sat 95% on 2L NC. Performed mouth care and oral suction to clear some secretions. Pt. is on IV Zosyn for aspiration pneumonia. Plan for hospice. made aware. No new orders at this time.
[2021-08-03] MEDS: Acetaminophen Supp 650 MG SUPP.RECT PR (02:34)
[2021-08-03] MEDS: Piperacillin Sodium/Tazobactam 3.375 GM in 0.9 % Sodium Chloride 50 ML IV (05:27)
--- NOTE | 2021-08-03 08:19 | P.CDIC_ITS ---
CDI Concurrent Query Documentation Clarification: PHYSICIAN'S DOCUMENTATION REQUEST Date of Query: 08/03/21 0819 Patient Name: Maximino Landon Admit Date: 07/29/21 Dear Doctor, A review of the medical record indicates additional documentation may be indicated. Please review below and update the documentation accordingly. Clinical Indicators: Risk Factors/Clinical Indicators/Treatments Wound care notes 08/02 - Stage II pressure injury medial coccyx. Triad, repo q2 dsg d/i Nutrition 07/30 - Ensure TID to promote wound healing. Based on the above, could you please provide, in the Progress Notes, further information regarding the ulcer/wound: * If a pressure ulcer, please also include the stage* of the ulcer: * Stage 1 - Skin intact, non-blanchable redness * Stage 2 - Partial thickness loss of dermis, includes intact or open blister * Stage 3 - Full thickness tissue not including bone, tendon, or muscle * Other * Unable to determine *Source: National Pressure Ulcer Advisory Panel (NPUAP) Use of terms such as suspected, likely, concern for, or probable (associated with a specific diagnosis that is being evaluated, monitored, or treated as if it exists) are acceptable and can be coded in the inpatient setting, when documented at the time of discharge. Thank you, Frances Du [facility], CDIS Extension: [phone] Please use your independent medical judgment in providing your response. THIS QUERY IS PART OF THE PERMANENT MEDICAL RECORD Provider Response: Other Other Diagnosis: Stage II pressure injury medial cocyx
--- NOTE | 2021-08-03 09:32 | HO.PM.IMPN ---
Subjective Subjective Date of Service: 08/03/21 Interval History: F/u on aspiration interval history: Over continues to do poorly with no clinically improvement, confused, not communicative. Decision made by HCP for hospice and comfort Review of Systems Review of Systems: Yes Unobtainable due to mental status Physical Exam Vital Signs: Vital Signs: Last Vital Signs Temp 98.3 F 08/03/21 07:48 Pulse 108 H 08/03/21 07:48 Resp 22 H 08/03/21 07:48 BP 114/75 08/03/21 07:48 Pulse Ox 92 08/03/21 07:48 BMI result Body Mass Index 18.3 Const: Other: General: anxious/confused Resp: erika rhonchi CVS: S1,S2,RRR, tachy GI: +BS, NT, no distention Skin: No rash Stage II pressure injury medial yvonne Psych: flat Objective Data Active Medications Acetaminophen (Acetaminophen Supp 650 Mg Supp.Rect) 650 mg ME Q6H PRN PRN Reason: Fever >100.4 Last Admin: 08/03/21 02:34 Dose: 650 mg Documented by: JACKIE Folic Acid (Folic Acid 1 Mg Tablet) 1 mg PO DAILY [facility] Last Admin: 08/02/21 11:21 Dose: Not Given Documented by: CHARLIE Non-Admin Reason: Patient Refused Melatonin (Melatonin 3 Mg Tablet) 3 mg PO BEDTIME [facility] Last Admin: 08/02/21 19:49 Dose: Not Given Documented by: JACKIE Non-Admin Reason: Patient Refused Morphine Sulfate (Morphine Sulfate 2 Mg/Ml Cartridge) 2 mg IVPUSH Q2H PRN; Protocol PRN Reason: respiratory distress and cmofo Multivitamins/Vitamin C (Multivitamin Tablet) 1 tab PO DAILY [facility] Last Admin: 08/02/21 11:22 Dose: Not Given Documented by: CHARLIE Non-Admin Reason: Patient Refused Nicotine (Nicotine 14 Mg Patch.Td24) 14 mg TRANSDERMA DAILY [facility] Last Admin: 08/02/21 10:57 Dose: 14 mg Documented by: CHARLIE Ondansetron HCl (Ondansetron Odt 4 Mg Tab.Rapdis) 4 mg TRANSLINGU Q12H PRN PRN Reason: Nausea And Vomiting Ondansetron HCl (Ondansetron Hcl 4 Mg/2 Ml Vial) 4 mg IVPUSH Q8H PRN PRN Reason: Nausea and Vomiting Last Admin: 07/29/21 09:15 Dose: 4 mg Documented by: LAQIUTA Pharmacy Consult (Consult Rx Perform Med Rec) 1 each MISCELLANE ONCE PRN PRN Reason: Consult order Pharmacy Consult (Consult Rx Perform Med Rec) 1 each MISCELLANE ONCE PRN PRN Reason: Consult order Sodium Chloride (0.9 % Sodium Chloride Flush 3 Ml Syringe) 3 ml IVFLUSH QSHIFT [facility] Last Admin: 08/02/21 23:10 Dose: 3 ml Documented by: ANTOIC Labs CBC & Chem 7: 08/01/21 06:47 08/01/21 06:47 Assessment and Plan (1) Aspiration pneumonia: Status: Acute (2) Hepatocellular carcinoma: Status: Chronic Plan 66-year-old male with hepatocellular carcinoma admitted to emergency room initially for SNF placement. Over last 24 hours, vomiting with aspiration pneumonia and admitted for sepsis, pneumonia 1. Sepsis secondary to aspiration pneumonia. 2. Hepatocellular carcinoma--not candidate for treatment 3. Stage II pressure injury medial yvonne 4. Moderate to severe--protein calory malnutrition --Overall very poor prognosis and negligeable chance for any meaningful recover, I have discusse further treatment with HCP HCP Rosi Landon over the phone on 08/02 and came to the conclusion that hospice care will best managment going forward and to alter code status to DNR/DNI.. Hospice consult requested, DC meds except those for comfort (morphine, Ativan, scopolamine patch...) Inpatient need: To be transitioned to hospice, case management to arrange for placement. Quality Stroke Does the patient have a stroke diagnosis?: No VTE Prior VTE?: No VTE Risk Level:: Medical - moderate - high VTE Device Contraindication: Treatment Not Indicated VTE Drug Contraindication: N/A - Med Ordered
[2021-08-03] MEDS: Folic Acid 1 MG TABLET PO (09:37)
[2021-08-03] MEDS: Docusate Sodium 100 MG CAPSULE 200 MG PO (09:37)
[2021-08-03] MEDS: Megestrol Acetate 20 MG TABLET 40 MG PO (09:37)
[2021-08-03] MEDS: Multivitamin TABLET 1 TAB PO (09:37)
[2021-08-03] MEDS: Aspirin Enteric Coated 81 MG TABLET.DR PO (09:37)
[2021-08-03] MEDS: Clopidogrel Bisulfate 75 MG TABLET PO (09:37)
[2021-08-03] MEDS: Enoxaparin Sodium 40 MG/0.4 ML SYRINGE SUBCUT (09:38)
[2021-08-03] MEDS: 0.9 % Sodium Chloride Flush 3 ML SYRINGE IVFLUSH ×2 (09:38→17:27)
[2021-08-03] MEDS: Nicotine 14 MG PATCH.TD24 TRANSDERMA (09:38)
[2021-08-03] MEDS: Scopolamine 1.5 MG PATCH.TD.3 EAR-BEHIND (10:07)
--- NOTE | 2021-08-03 10:41 | MHC.SLORD ---
Speech Language Pathology Order Status: CITY PLANNING TEACHER spoke with RN this morning. Per RN, aide fed patient with no reported difficulties today. Patient took pills for RN, both whole and crushed in puree, without difficulty. Patient is on ground solids (NDD2) and thin liquids. Per chart review and RN report, patient is possible hospice. CITY PLANNING TEACHER will continue to follow.
--- NOTE | 2021-08-03 13:34 | MHC.CLN ---
F/U PT IS SEVERELY MALNOURISHED SEE ALSO FULL CLINICAL NUTRITION ASSESSMENT DATED 07/30/21 PO INTAKE 0-25% DIET RX: GRD M/S-APPROPRIATE PT RECEIVING ENSURE TID TO INCREASE KCALS AND PROMOTE WOUND HEALING PT TRANSITIONING TO HOSPICE SERVICES PER MD WILL D/C ENSURE TID WILL FOLLOW WITH TEAM AND PROVIDE SUPPORT NEEDED
--- NOTE | 2021-08-03 15:58 | MHC.CM.PN ---
[facility] FRIDAY. HE WILL DISCHARGE TO [facility] [place] OVER THE WEEKEND. THE MDS WAS SENT TO [facility] 3:30PM 08/03/21. PATIENT WILL TRANSPORT VIA BLS. PLEASE CALL GUARDIAN MOSHE BUTTS TO NOTIFY OF DISCHARGE TO [facility] [place] @ TIME OF DC.
[2021-08-03 23:09] LABS: COVID-19 Test Negative (Negative)
[2021-08-04] MEDS: 0.9 % Sodium Chloride Flush 3 ML SYRINGE IVFLUSH ×2 (00:46→11:46)
[2021-08-04 06:00] VITALS: BP 135/76; PULSE 92; RESP 20; TEMP 36.9; O2SAT 95
--- NOTE | 2021-08-04 08:04 | P.DS_ITS ---
DS: Providers Provider Date of Service: 08/04/21 Date of admission: 07/29/21 09:05 Primary care physician: Epi Arnold MD Consults: 07/27/21 16:46 Consult to Psychiatry Stat Consulting Provider: Psych Covering Reason for consultation: is pt able to be own decider? 07/29/21 12:09 Consult to Critical Care Routine Consulting Provider: Ramon Hutchins Reason for consultation: Sepsis Has provider been notified: Yes DS: Diagnosis Discharge Diagnosis (1) Aspiration pneumonia: Status: Acute (2) Hepatocellular carcinoma: Status: Chronic DS: Summary Hospital Course Hospital Course: Chief Complaint: sepsis secondary to aspiration pneumonia ?66-year-old male presents from home for failure to thrive that is worsening. ? Per ADVISORY INTERN at home and visiting nurse at home, patient has decreased oral intake over the last several days and worsening failure to thrive over the last several days.? Patient was admitted in June to [facility] for hypoxic respiratory failure secondary to aspiration pneumonia, but refused short-term rehab ?patient has a history of CVA, hepatocellular carcinoma, liver cirrhosis, hepatitis-C, and alcohol abuse. Patient was boarded in the ER awaiting nursing home facility placement; early this a.m. patient had an episode of vomiting during which she aspirated.? This a.m. temp to 102 for tachycardic in the 120s with blood pressures 70s.? Lactate 3.1. Sepsis protocol initiated; blood cultures x2 drawn saline bolus at 30 cc/kilogram begun and patient also given 100 cc of 25% albumin.? Over the next 1-1.5 hours patient responded to fluid bolus.? Will continue fluid bolus to maintain map greater than equal to 55.? Patient is satting 90% on 2 L Hospital course: This patient with advanced hepatocellular carcinoma complicated by adult failure to thrive, cachexia and severe protein calory malnutrition presented with failure tor thrive, decrease oral intake and found to have sepsis due to aspiration pneumonia, toxic metabolic encephalopathy. Sepsis and pneumonia has been treated with antibiotics, covid is negative, overal he continues to decline with poor nutritional status at time refues meds and care. His cancer is not treatable, his prognosis is poor and following discussion with patient 's health care Proxy Vikram Landon and decided that best treatment going forward was hospice, he will be transfered to SNF for remainder of care. Final diagnoses: Sepsis Aspiration pneumonia Severe protein calory malnutrition Toxic metabolic encephalopathy Hepatocellular carcinoma of late stage Time Spent with Patient Time attestation: Total time spent providing and/or coordinating discharge services: Discharge coordination time: Greater than 30 minutes Quality: Safe Use of Opioids Does Pt have an Active Cancer Diagnosis on the Problem List?: Yes Opioid Measure Date for [facility] Report: 07/05/21 Opioid Measure Time for [facility] Report: 08:22 Quality: Stroke Does the patient have a stroke diagnosis?: No Physical Exam Vital Signs: Vital Signs: Last Vital Signs Temp 98.5 F 08/04/21 06:00 Pulse 92 08/04/21 06:00 Resp 20 08/04/21 06:00 BP 135/76 08/04/21 06:00 Pulse Ox 95 08/04/21 06:00 BMI result Body Mass Index 18.3 DS: Data Data Completed and Pending Labs on day of discharge: Laboratory Results - last 24 hr 08/03/21 22:45 COVID-19 (JOSEPH) Negative COVID-19 Clin Com See Note Discharge Plan Discharge Anticipated Discharge Date/Time: 08/04/21 08:10 Patient Disposition: Xfer SNF Discharge Diagnosis: Sepsis, aspiration pneumonia Referrals: Epi Arnold MD [Primary Care Provider] - 1 Week Discharge Medications: New scopolamine base [Transderm-Scop] 1 mg over 3 days patch 3 day 1 patch transdermal Q3D PRN (Reason: secretions) Qty: 4 0RF morphine concentrate 100 mg/5 mL (20 mg/mL) Solution 5 mg PO Q3H PRN (Reason: pain/comfort) 15 Days Qty: 30 0RF atropine 1 % Drops 1 drp sublingual Q6H PRN (Reason: Secretions) 15 Days Qty: 5 0RF lorazepam [Lorazepam Intensol] 2 mg/mL Concentrate 0.5 mg PO Q4H PRN (Reason: anxiety/restlessness) Qty: 30 0RF Continued ondansetron HCl 8 mg tablet 1 tab PO Q12H PRN (Reason: Nausea And Vomiting) 0RF megestrol 40 mg Tablet 40 mg PO DAILY Qty: 30 2RF melatonin 3 mg Tablet 3 mg PO BEDTIME 0RF Senna Plus 8.6-50 mg Capsule 1 tab-cap PO BEDTIME 0RF docusate sodium [Colace] 100 mg capsule 200 mg PO DAILY 0RF Discontinued folic acid 1 mg tablet 1 mg PO DAILY Qty: 90 1RF Stivarga 40 mg tablet 160 mg PO DAILY 0RF Rx Instructions: 160 mg once daily for the first 21 days of each 28-day cycle clonazepam 1 mg tablet 1 mg PO TID Qty: 10 0RF Rx Instructions: Patient can partially fill this prescription upon request clopidogrel 75 mg tablet 75 mg PO DAILY Qty: 30 0RF aspirin 81 mg tablet,delayed release (DR/EC) 81 mg PO DAILY Qty: 90 1RF famotidine 20 mg tablet 20 mg PO BEDTIME 30 Days Qty: 30 0RF multivitamin Tablet 1 tab PO QAM Qty: 90 0RF oxycodone 5 mg Tablet 5 mg PO Q6H PRN (Reason: Pain) Qty: 90 0RF quetiapine 200 mg tablet extended release 24 hr 1 tab PO BEDTIME 0RF oxycodone [OxyContin] 20 mg tablet,oral only,ext.rel.12 hr 1 tab PO BID 0RF nicotine 14 mg/24 hr patch 24 hour 1 patch transdermal DAILY 0RF Discharge Orders: Discharge Order (Routine); Ordered 08/04/21 Ordered By: Romaine Almaguer Diet: advance to usual diet Activity on Discharge: As tolerated Stand Alone Forms: Patient Portal Discharge page Care Plan Goals: hospice/comofrt care Health Concerns: hospice/comfort care Plan of Treatment: hospice/comfort care Assessment: hospice/comfort care
[2021-08-04 08:17] VITALS: BP 145/82; PULSE 99; RESP 24; TEMP 36.6; O2SAT 94
[2021-08-04 11:20] VITALS: BP 122/78; PULSE 104; RESP 28; TEMP 36.8; O2SAT 92
[2021-08-04] MEDS: Nicotine 14 MG PATCH.TD24 TRANSDERMA (11:45)
--- NOTE | 2021-08-04 12:50 | MHC.CM.PN ---
PT WILL DC TO [facility] TODAY AT 1330 HOURS VIA [facility] CM CALLED PTS GUARDIAN, MOSHE [phone] AND INFORMED HER OF DC TIME. PER CM NOTES, PLAN IS FOR PT TO BE ADMITTED TO [facility]ICE [facility] Friday08/06/21
== END 2021-08-04 15:11 | disposition skilled nursing facility (03) | DRG 871 ==
LOC: HO.ED 07-29 08:54 → HO.EDOVER 07-29 09:10 → HO.IMC 07-29 14:49
PROVIDERS: Anesthesiology; Emergency Medicine; Physician Assistant; Admitting Provider Hospitalist; Emergency Provider Emergency Medicine Emergency Medical Services; PCP Internal Medicine; Visit Provider Internal Medicine
DX: A41.9 Sepsis, unspecified organism (principal); R65.21 Severe sepsis with septic shock; J69.0 Pneumonitis due to inhalation of food and vomit; J96.91 Respiratory failure, unspecified with hypoxia; E43 Unspecified severe protein-calorie malnutrition; G92.8 Other toxic encephalopathy; Z68.1 Body mass index [BMI] 19.9 or less, adult; C22.0 Liver cell carcinoma; R64 Cachexia; R62.7 Adult failure to thrive; L89.152 Pressure ulcer of sacral region, stage 2; K21.9 Gastro-esophageal reflux disease without esophagitis; Z20.822 Contact with and (suspected) exposure to COVID-19; Z86.73 Personal history of transient ischemic attack (TIA), and cerebral infarction without residual deficits; Z87.891 Personal history of nicotine dependence; Z79.899 Other long term (current) drug therapy
CPT/HCPCS: 36415; 70450; 71045; 71046; 74177; 80048; 80053; 80076; 81001; 82077; 82140; 83605; 83690; 83735; 84100; 84484; 85014; 85018; 85025; 85610; 87040; 87635; 92610; 93005; 96365; 96367; 97162; 97530; 99285; C1758; J1650; J1956; J2405; J2543; J2930; J3475; P9047; Q9967